=== PATIENT | female | born 1945 | race Caucasian/White ===

== ENCOUNTER 2021-11-09 06:16 | Day surgery (SDC) | payer MEDICARE, SELFPAY ==
[2021-11-09] VITALS (8 sets, daily range): BP systolic 103–153; BP diastolic 48–73; PULSE 48–58; RESP 16; TEMP 36.7; O2SAT 96–100; BMI 35.9
[2021-11-09] MEDS: LACTATED RINGERS 1000 ML 1,000 ML 100 ML IV (06:50)
[2021-11-09] MEDS: SODIUM CHLORIDE 0.9 % (FLUSH) 10 ML SYRINGE IVF (06:50)
[2021-11-09] MEDS: CLINDAMYCIN 900 MG/6 ML VIAL IVPB (07:55)
[2021-11-09] MEDS: BUPIVACAINE 0.25% 30 ML 10 ML INJECTION (08:05)
--- NOTE | 2021-11-09 08:23 | PM.GSPRC ---
Operative Note Date of procedure: 11/09/21 Type of Procedure: Excision of left buttock lipoma Procedure Description: After discussing the risks and benefits of the procedure, the patient signed informed consent.? The operative site was marked and the patient was brought to the operating room and placed on the operating table in left lateral decubitus position.? Care was taken to pad the patient's pressure points.?? The patient was then given sedation by anesthesia.?? The operative site was then prepped and draped in the usual sterile fashion.? A time-out was then performed. Local anesthetic of 0.25% Marcaine was used to anesthetize the surgical field. A transverse incision was made over the marked area. Dissection was carried down through the subcutaneous tissue with cautery. A well encapsulated lipoma was encountered. This was circumferentially dissected with blunt dissection and cautery. The mass was removed in its entirety and passed off to the back table to be sent for pathology. The mass measured 10 cm x 5 cm x 5 cm in size. The resulting cavity was gently irrigated with normal saline. Hemostasis was assured with electrocautery. The incision measured 4 cm in size and was closed in layers with interrupted 3 0 Vicryl and running 4-0 Monocryl subcuticular stitch. Exofin was applied over top. ? Sterile dressings were then applied. ? The patient was then woken and transported to the recovery area in stable condition. ? The patient tolerated the procedure well. Findings: Large lipomatous mass of the left buttock. Anesthesia: MAC and local Surgeon: Eden De La Vega MD Estimated blood loss (mL): 2 Condition: stable Disposition: same day
--- NOTE | 2021-11-09 08:32 | SUR.OPER ---
PATIENT QUESTIONS ANSWERED SATISFACTORILY PREOPERATIVELY.? PATIENT BROUGHT TO OR #1 PER CART.? Patient positioned supine then lateral right on OR #1 bed.?The perioperative?team supported arms bilaterally on arm boards.? Final approval of positioning by surgeon.?
--- NOTE | 2021-11-09 08:34 | W.ANESCHARGE ---
Anesthesia Charges Start Date/Time Anesthesia Start Date: 11/09/21 Anesthesia Start Time: 07:44 Stop Date/Time Anesthesia Stop Date: 11/09/21 Anesthesia Stop Time: 08:31 Summary Emergency: No Extremes of Age: Over 72-CPT 65188
--- NOTE | 2021-11-09 09:58 | W.ANESCHARGE ---
Anesthesia Charges Start Date/Time Anesthesia Start Date: 11/09/21 Anesthesia Start Time: 07:44 Stop Date/Time Anesthesia Stop Date: 11/09/21 Anesthesia Stop Time: 08:31 Summary Emergency: No Extremes of Age: Over 72-CPT 08494
== END 2021-11-09 10:00 | disposition home or self-care (01) ==
PROVIDERS: PCP Surgery; Visit Provider Surgery
PROC: (CPT 27043; principal; 2021-11-09 07:30)
DX: D17.1 Benign lipomatous neoplasm of skin and subcutaneous tissue of trunk (principal)
CPT/HCPCS: 27043; 400; 88304; 99100; J1100; J2250; J2405; J2704; J3010; J3490; J7120; S0077

== ENCOUNTER 2023-04-17 16:38 | Emergency (ER) | payer MEDICARE, SELFPAY ==
[2023-04-17 16:45] VITALS: BP 146/94; PULSE 82; RESP 18; O2SAT 98; BMI 33.3
--- NOTE | 2023-04-17 17:12 | ED_ITS ---
HPI - Skin/Abscess/Foreign Bdy General Chief complaint: Skin/Abscess/Foreign Body Stated complaint: Abscess on groin Time Seen by Provider: 04/17/23 16:42 History of Present Illness HPI narrative: This 77-year-old female comes in reporting pain and redness in the left inguinal region over the past couple days. She states that the pain and redness has worsened recently. She does not report any fevers. She states that she has had cellulitis in her extremities in the past and wonders if this might be happening in her groin on the left inguinal side. She also reports pain in her right deltoid musculature of the upper arm. She states that she lost her balance and fell forward and put her arm out to catch herself against a wall or some other stool type of support and since then has had some pain in the deltoid region. She has rather good range of motion and no point tenderness in this area. Related Data Home Medications Medication Instructions Recorded Confirmed flavoxate 100 mg tablet 100 mg PO TID 11/07/21 02/17/23 furosemide 20 mg tablet 20 mg PO DAILY 11/07/21 02/17/23 losartan 50 mg tablet 100 mg PO DAILY 11/07/21 02/17/23 ondansetron HCl 4 mg tablet 4 mg PO DAILY 11/07/21 02/17/23 oxybutynin chloride 10 mg 10 mg PO DAILY 11/07/21 02/17/23 tablet,extended release 24 hr potassium chloride 20 mEq 20 meq PO DAILY 11/07/21 02/17/23 tablet,extended release(part/cryst) sumatriptan succinate 50 mg tablet 50 mg PO DAILY 11/07/21 02/17/23 warfarin 5 mg tablet mg 11/07/21 02/17/23 amlodipine 10 mg tablet 10 mg PO DAILY 07/19/22 02/17/23 clobetasol 0.05 % topical ointment topical 07/19/22 02/17/23 doxycycline hyclate 100 mg tablet 100 mg PO BID 07/19/22 02/17/23 fluticasone propionate 50 1 spray intranasal DAILY 07/19/22 02/17/23 mcg/actuation nasal spray,suspension hydroxyzine HCl 25 mg tablet 25 mg PO 3XD 07/19/22 02/17/23 rosuvastatin 5 mg tablet 5 mg PO DAILY 07/19/22 02/17/23 Previous Rx's Medication Instructions Recorded clotrimazole 1 % topical ointment 1 applic topical BID #56.7 grams 04/17/23 doxycycline monohydrate 100 mg 100 mg PO DAILY #14 caps 04/17/23 capsule hydrocodone 5 mg-acetaminophen 325 1 tab PO Q4-6H PRN pain #15 tabs 04/17/23 mg tablet Allergies Allergy/AdvReac Type Severity Reaction Status Date / Time cephalexin Allergy Chest Pain Verified 02/17/23 12:02 clonidine Allergy tachycardia Verified 02/17/23 12:02 ibuprofen Allergy Chest Pain Verified 02/17/23 12:02 latex Allergy Rash Verified 02/17/23 12:02 Penicillins Allergy Anaphylaxis Verified 02/17/23 12:02 Sulfa (Sulfonamide Allergy Hives Verified 02/17/23 12:02 Antibiotics) gadodiamide AdvReac Unknown Verified 02/17/23 12:02 losartan AdvReac Tachycardia Verified 02/17/23 12:02 nitrofurantoin AdvReac Verified 02/17/23 12:02 [From Macrobid] propranolol AdvReac bradycardia Verified 02/17/23 12:02 IV contrast dye Allergy Hives Uncoded 02/17/23 12:02 peg 400-propylene glycol Allergy Rash Uncoded 02/17/23 12:02 Review of Systems Status of ROS: Reports: 10 or more systems reviewed and unremarkable except as noted in History and below Narrative: Constitutional: No fevers, no weight gain or loss. Eyes: No discharge. No vision changes. HENT: No congestion, no sore throat, no ear pain. Cardiovascular: No chest pain, no palpitations. Respiratory: No shortness of breath, no wheezes, no cough. Gastrointestinal: No abdominal pain, no vomiting, no diarrhea. Genitourinary: No dysuria, no hematuria. Musculoskeletal: Pain in the right upper arm. Skin: Erythema and pain in the left inguinal region. Neurological: No dizziness, weakness, sensory change, speech change. Endo/Heme/Allergies: No bruising or bleeding. No polydipsia. Pysch: no suicidality, no anxiety, no insomnia. All other systems reviewed and are negative. [facility] Medical History Atrial fibrillation ?I48.91 - Unspecified atrial fibrillation (ICD-10) Enlarged LA (left atrium) ?I51.7 - Cardiomegaly (ICD-10) Vitamin D deficiency ?E55.9 - Vitamin D deficiency, unspecified (ICD-10) Hyperlipidemia ?E78.5 - Hyperlipidemia, unspecified (ICD-10) Panic disorder without agoraphobia ?F41.0 - Panic disorder [episodic paroxysmal anxiety] (ICD-10) Benign paroxysmal positional vertigo ?H81.10 - Benign paroxysmal vertigo, unspecified ear (ICD-10) Hypertension ?I10 - Essential (primary) hypertension (ICD-10) Surgical History H/O hernia repair ?Z98.890 - Other specified postprocedural states (ICD-10) ?Z87.19 - Personal history of other diseases of the digestive system (ICD-10) H/O dilation and curettage ?Z98.890 - Other specified postprocedural states (ICD-10) History of appendectomy ?Z90.49 - Acquired absence of other specified parts of digestive tract (ICD- 10) Social History Smoking Status: Never smoker Do you use any of these nicotine containing products: None How often do you have a drink containing alcohol: never How often do you have six or more drinks on one occasion: Never AUDIT-C Alcohol total score: 0 Non-prescribed substance use: denies use Caffeine: No Are you using contraception or practicing any form of control: No Exam Narrative: Exam Narrative: Constitutional: Well-developed, well-nourished, no acute distress. HEENT: Normocephalic, atraumatic. Neck: Normal range of motion. Nontender. Supple. Heart: Regular. No murmurs. Normal rate. Intact distal pulses. Lungs: Clear to auscultation. No chest discomfort. No wheezes, rhonchi, or rales. Abdomen: Normal bowel sounds. Nontender. No rebound tenderness. Genitalia: Erythema in the skin fold of the left inguinal region. There is a small lump about 1 cm in diameter that may represent a small abscess. There is no sign of drainage. The skin is moist in the area of the skin fold. Back: No midline tenderness. Normal range of motion. Extremities: No injury. Diffuse pain in the right deltoid region of the upper arm. Range of motion is intact except it is more difficult for her to abduct her right arm beyond 90?. She has normal internal and external rotation. Empty can sign is negative. Lift-off sign also was negative. Skin: Intact. No rash. Warm. No erythema or pallor. Neurologic: No altered sensation. No weakness. Alert and oriented. Psychiatric: No suicidality. No anxiety or depression. No insomnia. Nursing notes and vitals signs are reviewed. Const: Vital Signs, click to edit/add: Vital Signs - 24 hr 04/17/23 16:45 Pulse Rate [Pulse Oximeter] 82 Respiratory Rate 18 Blood Pressure [Le ft Upper Arm] 146/94 H Pulse Oximetry 98 Oxygen Delivery Me thod Room Air Course Vital Signs Vital signs: Initial Vital Signs Pulse Rate 82 04/17/23 16:45 Pulse Rhythm Regular 04/17/23 16:45 Pulse Strength 3+ Normal 04/17/23 16:45 Respiratory Rate 18 04/17/23 16:45 Blood Pressure 146/94 H 04/17/23 16:45 Blood Pressure Mean 111 H 04/17/23 16:45 Blood Pressure Position Sitting 04/17/23 16:45 Pulse Oximetry 98 04/17/23 16:45 Oxygen Delivery Method Room Air 04/17/23 16:45 Vital Signs Pulse Rate 82 04/17/23 16:45 Respiratory Rate 18 04/17/23 16:45 Blood Pressure 146/94 H 04/17/23 16:45 Pulse Oximetry 98 04/17/23 16:45 Oxygen Delivery Method Room Air 04/17/23 16:45 Pulse Rate 82 04/17/23 16:45 Respiratory Rate 18 04/17/23 16:45 Blood Pressure 146/94 H 04/17/23 16:45 Pulse Oximetry 98 04/17/23 16:45 Oxygen Delivery Method Room Air 04/17/23 16:45 MDM - Skin/Abscess/Foreign Bdy MDM Narrative Medical decision making narrative: This patient has what appears to be a cellulitis in the left inguinal fold. There is moist presentation also bringing suspicion for superficial yeast or fungal infection. The patient has normal vital signs. I did discuss lab and imaging options but indicated a need to treat with antibiotic. Additionally her right upper arm is not showing sign of fracture or significant disability. I did discuss the role of x-ray imaging and in a process of shared decision making this was declined. The patient received prescriptions for doxycycline, clotrimazole, and [place]. I did describe signs and symptoms that indicate a need for return and re-evaluation. Discharge Plan Discharge Clinical Impression: Cellulitis, Right shoulder pain Patient Disposition: Home, Self-Care Condition: Unchanged Additional Instructions: Take medication as needed and indicated. Follow up with MD or return if worsening symptoms occur. Prescriptions: New hydrocodone-acetaminophen 5-325 mg tablet 1 tab PO Q4-6H PRN (Reason: pain) Qty: 15 0RF clotrimazole 1 % ointment 1 applic topical BID Qty: 56.7 0RF doxycycline monohydrate 100 mg capsule 100 mg PO DAILY Qty: 14 0RF No Action doxycycline hyclate 100 mg tablet 100 mg PO BID clobetasol 0.05 % ointment topical fluticasone propionate 50 mcg/actuation spray,suspension 1 spray intranasal DAILY hydroxyzine HCl 25 mg tablet 25 mg PO 3XD amlodipine 10 mg tablet 10 mg PO DAILY rosuvastatin 5 mg tablet 5 mg PO DAILY losartan 50 mg tablet 100 mg PO DAILY Patient Comments: TAKE 2 TABLETS BY MOUTH ONCE DAILY oxybutynin chloride 10 mg tablet extended release 24hr 10 mg PO DAILY Patient Comments: TAKE 1 TABLET BY MOUTH ONCE DAILY ondansetron HCl 4 mg tablet 4 mg PO DAILY Patient Comments: TAKE 1 TABLET BY MOUTH EVERY 8 HOURS NEEDED FOR NAUSEA AND VOMITING sumatriptan succinate 50 mg tablet 50 mg PO DAILY Patient Comments: TAKE 1 TABLET BY MOUTH TWICE DAILY NEEDED FOR MIGRAINE GIVE AT MINIMUM 2 HOURS APART. MAX DOSE 200MG PER 24 HOURS. potassium chloride 20 mEq tablet,ER particles/crystals 20 meq PO DAILY Patient Comments: TAKE 1 TABLET BY MOUTH ONCE DAILY WITH A MEAL warfarin 5 mg tablet furosemide 20 mg tablet 20 mg PO DAILY Patient Comments: TAKE 1 TABLET BY MOUTH IN THE MORNING flavoxate 100 mg tablet 100 mg PO TID Patient Comments: TAKE 1 TABLET BY MOUTH THREE TIMES DAILY Follow Up/Referrals: Nico Betancourt MD [Primary Care Provider] - Stand Alone Forms: [employer] Info Instructions
== END 2023-04-17 17:40 | disposition home or self-care (01) ==
LOC: ED 17:37
PROVIDERS: Emergency Provider Emergency Medicine Emergency Medical Services; PCP Surgery
DX: L03.314 Cellulitis of groin (principal)
CPT/HCPCS: 99283; 99284

== ENCOUNTER 2023-05-19 07:43 | Emergency (ER) | payer MEDICARE, SELFPAY ==
[2023-05-19 07:56] VITALS: BP 145/95; PULSE 52; RESP 16; TEMP 36.6; O2SAT 98; BMI 36.6
--- NOTE | 2023-05-19 08:06 | XR_ITS ---
Patient: GALE TOWNSEND Facility:?[facility] Patient ID:?[id number] Site Patient ID:?[id number]. Site :?[id number] Study:?XRay-Knee 3V-05/19/2023 8:35:46 AM Ordering Physician:EWA Final Report: INDICATION: Pain injury. TECHNIQUE: Three views of the right knee. FINDINGS: Demineralization. No acute fracture or dislocation. No visible effusion. 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 Dictated by David Quick MD @ 05/19/2023 8:40:36 AM Signed by:?David Quick MD @05/19/2023 8:40:36 AM (Electronic Signature)
--- NOTE | 2023-05-19 08:07 | ED_ITS ---
HPI - General Adult General Chief complaint: Extremity Pain/Injury, Lower Stated complaint: R knee pain Time Seen by Provider: 05/19/23 07:49 History of Present Illness HPI narrative: A 77-year-old female who reports a few weeks of right knee pain and this morning it was worse. No real swelling of the knee or locking or catching. She reports she was bumped into by a tire from a foam rubber fabricator and sustained some pain to her right shoulder and her right left knee but right knees now been bothering her. She has a pretty good size chronic valgus angle of her knee. She has not had any calf pain or ankle swelling. She is on Coumadin for chronic atrial fibrillation her last INR was recently done and was in the therapeutic range. She has not had any chest pain, shortness of breath. She has no bleeding or clotting problems . She was initially concerned about a blood clot but again she is therapeutic on her Coumadin and has no swelling of the leg or knee area. She has had no locking or catching way, she is able to bear weight. Related Data Home Medications Medication Instructions Recorded Confirmed flavoxate 100 mg tablet 100 mg PO TID 11/07/21 02/17/23 furosemide 20 mg tablet 20 mg PO DAILY 11/07/21 02/17/23 losartan 50 mg tablet 100 mg PO DAILY 11/07/21 02/17/23 ondansetron HCl 4 mg tablet 4 mg PO DAILY 11/07/21 02/17/23 oxybutynin chloride 10 mg 10 mg PO DAILY 11/07/21 02/17/23 tablet,extended release 24 hr potassium chloride 20 mEq 20 meq PO DAILY 11/07/21 02/17/23 tablet,extended release(part/cryst) sumatriptan succinate 50 mg tablet 50 mg PO DAILY 11/07/21 02/17/23 warfarin 5 mg tablet mg 11/07/21 02/17/23 amlodipine 10 mg tablet 10 mg PO DAILY 07/19/22 02/17/23 clobetasol 0.05 % topical ointment topical 07/19/22 02/17/23 doxycycline hyclate 100 mg tablet 100 mg PO BID 07/19/22 02/17/23 fluticasone propionate 50 1 spray intranasal DAILY 07/19/22 02/17/23 mcg/actuation nasal spray,suspension hydroxyzine HCl 25 mg tablet 25 mg PO 3XD 07/19/22 02/17/23 rosuvastatin 5 mg tablet 5 mg PO DAILY 07/19/22 02/17/23 Previous Rx's Medication Instructions Recorded clotrimazole 1 % topical ointment 1 applic topical BID #56.7 grams 04/17/23 doxycycline monohydrate 100 mg 100 mg PO DAILY #14 caps 04/17/23 capsule hydrocodone 5 mg-acetaminophen 325 1 tab PO Q4-6H PRN pain #15 tabs 04/17/23 mg tablet hydrocodone 5 mg-acetaminophen 325 1 tab PO Q8H PRN pain #14 tabs 05/19/23 mg tablet Allergies Allergy/AdvReac Type Severity Reaction Status Date / Time cephalexin Allergy Chest Pain Verified 05/19/23 08:00 clonidine Allergy tachycardia Verified 05/19/23 08:00 ibuprofen Allergy Chest Pain Verified 05/19/23 08:00 latex Allergy Rash Verified 05/19/23 08:00 Penicillins Allergy Anaphylaxis Verified 05/19/23 08:00 Sulfa (Sulfonamide Allergy Hives Verified 05/19/23 08:00 Antibiotics) gadodiamide AdvReac Unknown Verified 05/19/23 08:00 losartan AdvReac Tachycardia Verified 05/19/23 08:00 nitrofurantoin AdvReac Verified 05/19/23 08:00 [From Macrobid] propranolol AdvReac bradycardia Verified 05/19/23 08:00 IV contrast dye Allergy Hives Uncoded 02/17/23 12:02 peg 400-propylene glycol Allergy Rash Uncoded 02/17/23 12:02 Review of Systems Status of ROS: Reports: 6 or more systems reviewed and unremarkable except as noted in History and below [facility] Medical History Atrial fibrillation ?I48.91 - Unspecified atrial fibrillation (ICD-10) Enlarged LA (left atrium) ?I51.7 - Cardiomegaly (ICD-10) Vitamin D deficiency ?E55.9 - Vitamin D deficiency, unspecified (ICD-10) Hyperlipidemia ?E78.5 - Hyperlipidemia, unspecified (ICD-10) Panic disorder without agoraphobia ?F41.0 - Panic disorder [episodic paroxysmal anxiety] (ICD-10) Benign paroxysmal positional vertigo ?H81.10 - Benign paroxysmal vertigo, unspecified ear (ICD-10) Hypertension ?I10 - Essential (primary) hypertension (ICD-10) Surgical History H/O hernia repair ?Z98.890 - Other specified postprocedural states (ICD-10) ?Z87.19 - Personal history of other diseases of the digestive system (ICD-10) H/O dilation and curettage ?Z98.890 - Other specified postprocedural states (ICD-10) History of appendectomy ?Z90.49 - Acquired absence of other specified parts of digestive tract (ICD- 10) Social History Smoking Status: Never smoker Do you use any of these nicotine containing products: None How often do you have a drink containing alcohol: never How often do you have six or more drinks on one occasion: Never AUDIT-C Alcohol total score: 0 Non-prescribed substance use: denies use Caffeine: No Are you using contraception or practicing any form of control: No service: No Exam Narrative: Exam Narrative: Objective: Patient has elevated BMI Her vital signs look unremarkable O2 sat is excellent at 98% Her right knee shows no effusion no medial lateral joint line pain no anterior- posterior drawer sign No calf swelling, negative Homans, no edema of her lower extremity. She has good distal CMS. Neurologic is nonfocal and lower extremities. Const: Vital Signs, click to edit/add: Vital Signs - 24 hr 05/19/23 07:56 Temperature 97.8 F Pulse Rate [Right Pulse Oximeter] 52 L Respiratory Rate 16 Blood Pressure [Ri ght Upper Arm] 145/95 H Pulse Oximetry 98 Oxygen Delivery Me thod Room Air Course Vital Signs Vital signs: Initial Vital Signs Temperature 97.8 F 05/19/23 07:56 Temperature Source Temporal Artery Scan 05/19/23 07:56 Pulse Rate 52 L 05/19/23 07:56 Pulse Rhythm Regular 05/19/23 07:56 Pulse Strength 3+ Normal 05/19/23 07:56 Respiratory Rate 16 05/19/23 07:56 Blood Pressure 145/95 H 05/19/23 07:56 Blood Pressure Mean 111 H 05/19/23 07:56 Blood Pressure Position Sitting 05/19/23 07:56 Pulse Oximetry 98 05/19/23 07:56 Oxygen Delivery Method Room Air 05/19/23 07:56 Vital Signs Temperature 97.8 F 05/19/23 07:56 Pulse Rate 52 L 05/19/23 07:56 Respiratory Rate 16 05/19/23 07:56 Blood Pressure 145/95 H 05/19/23 07:56 Pulse Oximetry 98 05/19/23 07:56 Oxygen Delivery Method Room Air 05/19/23 07:56 Temperature 97.8 F 05/19/23 07:56 Pulse Rate 52 L 05/19/23 07:56 Respiratory Rate 16 05/19/23 07:56 Blood Pressure 145/95 H 05/19/23 07:56 Pulse Oximetry 98 05/19/23 07:56 Oxygen Delivery Method Room Air 05/19/23 07:56 Medical Decision Making MDM Narrative Medical decision making narrative: [age] white female defer on Coumadin for chronic atrial fib presents with right knee pain, chronic in nature. At this point I do not suspected DVT or other neurologic complaint given her absence of swelling, her normal sensation. At this point I think an x-ray would be reasonable to see if she has significant degenerative joint disease. And likely orthopedic referral. She has allergy to ibuprofen and may need short course of narcotic medication such as [place] until sees Orthopedics. Recommend ice and cold packs to the knee and limited weight- bearing. Also given her size and BMI do not think a knee immobilizer would be very helpful and actually may cause more imbalance. Addendum 8:32 a.m. by my read the x-ray shows significant lateral compartment degenerative joint disease. I would recommend the patient follow up with Orthopedics, will give her some pain medication. She is allergic to ibuprofen, and would use [place]. Ice to the area as well. Limit weight-bearing. I do not think a knee immobilizer be tolerated in her situation. Return as needed prior to follow-up with orthopedics. Discharge Plan Discharge Clinical Impression: Chronic pain of right knee Patient Disposition: Home w/ Parent or Adult Condition: Stable Additional Instructions: Ice to the right knee 5-10 minutes 4 to 5 times a day for the next few days, limit your weight-bearing, recommend orthopedic follow-up in the next 3-5 days. Will give use a small amount of pain medication to use if needed. You could certainly try Tylenol 1st, but if that is unsuccessful you can take the pain medication, do not take Tylenol in addition to the pain medication. Return sooner as needed. Ortho follow-up as directed Activity Level: Light activity Discharge Diet: Regular Prescriptions: New hydrocodone-acetaminophen 5-325 mg tablet 1 tab PO Q8H PRN (Reason: pain) Qty: 14 0RF No Action doxycycline hyclate 100 mg tablet 100 mg PO BID clobetasol 0.05 % ointment topical fluticasone propionate 50 mcg/actuation spray,suspension 1 spray intranasal DAILY hydroxyzine HCl 25 mg tablet 25 mg PO 3XD amlodipine 10 mg tablet 10 mg PO DAILY rosuvastatin 5 mg tablet 5 mg PO DAILY losartan 50 mg tablet 100 mg PO DAILY Patient Comments: TAKE 2 TABLETS BY MOUTH ONCE DAILY oxybutynin chloride 10 mg tablet extended release 24hr 10 mg PO DAILY Patient Comments: TAKE 1 TABLET BY MOUTH ONCE DAILY ondansetron HCl 4 mg tablet 4 mg PO DAILY Patient Comments: TAKE 1 TABLET BY MOUTH EVERY 8 HOURS NEEDED FOR NAUSEA AND VOMITING sumatriptan succinate 50 mg tablet 50 mg PO DAILY Patient Comments: TAKE 1 TABLET BY MOUTH TWICE DAILY NEEDED FOR MIGRAINE GIVE AT MINIMUM 2 HOURS APART. MAX DOSE 200MG PER 24 HOURS. potassium chloride 20 mEq tablet,ER particles/crystals 20 meq PO DAILY Patient Comments: TAKE 1 TABLET BY MOUTH ONCE DAILY WITH A MEAL warfarin 5 mg tablet furosemide 20 mg tablet 20 mg PO DAILY Patient Comments: TAKE 1 TABLET BY MOUTH IN THE MORNING flavoxate 100 mg tablet 100 mg PO TID Patient Comments: TAKE 1 TABLET BY MOUTH THREE TIMES DAILY hydrocodone-acetaminophen 5-325 mg tablet 1 tab PO Q4-6H PRN (Reason: pain) Qty: 15 0RF clotrimazole 1 % ointment 1 applic topical BID Qty: 56.7 0RF doxycycline monohydrate 100 mg capsule 100 mg PO DAILY Qty: 14 0RF Follow Up/Referrals: Nico Betancourt MD [Primary Care Provider] - Stand Alone Forms: [facility] Info Instructions
== END 2023-05-19 08:52 | disposition home or self-care (01) ==
LOC: ED 08:19
PROVIDERS: Emergency Provider Family Medicine; PCP Surgery
DX: M25.561 Pain in right knee (principal); W22.8XXA Striking against or struck by other objects, initial encounter
CPT/HCPCS: 73562; 99283; 99284

== ENCOUNTER 2023-06-04 06:16 | Day surgery (SDC) | payer MEDICARE, SELFPAY ==
--- OUTSIDE RECORDS SUMMARY | 2023-06-04 06:19 | XMS_ITS | Clinical Summary ---
Author Name Unknown Organization [facility] Address [address] [address] Phone Care Team Providers Care Learning Support Assistant Name Role Phone Unavailable Primary Care Provider Unavailabl e Allergies Active Allergy Reactions Criticality Noted Date Comments Cephalexin Chest Tightness High 05/27/2012 Some chest pressure, tightness, not sure if allergic response. Clonidine Tachycardia High 12/27/2008 Diatrizoate Hives High 04/26/2008 Latex RASH Medium 09/17/2006 Losartan Tachycardia High 07/12/2010 Certain formularies of Losartan, can take Zapien. Penicillins Anaphylaxis High 07/25/2006 Sulfa Drugs Hives High 07/25/2006 Medications Medication Sig Dispensed Refills Start Date End Date Status acetaminophen (Tylenol) 500 MG tablet Take 500 mg by mouth every six hours as needed. 08/31/2017 Active albuterol HFA (Proair HFA, Ventolin HFA) 108 (90 Base) MCG/ACT inhalation aerosol Every 4 Hours as needed Active amLODIPine (Norvasc) 2.5 MG tablet Take 2.5 mg by mouth one time a day. 08/18/2021 Active atorvaSTATin (Lipitor) 20 MG tablet Take 20 mg by mouth one time a day. 12/22/2020 Active cyclobenzaprine (Flexeril) 5 MG tablet Take 5 mg by mouth three times a day as needed. 12/22/2020 Active flavoxATE (Urispas) 100 MG tablet Take 100 mg by mouth three times a day. 12/22/2020 Active Fluconazole (DIFLUCAN OR) fluconazole Active fluticasone propionate (Flonase) 50 MCG/ACT nasal spray Instill nasally. 02/01/2021 Active Fluticasone-Salmeter ol 55-14 MCG/ACT Aerosol Powder Breath Activated fluticasone 55 mcg-salmeterol 14 mcg/actuation breath activated powder Inhale 1 puff twice a day by inhalation route. Active furosemide (Lasix) 20 MG tablet Take 20 mg by mouth one time a day as needed. 08/15/2021 Active hydrOXYzine HCl (Atarax) 25 MG tablet Take 25 mg by mouth one time a day. 08/18/2021 Active hyoscyamine (Anaspaz, Levsin) 0.125 MG tablet Take 0.125 mg by mouth every four hours as needed. 08/18/2021 Active loratadine (Claritin) 10 MG tablet Take 10 mg by mouth one time a day. 05/24/2009 Active losartan (Cozaar) 50 MG tablet Take 100 mg by mouth one time a day. 08/23/2021 Active nitrofurantoin, macrocrystal-monohyd rate, (Macrobid) 100 MG capsule Take 100 mg by mouth two times a day. 07/17/2021 Active Oxybutynin (OXYTROL TD) oxybutynin Active SUMAtriptan (Imitrex) 50 MG tablet Take 50 mg by mouth two times a day as needed. 12/22/2020 Active warfarin (Coumadin) 5 MG tablet Take by mouth 5 mg (5 mg x 1) every Tue, Gaby, Sat; 7.5 mg (5 mg x 1.5) all other days in the evening OR as directed 08/18/2021 Active Active Problems Problem Noted Date Diagnosed Date Chronic interstitial cystitis 09/18/2021 Arthralgia of temporomandibular joint 03/05/2019 Myofascial pain 03/05/2019 Neck pain 03/05/2019 Severe obesity 07/25/2018 Hyperopia of both eyes with astigmatism and pres byopia 03/08/2017 Nuclear senile cataract of both eyes 03/08/2017 Osteoarthritis of right knee 08/25/2015 Paroxysmal atrial fibrillation 08/18/2014 Enlarged LA (left atrium) 05/11/2014 Chest pain, unspecified 05/22/2012 Vitamin D deficiency 03/07/2011 Colon polyp 01/31/2011 Overview: Colonoscopy 01/2011 polyp repeat in 5 years Colonoscopy 11/2015 diverticulosis repeat in 5 years Colonoscopy 11/2020 diverticulosis, repeat in 5 years Refractive error 12/26/2009 Mixed hyperlipidemia 03/11/2009 Panic disorder without agoraphobia 11/18/2007 Benign paroxysmal positional vertigo 08/13/2006 Essential hypertension 07/25/2006 Immunizations Name Administration Dates Next Due Pneumococcal Conjugate, (Prevnar)13-valent 08/24 Zoster Zostavax (Shingles) 01/26/2010 Social History Tobacco Use Types Packs/Day Years Used Date Smoking Tobacco: Never Assessed Sex and Gender Information Value Date Recorded Sex Assigned at Not on file Gender Identity Not on file Sexual Orientation Not on file Job Start Date Occupation Industry Not on file Not on file Not on file Obstetrics History Last Filed Vital Signs Vital Sign Reading Time Taken Comments Blood Pressure 168/71 09/18/2021 1:00 PM CDT Pulse 56 09/18/2021 1:00 PM CDT Temperature 36.7 ??C (98 ??F) 09/18/2021 1:00 PM CDT Respiratory Rate 16 09/18/2021 1:00 PM CDT Oxygen Saturation 97% 09/18/2021 1:00 PM CDT Inhaled Oxygen Concentration - - Weight - - Height - - Body Mass Index - - Plan of Treatment Health Maintenance Due Date Last Done Comments CT Colonography 1947 Cologuard 1945 Colonoscopy 1945 Colorectal Cancer Screening 1945 FIT/FOBT 1947 Sigmoidoscopy 1945 PERTUSSIS (Standing Order) 08/15/1966 TETANUS (Standing Order) 08/15/1966 RSV Vaccination (60+ yrs) (Abrysvo/Arexvy) (1 - 1-dose 60+ series) 2007 Shingrix (Zoster recombinant ) vaccine (Standing Order) (1 of 2) 03/23/2010 DXA,FEMALES AGE 65 OR GREATER 08/15/2012 Pneumococcal Vaccine: 65+ yr s (Standing Order) (2 of 2 - PPSV23 or PCV20) 08/24/2016 08/25/2015 COVID-19 Vaccine ( - 2022-2 4 season) 2022 Influenza Vaccine Seasonal (Standing Order) (#1) 2022 HPV Vaccine (Standing Order) Aged Out No longer eligible based on patient's age to complete this topic Hepatitis B Vaccine (Standin g Order) Aged Out No longer eligible b ased on patient's age to complete this topic
--- OUTSIDE RECORDS SUMMARY | 2023-06-04 06:19 | XMS_ITS | Continuity of Care Document ---
Author Name Unknown Organization [facility] Address [address] [place] [address] Phone Care Team Providers Care Biomedical Equipment Technician Name Role Phone Unavailable Unavailable Unavailable Advance Directives Directive Yes / No Effective Date File Name No Information Encounters Encounter Description Practice Location Reason(s) For Visit Diagnoses Date Provider Providers Copied on Encounter [facility], [address] [place], [id number], [place] tel:[phone] [facility] No Information No Information Family History Family Member Type Diagnosis Age At Onset No Information Payers Payer name Insurance type Covered green party ID Authoriza tion(s) No Information Social History Type Description Quantity Date Captured Comments Sex Female Smoking Status No Information Chief Complaint And Reason For Visit No Information Reason For Referral Reason For Referral No Information History Of Present Illness Encounter Date Complaint History Of Prese nt Illness No Information Functional Status Date Functional Assessmen t No Information Instructions Date Instruction Additional Infor mation No Information Assessments Type Assessment Date No Information Patient Care Teams Name Effective Dates (start - stop) Status Members No Information
--- OUTSIDE RECORDS SUMMARY | 2023-06-04 06:19 | XMS_ITS | Clinical Summary ---
Author Name Unknown Organization [facility] Address [place], [place] [address] Care Team Providers Care Tugboat Dispatcher Name Role Phone Nico Betancourt MD Primary Care Provider [phone] Allergies Active Allergy Reactions Criticality Noted Date Comments Ibuprofen Chest Pain 05/30/2020 Cephalexin Chest Pain High 05/27/2012 Some chest pressure, tightness, not sure if allergic response. Clonidine Tachycardia High 12/27/2008 Gadodiamide *Unknown Low 12/21/2019 Diatrizoate Allergen Hives 04/26/2008 Latex Rash 09/17/2006 Losartan Tachycardia High 07/12/2010 Certain formularies of Losartan, can take Zapien. Nitrofurantoin Vaginal Irritation 08/15/2021 Penicillins Anaphylaxis 07/25/2006 Peg 400-Propylene Glycol Rash 03/08/2008 All creams, creams of any kinds, needs to use ointments Propranolol Bradycardia 11/16/2015 Propylene Glycol Rash Low 12/21/2019 Sulfa (Sulfonamide Antibiotics) Hives 07/25/2006 Unlisted Allergen (Include Detail In Comments) *Unknown Low 12/21/2019 Medications Medication Sig Dispensed Refills Start Date End Date Status loratadine (CLARITIN) 10 mg tablet Take 1 tablet by mouth once daily. 30 tablet 0 05/24/2009 Active Light Mineral Oil-Mineral Oil (SOOTHE XP) 1-4.5 % Drop eye drops Place into the eye(s) 3 times daily if needed for Dry Eyes. 0 08/28/2010 Active Glucosamine HCl-MSM (GLUCOSAMINE MSM) 1,500-500 mg/30 mL liqd daily 1 Bottle 0 10/19/2015 Active acetaminophen (TYLENOL EXTRA STRGTH) 500 mg tabletIndications:Ac crystal pain of left knee,Muscle spasm of back Take 1 tablet by mouth every 6 hours if needed (pain). Max acetaminophen dose: 4000mg in 24 hrs. 30 tablet 08/31/2017 Active fluocinonide 0.05 TOPICAL (LIDEX) 0.05 % external solutionIndications: Scalp irritation Apply up to twice daily as needed for scalp irritation 60 mL 1 02/12/2018 Active LORazepam (ATIVAN) 0.5 mg tabIndications:Anxie ty due to invasive procedure Take 1 tablet by mouth every 6 hours if needed (30 mins prior to procedure). 1 tablet 03/23/2020 Active albuterol HFA (PRO-AIR; VENTOLIN; PROVENTIL) 90 mcg/actuation inhaler Every 4 Hours as needed Active nystatin (MYCOSTATIN) 100,000 unit/mL suspensionIndication s:Thrush Swish and spit 5 mL (500,000 units) by mouth 4 times daily. 480 mL 1 12/22/2020 Active clobetasol 0.05% (TEMOVATE 0.05% OINTMENT) 0.05 % ointmentIndications: Vulvar itching Apply to vulva once daily as needed for itching - do not use for more than 1 week straight 60 g 3 06/13/2022 Active erythromycin ophthalmic ointment 0.5% INSTILL A 1/4 INCH RIBBON INTO THE INFERIOR CUL-DE-SAC OF BOTH EYES THREE TIMES DAILY FOR SEVEN DAY 07/20/2022 Active loteprednol (LOTEMAX GEL) 0.5 % ophthalmic gel INSTILL 1 DROP 4 TIMES DAILY INTO EACH EYE FOR 7 DAYS THEN STOP 07/20/2022 Active fluconazole (DIFLUCAN ORAL) Active fluticasone-salmeter ol (AIRDUO RESPICLICK) 55-14 mcg/actuation aepb inhaler Inhale 1 Puff by mouth once daily. Active ketotifen (ZADITOR) 0.025 % (0.035 %) ophthalmic solution Place 1 Drop into the eye(s) two times daily. Active metroNIDAZOLE (FLAGYL) 500 mg tablet Take 500 mg by mouth three times daily. 2022 Active naproxen (NAPROSYN) 500 mg tablet Take 500 mg by mouth once daily. 30 min after meal 2022 Active nystatin-triamcinolo ne (MYTREX) ointment Apply topically to affected area(s) two times daily. external labia for 2 weeks Active pentosan polysulfate sodium (ELMIRON ORAL) Active amLODIPine (Norvasc) 10 mg tabletIndications:HT N (hypertension) Take 1 Tablet (10 mg) by mouth once daily. 90 Tablet 03/07/2023 Active cyclobenzaprine (FLEXERIL) 5 mg tabletIndications:Mu scle spasm of back Take 1 Tablet (5 mg) by mouth 3 times daily if needed for Muscle Spasm. 30 Tablet 03/07/2023 Active flavoxATE (URISPAS) 100 mg tabletIndications:Ch ronic interstitial cystitis Take 1 Tablet (100 mg) by mouth three times daily. 270 Tablet 03/07/2023 Active fluticasone (50 mcg per actuation) nasal solution (FLONASE)Indications :Eustachian tube dysfunction, unspecified laterality Inhale 1 [place] to both nostrils once daily. 48 g 03/07/2023 Active furosemide (LASIX) 20 mg tabletIndications:Ch ronic diastolic congestive heart failure (HC) Take 1 Tablet (20 mg) by mouth once daily if needed (Leg swelling). Take around once a month 90 Tablet 03/07/2023 Active hydrOXYzine HCL (ATARAX) 25 mg tabletIndications:Ch ronic interstitial cystitis Take 1 Tablet (25 mg) by mouth at bedtime. 90 Tablet 03/07/2023 Active hyoscyamine (LEVSIN) 0.125 mg tabletIndications:Ch ronic interstitial cystitis Take 1 Tablet (0.125 mg) by mouth every 4 hours if needed for Bladder Spasms. 90 Tablet 03/07/2023 Active losartan (COZAAR) 50 mg tabletIndications:Es sential hypertension with goal blood pressure less than 140/90 Take 2 Tablets (100 mg) by mouth once daily. 180 Tablet 03/07/2023 Active omeprazole (PRILOSEC) 20 mg Delayed-Release capsuleIndications:G astric reflux Take 1 Capsule (20 mg) by mouth once daily before a meal. 90 Capsule 03/07/2023 Active ondansetron (ZOFRAN) 4 mg tabletIndications:Na usea Take 1 Tablet (4 mg) by mouth every 8 hours if needed for Nausea/Vomiting. 30 Tablet 1 03/07/2023 Active oxybutynin XL (DITROPAN XL) 10 mg CR tabletIndications:Bl adder pain Take 1 Tablet (10 mg) by mouth once daily. 90 Tablet 3 03/07/2023 Active potassium chloride (KLOR-CON M20) 20 mEq extended-release tablet (part/cryst)Indicati ons:Hypokalemia Take 1 Tablet (20 mEq) by mouth once daily with a meal. 90 Tablet 3 03/07/2023 Active rosuvastatin (CRESTOR) 5 mg tabletIndications:Hy perlipidemia, unspecified hyperlipidemia type Take 1 Tablet (5 mg) by mouth at bedtime. 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 Give at minimum 2hrs apart. Max Dose: 200mg per 24hrs. 12 Tablet 2 03/07/2023 Active warfarin (COUMADIN) 5 mg tabletIndications:Pa roxysmal atrial fibrillation (HC),Anticoagulation monitoring, INR range 2-3 Take by mouth 5 mg (5 mg x 1) every day in the evening OR as directed 03/14/2023 Active nystatin powder (MYCOSTATIN) powderIndications:In tertrigo Apply 1 Strip topically to affected area(s) three times daily. 60 g 2 04/18/2023 Active medication order composer [facility] Lila Oakley 1000mg daily 04/25/2023 Active Active Problems Problem Noted Date Diagnosed Date Chronic diastolic congestive heart failure 07/17 Severe obesity 07/25/2018 Hyperopia of both eyes with astigmatism and pres byopia 03/08/2017 Nuclear senile cataract of both eyes 03/08/2017 Osteoarthritis of right knee 08/25/2015 Paroxysmal atrial fibrillation 08/18/2014 Enlarged LA (left atrium) 05/11/2014 Cellulitis 02/04/2014 Family hx of colon cancer 07/22/2013 Overview: Father 61 Anticoagulation monitoring, INR range 2-3 2013 Chest pain, unspecified 05/22/2012 Vitamin D deficiency 03/07/2011 Colon polyp 01/31/2011 Overview: Colonoscopy 01/2011 polyp repeat in 5 years Colonoscopy 11/2015 diverticulosis repeat in 5 years Colonoscopy 11/2020 diverticulosis, repeat in 5 years Refractive error 12/26/2009 Mixed hyperlipidemia 03/11/2009 Panic disorder without agoraphobia 11/18/2007 Benign paroxysmal positional vertigo 08/13/2006 Unspecified essential hypertension 07/25/2006 Chronic interstitial cystitis Resolved Problems Problem Noted Date Diagnosed Date Resolved Date Morbid obesity with BMI of 40.0-44.9, adult 12/20/2015 07/08/2018 Postmenopausal bleeding 04/26/200802/19 Encounters Date Type Department Care Team Description 05/27/2023 10:40 AM CDT Preop Visit [address] [address] Talya Rashid MD Preoperative Exam ([place], 06/06/23, trigger finger on both hands) 05/27/2023 Travel 05/19/2023 Orders Only [facility] Scanner 1 scan: (1-Ord) [facility], RIGHT KNEE, 05/19/2023 05/10/2023 Telephone [facility] [address] [place] [address] Kacie Henderson MD Results 05/09/2023 9:45 AM CDT Orders Only [address] [address] Lab, [facility] 05/09/2023 9:10 AM CDT Office Visit [address] [address] Jenna Winchester MD Derm Problem (L groin abcess) 05/09/2023 8:15 AM CDT Ancillary Procedure [facility] [address] [place] [address] 05/09/2023 Anticoagulation (warfarin) [facility] [address] [place] [address] 1, [facility] Anticoagulation 05/09/2023 Travel 05/08/2023 Nurse Triage [facility] [address] [place] [address] Nico Betancourt MD Derm Problem (L groin abscess) 04/29/2023 12:45 PM CDT Office Visit [address] [address] Kacie Henderson MD Follow Up (Abscess left groin area); Shoulder Pain/problem (Right shoulder pain from fall x 2 wks); Musculoskeletal Problem (Cramping ? rosuvastatin) 04/29/2023 Travel 04/25/2023 11:00 AM TRANSMITTER OPERATOR Orders Only [address] [address] Lab 04/25/2023 Anticoagulation (warfarin) [facility] [address] [place] [address] 1, [facility] Anticoagulation 04/25/2023 Travel 04/24/2023 Telephone [facility] [address] [place] [address] Nico Betancourt MD Anticoagulation (Annual re-enrollment ) 04/23/2023 Anticoagulation (warfarin) [facility] [address] [place] [address] 1, [facility] Anticoagulation (Chart Update ) 04/23/2023 Telephone [facility] [address] [place] [address] 1, [facility] Anticoagulation (Doxycycline and Lions Adin ) 04/18/2023 Telephone [facility] [address] [place] [address] Nico Betancourt MD New Med Request (Powder to keep area dry) 04/11/2023 11:30 AM TRANSMITTER OPERATOR Orders Only [address] [address] Lab 04/11/2023 Anticoagulation (warfarin) [facility] [address] [place] [address] 1, [facility] Anticoagulation 04/11/2023 Travel 03/20/2023 9:30 AM TRANSMITTER OPERATOR Office Visit [facility] [address] [place] [address] Abel Stark, DPM Consult (Left foot pain) 03/20/2023 Travel 03/14/2023 11:00 AM TRANSMITTER OPERATOR Orders Only [facility] [address] [place] [address] Anticoagulation 03/14/2023 Anticoagulation (warfarin) [facility] [address] [place] [address] 1, [facility] Anticoagulation 03/14/2023 Travel 03/07/2023 11:30 AM TRANSMITTER OPERATOR Office Visit [facility] [address] [place] [address] Nico Betancourt MD Medicare ANNUAL (subsequent) Visit (77 yr old female) 03/07/2023 11:00 AM TRANSMITTER OPERATOR Orders Only [facility] [address] [place] [address] Lab, [facility] 03/07/2023 Anticoagulation (warfarin) [facility] [address] [place] [address] 1, [facility] Anticoagulation 03/07/2023 Telephone [facility] [address] [place] [address] Nico Betancourt MD Anticoagulation (BPA Omeprazole and Warfarin) 03/07/2023 Travel from Last 3 Months Immunizations Name Administration Dates Next Due Influenza, High-dose Inactivated 01/23/2016,11/19,12/16/2013 Influenza, IIV3 (Age >=3 years) 12/19/19 12,04/02/2011,11/16/2009,2007,12/11/2006 Pneumococcal Poly,23-Valent (Pneumovax) 07/08/2013 Pneumococcal conj 13-Valent (Prevnar 13) 08/25/2015 Tdap 07/20/2020,05/24/2009 Zoster (Zostavax-ZVL, live) 01/26/2010 Family History Medical History Relation Name Comments Hypertension Brother Cancer-colon Father at 61 Hypertension Father Hypertension Mother Other Mother macular degener ation Other Other motherside/glau coma Cancer-colon Paternal Aunt Cancer-colon Paternal Uncle Hypertension Sister Cancer-breast No Family History Cancer-ovarian No Family History Relation Name Status Comments Brother Father (Age 61) colon canc er Mother (Age 84) diffuse le wy body Other Paternal Aunt Paternal Uncle Sister Social History Tobacco Use Types Packs/Day Years Used Date Smoking Tobacco: Never Smokeless Tobacco: Never Tobacco Cessation:Counseling Given: Yes Alcohol Use Standard Drinks/Week Comments Not Currently 0 (1 standard drink = 0.6 oz pur e alcohol) PHQ-2 Answer Date Recorded PHQ-2 TOTAL SCORE 0 03/07/2023 Social Connections Answer Date Recorded Frequency of Communication with Friends and Fami ly 0 03/07/2023 Financial Resource Strain Answer Date R ecorded Difficulty of Paying Living Expenses 3 03/07/2023 Difficulty of Paying Living Expenses Not on file 03/07/2023 Food Insecurity Answer Date Recorded Worried About Running Out of Food in the Last Ye ar 1 03/07/2023 Transportation Needs Answer Date Record ed Lack of Transportation (Medical) 1 03/07/2023 Housing Stability Answer Date Recorded Unable to Pay for Housing in the Last Year 1 03/07/2023 Sex and Gender Information Value Date Recorded Sex Assigned at Not on file Gender Identity Not on file Sexual Orientation Not on file Obstetrics History Para Term AB IAB SAB Ectopic Multiple Livin g Live Births 3 2 1 1 2 Date Outcome GA Total Labor Labor/2nd/3rd Weight Sex Delivery Anes PTL Emily A1 A5 Name Cl in Para Para SAB Last Filed Vital Signs Vital Sign Reading Time Taken Comments Blood Pressure 133/74 05/27/2023 10:38 AM CDT Pulse 60 05/27/2023 10:38 AM CDT Temperature 36.4 ??C (97.5 ??F) 05/27/2023 10:38 AM C DT Respiratory Rate 20 07/20/2020 10:20 AM CDT Oxygen Saturation 98% 05/27/2023 10:38 AM CDT Inhaled Oxygen Concentration - - Weight 96.6 kg (213 lb) 05/27/2023 10:38 AM CDT Height 161.3 cm (5' 3.5) 05/27/2023 10:38 AM CD T Body Mass Index 37.13 05/27/2023 10:38 AM CDT Plan of Treatment Health Maintenance Due Date Last Done Comments Zoster (shingles) series for age 50+ (2 of 3) 03/23/2010 01/26/2010 COVID-19 vaccine series (2022- season) 2022 Influenza for age 65+ 10/20/2023 01/23/2016 , 12/13/2014, 12/16/2013, Additional history exists Depression screening for age 12+ 03/07/2024 03/07/2023, 03/07/2023, 03/07/2023, Additional history exists Medicare Wellness for age 65+ 03/07/2024, 01/02/2022, 12/22/2020, Additional history exists BMI (ht and wt on same day) for age 18+ 05/26/2024 05/27/2023, 04/29/2023, 03/07/2023, Additional history exists Colonoscopy through age 75 12/16/202512/16, 12/16/2020, 12/15/2015, Additional history exists Lipids for age 45-75 03/07/2028 03/07/2023, 01/02/2022, 12/22/2020, Additional history exists Tetanus booster 07/20/2030 07/20/2020, 05/24/2009 DEXA/DXA scan for age 65+ Completed 04/30/2014 Pneumococcal series for age 65+ Completed 6, 07/08/2013 Hepatitis C screening for ag e 18-79 Completed 11/18/2015 Tdap Completed 07/20/2020, 05/24/2009 Procedures Procedure Name Priority Date/Time Associated Diagnosis Comments POTASSIUM Routine 05/27/2023 11:44 AM CDT Pre-op exam SCAN-MAMMOGRAPHY REPORT 05/19/2023 12:00 AM CDT INR,POCT Routine 05/09/2023 9:33 AM CDT Paroxysmal atrial fibrillation (HC) Anticoagulation monitoring, INR range 2-3 US LOWER EXTREMITY SOFT TISSUE LEFT Routine 05/09/2023 8:27 AM CDT Wound of left groin, initial encounter Pain in left thigh INR,POCT Routine 04/25/2023 10:44 AM TRANSMITTER OPERATOR Paroxysmal atrial fibrillation (HC) Anticoagulation monitoring, INR range 2-3 PROTIME-INR STAT 04/11/2023 11:00 AM TRANSMITTER OPERATOR Paroxysmal atrial fibrillation (HC) Anticoagulation monitoring, INR range 2-3 PROTIME-INR STAT 03/14/2023 11:18 AM TRANSMITTER OPERATOR Paroxysmal atrial fibrillation (HC) Anticoagulation monitoring, INR range 2-3 TSH WITH REFLEX Routine 03/07/2023 11:10 AM TRANSMITTER OPERATOR Family history of thyroid cancer BASIC METABOLIC PANEL Routine 03/07/2023 11:10 AM TRANSMITTER OPERATOR Unspecified essential hypertension LIPID PANEL W REFLEX MEASURED LDL Routine 03/07/2023 11:10 AM TRANSMITTER OPERATOR Mixed hyperlipidemia PROTIME-INR STAT 03/07/2023 11:10 AM TRANSMITTER OPERATOR Paroxysmal atrial fibrillation (HC) Anticoagulation monitoring, INR range 2-3 COLONOSCOPY 12/16/2020 8:39 AM CDT ANTI HCV Routine 11/18/2015 10:57 AM CDT Need for hepatitis C screening test XR DXA BONE DENSITY 2 SITES AXIAL Routine 04/30/2014 11:24 AM CDT Ovarian failure from Last 3 Months or Most Recently Relevant to Health Maintenance Results * POTASSIUM (05/27/2023 11:44 AM CDT) POTASSIUM 4.1 3.5 - 5.1 mmol/L 05/27/2023 9:25 PM CDT [facility] Blood BLOOD SPECIMEN / Unknown Butterfly / Unknown 05/27/2023 11:44 AM CDT 05/27/2023 11:44 AM CDT Talya Rashid MD CHEMISTRY [facility] [address] [place] [address], [place] * SCAN-MAMMOGRAPHY REPORT (05/19/2023 12:00 AM CDT) Anatomical Region Laterality Modality Other Scanner OTHER * (ABNORMAL) INR,POCT (05/09/2023 9:33 AM CDT) Only the most recent of2 resultswithin the time period is included. INR 2.1(H) <1.3 05/09/2023 9:36 AM CDT [facility] Blood BLOOD SPECIMEN / Unknown 05/09/2023 9:33 AM CDT 05/09/2023 9:36 AM CDT Narrative [facility] - 05/09/2023 9:36 AM CDT ?Therapeutic Range 2.0-3.0 for most anticoagulated patients 2.5-3.5 or 4.0 for high risk patients Nico Betancourt MD LABORATORY Performing Organization Address [facility] Co de Phone Number [facility] [address] [place] [address], * US LOWER EXTREMITY SOFT TISSUE LEFT (05/09/2023 8:27 AM CDT) Anatomical Region Laterality Modality ARM R Ultrasound 05/09/2023 2:36 PM CDT Narrative 05/09/2023 2:36 PM CDT For Patients: ??As a result of the 21st Century Cures Act, medical imaging exams and procedure reports are released immediately into your electronic medical record. ??You may view this report before your referring provider. ??If you have questions, please contact your health care provider. Indication: Wound of left groin, initial encounter Technique: Grayscale and color Doppler ultrasound of the left groin subcutaneous tissues performed. Comparison: None Findings: There is a geographic area of slightly hypoechoic nonvascular tissue within the subcutaneous fat measuring approximately 2.6 cm. No fluid collection or abscess. No abnormal vascularity. Impression: Subcutaneous nodular density has the appearance of either a benign lipoma or subcutaneous bruise. No abscess or suspicious lesion. Dictated by Ceferino Dennis MD @ 05/09/2023 2:36:57 PM (Electronically Signed) Procedure Note Ceferino Dennis MD - 05/09/2023 For Patients: As a result of the Cures Act, medical imagingexams and procedure reports are released immediately into your electronicmedical record. You may view this report before your referring provider.If you have questions, please contact your health care provider. Indication: Wound of left groin, initial encounter Technique: Grayscale and color Doppler ultrasound of the left groin subcutaneoustissues performed. Comparison: None Findings: There is a geographic area of slightly hypoechoic nonvascular tissuewithin the subcutaneous fat measuring approximately 2.6 cm. No fluidcollection or abscess. No abnormal vascularity. Impression: Subcutaneous nodular density has the appearance of either a benign lipomaor subcutaneous bruise. No abscess or suspicious lesion. Dictated by Ceferino Dennis MD @ 05/09/2023 2:36:57 PM (Electronically Signed) Kacie Henderson MD US * (ABNORMAL) PROTIME-INR (04/11/2023 11:00 AM TRANSMITTER OPERATOR) Only the most recent of3 resultswithin the time period is included. INR 2.2(H) <1.3 04/11/2023 1:36 PM TRANSMITTER OPERATOR [facility] PROTIME 24.1(H) 10.3 - 12.3 sec 04/11/2023 1:36 PM TRANSMITTER OPERATOR [facility] Blood BLOOD SPECIMEN / Unknown Butterfly / Unknown 04/11/2023 11:00 AM TRANSMITTER OPERATOR 04/11/2023 11:06 AM TRANSMITTER OPERATOR Narrative [facility] - 04/11/2023 1:36 PM TRANSMITTER OPERATOR ?Therapeutic Range 2.0-3.0 for most anticoagulated patients 2.5-3.5 or 4.0 for high risk patients The INR is only used for patients on stable oral anticoagulant therapy. It makes no significant contribution to the diagnosis or treatment of patients whose Protime is prolonged for other reasons. INR results are increased when heparin levels exceed 1.0 U/mL, which corresponds to an aPTT >125 seconds if the patient is on UFH. Nico Betancourt MD HEMATOLOGY Performing Organization Address [facility] de Phone Number [facility] [address] [place] [address], * TSH WITH REFLEX (03/07/2023 11:10 AM TRANSMITTER OPERATOR) TSH 1.85 0.27 - 4.20 uIU/mL 03/07/2023 9:47 PM TRANSMITTER OPERATOR [facility] Blood BLOOD SPECIMEN / Unknown Venipuncture / Unknown 03/07/2023 11:10 AM TRANSMITTER OPERATOR 03/07/2023 11:10 AM TRANSMITTER OPERATOR [facility] - 03/07/2023 9:47 PM TRANSMITTER OPERATOR In Adults, TSH values between 5.00 and 10.00 uIU/ml do not necessarily indicate the presence of Hypothyroidism. Correlation with clinical findings such as presence of goiter and/or Thyroperoxidase (TPO) Antibody may be helpful. For more information please refer to MAMADOU 2004; 291: 228-238. Nico Betancourt MD CHEMISTRY Performing Organization Address [facility] de Phone Number [facility] [address] [place] [address], * LIPID PANEL W REFLEX MEASURED LDL (03/07/2023 11:10 AM TRANSMITTER OPERATOR) CHOLESTEROL,TOTAL 166 100 - 199 mg/dL 03/07/2023 9:47 PM TRANSMITTER OPERATOR [facility] Comment: Cholesterol, Total Reference Ranges Desirable <200 mg/dL Borderline 200-239 mg/dL High >=240 mg/dL TRIGLYCERIDES 138 <150 mg/dL 03/07/2023 9:47 PM TRANSMITTER OPERATOR [facility] HDL CHOLESTEROL 49 >40 mg/dL 9:47 PM TRANSMITTER OPERATOR [facility] NON-HDL CHOLESTEROL 117 <145 mg/dl 03/07/2023 9:47 PM [facility] CHOL/HDL RATIO 3.39 <4.50 03/07/2023 9:47 PM [facility] LDL CHOLESTEROL 89 <=130 mg/dL 03/07/2023 9:47 PM [facility] VLDL CHOLESTEROL 28 <=30 mg/dL 03/07/2023 9:47 PM [facility] PROVIDER ORDERED STATUS RANDOM 03/07/2023 9:47 PM [facility] Blood BLOOD SPECIMEN / Unknown Venipuncture / Unknown 03/07/2023 11:10 AM TRANSMITTER OPERATOR 03/07/2023 11:10 AM [facility] Nico Betancourt MD CHEMISTRY [facility] [address] [place] [id number], * (ABNORMAL) BASIC METABOLIC PANEL (03/07/2023 11:10 AM TRANSMITTER OPERATOR) SODIUM 140 136 - 145 mmol/L 03/07/2023 9:[address] [facility] POTASSIUM 3.9 3.5 - 5.1 mmol/L 03/07/2023 9:[address] [facility] CHLORIDE 104 98 - 107 mmol/L 03/07/2023 9:[address] [facility] CO2,TOTAL 26 22 - 29 mmol/L 03/07/2023 9:[address] [facility] ANION GAP 10 5 - 18 03/07/2023 9:[address] [facility] GLUCOSE 98 70 - 99 mg/dL 03/07/2023 9:[address] [facility] CALCIUM 9.3 8.8 - 10.2 mg/dL 03/07/2023 9:[address] [facility] BUN 20 8 - 23 mg/dL 03/07/2023 9:47 PM TRANSMITTER OPERATOR [facility] CREATININE 0.83 0.50 - 0.90 mg/dL 03/07/2023 9:47 PM TRANSMITTER OPERATOR [facility] BUN/CREAT RATIO 24(H) 10 - 9:47 PM TRANSMITTER OPERATOR [facility] eGFR 74(L) >90 mL/min/1.7 3m2 03/07/2023 9:[address] [facility] Comment:As of 2021, eG FR is calculated by the CKD-EPI creatinine equation without race adjustment. ??eGFR can be influenced by muscle mass, exercise, and diet. ??The reported eGFR is an estimation only and is only applicable if the renal function is stable. Blood BLOOD SPECIMEN / Unknown Venipuncture / Unknown 03/07/2023 11:10 AM TRANSMITTER OPERATOR 03/07/2023 11:10 AM TRANSMITTER OPERATOR Nico Betancourt MD CHEMISTRY [facility] [address] [address], * COLONOSCOPY (12/16/2020 8:39 AM CDT) 12/16/2020 8:39 AM CDT Narrative Transcriptions Solomon Shelton MD - 12/16/2020 9:43 AM CDT Patient Name: Cindy Gallegos Procedure Date: 12/16/2020 Gender: Female Date of : 1945 Admit Type: Outpatient Procedure: Colonoscopy Proceduralist: Solomon Shelton MD , Hannah Clemons (Nurse) Indications/Pre-Op Diagnosis: High risk colon cancer surveillance:Personal history of adenoma less than 10 mm in size, Last colonoscopy: November 2015, Familyhistory of colon cancer in a first-degree relative before age 60 years Medications: Fentanyl 150 micrograms IV, Midazolam 4 mgIV, The level of sedation administered wasmoderate Procedure Description: The patient had risks, benefits and alternatives explained to andgave informed consent. The patient had a stable cardiopulmonary status and judged an adequate candidate for conscious sedation. The [id number]-[id number] was passed through the anus and advanced tothe cecum, identified by appendiceal orifice and ileocecal valve. The colonoscopy was performed without difficulty. The patient toleratedthe procedure well. The quality of the bowel preparation was good. The ileocecal valve, appendiceal orifice, and rectum were photographed. Complications: No immediate complications. Estimated Blood Loss & Specimen: Estimated blood loss: none. Specimen collected - None Findings: The perianal and digital rectal examinations were normal. Multiple small and large-mouthed diverticula were found in thesigmoid colon. The exam was otherwise without abnormality. Impressions/Post-Op Diagnosis: - Moderate diverticulosis in the sigmoid colon. - The examination was otherwise normal. - No specimens collected. Recommendation: - Patient has a contact number available for emergencies. The signsand symptoms of potential delayed complications were discussed with the patient. Return to normal activities tomorrow. Written discharge instructions were provided to the patient. - Resume previous diet. - Continue present medications. - Repeat colonoscopy in 5 years for surveillance. - Resume Coumadin (warfarin) at prior dose today. Refer to managing physician for further adjustment of therapy. Moderate Sedation: Moderate (conscious) sedation was administered by the endoscopy nurse and supervised by the endoscopist. The following parameters were monitored: oxygen saturation, heart rate, respiratory rate, blood pressure, adequacy of pulmonary ventilation and reponse to care. Please refer to the patient's medical record flowsheets and nursing notes for moderate sedation details. Total physician intraservice time was 20 minutes. Solomon Shelton MD 12/16/2020 9:43:36 AM This report has been signed electronically. Note Initiated On: 12/16/2020 8:39 AM Procedure Code(s): --- Professional --- 29189, Colonoscopy, flexible; diagnostic, including collection of specimen(s) bybrushing or washing, when performed (separateprocedure) Diagnosis Code(s): --- Professional --- Z86.010, Personal history of colonicpolyps Z80.0, Family history of malignant neoplasmof digestive organs K57.30, Diverticulosis of large intestine without perforation or abscess withoutbleeding CPT copyright 2020 [employer]. All rights reserved. The codes documented in this report are preliminary and upon radiological technician reviewmay be revised to meet current compliance requirements. Scope In: 9:17:25 AM Scope Withdrawal Time 0 hours 7 minutes 21 seconds Scope Out: 9:34:13 AM Solomon Shelton MD PROCEDURE ORD * ANTI HCV [47084.2] (11/18/2015 10:57 AM CDT) HEPATITIS C ANTIBODY Non-Reacti ve Non-Reacti ve 11/18/2015 5:27 PM CDT [facility] Blood BLOOD SPECIMEN / Unknown Venipuncture / Unknown 11/18/2015 10:57 AM CDT 11/18/2015 10:58 AM CDT Narrative [facility] - 11/18/2015 5:27 PM CDT Antibodies to HCV not detected; does not exclude the possibility of exposure to HCV. Nico Betancourt MD SEND OUTS [facility] [address] [place] [address], * (ABNORMAL) XR DXA BONE DENSITY 2 SITES (04/30/2014 11:24 AM CDT) Anatomical Region Laterality Modality Spine, HIPS, HIPL, HIPR Other Narrative 05/14/2014 4:47 PM CDT Please see scanned document for results of this study. Procedure Note Kamala Kerr PA - 05/14/2014 Please see scanned document for results of this study. 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
--- OUTSIDE RECORDS SUMMARY | 2023-06-04 06:19 | XMS_ITS | Data Portability ---
Author Name Unknown Address [address] [place] [address] Phone [phone] [facility] Address [address] [facility] [facility] [address] [place] [address] Assessment Encounter Date Assessment Date Assessment LastModified by Organization Details LastModified Time 01/03/2022 01/03/2022 Of note a total of 30 minutes was spent: preparing to see the patient by reviewing records, images, and laboratory data; obtaining/revie wing separately obtained history; performing physical examination, counseling and educating patient/family/ caregiver; ordering appropriate medications, labs, imaging or procedures; documenting the clinical encounter; and coordination of care. Not available 01/03/2022 13:41:41 Plan of Treatment Reminders Order Date Submit Date Provider Last Modified By Organization Details Last Modified Time Details Appointments None recorded. Lab None recorded. Referral None recorded. Procedures None recorded. Surgeries None recorded. Imaging None recorded. Medication Orders oxybutynin chloride ER 10 mg tablet,exte nded release 24 hr 2021 [facility] [address] [address] [place], [address], 12:06:34 hyoscyamine sulfate 0.125 mg tablet 2021 [facility] [address], [address] [place], [address], 12:06:36 hydroxyzine HCl 25 mg tablet 2021 [facility] [address], [address] [facility], [place], [address], 2 12:06:33 Patient TargetsNo targets recorded. Patient InstructionsNo instructions recorded. Reason for Referral None Reported. Procedures Surgical History Date Name Laterality Status Provider Name and Address Organization Details Recorded Time Appendectomy completed Donald Carranza MD [address] [place] [address],[address], [place], [place], [address] [place] [address], [facility] 01/03/2022 11:42:03 Colonoscopy completed Donald Carranza MD [address] [place] [address],[address] [place] [address], [phone], [facility] 01/03/2022 11:42:11 Hernia Repair completed Donald whitlock MD [address] [place] [address],[address], [address] [place] [address], [facility] 01/03/2022 11:42:17 Imaging Results None recorded. Procedure Notes None recorded. Medical Equipment None Reported. Allergies Allergen ID Allergen Name Allergen Category Reaction Reaction Severity Criticality Documentation Date Start Date Code Code System Note Provider Name and Address Organization Details Recorded Time 727786 clonidine medicatio n Not available Not available Not available 01/03/2022 2599 RxNorm Donald Carranza MD [address] [place] [address],[address] [place] [address], [phone], [facility] 2 11:39:41 [id number] Iodinated contrast media (substanc e) medicatio n Not available Not available Not available 01/03/2022 43259 2004 SNOMED Donald Carranza MD [address] [place] [address],[address] [place] [address], [phone], [facility] 2 11:39:50 221467 Keflex medicatio n Not available Not available Not available 01/03/2022 38717 7 RxNorm Donald Carranza MD [address] [place] [address],[address], [place], [address], [facility] 2 11:40:21 779981 latex environme nt,medica tion Not available Not available Not available 01/03/2022 53911 91 RxNorm Donald Carranza MD [address] [place] [address],[address], [place], [phone], [facility] 2 11:40:25 977058 losartan medicatio n Not available Not available Not available 01/03/2022 49763 RxNorm Donald Carranza MD [address] [place] [address],[address], [place], [phone], [facility] 2 11:40:39 362550 Medicinal product containin g penicilli n and acting as antibacte rial agent (product) medicatio n Not available Not available Not available 01/03/2022 53927 05 BRIANA Carranza MD [address] [place] [address],[address] [place] [address], [phone], [facility] 2 11:40:44 759511 Substance with sulfonami de structure and antibacte rial mechanism of action (substanc e) medicatio n Not available Not available Not available 01/03/2022 93172 8003 BRIANA Carranza MD [address] [place] [address],[address], [place], [address], [facility] 2 11:40:48 Medications Name Sig Start Date Stop Date Status Note LastModified by Organization Details LastModified Time losartan 50 mg tablet TAKE 2 TABLETS BY MOUTH ONCE DAILY active Not Available Not Available No t Available atorvastatin 40 mg tablet TAKE 1 TABLET BY MOUTH ONCE DAILY active Not Available Not Available No t Available nystatin 100,000 unit/mL oral suspension SWISH 1 TEASPOONFUL (5MLS) IN MOUTH FOR 2 MINUTES, THEN EXPECTORATE 4 TIMES DAILY active Not Available Not Available No t Available atorvastatin 20 mg tablet TAKE 1 TABLET BY MOUTH ONCE DAILY active Not Available Not Available No t Available Urispas 100 mg tablet Take 1 tablet every day by oral route. active Not Available Not Available No t Available oxybutynin chloride ER 10 mg tablet,exten ded release 24 hr Take 1 tablet every day by oral route. 2021 active Not Available Not Available Not Avai lable ondansetron HCl 4 mg tablet TAKE 1 TABLET BY MOUTH EVERY 8 HOURS NEEDED FOR NAUSEA AND VOMITING active Not Available Not Available No t Available sumatriptan 50 mg tablet TAKE 1 TABLET BY MOUTH TWICE DAILY NEEDED FOR MIGRAINE GIVE AT MINIMUM 2 HOURS APART MAX DOSE 200MG PER 24 HOURS active Not Available Not Available No t Available amlodipine 2.5 mg tablet TAKE 1 TABLET BY MOUTH ONCE DAILY TAKE WITH 5MG FOR TOTAL OF 7.5MG DAILY active Not Available Not Available No t Available amlodipine 5 mg tablet TAKE 1 TABLET BY MOUTH ONCE DAILY active Not Available Not Available No t Available nystatin-tri amcinolone 100,000 unit/gram-0. 1 % topical ointment APPLY OINTMENT TOPICALLY TWICE DAILY TO EXTERNAL LABIA FOR 2 WEEKS active Not Available Not Available No t Available potassium chloride ER 20 mEq tablet,exten ded release(part /cryst) TAKE 1 TABLET BY MOUTH ONCE DAILY WITH A MEAL active Not Available Not Available No t Available hyoscyamine sulfate 0.125 mg tablet TAKE 2 TABLETS BY MOUTH EVERY 4 HOURS active Not Available Not Available No t Available warfarin 5 mg tablet TAKE 5MG (1 TABLET ) BY MOUTH EVERY Saturday AND SATURDAY TAKE 7.5MG (1 & 1/2 TABLET) BY MOUTH ON ALL OTHER DAYS OR DIRECTED active Not Available Not Available No t Available nystatin-tri amcinolone 100,000 unit/g-0.1 % topical cream USE TWICE DAILY TOPICALLY TO EXTERNAL LABIA FOR 2 WEEKS active Not Available Not Available No t Available hydroxyzine HCl 25 mg tablet TAKE 1 TABLET BY MOUTH THREE TIMES DAILY 2022 active Not Available Not Available Not Avai lable furosemide 20 mg tablet TAKE 1 TABLET BY MOUTH IN THE MORNING active Not Available Not Available Not Available clobetasol 0.05 % topical ointment APPLY TO VULVA ONCE DAILY NEEDED FOR ITCHING DO NOT USE FOR MORE THAN 1 WEEK STRAIGHT active Not Available Not Available No t Available fluticasone propionate 50 mcg/actuatio n nasal spray,suspen pankaj USE 1 SPRAY(S) IN EACH NOSTRIL ONCE DAILY active Not Available Not Available N ot Available rosuvastatin 5 mg tablet TAKE 1 TABLET BY MOUTH AT BEDTIME active Not Available Not Available No t Available nitrofuranto in monohydrate/ macrocrystal s 100 mg capsule TAKE 1 CAPSULE BY MOUTH TWICE DAILY active Not Available Not Available No t Available Vitals Date Recorded Body height Body mass index (BMI) Body weight Provider Name and Address Organization Details Last Updated DateTime 01/03/2022 162.56 cm 34.3 kg/m2 26672.47 g Donald Carranza MD [address] [facility] [address], [place], [address] 01/03/2022 11:43:40 Social History Question Answer Notes LastModified by Organizat ion Details LastModified Time Tobacco Smoking Status Never Smoker Donald Carranza MD [address] [facility] [address], [place], [address] 01/03/2022 11:41:47 What Is Your Level Of Alcohol Consumption? None [facility] Information not available 01/03/2022 What Was The Date Of Your Most Recent Tobacco Screening? 01/03/2022 Information not available 01/03/2022 Do You Use Any Illicit Or Recreational Drugs? Yes [facility] Information not available 01/03/2022 Sex: Female Functional Status None recorded. Mental Status None recorded. Family History Nothing Reported. Medical History Condition Response Other Y High Blood Pressure Y High Cholesterol Y Gynecological HistoryNo gynecological history recorded. Obstetrics History GPAL:G 0 P 0 0 0 0 Past Encounters Encounter ID Performer Location Encounter Start Date Encounter Closed Date Diagnosis/Indication Diagnosis SNOMED-CT Code [id number] Donald Carranza MD [facility] [address] [place] [id number] 01/03/2022 11:20:39 01/05/2022 11:03:20 Chronic interstitial cystitis 451162995 Bladder pain 18994616 Health Concerns Section Related Observation LastModified by Organization Detai ls LastModified Time None Recorded Concern Status LastModified by Organization Details LastModified Time None Recorded Advance Directives Directive None Recorded Payers Encounter Date Sequence Insurance Name Policy Number Policy Narayanan Covered Member ID Narayanan Member ID Guarantor Name 01/03/2022 1 [employer] - DOS ON OR AFTER 19 (MEDICARE REPLACEMENT/ ADVANTAGE - PPO) [id number] Cindy Gallegos [id number] Cindy Gallegos Notes Date Note Type Note Provider Name and Address Organization Details Recorded Time 01/03/2022 text/html HPI Notes: 76 yo female was dx with Insterstitial cystitis in the remote past. She was on Levsin and Urispas for many years. She reports an increase in symptoms. She reports burning when the bladder is full - better when empty. She states her symptoms are triggered by foods. She did not want to try Elmiron. She did not try Oxybutynin ER 5 mg daily (expensive). 12/01/18 - She presents for follow-up on urination. She reports no change in urination. She voids every 30 minutes to 3 hours during the day and 1x/night. She denies hesitancy or slow stream. 07/20/20 Here for follow up chronic interstitial cystitis, painful bladder syndrome. Has followed with my partner Dr. Zaidi who at last visit added oxybutynin to her treatment regimen. She has done a nice job of recognizing triggers. Feels the oxybutynin has helped but has not been taking it consistently. 08/16/21 Here for follow up chronic interstitial cystitis, painful bladder syndrome. Had been doing well until she got a UTI for which was she treated with macrobid. Has noticed symptoms worse during Spring. 01/03/2022: Here for follow up chronic interstitial cystitis, painful bladder syndrome. Overall has been doing very well on current regimen. Donald Carranza MD [address] [facility],[address], [place], [address], [facility] 01/03/2022 13:42:50 OBGyn Episode No OBEpisode recorded.
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
--- OUTSIDE RECORDS SUMMARY | 2023-06-04 06:20 | XMS_ITS | Continuity of Care Document ---
Author Name Unknown Organization [facility] Address [address] [place] [address] Phone Care Team Providers Care Engineering Designer Name Role Phone Unavailable Unavailable Unavailable Advance Directives Directive Yes / No Effective Date File Name No Information Encounters Encounter Description Practice Location Reason(s) For Visit Diagnoses Date Provider Providers Copied on Encounter [facility], [address] [place], [id number], [place] tel:[phone] [facility] No Information No Information Family History Family Member Type Diagnosis Age At Onset No Information Payers Payer name Insurance type Covered alliance party ID Authoriza tion(s) No Information Social [...]
[2023-06-04 06:39] VITALS: BMI 37.5
[2023-06-04] MEDS: LACTATED RINGERS 1000 ML 1,000 ML 100 ML IV (07:10)
[2023-06-04] MEDS: SODIUM CHLORIDE 0.9 % (FLUSH) 10 ML SYRINGE IVF (07:10)
[2023-06-04 07:20] VITALS: BP 161/101; PULSE 68; RESP 16; TEMP 36.6; O2SAT 98
[2023-06-04 07:25] LABS: INR, Point of Care* 1.1 (0.8-1.4)
[2023-06-04] MEDS: [UNRECOGNIZED DRUG - OTHER] INJECTION (07:35)
[2023-06-04] MEDS: LIDOCAINE 2%-EPI 1:200,000 20 ML TOPICAL (07:35)
--- NOTE | 2023-06-04 07:55 | PM.ORPRC ---
Procedure Note Date of procedure: 06/04/23 Procedure: Preop diagnosis: Left hand middle finger, right hand ring finger stenosing tenosynovitis Postop diagnosis: Left hand middle finger, right hand ring finger stenosing tenosynovitis Procedure: Left hand middle finger, right hand ring finger A1 nupur release Anesthesia: Local Surgeon: Glenroy Lora MD state tested nursing assistant: Natali Wilson PA-C EBL: 5 mL Complications: None Specimens: None Drains: None Preoperative antibiotics: None Indications: The patient has a history of painful catching and locking of fingers on both hands. Despite appropriate non operative management including flexor tendon sheath corticosteroid injections they continue to have symptoms. Operative intervention was recommended. The risks, benefits alternatives and expected outcomes were discussed in detail. These included but were not limited to: Infection, bleeding, injury to blood vessel or nerve, venous thromboembolism. All questions were answered to their satisfaction. The patient was placed supine on the operating room table. IV sedation was administered. Local anesthesia was established with 0.5% Marcaine with epinephrine and 2% lidocaine with epinephrine. Both hands were prepped and draped in usual sterile fashion. The right hand was approached 1st. A transverse incision was made centered over the base of the ring finger in the distal palmar crease. Subcutaneous dissection was taken through the palmar fascia to the flexor tendons with the tenotomy scissors. The A1 nupur was released with the 15 blade and a tenotomy scissors. Attention was then turned to the left hand. A transverse incision was made at the base of the middle finger in the distal palmar crease. Subcutaneous dissection was taken with tenotomy scissors to the flexor tendons. The A1 nupur was divided with the 15 blade and tenotomy scissors. The wounds were closed with interrupted nylon sutures. A dry dressing was applied. Sponge and needle counts were correct x 2. The patient tolerated the procedure well, there were no apparent complications. They were sent to same day surgery in satisfactory condition. Plan: Use of the hands as tolerates. Discontinue the intraoperative dressing on postoperative day 3 and may get the wound wet as tolerates. Follow up in the office in 2 weeks for a wound check and suture removal.
[2023-06-04 08:13] VITALS: BP 98/63; PULSE 50; RESP 16; TEMP 36.3; O2SAT 95
--- NOTE | 2023-06-04 08:16 | W.ANESCHARGE ---
Anesthesia Charges Start Date/Time Anesthesia Start Date: 06/04/23 Anesthesia Start Time: 07:21 Stop Date/Time Anesthesia Stop Date: 06/04/23 Anesthesia Stop Time: 08:13
[2023-06-04 08:30] VITALS: BP 132/46; PULSE 41; RESP 16; O2SAT 91
[2023-06-04 08:45] VITALS: BP 127/52; PULSE 51; RESP 16; O2SAT 97
[2023-06-04 09:00] VITALS: BP 134/56; PULSE 51; RESP 16; O2SAT 95
[2023-06-04 09:15] VITALS: PULSE 52; RESP 16; O2SAT 95
--- NOTE | 2023-06-04 09:39 | W.ANESCHARGE ---
Anesthesia Charges Start Date/Time Anesthesia Start Date: 06/04/23 Anesthesia Start Time: 07:21 Stop Date/Time Anesthesia Stop Date: 06/04/23 Anesthesia Stop Time: 08:13 Summary Extremes of Age - Over 70 or under 1: MDA
== END 2023-06-04 10:13 | disposition home or self-care (01) ==
PROVIDERS: Anesthesiology; PCP Surgery; Visit Provider Orthopaedic Surgery
PROC: (CPT 26055; principal; 2023-06-04 07:15)
DX: M65.332 Trigger finger, left middle finger (principal); M65.341 Trigger finger, right ring finger; M65.842 Other synovitis and tenosynovitis, left hand; M65.841 Other synovitis and tenosynovitis, right hand
CPT/HCPCS: 26055 ×2; 01810; 01830; 85610; 99100; J1100; J2250; J2405; J2704; J3010; J3490; J7120

== ENCOUNTER 2023-11-11 13:10 | Emergency (ER) | payer MEDICARE, SELFPAY ==
[2023-11-11] VITALS (23 sets, daily range): BP systolic 149–166; BP diastolic 66–76; PULSE 43–60; RESP 16; TEMP 36.6; O2SAT 81–98; BMI 28.8
--- NOTE | 2023-11-11 13:41 | CRLHL7_ITS ---
For Patients: As a result of the Century Cures Act, medical imaging exams and procedure reports are released immediately into your electronic medical record. You may view this report before your referring provider. If you have questions, please contact your health care provider. Indication: Chest pain Technique: Chest 2 views Comparison: Chest x-ray 02/02/2018 Findings/Impression: Cardiovascular and mediastinum: Normal heart size with aortic tortuosity and atherosclerotic calcification. Lungs and pleural spaces: Lungs are clear. No sign of infiltrate or mass. No sign of pleural effusion. No pneumothorax. Bones and soft tissues: No significant findings. Dictated by Ramon Youngblood MD @ 11/11/2023 3:12:11 PM (Electronically Signed)
--- OUTSIDE RECORDS SUMMARY | 2023-11-11 13:47 | XMS_ITS | Patient Health Record ---
Author Organization [facility] Address [address] [place] [id number] Care Team Providers Care Shaker Repairer Name Role Phone ZZ Outside Provider, sushila Primary Care Provider ALLERGIES Allergen (clinical drug ingredient) Drug/Non Drug Allergy documented on EMR Reaction Allergy Type Onset Date Status Substance with sulfonamide structure and antibacterial mechanism of action (substance) Sulfa Antibiotics Unknown Drug Allergy Active Latex Latex Unknown Allergy Active REASON FOR REFERRAL No Information MEDICATIONS Medication SIG (Take, Route, Frequency, Duration) Notes Start Date End Date Status Losartan Potassium 50 MG 1 tablet Orally Once a day for 30 day(s) Active Fluticasone Propionate (Inhal) 50 MCG/BLIST 1 puff Inhalation Twice a day Active Hyoscyamine Active Fluocinonide 0.05 % 1 application Inclusion Paraeducator ally Twice a day Active Glucosamine MSM Complex Active flavoxATE HCl 100 MG 1 tablet Orally Thr ee times a day for 30 day(s) Active Flexeril Active ClobetaPlus Ointment Active Atorvastatin Calcium 20 MG 1 tablet Oral ly Once a day for 30 day(s) Active Norvasc 5 MG 1 tablet Orally Once a day for 30 day(s) Active Acetaminophen 500 MG 1 capsule as needed Orally every 6 hrs Active Warfarin Sodium 5 MG 1 tablet Orally Onc e a day for 30 day(s) Active Soothe XP - as directed Ophthalmic Active Potassium Chloride 20 MEQ 1 packet with food Orally Once a day for 30 day(s) Active Zaditor 0.025 % 1 drop into affected eye Ophthalmic Twice a day Active Nystatin 453534 UNIT/ML 1 tsp swish and retain in mouth, then swallow or spit Mouth/Throat Four times a day for 10 days Active Imitrex 50 MG 1 tablet at least 2 hours between doses as needed Orally Twice a day Active oxyBUTYnin 3.9 MG/24HR 1 patch to skin Transdermal Two times a Week for 30 day(s) Active SOCIAL HISTORY Tobacco Use: Social History Observation Description Date Details (start date - stop date) Never Smoker NA - NA Sex Assigned At : Social History Observation Description Sex Assigned At Unknown Tobacco Use/Smoking Question Answer Notes Smoking Status: nonsmoker PLAN OF TREATMENT No Information Insurance Providers Payer Name Payer Address Payer Phone Subscriber Number Group Number Insured Name Patient Relationship to Insured Coverage Start Date Coverage End Date [employer] Medicare Complete Adv [address] [place] [phone] [id number] Cindy Gallegos Self - patient is the insured
--- OUTSIDE RECORDS SUMMARY | 2023-11-11 13:48 | XMS_ITS | Clinical Summary ---
Author Organization [facility] [employer] [facility] Address [address] [address] Phone Care Team Providers Care Entry Level Project Engineer Name Role Phone Unavailable Primary Care Provider [...] Health Maintenance Due Date Last Done Comments PERTUSSIS (Standing Order) 08/15/1966 TETANUS (Standing Order) 08/15/1966 RSV Vaccination (60+ yrs) (Abrysvo/Arexvy) (1 - 1-dose 60+ series) 2007 Shingrix (Zoster recombinant ) vaccine (Standing Order) (1 of 2) 03/23/2010 DXA,FEMALES AGE 65 OR GREATER 08/15/2012 Pneumococcal Vaccine: 65+ yr s (Standing Order) (2 of 2 - PPSV23 or PCV20) 08/24/2016 08/25/2015 COVID-19 Vaccine ( - 2022-2 4 season) 2023 Influenza Vaccine Seasonal (Standing Order) (#1) 2023 HPV Vaccine (Standing Order) Aged Out No longer eligible based on patient's age to complete this topic Hepatitis B Vaccine (Standin g Order) Aged Out No longer eligible b ased on patient's age to complete this topic
--- OUTSIDE RECORDS SUMMARY | 2023-11-11 13:48 | XMS_ITS | Data Portability ---
Author Organization [place] [facility] [place] [facility] Address [address] [place] [address] Assessment Encounter Date Assessment Date Assessment LastModified [...] mg tablet,exte nded release 24 hr 2021 [facility] [address], [address] [place], [address], 12:06:34 hyoscyamine sulfate 0.125 mg tablet 2021 [facility] [address], [address] [place], [address], 12:06:36 hydroxyzine HCl 25 mg tablet 2021 [facility] [address], [address] [place], [address], 2 12:06:33 Patient TargetsNo targets recorded. Patient InstructionsNo instructions recorded. Reason for Referral None Reported. Procedures Surgical History Date Name Laterality Status Provider Name and Address Organization Details Recorded Time Appendectomy completed Donald Carranza MD [address] [place] [address],[address], [place], [address], [facility] 01/03/2022 11:42:03 Colonoscopy completed Donald Carranza MD [address] [place] [address],[address], [place], [address], [facility] 01/03/2022 11:42:11 Hernia Repair completed Donald whitlock MD [address] [place] [address],[address], [address], [facility] 01/03/2022 11:42:17 Imaging Results None recorded. Procedure Notes None recorded. Medical Equipment None Reported. Allergies Allergen ID Allergen Name Allergen Category Reaction Reaction Severity Criticality Documentation Date Start Date Code Code System Note Provider Name and Address Organization Details Recorded Time 295851 clonidine medicatio n Not available Not available Not available 01/03/2022 2599 RxNorm Donald Carranza MD [address] [place] [address],[address] [place] [address], [address], [facility] 2 11:39:41 112782 Iodinated contrast media (substanc e) medicatio n Not available Not available Not available 01/03/2022 54794 2004 SNOMED Donald Carranza MD [address] [place] [address],[address], [place], [address], [facility] 2 11:39:50 655837 Keflex medicatio n Not available Not available Not available 01/03/2022 94395 7 RxNorm Donald Carranza MD [address] [place] [address],[address], [place], [address], [facility] 2 11:40:21 986419 latex environme nt,medica tion Not available Not available Not available 01/03/2022 63036 91 RxNorm Donald Carranza MD [address] [place] [address],[address], [place], [address], [facility] 2 11:40:25 652129 losartan medicatio n Not available Not available Not available 01/03/2022 19609 RxNorm Donald Carranza MD [address] [place] [address],[address], [place], [address], [facility] 2 11:40:39 841307 Medicinal product containin g penicilli n and acting as antibacte rial agent (product) medicatio n Not available Not available Not available 01/03/2022 39528 05 BRIANA Carranza MD [address] [place] [address],[address], [place], [address], [facility] 2 11:40:44 397500 Substance with sulfonami de structure and antibacte rial mechanism of action (substanc e) medicatio n Not available Not available Not available 01/03/2022 29912 8003 BRIANA Carranza MD [address] [place] [address],[address] [place] [address], [facility] 2 11:40:48 Medications Name Sig Start [...] Updated DateTime 01/03/2022 162.56 cm 34.3 kg/m2 80661.47 g Donald Carranza MD [address] [place] [address],[address], [place], [address], [facility] 01/03/2022 11:43:40 Social History Question Answer Notes LastModified by Organizat ion Details LastModified Time Tobacco Smoking Status Never Smoker Donald Carranza MD [address], [place], [address], [facility] 01/03/2022 11:41:47 What Is Your Level Of Alcohol Consumption? None doctors Information not available 01/03/2022 What Was The Date Of Your Most Recent Tobacco Screening? 01/03/2022 Information not available 01/03/2022 Do You Use Any Illicit Or Recreational Drugs? Yes doctors Information not available 01/03/2022 Sex: Unknown Functional Status None recorded. Mental Status None recorded. Family History Nothing Reported. Medical History Condition Response Other Y High Blood Pressure Y High Cholesterol Y Gynecological HistoryNo gynecological history recorded. Obstetrics History GPAL:G 0 P 0 0 0 0 Past Encounters Encounter ID Performer Location Encounter Start Date Encounter Closed Date Diagnosis/Indication Diagnosis SNOMED-CT Code Diagnosis ICD10 Code [id number] Donald Carranza MD [facility] [address] [place] [address] 01/03/2022 11:20:39 01/05/2022 11:03:20 Chronic interstitial cystitis 503148906 N30.10 Urinary bladder pain 158 48336 R39.82 Health Concerns Section Related Observation LastModified by Organization Detai ls LastModified Time None Recorded Concern Status LastModified by Organization Details LastModified Time None Recorded Advance Directives Directive None Recorded Payers Encounter Date Sequence Insurance Name Policy Number Policy Narayanan Covered Member ID Narayanan Member ID Guarantor Name 01/03/2022 1 [employer] - DOS ON OR AFTER 19 (MEDICARE REPLACEMENT/ ADVANTAGE - PPO) [id number] Cindy Gallegos [id number] Cindy Gallegos Notes Date Note Type Note [...] on current regimen. Donald Carranza MD [address] [facility],[address], [place], [address], [facility] 01/03/2022 13:42:50 OBGyn Episode No OBEpisode recorded.
--- OUTSIDE RECORDS SUMMARY | 2023-11-11 13:48 | XMS_ITS | Continuity of Care Document ---
Author Organization [facility] Address [address] [place] [address] Phone Care Team Providers Care Unit Coordinator Name Role Phone Unavailable Unavailable Unavailable Advance Directives Directive Yes / No Effective Date File Name No Information Encounters Encounter Description Practice Location Reason(s) For Visit Diagnoses Date Provider Providers Copied on Encounter [facility], [address] [place], [id number], [place] tel:[phone] [facility] No Information No Information Family History Family [...]
--- OUTSIDE RECORDS SUMMARY | 2023-11-11 13:48 | XMS_ITS | Clinical Summary ---
Author Organization [facility] Address [place], [place] [address] Care Team Providers Care College President Name Role Phone Nico Betancourt MD Primary Care Provider [phone] Allergies Active Allergy Reactions Criticality Noted Date [...] by mouth once daily. 30 tablet 0 0 Active Light Mineral Oil-Mineral Oil (SOOTHE XP) 1-4.5 % Drop eye drops Place into the eye(s) 3 times daily if needed for Dry Eyes. 0 1 Active Glucosamine HCl-MSM (GLUCOSAMINE MSM) 1,500-500 mg/30 mL liqd daily 1 Bottle 0 6 Active acetaminophen (TYLENOL EXTRA STRGTH) 500 mg tabletIndications:A cute pain of left knee,Muscle spasm of back Take 1 tablet by mouth every 6 hours if needed (pain). Max acetaminophen dose: 4000mg in 24 hrs. 30 tablet 8 Active fluocinonide 0.05 TOPICAL (LIDEX) 0.05 % external solutionIndications :Scalp irritation Apply up to twice daily as needed for scalp irritation 60 mL 1 8 Active LORazepam (ATIVAN) 0.5 mg tabIndications:Anxi ety due to invasive procedure Take 1 tablet by mouth every 6 hours if needed (30 mins prior to procedure). 1 tablet 1 Active albuterol HFA (PRO-AIR; VENTOLIN; PROVENTIL) 90 mcg/actuation inhaler Every 4 Hours as needed Active nystatin (MYCOSTATIN) 100,000 unit/mL suspensionIndicatio ns:Thrush Swish and spit 5 mL (500,000 units) by mouth 4 times daily. 480 mL 1 1 Active clobetasol 0.05% (TEMOVATE 0.05% OINTMENT) 0.05 % ointmentIndications :Vulvar itching Apply to vulva once daily as needed for itching - do not use for more than 1 week straight 60 g 3 3 Active erythromycin ophthalmic ointment 0.5% INSTILL A 1/4 INCH RIBBON INTO THE INFERIOR CUL-DE-SAC OF BOTH EYES THREE TIMES DAILY FOR SEVEN DAY 3 Active loteprednol (LOTEMAX GEL) 0.5 % ophthalmic gel INSTILL 1 DROP 4 TIMES DAILY INTO EACH EYE FOR 7 DAYS THEN STOP 3 Active fluconazole (DIFLUCAN ORAL) Active fluticasone-salmete rol (AIRDUO RESPICLICK) 55-14 mcg/actuation aepb inhaler Inhale 1 Puff by mouth once daily. Active ketotifen (ZADITOR) 0.025 % (0.035 %) ophthalmic solution Place 1 Drop into the eye(s) two times daily. Active metroNIDAZOLE (FLAGYL) 500 mg tablet Take 500 mg by mouth three times daily. 3 Active naproxen (NAPROSYN) 500 mg tablet Take 500 mg by mouth once daily. 30 min after meal 3 Active pentosan polysulfate sodium (ELMIRON ORAL) Active amLODIPine (Norvasc) 10 mg tabletIndications:H TN (hypertension) Take 1 Tablet (10 mg) by mouth once daily. 90 Tablet 4 Active flavoxATE (URISPAS) 100 mg tabletIndications:C hronic interstitial cystitis Take 1 Tablet (100 mg) by mouth three times daily. 270 Tablet 4 Active fluticasone (50 mcg per actuation) nasal solution (FLONASE)Indication s:Eustachian tube dysfunction, unspecified laterality Inhale 1 [place] to both nostrils once daily. 48 g 4 Active furosemide (LASIX) 20 mg tabletIndications:C hronic diastolic congestive heart failure (HC) Take 1 Tablet (20 mg) by mouth once daily if needed (Leg swelling). Take around once a month 90 Tablet 4 Active hydrOXYzine HCL (ATARAX) 25 mg tabletIndications:C hronic interstitial cystitis Take 1 Tablet (25 mg) by mouth at bedtime. 90 Tablet 4 Active hyoscyamine (LEVSIN) 0.125 mg tabletIndications:C hronic interstitial cystitis Take 1 Tablet (0.125 mg) by mouth every 4 hours if needed for Bladder Spasms. 90 Tablet 4 Active omeprazole (PRILOSEC) 20 mg Delayed-Release capsuleIndications: Gastric reflux Take 1 Capsule (20 mg) by mouth once daily before a meal. 90 Capsule 4 Active oxybutynin XL (DITROPAN XL) 10 mg CR tabletIndications:B ladder pain Take 1 Tablet (10 mg) by mouth once daily. 90 Tablet 4 Active potassium chloride (KLOR-CON M20) 20 mEq extended-release tablet (part/cryst)Indicat ions:Hypokalemia Take 1 Tablet (20 mEq) by mouth once daily with a meal. 90 Tablet 4 Active rosuvastatin (CRESTOR) 5 mg tabletIndications:H yperlipidemia, unspecified hyperlipidemia type Take 1 Tablet (5 mg) by mouth at bedtime. 90 Tablet 4 Active SUMAtriptan (IMITREX) 50 mg tabletIndications:I ntractable migraine without aura and without status migrainosus Take 0.5 Tablets (25 mg) by mouth 2 times daily if needed for Migraine. Give at minimum 2hrs apart. Max Dose: 200mg per 24hrs. 12 Tablet 2 4 Active medication order composer OTC Lila Adin 1000mg daily 4 Active losartan (COZAAR) 50 mg tabletIndications:E ssential hypertension with goal blood pressure less than 140/90 Take 2 Tablets (100 mg) by mouth once daily. 180 Tablet 1 4 Active cyclobenzaprine (FLEXERIL) 5 mg tabletIndications:M uscle spasm of back Take 1 tablet by mouth three times daily as needed for muscle spasm 30 Tablet 4 Active ondansetron (ZOFRAN) 4 mg tabletIndications:N ausea TAKE 1 TABLET BY MOUTH EVERY 8 HOURS NEEDED FOR NAUSEA FOR VOMITING 30 Tablet 4 Active nystatin 100,000 unit/gram ointmentIndications :Intertrigo Apply topically to affected area(s) two times daily. 30 g 5 4 Active warfarin (COUMADIN) 5 mg tabletIndications:P aroxysmal atrial fibrillation (HC),Anticoagulatio n monitoring, INR range 2-3 Take by mouth 7.5 mg (5 mg x 1.5) every Tue, Gaby; 5 mg (5 mg x 1) all other days in the evening OR as directed 104 Tablet 4 Active warfarin (COUMADIN) 5 mg tabletIndications:P aroxysmal atrial fibrillation (HC),Anticoagulatio n monitoring, INR range 2-3 Take by mouth 7.5 mg (5 mg x 1.5) every Tue, Gaby; 5 mg (5 mg x 1) all other days in the evening OR as directed 104 Tablet 4 11/11/19 24 Discontinu ed(Reorder (E-cancel not sent)) Active Problems Problem Noted Date Diagnosed Date Chronic diastolic congestive heart failure 07/17 Severe obesity 07/25/2018 Hyperopia of both eyes with astigmatism and pres byopia 03/08/2017 Nuclear senile cataract of both eyes 03/08/2017 Osteoarthritis of right knee 08/25/2015 Paroxysmal atrial fibrillation 08/18/2014 Enlarged LA (left atrium) 05/11/2014 Cellulitis 02/04/2014 Family hx of colon cancer 07/22/2013 Overview (07/22/2013): Father 61 Anticoagulation monitoring, INR range 2-3 2013 Chest pain, unspecified 05/22/2012 Vitamin D deficiency 03/07/2011 Colon polyp 01/31/2011 Overview (12/16/2020): Colonoscopy 01/2011 polyp repeat in 5 years [...] Encounters Date Type Department Care Team Description 11/08/2023 Anticoagulation (warfarin) [facility] [address] [place] [address] 1, [facility]tico[facility] ([facility] ); Refill Request (warfarin) 11/07/2023 10:40 AM CDT Orders Only [facility] [address] [place] [address] [address] [place] [address] Lab 11/07/2023 Travel 10/07/2023 9:00 AM CDT Orders Only [facility] [address] [place] [address] Lab, [facility] 10/07/2023 Anticoagulation (warfarin) [facility] [address] [place] [address] 1, [facility] Anticoagulation 10/07/2023 Travel 09/09/2023 Nurse Triage [facility] [address] [place] [address] Nico Betancourt MD Urinary Tract Infection (Follow-up call on antibiotics) 08/30/2023 Refill [facility] [address] [place] [address] Nico Betancourt MD Refill Request (nystatin ointment) 08/29/2023 Telephone [facility] [address] [place] [address] Nico Betancourt MD Prior Authorization (Nystop powder (DENIED)) 08/26/2023 Telephone [facility] [address] [place] [address] Nico Betancourt MD Prior Authorization (Nystop powder (closed- change pharmacy)) 08/23/[address] [address] Nico Betancourt MD Refill Request (Cyclobenzaprine, Ondansetron) 08/23/2023 Anticoagulation (warfarin) [address] [address] 1, [facility] Anticoagulation 08/21/2023 9:30 AM CDT Orders Only [facility] [address] [place] [address] Lab 08/21/2023 Travel 08/14/2023 Refill [facility] [address] [place] [address] Nico Betancourt MD Refill Request (Nystop) from Last 3 Months Immunizations Name Administration [...] Outcome GA Total Labor Labor/2nd/3rd Weight Sex Type Anes PTL Emily A1 A5 Name Clin Para Para SAB Last Filed Vital Signs [...] Health Maintenance Due Date Last Done Comments RSV vaccine for adults or (1 - 1-dose 60+ series) 2007 Zoster (shingles) series for age 50+ (2 of 3) 03/23/2010 01/26/2010 COVID-19 vaccine series ( - 2022-24 season) 2023 Influenza for age 65+ 10/20/2023 01/23/2016 , 12/13/2014, 12/16/2013, Additional history exists Depression screening for age 12+ 03/07/2024 03/07/2023, 03/07/2023, 03/07/2023, Additional history exists Medicare Wellness for age 65+ 03/07/2024, 01/02/2022, 12/22/2020, Additional history exists BMI (ht and wt on same day) for age 18+ 05/26/2024 05/27/2023, 04/29/2023, 03/07/2023, Additional history exists Tetanus booster 07/20/2030 07/20/2020, 05/24/2009 DEXA/DXA scan for age 65+ Completed 04/30/2014 Pneumococcal series for age 65+ Completed 6, 07/08/2013 Hepatitis C screening for ag e 18-79 Completed 11/18/2015 Tdap Completed 07/20/2020, 05/24/2009 Procedures Procedure Name Priority Date/Time Associated Diagnosis Comments INR,POCT Routine 11/07/2023 Paroxysmal atrial fibrillation (HC) Anticoagulation monitoring, INR range 2-3 INR,POCT Routine 10/07/2023 9:20 AM CDT Paroxysmal atrial fibrillation (HC) Anticoagulation monitoring, INR range 2-3 INR,POCT Routine 08/21/2023 9:45 AM CDT Paroxysmal atrial fibrillation (HC) Anticoagulation monitoring, INR range 2-3 ANTI HCV Routine 11/18/2015 10:57 AM CDT Need for hepatitis C screening test XR DXA BONE DENSITY 2 SITES AXIAL Routine 04/30/2014 11:24 AM CDT Ovarian failure from Last 3 Months or Most Recently Relevant to Health Maintenance Results * (ABNORMAL) INR,POCT (11/07/2023) Only the most recent of3 resultswithin the time period is included. INR 2.6([facility]) 0.0 - 1.2 [facility]NOST[facility] Blood BLOOD SPECIMEN / Unknown 11/07/2023 Nico Betancourt MD LABORATORY [facility] [address] [address], * ANTI HCV [08227.2] (11/18/2015 10:57 AM CDT) HEPATITIS C ANTIBODY Non-Reacti ve Non-Reacti ve 11/18/2015 5:27 PM CDT [facility] Blood BLOOD SPECIMEN / Unknown Venipuncture / Unknown 11/18/2015 10:57 AM CDT 11/18/2015 10:58 AM CDT Narrative [facility] - 11/18/2015 5:27 PM CDT Antibodies to HCV not detected; does not exclude the possibility of exposure to HCV. Nico Betancourt MD SEND OUTS Performing Organization Address City/[facility]/ZIP Co de Phone Number [facility] [address] [place] [address], * (ABNORMAL) XR DXA BONE DENSITY 2 [...] 8:57 PM 05/22/2012 6:59 PM Care Teams College President Relationship Specialty Start Date End Date Nico Betancourt MD [address] [place] [address] PCP - General Family Practice 05/16/15
--- OUTSIDE RECORDS SUMMARY | 2023-11-11 13:48 | XMS_ITS | Data Portability ---
Author Organization [place] [facility], [facility] Address [address] [place] [address] Care Team Providers Care River Guide Name Role Phone SANAMBOLA MARLENE Primary Care Provider [phone] Assessment Encounter Date Assessment Date Assessment LastModified [...] guarding habits to decrease pain by 50% oysterman goals-6 weeks Client to not have jaw [...] guarding habits to decrease pain by 50% oysterman goals-6 weeks Client to not have jaw [...] Referral physical therapist referral 2019 020 [email or web address] [place], [facility] [address] [facility], [address], [place], [address], 0 10:10:15 Procedures None recorded. Surgeries None recorded. Imaging None recorded. Medication Orders None recorded. Patient TargetsNo targets recorded. Patient Instructions Encounter Date Encounter Id Patient Instructions Last Modified By Organization Details Last Modified Time 03/17/2019 [id number] Plan: Medicare requires a railroad car cleaning supervisor or RODEO CLOWN to authorize our plan of care. If you agree with the plan as outlined above, please sign, date and fax back to [phone]. Thank you. Primary MD signature: Date: [email or web address] Not available 03/17/2019 11:33:56 03/25/2019 [id number] Plan: Medicare requires a railroad car cleaning supervisor or RODEO CLOWN to authorize our plan of care. If you agree with the plan as outlined above, please sign, date and fax back to [phone]. Thank you. Primary MD signature: Date: [email or web address] Not available 03/25/2019 12:34:57 Reason for Referral Physical Therapist Referral for Myofascial pain Referring Physician: Gale Rosales, Pain Management, Encounter Date: 03/04/2019 Results Created Date Observation Date Name Description Value Unit Range Abnormal Flag Note LastModifiedBy Organization Detail LastModifiedTime 03/04/19 20 XR, ortho panto gram No observ ation record ed. [email or web address] Not Available 2019 13:24:13 Result Notes None recorded. Problems Name Problem SNOMED Code Status Onset Date Resolution Date Notes Provider Name and Address Organization Details Recorded Time Arthralg ia of temporom andibula r joint 55457296 Completed 201503/04/2019 Gale Rosales null, [facility] 0 10:07:46 Myofasci al pain 751497583 Active 2019 masticato ry and cervical Gale Daniellet null, [facility] 0 10:08:05 Arthralg ia of temporom andibula r joint 28499982 Active 2019 Gale Rosales null, [facility] 0 10:07:46 Neck pain 24443165 Active 2019 Gale Rosales [facility], [facility] 0 10:07:47 Finding of sensatio n by site 821348819 Completed 201503/04/2019 Gale Rosales null, [facility] 0 12:58:52 Spasm 20892259 Completed 201403/04/2019 Gale Rosales null, [facility] 0 12:59:25 Chest pain 19180319 Completed 03/04/2019 Gale Rosales null, [facility] 0 12:58:59 Cellulit is 911897091 Completed 03/04/2019 Gale Daniellet null, [facility] 0 12:58:46 Mixed hyperlip idemia 926564361 Completed 03/04/2019 Gale Rosales null, [facility] 0 12:58:55 Hyperten sive disorder 32152988 Completed 03/04/2019 Gale Daniellelisa null, [facility] 0 12:59:21 Polyp of colon 34428200 Completed 03/04/2019 Gale valadez, [facility] 0 12:59:31 Chronic intersti tial cystitis 632429819 Com[facility]04[facility] 0 12:58:49 Panic disorder without agorapho reginald 97431113 Completed 03/04/2019 Gale valadez, [facility] 0 12:59:29 Benign paroxysm al position al vertigo 471921326 Completed 03/04/2019 Gale valadez, [facility] 0 12:58:44 Disorder of refracti on 58694547 Completed 03/04/2019 [facility] 0 12:59:23 Atrial fibrilla tion 61424479 Completed 03/04/2019 [facility] 0 12:59:27 Vitamin D deficien cy 35324501 Completed 03/04/2019 [facility] 0 12:59:18 Problem Notes None recorded. Procedures Surgical History Date Name Laterality Status Provider Name and Address Organization Details Recorded Time 03/25/19 93157: Therapeutic Exercise completed Kaushik Hogan [facility] 03/25/2019 12:34:57 03/25/19 95780: Manual Therapy completed Kaushik Hogan [facility] 03/25/2019 17:43:28 03/17/19 20 60458 PT Eval - Low Complexity completed Kaushiksilverio Hogan [facility] 03/17/2019 17:58:21 03/17/19 20 22327: Therapeutic Exercise completed Kaushik Hogan [facility] 03/17/2019 11:33:56 03/17/19 20 42665: Manual Therapy completed Kaushik Hogan [facility] 03/17/2019 11:33:56 03/04/19 20 Orthopantogram completed Gale Rosales [facility] 03/04/2019 13:00:55 02/18/19 19 Xcapsl ctrc rmvl cplx wo ecp completed Gregor Longo [facility] 03/04/2019 12:47:26 reduction mammoplasty completed Gregor Longo [facility] 03/04/2019 12:46:06 Unlisted px foot/toes completed Gregor Longo [facility] 03/04/2019 12:46:45 Xcapsl ctrc rmvl cplx wo ecp completed Gregor Longo [facility] 03/04/2019 12:47:27 Appendectomy completed Gregor Longo [facility] 03/04/2019 13:47:26 Hernia repair w/mesh completed Gregor Longo [facility] 03/04/2019 13:47:39 Imaging Results Imaging Date Name Status LastModified by Organization Details LastModified Time 03/04/2019 XR, orthopantogram completed Inform ation not available 03/04/2019 13:24:13 Procedure Notes None recorded. Medical Equipment None Reported. Allergies Allergen ID Allergen Name Allergen Category Reaction Reaction Severity Criticality Documentation Date Start Date Code Code System Note Provider Name and Address Organization Details Recorded Time 10006 clonidine medicatio n Not available Not available Not available 01/12/2016 2599 RxNorm Not Available [facility] 6 06:37:56 26864 latex environme nt,medica tion Not available Not available Not available 01/12/2016 85503 91 RxNorm Not Available [facility] 6 06:39:09 13180 Substance with sulfonami de structure and antibacte rial mechanism of action (substanc e) medicatio n Not available Not available Not available 01/12/2016 15325 8003 SNOMED Not Available [facility] 6 06:39:24 10814 Medicinal product containin g penicilli n and acting as antibacte rial agent (product) medicatio n Not available Not available Not available 01/12/2016 46041 05 SNOMED Not Available [facility] 6 06:40:04 02223 diatrizoa te meglumine medicatio n Not available Not available Not available 01/12/2016 3320 RxNorm Not Available [facility] 6 06:41:41 97091 losartan medicatio n Not available Not available Not available 01/12/2016 54915 RxNorm Not Available [facility] 6 06:44:23 Medications Name Sig Start Date [...] Updated DateTime 0 167.64 cm 35.5 kg/m2 45064.3 2 g 61 /min 154 mm[Hg] 79 mm[Hg] Gregor Longo [facility] 0 12:37:27 Social History Question Answer Notes LastModified by Organizat ion Details LastModified Time Tobacco Smoking Status Never Smoker Gregor Gonzalesgómezmarco antonio rory [facility] 03/04/2019 [...] Injury? No Information not available 03/04/2019 Sex: Unknown Functional Status Question Answer Note LastModified by Organizat ion Details LastModified Time What is your exercise level? Occasional Information not available 03/04/2019 Mental Status None recorded. Family History Nothing Reported Notes:10/31/2015: Brother: H igh Blood Pressure, Headaches [...] Meningitis N Pancreatic disease N Heart Attack (OR) N Stomach Ulcers N Diabetes N Back [...] Diagnosis/Indication Diagnosis SNOMED-CT Code Diagnosis ICD10 Code [id number] Gale Barrioskoffi soto [address] [place] [id number] 03/04/2019 12:07:41 03/04/2019 13:44:29 Arthralgia of temporomandibular joint 48877535 M26.629 Myofascial pain 82502582 9 M79.11 Neck pain 44428640 M54.2 [id number] Kaushik Sarmiento [address] [place] [phone] 03/17/2019 11:08:09 03/17/2019 12:29:49 Arthralgia of temporomandibular joint 30892230 M26.629 Neck pain 66147656 M54.2 100732 Kaushik Sarmiento [address] [place] [phone] 03/25/2019 12:18:18 03/25/2019 13:03:15 Arthralgia of temporomandibular joint 54411895 M26.629 Neck pain 57777681 M54.2 Myofascial pain 69214258 9 M79.10 Health Concerns Section Related Observation LastModified by Organization Detai ls LastModified Time None Recorded Concern Status LastModified by Organization Details LastModified Time None Recorded Advance Directives Directive None Recorded Payers Encounter Date Sequence Insurance Name Policy Number Policy Narayanan Covered Member ID Narayanan Member ID Guarantor Name 03/04/2019 1 [employer] - DOS ON OR AFTER 19 (MEDICARE REPLACEMENT/ ADVANTAGE - HMO) [id number] 1 Cindy Romero Rosy [id number] Cindy Romero Rosy 03/17/2019 1 [employer] - DOS ON OR AFTER 19 (MEDICARE REPLACEMENT/ ADVANTAGE - HMO) [id number] Cindy R Rosy [id number] Cindy R Rosy 03/25/2019 1 [employer] - DOS ON OR AFTER 19 (MEDICARE REPLACEMENT/ ADVANTAGE - HMO) [id number] Cindy Romero Rosy [id number] Cindy Romero Rosy Notes Date Note Type [...] currently having pain in her left masseter. LARA Dunn - [facility] 03/05/2019 10:10:18 03/17/2019 text/html HPI Notes: gener al HPI for [...] elbow/knee with no head impact. LARA Molina - [facility] 03/17/2019 18:11:41 03/25/2019 text/html HPI Notes: She reports pain in the left jaw. 02/27. Biting increases pain but doing better except when ate walleye sandwich which had her mouth open widely. [place], She hit elbow/knee with no head impact and still reports no after effects. LARA Molina [facility] 03/25/2019 17:45:29 OBGyn Episode No OBEpisode recorded.
--- NOTE | 2023-11-11 13:52 | ED.GENADULT ---
HPI - General Adult General Date Seen: 11/11/23 <Nico Mendiola DO - Last Filed: 11/11/23 16:05> Chief complaint: Chest Pain <Nico José Antonio Maury DO - Last Filed: 11/11/23 16:05> Stated complaint: chest tightness/lightheaded <Nico José Antonio Mendiola DO - Last Filed: 11/11/23 16:05> Time Seen by Provider: 11/11/23 13:11 <Nico Mendiola DO - Last Filed: 11/11/23 16:05> Source: patient <Nico Mendiola DO - Last Filed: 11/11/23 16:05> Mode of arrival: ambulatory <Nico Mendiola - Last Filed: 11/11/23 16:05> Limitations: no limitations <Nico Mendiola DO - Last Filed: 11/11/23 16:05> History of Present Illness HPI narrative: Patient is a 78-year-old female presenting to emergency department for chest pain and lightheadedness. She states last night while she was cleaning her house she started to get lightheaded and having a chest pressure in her lower sternal/epigastric region. She did not know if it was related to reflux but symptoms concern seen you would in today so she came to get evaluated. Describes the lightheadedness has mild and does not feel like she is going to pass out at all. States she has had chest pain like this in the past but in and of not being anything concerning went away on its own. States she was using some household smoking pipe driller and threader to do the cleaning but did not mix any chemicals. She only uses [employer] were a she got from the [employer]. Has had some issues with intermittent nausea over the past few weeks. Is not currently feeling nauseated. Denies shortness of breath. Denies fevers, chills, dizziness, headache, vision changes, weakness, numbness. Does have history of AFib and has a brother who had a heart attack 5 years ago but no other family history of heart disease. States she has not noticed much difference in symptoms today compared to last night. <Nico Mendiola DO - Last Filed: 11/11/23 16:05> Related Data Home medications: Home Medications ?Medication ?Instructions ?Recorded ?Confirmed flavoxate 100 mg tablet 100 mg PO TID 11/07/21 10/20/23 furosemide 20 mg tablet 20 mg PO DAILY 11/07/21 10/20/23 losartan 50 mg tablet 100 mg PO DAILY 11/07/21 10/20/23 ondansetron HCl 4 mg tablet 4 mg PO DAILY 11/07/21 10/20/23 oxybutynin chloride 10 mg 10 mg PO DAILY 11/07/21 10/20/23 tablet,extended release 24 hr potassium chloride 20 mEq 20 meq PO DAILY 11/07/21 10/20/23 tablet,extended release(part/cryst) sumatriptan succinate 50 mg tablet 50 mg PO DAILY 11/07/21 10/20/23 warfarin 5 mg tablet 5 mg PO 11/07/21 10/20/23 amlodipine 10 mg tablet 10 mg PO DAILY 07/19/22 10/20/23 fluticasone propionate 50 1 spray intranasal DAILY 07/19/22 10/20/23 mcg/actuation nasal spray,suspension hydroxyzine HCl 25 mg tablet 25 mg PO 3XD 07/19/22 10/20/23 cyclobenzaprine 5 mg tablet 5 mg PO TID PRN 06/03/23 10/20/23 glucosamine HCl 1,500 mg tablet 1,500 mg PO DAILY 06/03/23 10/20/23 hyoscyamine sulfate 0.125 mg 0.125 mg PO Q4H PRN 06/03/23 10/20/23 tablet (Levsin) metronidazole 500 mg tablet 500 mg PO TID 06/03/23 10/20/23 omeprazole 20 mg capsule,delayed 20 mg PO DAILY 06/03/23 10/20/23 release Previous Rx's ?Medication ?Instructions ?Recorded phenazopyridine 100 mg tablet 100 mg PO TID PRN pain 6 doses #6 10/20/23 tabs <Nico Mendiola, DO - Last Filed: 11/11/23 16:05> Allergies/adverse reactions: Allergies Allergy/AdvReac Type Severity Reaction Status Date / Time cephalexin Allergy Intermediate Chest Pain Verified 11/11/23 13:26 clonidine Allergy Intermediate tachycardia Verified 11/11/23 13:26 losartan Allergy Intermediate Tachycardia Verified 11/11/23 13:26 gadodiamide Allergy Mild Hives Verified 11/11/23 13:26 latex Allergy Mild Rash Verified 11/11/23 13:26 ibuprofen Allergy Chest Pain Verified 11/11/23 13:26 Penicillins Allergy Anaphylaxis Verified 11/11/23 13:26 Sulfa (Sulfonamide Allergy Hives Verified 11/11/23 13:26 Antibiotics) nitrofurantoin AdvReac Verified 11/11/23 13:26 [From Macrobid] propranolol AdvReac bradycardia Verified 11/11/23 13:26 IV contrast dye Allergy Hives Uncoded 07/03/23 17:44 peg 400-propylene glycol Allergy Rash Uncoded 07/03/23 17:44 <Nico Mendiola DO - Last Filed: 11/11/23 16:05> Review of Systems Status of ROS: Reports: 10 or more systems reviewed and unremarkable except as noted in History and below <Nico Mendiola DO - Last Filed: 11/11/23 16:05> [facility] Medical History: Medical History Chronic diastolic (congestive) heart failure ?I50.32 - Chronic diastolic (congestive) heart failure (ICD-10) Viral gastroenteritis ?A08.4 - Viral intestinal infection, unspecified (ICD-10) Traumatic ecchymosis of face ?S00.83XA - Contusion of other part of head, initial encounter (ICD-10) Toothache ?K08.89 - Other specified disorders of teeth and supporting structures (ICD-10) Sprain of knee ?S83.90XA - Sprain of unspecified site of unspecified knee, initial encounter (ICD-10) Pain of right hand ?M79.641 - Pain in right hand (ICD-10) Nausea alone ?R11.0 - Nausea (ICD-10) Headache ?R51.9 - Headache, unspecified (ICD-10) Fall ?W19.XXXA - Unspecified fall, initial encounter (ICD-10) Epigastric pain ?R10.13 - Epigastric pain (ICD-10) Dyspnea ?R06.00 - Dyspnea, unspecified (ICD-10) Cough ?R05.9 - Cough, unspecified (ICD-10) Cellulitis of leg ?L03.119 - Cellulitis of unspecified part of limb (ICD-10) Arthritis of both temporomandibular joints ?M26.643 - Arthritis of bilateral temporomandibular joint (ICD-10) Atrial fibrillation ?I48.91 - Unspecified atrial fibrillation (ICD-10) Enlarged LA (left atrium) ?I51.7 - Cardiomegaly (ICD-10) Vitamin D deficiency ?E55.9 - Vitamin D deficiency, unspecified (ICD-10) Hyperlipidemia ?E78.5 - Hyperlipidemia, unspecified (ICD-10) Panic disorder without agoraphobia ?F41.0 - Panic disorder [episodic paroxysmal anxiety] (ICD-10) Benign paroxysmal positional vertigo ?H81.10 - Benign paroxysmal vertigo, unspecified ear (ICD-10) Hypertension ?I10 - Essential (primary) hypertension (ICD-10) <Nico Mendiola DO - Last Filed: 11/11/23 16:05> Surgical History: Surgical History S/P trigger finger release (06/04/23) ?Z98.890 - Other specified postprocedural states (ICD-10) History of incision and drainage (02/26/14) ?Z98.890 - Other specified postprocedural states (ICD-10) History of phacoemulsification of cataract of right eye with intraocular lens implantation (04/17/17) ?Z98.41 - Cataract extraction status, right eye (ICD-10) ?Z96.1 - Presence of intraocular lens (ICD-10) History of phacoemulsification of cataract of left eye with intraocular lens implantation (05/01/17) ?Z98.42 - Cataract extraction status, left eye (ICD-10) ?Z96.1 - Presence of intraocular lens (ICD-10) History of YAG laser capsulotomy of lens of right eye (09/04/17) ?Z98.41 - Cataract extraction status, right eye (ICD-10) History of YAG laser capsulotomy of lens of left eye (04/06/20) ?Z98.42 - Cataract extraction status, left eye (ICD-10) H/O hernia repair (03/22/08) ?Z98.890 - Other specified postprocedural states (ICD-10) ?Z87.19 - Personal history of other diseases of the digestive system (ICD-10) H/O dilation and curettage (04/28/08) ?Z98.890 - Other specified postprocedural states (ICD-10) History of appendectomy ?Z90.49 - Acquired absence of other specified parts of digestive tract (ICD-10) <Nico Mendiola DO - Last Filed: 11/11/23 16:05> Social History: Social History Smoking Status: Never smoker Do you use any of these nicotine containing products: None How often do you have a drink containing alcohol: never How often do you have six or more drinks on one occasion: Never AUDIT-C Alcohol total score: 0 Non-prescribed substance use: denies use Caffeine: No Are you using contraception or practicing any form of control: No service: No <Nico Mendiola DO - Last Filed: 11/11/23 16:05> Exam Narrative: Exam Narrative: Const: Well-nourished, Well-developed, in no distress Eyes: PERRL, no conjunctival injection, and symmetrical lids HENT: Atraumatic external nose and ears. Moist mucous membranes. Neck: Symmetric, trachea midline, No thyromegaly. CVS: RRR, No murmurs or gallops. Peripheral pulses 2+ and equal in all extremities RESP: Unlabored respiratory effort. Clear to auscultation bilaterally. GI: Nontender/Nondistended, No rebound or guarding. MSK:Extremities w/o deformity, Normal Active ROM Skin: Warm, Dry. No rashes or lesions. Neuro: Normal Muscle tone, No focal neurological deficits. Psych: Awake, Alert, & Oriented x3. Appropriate mood and affect. <Nico Mendiola DO - Last Filed: 11/11/23 16:05> Const: Vital Signs, click to edit/add: Vital Signs - 24 hr 11/11/23 13:23 11/11/23 13:54 11/11/23 14:13 Temperature 97.9 F Pulse Rate 48 L 60 Pulse Rate [Right Pulse Oximeter] 57 L Respiratory Rate 16 Blood Pressure Blood Pressure [Ri ght Upper Arm] 154/67 H Pulse Oximetry 98 98 97 Oxygen Delivery Me thod Room Air 11/11/23 14:14 11/11/23 14:15 11/11/23 14:30 Temperature Pulse Rate 51 L 47 L 46 L Pulse Rate [Right Pulse Oximeter] Respiratory Rate Blood Pressure 163/75 H Blood Pressure [Ri ght Upper Arm] Pulse Oximetry 95 98 91 Oxygen Delivery Me thod 11/11/23 14:32 11/11/23 14:45 11/11/23 15:00 Temperature Pulse Rate 53 L 47 L 50 L Pulse Rate [Right Pulse Oximeter] Respiratory Rate Blood Pressure 152/75 H Blood Pressure [Ri ght Upper Arm] Pulse Oximetry 96 98 97 Oxygen Delivery Me thod 11/11/23 15:02 11/11/23 15:15 11/11/23 15:30 Temperature Pulse Rate 43 L 51 L 53 L Pulse Rate [Right Pulse Oximeter] Respiratory Rate Blood Pressure 164/74 H Blood Pressure [Ri ght Upper Arm] Pulse Oximetry 94 95 97 Oxygen Delivery Me thod 11/11/23 15:32 11/11/23 15:45 11/11/23 16:14 Temperature Pulse Rate 54 L Pulse Rate [Right Pulse Oximeter] Respiratory Rate Blood Pressure 164/76 H Blood Pressure [Ri ght Upper Arm] Pulse Oximetry 97 81 L 96 Oxygen Delivery Me thod 11/11/23 16:15 11/11/23 16:21 11/11/23 16:30 Temperature Pulse Rate 52 L 53 L 51 L Pulse Rate [Right Pulse Oximeter] Respiratory Rate Blood Pressure 155/76 H Blood Pressure [Ri ght Upper Arm] Pulse Oximetry 94 97 96 Oxygen Delivery Me thod 11/11/23 16:31 11/11/23 16:31 11/11/23 16:45 Temperature Pulse Rate 48 L 48 L 53 L Pulse Rate [Right Pulse Oximeter] Respiratory Rate Blood Pressure 166/75 H 166/75 H Blood Pressure [Ri ght Upper Arm] Pulse Oximetry 98 98 96 Oxygen Delivery Me thod 11/11/23 17:00 11/11/23 17:02 11/11/23 17:15 Temperature Pulse Rate 57 L 54 L 44 L Pulse Rate [Right Pulse Oximeter] Respiratory Rate Blood Pressure 149/66 H Blood Pressure [Ri ght Upper Arm] Pulse Oximetry 95 94 98 Oxygen Delivery Me thod <Nico Mendiola, DO - Last Filed: 11/11/23 16:05> Vital Signs, click to edit/add: Vital Signs - 24 hr 11/11/23 13:23 11/11/23 13:54 11/11/23 14:13 Temperature 97.9 F Pulse Rate 48 L 60 Pulse Rate [Right Pulse Oximeter] 57 L Respiratory Rate 16 Blood Pressure Blood Pressure [Ri ght Upper Arm] 154/67 H Pulse Oximetry 98 98 97 Oxygen Delivery Me thod Room Air 11/11/23 14:14 11/11/23 14:15 11/11/23 14:30 Temperature Pulse Rate 51 L 47 L 46 L Pulse Rate [Right Pulse Oximeter] Respiratory Rate Blood Pressure 163/75 H Blood Pressure [Ri ght Upper Arm] Pulse Oximetry 95 98 91 Oxygen Delivery Me thod 11/11/23 14:32 11/11/23 14:45 11/11/23 15:00 Temperature Pulse Rate 53 L 47 L 50 L Pulse Rate [Right Pulse Oximeter] Respiratory Rate Blood Pressure 152/75 H Blood Pressure [Ri ght Upper Arm] Pulse Oximetry 96 98 97 Oxygen Delivery Me thod 11/11/23 15:02 11/11/23 15:15 11/11/23 15:30 Temperature Pulse Rate 43 L 51 L 53 L Pulse Rate [Right Pulse Oximeter] Respiratory Rate Blood Pressure 164/74 H Blood Pressure [Ri ght Upper Arm] Pulse Oximetry 94 95 97 Oxygen Delivery Me thod 11/11/23 15:32 11/11/23 15:45 11/11/23 16:14 Temperature Pulse Rate 54 L Pulse Rate [Right Pulse Oximeter] Respiratory Rate Blood Pressure 164/76 H Blood Pressure [Ri ght Upper Arm] Pulse Oximetry 97 81 L 96 Oxygen Delivery Me thod 11/11/23 16:15 11/11/23 16:21 11/11/23 16:30 Temperature Pulse Rate 52 L 53 L 51 L Pulse Rate [Right Pulse Oximeter] Respiratory Rate Blood Pressure 155/76 H Blood Pressure [Ri ght Upper Arm] Pulse Oximetry 94 97 96 Oxygen Delivery Me thod 11/11/23 16:31 11/11/23 16:31 11/11/23 16:45 Temperature Pulse Rate 48 L 48 L 53 L Pulse Rate [Right Pulse Oximeter] Respiratory Rate Blood Pressure 166/75 H 166/75 H Blood Pressure [Ri ght Upper Arm] Pulse Oximetry 98 98 96 Oxygen Delivery Me thod 11/11/23 17:00 11/11/23 17:02 11/11/23 17:15 Temperature Pulse Rate 57 L 54 L 44 L Pulse Rate [Right Pulse Oximeter] Respiratory Rate Blood Pressure 149/66 H Blood Pressure [Ri ght Upper Arm] Pulse Oximetry 95 94 98 Oxygen Delivery Me thod <Azucena Valente MD - Last Filed: 11/11/23 17:17> Course Course ED Course: Patient had a follow-up point of care troponin that elevated at 0.16, patient had no further pain. Did do an updated EKG showing atrial fibrillation with slow ventricular response, 47 beats per minute. No active ischemia or infarct noted. No significant change from her earlier EKG. Did do a follow-up laboratory troponin I which remains normal. Thus, the point of care troponin the 2nd time is a false negative. The plan to discharge to home as previous per Dr. Mendiola will be done. <Azucena Valente MD - Last Filed: 11/11/23 17:17> Vital Signs Vital signs: Initial Vital Signs Temperature 97.9 F 11/11/23 13:23 Temperature Source Temporal Artery Scan 11/11/23 13:23 Pulse Rate 57 L 11/11/23 13:23 Pulse Rhythm Regular 11/11/23 13:23 Pulse Strength 3+ Normal 11/11/23 13:23 Respiratory Rate 16 11/11/23 13:23 Blood Pressure 154/67 H 11/11/23 13:23 Blood Pressure Mean 96 11/11/23 13:23 Blood Pressure Position Sitting 11/11/23 13:23 Pulse Oximetry 98 11/11/23 13:23 Oxygen Delivery Method Room Air 11/11/23 13:23 Vital Signs Temperature 97.9 F 11/11/23 13:23 Pulse Rate 57 L 11/11/23 13:23 Respiratory Rate 16 11/11/23 13:23 Blood Pressure 154/67 H 11/11/23 13:23 Pulse Oximetry 98 11/11/23 13:23 Oxygen Delivery Method Room Air 11/11/23 13:23 Temperature 97.9 F 11/11/23 13:23 Pulse Rate 44 L 11/11/23 17:15 Respiratory Rate 16 11/11/23 13:23 Blood Pressure 149/66 H 11/11/23 17:02 Pulse Oximetry 98 11/11/23 17:15 Oxygen Delivery Method Room Air 11/11/23 13:23 <Nico Mendiola DO - Last Filed: 11/11/23 16:05> Initial Vital Signs Temperature 97.9 F 11/11/23 13:23 Temperature Source Temporal Artery Scan 11/11/23 13:23 Pulse Rate 57 L 11/11/23 13:23 Pulse Rhythm Regular 11/11/23 13:23 Pulse Strength 3+ Normal 11/11/23 13:23 Respiratory Rate 16 11/11/23 13:23 Blood Pressure 154/67 H 11/11/23 13:23 Blood Pressure Mean 96 11/11/23 13:23 Blood Pressure Position Sitting 11/11/23 13:23 Pulse Oximetry 98 11/11/23 13:23 Oxygen Delivery Method Room Air 11/11/23 13:23 Vital Signs Temperature 97.9 F 11/11/23 13:23 Pulse Rate 57 L 11/11/23 13:23 Respiratory Rate 16 11/11/23 13:23 Blood Pressure 154/67 H 11/11/23 13:23 Pulse Oximetry 98 11/11/23 13:23 Oxygen Delivery Method Room Air 11/11/23 13:23 Temperature 97.9 F 11/11/23 13:23 Pulse Rate 44 L 11/11/23 17:15 Respiratory Rate 16 11/11/23 13:23 Blood Pressure 149/66 H 11/11/23 17:02 Pulse Oximetry 98 11/11/23 17:15 Oxygen Delivery Method Room Air 11/11/23 13:23 <Azucena Valente MD - Last Filed: 11/11/23 17:17> Medications Administered Medications: Discontinued Medications Generic Name Dose Route Start Last Admin Trade Name Freq PRN Reason Stop Dose Admin Lactated Ringer's 1,000 mls @ 1,000 mls/hr 11/11/23 13:41 11/11/23 16:00 Lactated Ringers 1000 Ml IV 11/11/23 14:40 Infused .Q1H ONE Infusion Ondansetron HCl 4 mg 11/11/23 13:41 11/11/23 14:17 Ondansetron 2 Mg/Ml Inj IVP 11/11/23 13:42 4 mg ONCE ONE Administration <Nico Mendiola DO - Last Filed: 09/23/24 16:05> Discontinued Medications Generic Name Dose Route Start Last Admin Trade Name Linda PRN Reason Stop Dose Admin Lactated Ringer's 1,000 mls @ 1,000 mls/hr 11/11/23 13:41 11/11/23 16:00 Lactated Ringers 1000 Ml IV 11/11/23 14:40 Infused .Q1H ONE Infusion Ondansetron HCl 4 mg 11/11/23 13:41 11/11/23 14:17 Ondansetron 2 Mg/Ml Inj IVP 11/11/23 13:42 4 mg ONCE ONE Administration <Azucena Valente MD - Last Filed: 11/11/23 17:17> Medical Decision Making MDM Narrative Medical decision making narrative: Patient is a 78-year-old female presenting for some chest discomfort and lightheadedness. The differential diagnosis of chest pain is broad and includes common etiologies such as musculoskeletal strain, GERD, pneumonia, etc. More serious etiologies considered include PE, coronary artery disease, pneumothorax, aortic dissection, aortic aneurysm. Symptoms have been going on since yesterday. Patient specifically told me she was not next any chemicals when I ask so was unlikely to be related to any chemicals from the cleaning. INR will be ordered. Also ordered a D-dimer, CBC, CMP, magnesium, troponin. She is having some intermittent nausea and Zofran is given grossly given a L of fluids along with doing a COVID test and a chest x-ray. Lab work all returned showing no concerning abnormalities. Her INR is slightly low at 1.7. She says it was 2.6 last week. Troponin within normal limits. EKG shows no concerning findings. Symptoms are now fully resolved while she is in the emergency department due that is not believe further imaging is necessary. She is not having any current epigastric pain. Lipase within normal limits and pancreatitis seems unlikely. Chest x-ray reviewed and showed no concerning abnormalities I do not believe further imaging is necessary at this time. Repeat point of care troponin was drawn this was elevated 0.16. This could be lab error though and we will do a official lab troponin. Patient signed out to my colleague. <Nico Mendiola DO - Last Filed: 11/11/23 16:05> Lab Data Lab results reviewed: Yes I reviewed the patient's lab results <Azucena Valente MD - Last Filed: 11/11/23 17:17> Labs: Lab Results 11/11/23 11/11/23 11/11/23 Range/Units 13:41 13:58 13:58 WBC 6.51 (4.50-11.00) K/uL RBC 5.15 (4.00-5.20) m/uL Hgb 14.2 (12.0-16.0) gm/dL Hct 42.9 (33.0-51.0) % MCV 83 (80-100) fL MCH 28 (26-34) pg MCHC 33 (32-36) gm/dL RDW Coeff of Mariaelena 15.7 H (11.5-15.5) % Plt Count 222 (140-440) K/uL Neut % (Auto) 72.0 (42.0-72.0) % Lymph % (Auto) 16.4 L (20-44) % [place] % (Auto) 6.9 (0.0-11.0) % Eos % (Auto) 3.8 (0.0-7.0) % Baso % (Auto) 0.6 (0.0-3.0) % Neut # (Auto) 4.68 (1.7-7.0) K/uL Lymph # (Auto) 1.10 (0.90-2.90) K/uL [place] # (Auto) 0.40 (0.00-0.90) K/UL Eos # (Auto) 0.25 (0.00-0.50) K/uL Baso # (Auto) 0.04 (0.00-0.30) K/uL Abs Immat Gran (auto) 0.02 (0.00-0.30) K/uL Imm/Tot Granulo (auto) 0.3 % INR 1.70 H Cancelled (0.91-1.10) D-Dimer Quant (PE/DVT) 0.28 (0.00-0.50) ug/ml Sodium 140 (135-149) mmol/L Potassium 3.8 (3.6-5.1) mmol/L Chloride 109 (96-114) mmol/L Carbon Dioxide 22 (20-32) mmol/L Anion Gap 9 (7-15) mEq/L BUN 20 (7-30) mg/dL Creatinine 0.6 (0.5-1.5) mg/dL Estimated Creat Clear 50.02 Estimated GFR 93 ml/min Glucose 102 (60-115) mg/dL Calcium 9.1 (8.4-10.6) mg/dL Magnesium 2.1 (1.5-2.6) mg/dL Total Bilirubin 1.5 (0.1-1.5) mg/dL AST 28 (12-35) U/L ALT 12 (4-35) U/L Alkaline Phosphatase 83 (40-150) U/L Troponin I < 0.01 L (0.01-0.04) ng/mL Total Protein 7.6 (6.0-8.3) g/dL Albumin 4.7 (3.3-5.0) g/dL Lipase 45 (23-300) U/L SARS-CoV-2 (PCR) Negative SARS-CoV-2 (Negative) Influenza Type A (PCR) Negative PCR FLU A (Negative) Influenza Type B (PCR) Negative PCR FLU B (Negative) RSV (PCR) Negative PCR RSV (Negative) POC Troponin I 0.01 (0.01-0.04) ng/ml 11/11/23 11/11/23 Range/Units 15:43 15:49 WBC (4.50-11.00) K/uL RBC (4.00-5.20) m/uL Hgb (12.0-16.0) gm/dL Hct (33.0-51.0) % MCV (80-100) fL MCH (26-34) pg MCHC (32-36) gm/dL RDW Coeff of Mariaelena (11.5-15.5) % Plt Count (140-440) K/uL Neut % (Auto) (42.0-72.0) % Lymph % (Auto) (20-44) % [place] % (Auto) (0.0-11.0) % Eos % (Auto) (0.0-7.0) % Baso % (Auto) (0.0-3.0) % Neut # (Auto) (1.7-7.0) K/uL Lymph # (Auto) (0.90-2.90) K/uL [place] # (Auto) (0.00-0.90) K/UL Eos # (Auto) (0.00-0.50) K/uL Baso # (Auto) (0.00-0.30) K/uL Abs Immat Gran (auto) (0.00-0.30) K/uL Imm/Tot Granulo (auto) % INR (0.91-1.10) D-Dimer Quant (PE/DVT) (0.00-0.50) ug/ml Sodium (135-149) mmol/L Potassium (3.6-5.1) mmol/L Chloride (96-114) mmol/L Carbon Dioxide (20-32) mmol/L Anion Gap (7-15) mEq/L BUN (7-30) mg/dL Creatinine (0.5-1.5) mg/dL Estimated Creat Clear Estimated GFR ml/min Glucose (60-115) mg/dL Calcium (8.4-10.6) mg/dL Magnesium (1.5-2.6) mg/dL Total Bilirubin (0.1-1.5) mg/dL AST (12-35) U/L ALT (4-35) U/L Alkaline Phosphatase (40-150) U/L Troponin I 0.01 (0.01-0.04) ng/mL Total Protein (6.0-8.3) g/dL Albumin (3.3-5.0) g/dL Lipase (23-300) U/L SARS-CoV-2 (PCR) (Negative) Influenza Type A (PCR) (Negative) Influenza Type B (PCR) (Negative) RSV (PCR) (Negative) POC Troponin I 0.16 H (0.01-0.04) ng/ml <Nico Mendiola, DO - Last Filed: 11/11/23 16:05> Lab Results 11/11/23 11/11/23 11/11/23 Range/Units 13:41 13:58 13:58 WBC 6.51 (4.50-11.00) K/uL RBC 5.15 (4.00-5.20) m/uL Hgb 14.2 (12.0-16.0) gm/dL Hct 42.9 (33.0-51.0) % MCV 83 (80-100) fL MCH 28 (26-34) pg MCHC 33 (32-36) gm/dL RDW Coeff of Mariaelena 15.7 H (11.5-15.5) % Plt Count 222 (140-440) K/uL Neut % (Auto) 72.0 (42.0-72.0) % Lymph % (Auto) 16.4 L (20-44) % [place] % (Auto) 6.9 (0.0-11.0) % Eos % (Auto) 3.8 (0.0-7.0) % Baso % (Auto) 0.6 (0.0-3.0) % Neut # (Auto) 4.68 (1.7-7.0) K/uL Lymph # (Auto) 1.10 (0.90-2.90) K/uL [place] # (Auto) 0.40 (0.00-0.90) K/UL Eos # (Auto) 0.25 (0.00-0.50) K/uL Baso # (Auto) 0.04 (0.00-0.30) K/uL Abs Immat Gran (auto) 0.02 (0.00-0.30) K/uL Imm/Tot Granulo (auto) 0.3 % INR 1.70 H Cancelled (0.91-1.10) D-Dimer Quant (PE/DVT) 0.28 (0.00-0.50) ug/ml Sodium 140 (135-149) mmol/L Potassium 3.8 (3.6-5.1) mmol/L Chloride 109 (96-114) mmol/L Carbon Dioxide 22 (20-32) mmol/L Anion Gap 9 (7-15) mEq/L BUN 20 (7-30) mg/dL Creatinine 0.6 (0.5-1.5) mg/dL Estimated Creat Clear 50.02 Estimated GFR 93 ml/min Glucose 102 (60-115) mg/dL Calcium 9.1 (8.4-10.6) mg/dL Magnesium 2.1 (1.5-2.6) mg/dL Total Bilirubin 1.5 (0.1-1.5) mg/dL AST 28 (12-35) U/L ALT 12 (4-35) U/L Alkaline Phosphatase 83 (40-150) U/L Troponin I < 0.01 L (0.01-0.04) ng/mL Total Protein 7.6 (6.0-8.3) g/dL Albumin 4.7 (3.3-5.0) g/dL Lipase 45 (23-300) U/L SARS-CoV-2 (PCR) Negative SARS-CoV-2 (Negative) Influenza Type A (PCR) Negative PCR FLU A (Negative) Influenza Type B (PCR) Negative PCR FLU B (Negative) RSV (PCR) Negative PCR RSV (Negative) POC Troponin I 0.01 (0.01-0.04) ng/ml 11/11/23 11/11/23 Range/Units 15:43 15:49 WBC (4.50-11.00) K/uL RBC (4.00-5.20) m/uL Hgb (12.0-16.0) gm/dL Hct (33.0-51.0) % MCV (80-100) fL MCH (26-34) pg MCHC (32-36) gm/dL RDW Coeff of Mariaelena (11.5-15.5) % Plt Count (140-440) K/uL Neut % (Auto) (42.0-72.0) % Lymph % (Auto) (20-44) % [place] % (Auto) (0.0-11.0) % Eos % (Auto) (0.0-7.0) % Baso % (Auto) (0.0-3.0) % Neut # (Auto) (1.7-7.0) K/uL Lymph # (Auto) (0.90-2.90) K/uL [place] # (Auto) (0.00-0.90) K/UL Eos # (Auto) (0.00-0.50) K/uL Baso # (Auto) (0.00-0.30) K/uL Abs Immat Gran (auto) (0.00-0.30) K/uL Imm/Tot Granulo (auto) % INR (0.91-1.10) D-Dimer Quant (PE/DVT) (0.00-0.50) ug/ml Sodium (135-149) mmol/L Potassium (3.6-5.1) mmol/L Chloride (96-114) mmol/L Carbon Dioxide (20-32) mmol/L Anion Gap (7-15) mEq/L BUN (7-30) mg/dL Creatinine (0.5-1.5) mg/dL Estimated Creat Clear Estimated GFR ml/min Glucose (60-115) mg/dL Calcium (8.4-10.6) mg/dL Magnesium (1.5-2.6) mg/dL Total Bilirubin (0.1-1.5) mg/dL AST (12-35) U/L ALT (4-35) U/L Alkaline Phosphatase (40-150) U/L Troponin I 0.01 (0.01-0.04) ng/mL Total Protein (6.0-8.3) g/dL Albumin (3.3-5.0) g/dL Lipase (23-300) U/L SARS-CoV-2 (PCR) (Negative) Influenza Type A (PCR) (Negative) Influenza Type B (PCR) (Negative) RSV (PCR) (Negative) POC Troponin I 0.16 H (0.01-0.04) ng/ml <Azucena Valente MD - Last Filed: 11/11/23 17:17> Imaging Data Chest x-ray: Radiologist's impression: Cardiovascular and mediastinum: Normal heart size with aortic tortuosity and atherosclerotic calcification. Lungs and pleural spaces: Lungs are clear. No sign of infiltrate or mass. No sign of pleural effusion. No pneumothorax. Bones and soft tissues: No significant findings. Dictated by Ramon Youngblood MD @ 11/11/2023 3:12:11 PM <DO Jory Man Last Filed: 11/11/23 16:05> ECG Data Attestation: I personally reviewed and interpreted this ECG as follows: <Nico Mendiola DO - Last Filed: 11/11/23 16:05> Interpretation: AFib with a rate of 49 beats per minute, normal axis, no ST or T-wave abnormalities, normal QRS. <DO Jory Man Last Filed: 11/11/23 16:05> Discharge Plan Discharge Clinical Impression: Atypical chest pain <Nico Mendiola DO - Last Filed: 11/11/23 16:05> Patient Disposition: Home, Self-Care <DO Jory Man Last Filed: 11/11/23 16:05> Condition: Stable <DO Jory Man Last Filed: 11/11/23 16:05> Instructions: Noncardiac Chest Pain (ED) <Nico Mendiola DO - Last Filed: 11/11/23 16:05> Additional Instructions: Follow-up with your primary care provider if symptoms persist. Return to emergency department for new or worsening symptoms. <Nico Mendiola DO - Last Filed: 11/11/23 16:05> Prescriptions: No Action fluticasone propionate 50 mcg/actuation spray,suspension 1 spray intranasal DAILY hydroxyzine HCl 25 mg tablet 25 mg PO 3XD amlodipine 10 mg tablet 10 mg PO DAILY phenazopyridine 100 mg tablet 100 mg PO TID PRN (Reason: pain) Qty: 6 0RF losartan 50 mg tablet 100 mg PO DAILY Patient Comments: TAKE 2 TABLETS BY MOUTH ONCE DAILY oxybutynin chloride 10 mg tablet extended release 24hr 10 mg PO DAILY Patient Comments: TAKE 1 TABLET BY MOUTH ONCE DAILY ondansetron HCl 4 mg tablet 4 mg PO DAILY Patient Comments: TAKE 1 TABLET BY MOUTH EVERY 8 HOURS NEEDED FOR NAUSEA AND VOMITING sumatriptan succinate 50 mg tablet 50 mg PO DAILY Patient Comments: TAKE 1 TABLET BY MOUTH TWICE DAILY NEEDED FOR MIGRAINE GIVE AT MINIMUM 2 HOURS APART. MAX DOSE 200MG PER 24 HOURS. potassium chloride 20 mEq tablet,ER particles/crystals 20 meq PO DAILY Patient Comments: TAKE 1 TABLET BY MOUTH ONCE DAILY WITH A MEAL warfarin 5 mg tablet 5 mg PO furosemide 20 mg tablet 20 mg PO DAILY Patient Comments: TAKE 1 TABLET BY MOUTH IN THE MORNING flavoxate 100 mg tablet 100 mg PO TID Patient Comments: TAKE 1 TABLET BY MOUTH THREE TIMES DAILY cyclobenzaprine 5 mg tablet 5 mg PO TID PRN glucosamine HCl 1,500 mg tablet 1,500 mg PO DAILY hyoscyamine sulfate [Levsin] 0.125 mg tablet 0.125 mg PO Q4H PRN metronidazole 500 mg tablet 500 mg PO TID omeprazole 20 mg capsule,delayed release(DR/EC) 20 mg PO DAILY <Nico Mendiola DO - Last Filed: 11/11/23 16:05> Follow Up/Referrals: Nico Betancourt MD [Primary Care Provider] - <Nico Mendiola DO - Last Filed: 11/11/23 16:05> Stand Alone Forms: [facility] Info Instructions <Nico Mendiola, DO - Last Filed: 11/11/23 16:05>
[2023-11-11 14:09] LABS: Basophils Absolute Auto 0.04 K/uL (0.00-0.30); Basophils Percent Auto 0.6 % (0.0-3.0); Eosinophils Absolute Auto 0.25 K/uL (0.00-0.50); Eosinophils Percent Auto 3.8 % (0.0-7.0); Hematocrit 42.9 % (33.0-51.0); Hemoglobin* 14.2 gm/dL (12.0-16.0); Immature Granulocytes Abs Auto 0.02 K/uL (0.00-0.30); Immature Granulocytes Pct Auto 0.3 %; Lymphocytes Percent Auto 16.4 % (20-44); Mean Corpuscular HGB Conc 33 gm/dL (32-36); Mean Corpuscular Hemoglobin 28 pg (26-34); Mean Corpuscular Volume 83 fL (80-100); Monocytes Percent Auto 6.9 % (0.0-11.0); Neutrophils Absolute Auto 4.68 K/uL (1.7-7.0); Platelet Count* 222 K/uL (140-440); RDW Coefficient of Variation % 15.7 % (11.5-15.5); Red Blood Count 5.15 m/uL (4.00-5.20); White Blood Count* 6.51 K/uL (4.50-11.00)
[2023-11-11] MEDS: LACTATED RINGERS 1000 ML 1,000 ML IV (14:15)
[2023-11-11] MEDS: ONDANSETRON 2 MG/ML inj 4 MG IVP (14:17)
[2023-11-11 14:18] LABS: Slide Review Reflex No
[2023-11-11 14:20] LABS: Albumin* 4.7 g/dL (3.3-5.0); Chloride* 109 mmol/L (96-114); Sodium* 140 mmol/L (135-149)
[2023-11-11 14:21] LABS: Potassium* 3.8 mmol/L (3.6-5.1)
[2023-11-11 14:22] LABS: Creatinine* 0.6 mg/dL (0.5-1.5); Est. Creatinine Clearance* 50.02; Estimated Glomerular Filt Rate 93 ml/min
[2023-11-11 14:23] LABS: Alanine Aminotransferase* 12 U/L (4-35); Alkaline Phosphatase* 83 U/L (40-150); Anion Gap 9 mEq/L (7-15); Aspartate Amino Transferase* 28 U/L (12-35); Bilirubin Total* 1.5 mg/dL (0.1-1.5); Blood Urea Nitrogen* 20 mg/dL (7-30); Calcium* 9.1 mg/dL (8.4-10.6); Carbon Dioxide* 22 mmol/L (20-32); Glucose* 102 mg/dL (60-115); Lipase* 45 U/L (23-300); Total Protein* 7.6 g/dL (6.0-8.3)
[2023-11-11 14:24] LABS: Magnesium* 2.1 mg/dL (1.5-2.6)
[2023-11-11 14:24] LABS: Troponin, Point-of-Care* 0.01 ng/ml (0.01-0.04)
[2023-11-11 14:39] LABS: Troponin I* < 0.01 ng/mL (0.01-0.04)
[2023-11-11 14:46] LABS: PCR FLU A Negative PCR FLU A (Negative); PCR FLU B Negative PCR FLU B (Negative); PCR RSV Negative PCR RSV (Negative); SARS PCR* Negative SARS-CoV-2 (Negative)
[2023-11-11 14:58] LABS: D Dimer Quantitative* 0.28 ug/ml (0.00-0.50)
[2023-11-11 15:02] LABS: Prothrombin Time 21.2 Seconds
[2023-11-11 16:09] LABS: Troponin, Point-of-Care* 0.16 ng/ml (0.01-0.04)
[2023-11-11 16:40] LABS: Troponin I* 0.01 ng/mL (0.01-0.04)
== END 2023-11-11 17:28 | disposition home or self-care (01) ==
PROVIDERS: Student in an Organized Health Care Education/Training Program; Emergency Provider Family Medicine; PCP Surgery
DX: R07.9 Chest pain, unspecified (principal)
CPT/HCPCS: 36415; 71046; 80053; 83690; 83735; 84484; 85025; 85379; 85610; 87631; 93005; 96374; 99283; 99284; 99285; J2405; J7120

== ENCOUNTER 2023-11-13 11:19 | Emergency (ER) | payer MEDICARE, SELFPAY ==
[2023-11-13] VITALS (8 sets, daily range): BP systolic 146–157; BP diastolic 68–104; PULSE 49–61; RESP 16–18; TEMP 36.8; O2SAT 95–98; BMI 33.3
--- NOTE | 2023-11-13 11:21 | ED.GENADULT ---
HPI - General Adult General Date Seen: 11/13/23 Chief complaint: Chest Pain Stated complaint: Dizziness, chest feels tight Time Seen by Provider: 11/13/23 11:21 History of Present Illness HPI narrative: 78-year-old female with a history of AFib, history of chronic diastolic CHF, hyperlipidemia, hypertension, panic disorder, BPPV, . she has a family history of coronary disease (brother). Per medical record, She was seen here in the ER 2 days ago on 11/10 for chest pain and dizziness that apparently had occurred the night before that while she was cleaning her house. Patient had an EKG showing AFib with slow ventricular response. Chest x-ray showed no obvious explanation for her pain. Labs showed: WBC 6.5, hemoglobin 14.2, platelet count 222 INR 1.7 (subtherapeutic) D-dimer 0.28 COVID negative, influenza negative, RSV negative. Urinalysis normal Sodium 140, potassium 3.8, chloride 109, bicarb 22, BUN 20, creatinine 0.6, glucose 102, magnesium 2.1, total bilirubin 1.5 (normal), AST 28, ALT 12, alk phos 83 Lab based troponin I was initially less than 0.01 at 1:58 p.m.. Repeat lab based troponin I was 0.01 at 3:49 p.m. She had a point of care troponin at 1:41 p.m. that was 0.01 (normal). She had a follow-up point of care troponin at 3:43 p.m. that was abnormal at 0.16. Per records, because the lab based troponin I remain normal, it was thought that the point of care troponin was a lab error/false positive She was discharged home on Saturday after her workup. She says she had a little bit more discomfort Saturday evening. Yesterday on Saturday was pretty good. She does not recall very many symptoms yesterday. This morning after she got up she started having some more discomfort in her chest. It is across the front and lower portion of her chest. It feels like pressure ?like an elephant? sitting on her chest. She is feeling dizzy this morning. No nausea. She is not having any palpitations. She has a history of AFib and is injured confirmed to be in AFib on the monitor this morning. She does not typically feel palpitations from her AFib. Heart rate is predominantly in the 50s with occasional drops into the high 40s or raises into the low 60s. She is not having any cough. No pleuritic pain. No swelling in her legs. Her INR was subtherapeutic on Saturday in the ER but it was therapeutic last in the INR clinic She also notes that she uses ?[place] main? mushroom extract drops (orally) twice daily to help control her macular degeneration. She has had macular degeneration for several years. She started on the drops about 5 months ago in May. At her annual eye checkup this year her eye doctor told her that her eyes were looking better this year than last year so she believes the drops are helping her she notes that she took 4 drops (instead of the recommended to) on Saturday and after that she started having some chest pain. She did not take any drops Saturday or Saturday. She took them again today and about an hour later her chest pain started. She wonders if the drops could be causing the chest pain. She called the drop manufacture company, in [facility], and they said that chest pain has not been reported side effect of the drops Related Data Home Medications ?Medication ?Instructions ?Recorded ?Confirmed flavoxate 100 mg tablet 100 mg PO TID 11/07/21 10/20/23 furosemide 20 mg tablet 20 mg PO DAILY 11/07/21 10/20/23 losartan 50 mg tablet 100 mg PO DAILY 11/07/21 10/20/23 ondansetron HCl 4 mg tablet 4 mg PO DAILY 11/07/21 10/20/23 oxybutynin chloride 10 mg 10 mg PO DAILY 11/07/21 10/20/23 tablet,extended release 24 hr potassium chloride 20 mEq 20 meq PO DAILY 11/07/21 10/20/23 tablet,extended release(part/cryst) sumatriptan succinate 50 mg tablet 50 mg PO DAILY 11/07/21 10/20/23 warfarin 5 mg tablet 5 mg PO 11/07/21 10/20/23 amlodipine 10 mg tablet 10 mg PO DAILY 07/19/22 10/20/23 fluticasone propionate 50 1 spray intranasal DAILY 07/19/22 10/20/23 mcg/actuation nasal spray,suspension hydroxyzine HCl 25 mg tablet 25 mg PO 3XD 07/19/22 10/20/23 cyclobenzaprine 5 mg tablet 5 mg PO TID PRN 06/03/23 10/20/23 glucosamine HCl 1,500 mg tablet 1,500 mg PO DAILY 06/03/23 10/20/23 hyoscyamine sulfate 0.125 mg 0.125 mg PO Q4H PRN 06/03/23 10/20/23 tablet (Levsin) metronidazole 500 mg tablet 500 mg PO TID 06/03/23 10/20/23 omeprazole 20 mg capsule,delayed 20 mg PO DAILY 06/03/23 10/20/23 release Previous Rx's ?Medication ?Instructions ?Recorded phenazopyridine 100 mg tablet 100 mg PO TID PRN pain 6 doses #6 10/20/23 tabs Allergies Allergy/AdvReac Type Severity Reaction Status Date / Time cephalexin Allergy Intermediate Chest Pain Verified 11/11/23 13:26 clonidine Allergy Intermediate tachycardia Verified 11/11/23 13:26 losartan Allergy Intermediate Tachycardia Verified 11/11/23 13:26 gadodiamide Allergy Mild Hives Verified 11/11/23 13:26 latex Allergy Mild Rash Verified 11/11/23 13:26 ibuprofen Allergy Chest Pain Verified 11/11/23 13:26 Penicillins Allergy Anaphylaxis Verified 11/11/23 13:26 Sulfa (Sulfonamide Allergy Hives Verified 11/11/23 13:26 Antibiotics) nitrofurantoin AdvReac Verified 11/11/23 13:26 [From Macrobid] propranolol AdvReac bradycardia Verified 11/11/23 13:26 IV contrast dye Allergy Hives Uncoded 07/03/23 17:44 peg 400-propylene glycol Allergy Rash Uncoded 07/03/23 17:44 [facility] Medical History Chronic diastolic (congestive) heart failure ?I50.32 - Chronic diastolic (congestive) heart failure (ICD-10) Viral gastroenteritis ?A08.4 - Viral intestinal infection, unspecified (ICD-10) Traumatic ecchymosis of face ?S00.83XA - Contusion of other part of head, initial encounter (ICD-10) Toothache ?K08.89 - Other specified disorders of teeth and supporting structures (ICD-10) Sprain of knee ?S83.90XA - Sprain of unspecified site of unspecified knee, initial encounter (ICD-10) Pain of right hand ?M79.641 - Pain in right hand (ICD-10) Nausea alone ?R11.0 - Nausea (ICD-10) Headache ?R51.9 - Headache, unspecified (ICD-10) Fall ?W19.XXXA - Unspecified fall, initial encounter (ICD-10) Epigastric pain ?R10.13 - Epigastric pain (ICD-10) Dyspnea ?R06.00 - Dyspnea, unspecified (ICD-10) Cough ?R05.9 - Cough, unspecified (ICD-10) Cellulitis of leg ?L03.119 - Cellulitis of unspecified part of limb (ICD-10) Arthritis of both temporomandibular joints ?M26.643 - Arthritis of bilateral temporomandibular joint (ICD-10) Atrial fibrillation ?I48.91 - Unspecified atrial fibrillation (ICD-10) Enlarged LA (left atrium) ?I51.7 - Cardiomegaly (ICD-10) Vitamin D deficiency ?E55.9 - Vitamin D deficiency, unspecified (ICD-10) Hyperlipidemia ?E78.5 - Hyperlipidemia, unspecified (ICD-10) Panic disorder without agoraphobia ?F41.0 - Panic disorder [episodic paroxysmal anxiety] (ICD-10) Benign paroxysmal positional vertigo ?H81.10 - Benign paroxysmal vertigo, unspecified ear (ICD-10) Hypertension ?I10 - Essential (primary) hypertension (ICD-10) Surgical History S/P trigger finger release (06/04/23) ?Z98.890 - Other specified postprocedural states (ICD-10) History of incision and drainage (02/26/14) ?Z98.890 - Other specified postprocedural states (ICD-10) History of phacoemulsification of cataract of right eye with intraocular lens implantation (04/17/17) ?Z98.41 - Cataract extraction status, right eye (ICD-10) ?Z96.1 - Presence of intraocular lens (ICD-10) History of phacoemulsification of cataract of left eye with intraocular lens implantation (05/01/17) ?Z98.42 - Cataract extraction status, left eye (ICD-10) ?Z96.1 - Presence of intraocular lens (ICD-10) History of YAG laser capsulotomy of lens of right eye (09/04/17) ?Z98.41 - Cataract extraction status, right eye (ICD-10) History of YAG laser capsulotomy of lens of left eye (04/06/20) ?Z98.42 - Cataract extraction status, left eye (ICD-10) H/O hernia repair (03/22/08) ?Z98.890 - Other specified postprocedural states (ICD-10) ?Z87.19 - Personal history of other diseases of the digestive system (ICD-10) H/O dilation and curettage (04/28/08) ?Z98.890 - Other specified postprocedural states (ICD-10) History of appendectomy ?Z90.49 - Acquired absence of other specified parts of digestive tract (ICD-10) Social History Smoking Status: Never smoker Do you use any of these nicotine containing products: None How often do you have a drink containing alcohol: never How often do you have six or more drinks on one occasion: Never AUDIT-C Alcohol total score: 0 Non-prescribed substance use: denies use Caffeine: No Are you using contraception or practicing any form of control: No service: No Exam Const: Vital Signs, click to edit/add: Vital Signs - 24 hr 11/13/23 11:37 11/13/23 14:27 11/13/23 14:30 Temperature 98.2 F Pulse Rate 56 L 61 Pulse Rate [Right Pulse Oximeter] 58 L Respiratory Rate 18 Blood Pressure Blood Pressure [Ri ght Upper Arm] 146/104 H Pulse Oximetry 97 98 96 Oxygen Delivery Me thod Room Air 11/13/23 14:32 11/13/23 15:29 11/13/23 15:30 Temperature Pulse Rate 54 L 49 L Pulse Rate [Right Pulse Oximeter] Respiratory Rate 16 16 Blood Pressure 157/90 H 153/68 H Blood Pressure [Ri ght Upper Arm] Pulse Oximetry 96 98 Oxygen Delivery Me thod Room Air Room Air 11/13/23 15:45 11/13/23 16:00 Temperature Pulse Rate 59 L 52 L Pulse Rate [Right Pulse Oximeter] Respiratory Rate Blood Pressure Blood Pressure [Ri ght Upper Arm] Pulse Oximetry 95 96 Oxygen Delivery Me thod Course Vital Signs Vital signs: Initial Vital Signs Temperature 98.2 F 11/13/23 11:37 Temperature Source Temporal Artery Scan 11/13/23 11:37 Pulse Rate 58 L 11/13/23 11:37 Respiratory Rate 18 11/13/23 11:37 Blood Pressure 146/104 H 11/13/23 11:37 Blood Pressure Mean 118 H 11/13/23 11:37 Blood Pressure Position Sitting 11/13/23 11:37 Pulse Oximetry 97 11/13/23 11:37 Oxygen Delivery Method Room Air 11/13/23 11:37 Vital Signs Temperature 98.2 F 11/13/23 11:37 Pulse Rate 58 L 11/13/23 11:37 Respiratory Rate 18 11/13/23 11:37 Blood Pressure 146/104 H 11/13/23 11:37 Pulse Oximetry 97 11/13/23 11:37 Oxygen Delivery Method Room Air 11/13/23 11:37 Temperature 98.2 F 11/13/23 11:37 Pulse Rate 52 L 11/13/23 16:00 Respiratory Rate 16 11/13/23 15:29 Blood Pressure 153/68 H 11/13/23 15:29 Pulse Oximetry 96 11/13/23 16:00 Oxygen Delivery Method Room Air 11/13/23 15:29 Medical Decision Making MDM Narrative Medical decision making narrative: 78-year-old female presenting to the ER today with intermittent episodes of substernal chest pressure and discomfort ongoing off and on since or days ago on Saturday. It also associated with dizziness and nausea. She had a fairly bad episode Saturday morning (not exertional) and presented to the ER. She was doing better yesterday on Saturday but had another bad episode this morning that started around 10:00 a.m. she was watching television. She is concerned that the chest pain may be a side effect of her ?Lion's main? mushroom extract drops that she takes orally for macular degeneration. Discussed this with the [facility]. They have no reports or other laboratory data supporting that Lion's main would cause chest pain. Differential was broad. She does have previously known chronic AFib. She is anticoagulated with warfarin. INR is 1.74, she will follow up with her INR clinic.. Heart rate is bradycardic predominantly 50s. She is not on any beta-blockers or calcium channel blockers. She does take amlodipine, furosemide, losartan, for blood pressure. We considered possible ACS, however workup with EKG and serial troponin is negative. No evidence for STEMI or NSTEMI. Overall her history is not classic for angina since her chest heaviness is not exertional. However with her age, risk factors, family history I do think she needs stress testing. She will follow-up with her primary care provider to arrange an outpatient nuclear stress test. Given time since onset of symptoms, I do not think the patient needs to be admitted for further sets of enzymes. EKG shows no evidence for pericarditis. Clinical presentation not suggestive of myocarditis. Chest x-ray shows no evidence for pneumonia, pneumothorax, pulmonary edema, pleural effusion, rib fracture, cardiomegaly. Mediastinum is normal on the x-ray. The patient has no ripping or tearing pain through to the back and has symmetric pulses on exam, no other acute neuro findings so I doubt aortic dissection. Risk of radiation and contrast exposure would outweigh the benefit of CT angiogram. We considered PE for this patient. She had a normal D-dimer in the ER 2 days ago. She has no pleuritic component to her chest pain, no signs of DVT on clinical exam, no tachycardia or hypoxia. At this point and do not think repeat D-dimer testing or CT PA would be helpful. No wheezing or bronchospasm to suggest COPD/asthma. No signs of chest wall cellulitis, shingles, injury. With reasonable clinical confidence, I think the patient is safe for outpatient follow up. Discussed return precautions. Questions answered. Patient voices comfort with the plan. Lab Data Labs: Lab Results 11/13/23 11/13/23 Range/Units 12:20 15:24 WBC 7.51 (4.50-11.00) K/uL RBC 5.30 H (4.00-5.20) m/uL Hgb 14.8 (12.0-16.0) gm/dL Hct 44.2 (33.0-51.0) % MCV 83 (80-100) fL MCH 28 (26-34) pg MCHC 34 (32-36) gm/dL RDW Coeff of Mariaelena 15.8 H (11.5-15.5) % Plt Count 218 (140-440) K/uL Neut % (Auto) 75.1 H (42.0-72.0) % Lymph % (Auto) 13.6 L (20-44) % [place] % (Auto) 6.7 (0.0-11.0) % Eos % (Auto) 3.5 (0.0-7.0) % Baso % (Auto) 0.8 (0.0-3.0) % Neut # (Auto) 5.60 (1.7-7.0) K/uL Lymph # (Auto) 1.00 (0.90-2.90) K/uL [place] # (Auto) 0.50 (0.00-0.90) K/UL Eos # (Auto) 0.26 (0.00-0.50) K/uL Baso # (Auto) 0.06 (0.00-0.30) K/uL Abs Immat Gran (auto) 0.02 (0.00-0.30) K/uL Imm/Tot Granulo (auto) 0.3 % INR 1.74 H (0.91-1.10) Sodium 140 (135-149) mmol/L Potassium 3.9 (3.6-5.1) mmol/L Chloride 106 (96-114) mmol/L Carbon Dioxide 25 (20-32) mmol/L Anion Gap 9 (7-15) mEq/L BUN 20 (7-30) mg/dL Creatinine 0.6 (0.5-1.5) mg/dL Estimated Creat Clear 43.07 Estimated GFR 93 ml/min Glucose 91 (60-115) mg/dL Calcium 9.4 (8.4-10.6) mg/dL Troponin I < 0.01 L < 0.01 L (0.01-0.04) ng/mL NT-Pro-B Natriuret Pep 1760 pg/mL Imaging Data Chest x-ray: Attestation: I have reviewed the pertinent imaging results. Radiologist's impression: FINDINGS: Cardiomediastinal silhouette is unchanged. There is no focal airspace consolidation, pleural effusion, or pneumothorax. No displaced fractures. IMPRESSION: No acute cardiopulmonary process. ECG Data Interpretation: Atrial fibrillation with slow ventricular response. She does have PVCs or premature aberrancy conducted complexes Rate: 52 OR: Not applicable QRS axis: Normal axis. No pathologic Q-waves ST segment/T wave: T-wave flattening throughout. T-wave inversion in lead 3. No ST segment elevation or depression. QTc: 429 Discharge Plan Discharge Clinical Impression: Chest pain Patient Disposition: Home, Self-Care Condition: Stable Instructions: Chest Pain (ED) Additional Instructions: As we discussed, please follow-up with your regular doctor at the [place] [facility] as soon as possible to arrange an outpatient stress test. If you have more episodes of chest pain, dizziness, trouble breathing, or any problems, please return to the ER immediately to be rechecked. Prescriptions: No Action fluticasone propionate 50 mcg/actuation spray,suspension 1 spray intranasal DAILY hydroxyzine HCl 25 mg tablet 25 mg PO 3XD amlodipine 10 mg tablet 10 mg PO DAILY phenazopyridine 100 mg tablet 100 mg PO TID PRN (Reason: pain) Qty: 6 0RF losartan 50 mg tablet 100 mg PO DAILY Patient Comments: TAKE 2 TABLETS BY MOUTH ONCE DAILY oxybutynin chloride 10 mg tablet extended release 24hr 10 mg PO DAILY Patient Comments: TAKE 1 TABLET BY MOUTH ONCE DAILY ondansetron HCl 4 mg tablet 4 mg PO DAILY Patient Comments: TAKE 1 TABLET BY MOUTH EVERY 8 HOURS NEEDED FOR NAUSEA AND VOMITING sumatriptan succinate 50 mg tablet 50 mg PO DAILY Patient Comments: TAKE 1 TABLET BY MOUTH TWICE DAILY NEEDED FOR MIGRAINE GIVE AT MINIMUM 2 HOURS APART. MAX DOSE 200MG PER 24 HOURS. potassium chloride 20 mEq tablet,ER particles/crystals 20 meq PO DAILY Patient Comments: TAKE 1 TABLET BY MOUTH ONCE DAILY WITH A MEAL warfarin 5 mg tablet 5 mg PO furosemide 20 mg tablet 20 mg PO DAILY Patient Comments: TAKE 1 TABLET BY MOUTH IN THE MORNING flavoxate 100 mg tablet 100 mg PO TID Patient Comments: TAKE 1 TABLET BY MOUTH THREE TIMES DAILY cyclobenzaprine 5 mg tablet 5 mg PO TID PRN glucosamine HCl 1,500 mg tablet 1,500 mg PO DAILY hyoscyamine sulfate [Levsin] 0.125 mg tablet 0.125 mg PO Q4H PRN metronidazole 500 mg tablet 500 mg PO TID omeprazole 20 mg capsule,delayed release(DR/EC) 20 mg PO DAILY Follow Up/Referrals: Nico Betancourt MD [Primary Care Provider] - Stand Alone Forms: [employer] / [employer] Info Instructions
--- NOTE | 2023-11-13 11:32 | CRLHL7_ITS ---
For Patients: As a result of the Cures Act, medical imaging exams and procedure reports are released immediately into your electronic medical record. You may view this report before your referring provider. If you have questions, please contact your health care provider. INDICATION: : Chest pain COMPARISON: Chest radiograph on November 11, 2023 TECHNIQUE: Two view(s) of the chest FINDINGS: Cardiomediastinal silhouette is unchanged. There is no focal airspace consolidation, pleural effusion, or pneumothorax. No displaced fractures. IMPRESSION: No acute cardiopulmonary process. Dictated by Vic Russo MD @ 11/13/2023 12:42:33 PM (Electronically Signed)
[2023-11-13 12:35] LABS: Basophils Absolute Auto 0.06 K/uL (0.00-0.30); Basophils Percent Auto 0.8 % (0.0-3.0); Eosinophils Absolute Auto 0.26 K/uL (0.00-0.50); Eosinophils Percent Auto 3.5 % (0.0-7.0); Hematocrit 44.2 % (33.0-51.0); Hemoglobin* 14.8 gm/dL (12.0-16.0); Immature Granulocytes Abs Auto 0.02 K/uL (0.00-0.30); Immature Granulocytes Pct Auto 0.3 %; Lymphocytes Percent Auto 13.6 % (20-44); Mean Corpuscular HGB Conc 34 gm/dL (32-36); Mean Corpuscular Hemoglobin 28 pg (26-34); Mean Corpuscular Volume 83 fL (80-100); Monocytes Percent Auto 6.7 % (0.0-11.0); Neutrophils Percent Auto 75.1 % (42.0-72.0); Platelet Count* 218 K/uL (140-440); RDW Coefficient of Variation % 15.8 % (11.5-15.5); White Blood Count* 7.51 K/uL (4.50-11.00)
[2023-11-13 12:38] LABS: Slide Review Reflex No
[2023-11-13 12:48] LABS: Chloride* 106 mmol/L (96-114); Potassium* 3.9 mmol/L (3.6-5.1); Sodium* 140 mmol/L (135-149)
[2023-11-13 12:50] LABS: Creatinine* 0.6 mg/dL (0.5-1.5); Est. Creatinine Clearance* 43.07; Estimated Glomerular Filt Rate 93 ml/min; INR 1.74 (0.91-1.10); Prothrombin Time 21.5 Seconds
[2023-11-13 12:51] LABS: Anion Gap 9 mEq/L (7-15); Blood Urea Nitrogen* 20 mg/dL (7-30); Calcium* 9.4 mg/dL (8.4-10.6); Carbon Dioxide* 25 mmol/L (20-32); Glucose* 91 mg/dL (60-115)
--- OUTSIDE RECORDS SUMMARY | 2023-11-13 12:55 | XMS_ITS | Continuity of Care Document ---
Author Organization [facility] Address [address] [place] [address] Phone Care Team Providers Care Application Coordinator Name Role Phone Unavailable Unavailable Unavailable Advance Directives Directive Yes / No Effective Date File Name No Information Encounters Encounter Description Practice Location Reason(s) For Visit Diagnoses Date Provider Providers Copied on Encounter [facility], [address] [place], [id number], [place] tel:[phone] [facility] No Information No Information Family History Family Member Type Diagnosis Age At Onset No Information Payers Payer name Insurance type Covered democrat ID Authoriza tion(s) No Information Social History [...]
--- OUTSIDE RECORDS SUMMARY | 2023-11-13 12:55 | XMS_ITS | Patient Health Record ---
Author Organization [facility] Address [address] [place] [phone] Care Team Providers Care Store Warehouse Associate Name Role Phone ZZ Outside Provider, sushila Primary Care Provider [phone] ALLERGIES Allergen (clinical drug ingredient) Drug/Non Drug [...] Hyoscyamine Active Fluocinonide 0.05 % 1 application Geriatric Care Manager ally Twice a day Active Glucosamine MSM [...] eye Ophthalmic Twice a day Active Nystatin [id number] UNIT/ML 1 tsp swish and retain in [...] Medicare Complete Adv [address] [place] [phone] [id number] Cindy Gallegos Self - patient is the insured
--- OUTSIDE RECORDS SUMMARY | 2023-11-13 12:56 | XMS_ITS | Data Portability ---
Author Organization [place] [facility] [place] [facility] Address [address] [facility] [address] [place] [address] Assessment Encounter Date Assessment Date Assessment LastModified [...] mg tablet,exte nded release 24 hr 2021 [facility] [address]35, [address] [place], [address], 12:06:34 hyoscyamine sulfate 0.125 mg tablet 2021 [facility] 8453, [address] [place], [address], 12:06:36 hydroxyzine HCl 25 mg tablet 2021 [facility] 4739, [address] [place], [address], 2 12:06:33 Patient TargetsNo targets recorded. Patient InstructionsNo instructions recorded. Reason for Referral None Reported. Procedures Surgical History Date Name Laterality Status Provider Name and Address Organization Details Recorded Time Appendectomy completed Donald Carranza MD [address] [place] [address],[address], [place], [address], [facility] 01/03/2022 11:42:03 Colonoscopy completed Donald Carranza MD [address] [place] [address],[address], [place], [address], [facility] 01/03/2022 11:42:11 Hernia Repair completed Donald whitlock MD [address] [place] [address],[address], [address], [facility] 01/03/2022 11:42:17 Imaging Results None recorded. Procedure Notes None recorded. Medical Equipment None Reported. Allergies Allergen ID Allergen Name Allergen Category Reaction Reaction Severity Criticality Documentation Date Start Date Code Code System Note Provider Name and Address Organization Details Recorded Time 406747 clonidine medicatio n Not available Not available Not available 01/03/2022 2599 RxNorm Donald Carranza MD [address] [place] [address],[address] [place] [address], [address], [facility] 2 11:39:41 981398 Iodinated contrast media (substanc e) medicatio n Not available Not available Not available 01/03/2022 29622 2004 SNOMED Donald Carranza MD [address] [place] [address],[address], [place], [address], [facility] 2 11:39:50 608447 Keflex medicatio n Not available Not available Not available 01/03/2022 72314 7 RxNorm Donald Carranza MD [address] [place] [address],[address], [place], [address], [facility] 2 11:40:21 942536 latex environme nt,medica tion Not available Not available Not available 01/03/2022 42716 91 RxNorm Donald Carranza MD [address] [place] [address],[address], [place], [address], [facility] 2 11:40:25 767784 losartan medicatio n Not available Not available Not available 01/03/2022 98415 RxNorm Donald Carranza MD [address] [place] [address],[address], [place], [address], [facility] 2 11:40:39 999823 Medicinal product containin g penicilli n and acting as antibacte rial agent (product) medicatio n Not available Not available Not available 01/03/2022 78707 05 BRIANA Carranza MD [address] [place] [address],[address], [place], [address], [facility] 2 11:40:44 673372 Substance with sulfonami de structure and antibacte rial mechanism of action (substanc e) medicatio n Not available Not available Not available 01/03/2022 69710 8003 BRIANA Carranza MD [address] [place] [address],[address] [place] [address], [facility] 2 11:40:48 Medications Name Sig Start [...] Updated DateTime 01/03/2022 162.56 cm 34.3 kg/m2 92170.47 g Donald Carranza MD [address] [place] [address],[address], [place], [address], [facility] 01/03/2022 11:43:40 Social History Question Answer Notes LastModified by Organizat ion Details LastModified Time Tobacco Smoking Status Never Smoker Donald Carranza MD [address] [facility] [address], [place], [address], [facility] 01/03/2022 11:41:47 What Is Your Level Of Alcohol Consumption? None [facility] Information not available 01/03/2022 What Was The Date Of Your Most Recent Tobacco Screening? 01/03/2022 Information not available 01/03/2022 Do You Use Any Illicit Or Recreational Drugs? Yes [facility] Information not available 01/03/2022 Sex: Unknown Functional [...] Diagnosis/Indication Diagnosis SNOMED-CT Code Diagnosis ICD10 Code [id number] Donald Carranza MD [facility] [address] [place] [place] [address] 01/03/2022 11:20:39 01/05/2022 11:03:20 Chronic interstitial cystitis 236093077 N30.10 Urinary bladder pain 158 53014 R39.82 Health Concerns Section Related Observation LastModified by Organization Detai ls LastModified Time None Recorded Concern Status LastModified by Organization Details LastModified Time None Recorded Advance Directives Directive None Recorded Payers Encounter Date Sequence Insurance Name Policy Number Policy Narayanan Covered Member ID Narayanan Member ID Guarantor Name 01/03/2022 1 UCARE - DOS ON OR AFTER 19 (MEDICARE REPLACEMENT/ ADVANTAGE - PPO) [id number] 1 Cindy Gallegos [id number] Cindy Gallegos Notes Date Note Type Note [...] on current regimen. Donald Carranza MD [address] [facility],[address], [place], [address], [facility] 01/03/2022 13:42:50 OBGyn Episode No OBEpisode recorded.
--- OUTSIDE RECORDS SUMMARY | 2023-11-13 12:56 | XMS_ITS | Data Portability ---
Author Organization [place] - [facility] Address 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 Surgeries None recorded. Imaging None recorded. Medication Orders None recorded. Patient TargetsNo targets recorded. Patient Instructions Encounter Date Encounter Id Patient Instructions Last Modified By Organization Details Last Modified Time 03/17/2019 [id number] Plan: Medicare requires a dishcloth folder or FISHER LINE to authorize our plan of care. If you agree with the plan as outlined above, please sign, date and fax back to [phone]. Thank you. Primary MD signature: Date: csather Not available 03/17/2019 11:33:56 03/25/2019 [id number] Plan: Medicare requires a dishcloth folder or FISHER LINE to authorize our plan of care. If you agree with the plan as outlined above, please sign, date and fax back to [phone]. Thank you. Primary MD signature: Date: csather [...] Arthralg ia of temporom andibula r joint 54999124 Completed 201503/04/2019 Gale Rosales null, [facility] 0 10:07:46 Myofasci al pain 993290662 Active 2019 masticato ry and cervical Gale Daniellet null, [facility] 0 10:08:05 Arthralg ia of temporom andibula r joint 07776109 Active 2019 Gale Rosales null, [facility] 0 10:07:46 Neck pain 11689331 Active 2019 Gale Rosales [facility], [facility] 0 10:07:47 Finding of sensatio n by site 604920544 Completed 201503/04/2019 Gale Rosales null, [facility] 0 12:58:52 Spasm 16992387 Completed 201403/04/2019 Gale Rosales null, [facility] 0 12:59:25 Chest pain 86844735 Completed 03/04/2019 Gale Rosales null, [facility] 0 12:58:59 Cellulit is 907368184 Completed 03/04/2019 Gale Daniellet null, [facility] 0 12:58:46 Mixed hyperlip idemia 475989456 Completed 03/04/2019 Gale Rosales null, [facility] 0 12:58:55 Hyperten sive disorder 29771352 Completed 03/04/2019 Gale Daniellelisa null, [facility] 0 12:59:21 Polyp of colon 18930671 Completed 03/04/2019 Gale valadez, [facility] 0 12:59:31 Chronic intersti tial cystitis 475875366 Completed 03/04/2019 [facility] 0 12:58:49 Panic disorder without agorapho reginald 70280932 Completed 03/04/2019 Gale valadez, [facility] 0 12:59:29 Benign paroxysm al position al vertigo 293012151 Completed 03/04/2019 Gale valadez, [facility] 0 12:58:44 Disorder of refracti on 31678663 Completed 03/04/2019 [facility] 0 12:59:23 Atrial fibrilla tion 14826672 Completed 03/04/2019 [facility] 0 12:59:27 Vitamin D deficien cy 73409163 Completed 03/04/2019 [facility] 0 12:59:18 Problem Notes None recorded. Procedures Surgical History Date Name Laterality Status Provider Name and Address Organization Details Recorded Time 03/25/19 04179: Therapeutic Exercise completed Kaushik Hogan [facility] 03/25/2019 12:34:57 03/25/19 95049: Manual Therapy completed Kaushik Hogan [facility] 03/25/2019 17:43:28 03/17/19 20 03771 PT Eval - Low Complexity completed Kaushiksilverio Hogan [facility] 03/17/2019 17:58:21 03/17/19 20 46284: Therapeutic Exercise completed Kaushik Hogan [facility] 03/17/2019 11:33:56 03/17/19 20 52086: Manual Therapy completed Kaushik Hogan [facility] 03/17/2019 11:33:56 03/04/19 20 Orthopantogram completed Gale Rosales [facility] 03/04/2019 13:00:55 02/18/19 19 Xcapsl ctrc rmvl cplx wo ecp completed Gregor Longo [facility] 03/04/2019 12:47:26 reduction mammoplasty completed Gregor Longo [facility] 03/04/2019 12:46:06 Unlisted px foot/toes completed Gregor Longo [facility] 03/04/2019 12:46:45 Xcapsl ctrc rmvl cplx wo ecp completed Gregor Longo [facility] 03/04/2019 12:47:27 Appendectomy completed Gregor Longo [facility] 03/04/2019 13:47:26 Hernia repair w/mesh completed Gregor Longo [facility] 03/04/2019 [...] Name and Address Organization Details Recorded Time 39739 clonidine medicatio n Not available Not available Not available 01/12/2016 2599 RxNorm Not Available [facility] 6 06:37:56 87136 latex environme nt,medica tion Not available Not available Not available 01/12/2016 28342 91 RxNorm Not Available [facility] 6 06:39:09 71143 Substance with sulfonami de structure and antibacte rial mechanism of action (substanc e) medicatio n Not available Not available Not available 01/12/2016 96457 8003 SNOMED Not Available [facility] 6 06:39:24 74146 Medicinal product containin g penicilli n and acting as antibacte rial agent (product) medicatio n Not available Not available Not available 01/12/2016 16116 05 SNOMED Not Available [facility] 6 06:40:04 41690 diatrizoa te meglumine medicatio n Not available Not available Not available 01/12/2016 3320 RxNorm Not Available [facility] 6 06:41:41 92867 losartan medicatio n Not available Not available Not available 01/12/2016 44857 RxNorm Not Available [facility] 6 06:44:23 Medications Name Sig Start Date [...] Updated DateTime 0 167.64 cm 35.5 kg/m2 29094.3 2 g 61 /min 154 mm[Hg] 79 mm[Hg] Gregor Longo [facility] 0 12:37:27 Social History Question Answer Notes LastModified by Organizat ion Details LastModified Time Tobacco Smoking Status Never Smoker Gregor Longo rory [facility] 03/04/2019 [...] N Emphysema N Irritable bowel syndrome N Glaucoma N Lung Disease N COPD N Hypothyroidism N Depression N Pneumonia N Pacemaker N Obstructive Sleep Apnea N Anxiety Disorder N Autoimmune disease N Muscle, Joint, or Bone Problems N Vision or Eye Problems N Arthritis N Serious Illness or Injuries N Acid Reflux (GERD) Y Cancer N Stroke N Eating disorder N Neck Injury N Back Injury N High Cholesterol Y History of chemotherapy N Neurologic Disorder N Liver Disease N Organ Transplant N Rheumatoid Arthritis N Headaches N Fibromyalgia N Kidney Disease N Allergies/Hayfever Y Post traumatic stress disorder (PTSD) N Parkinson's Disease N Migraines N Brain Tumors N Anemia N Multiple Sclerosis N Immune System Disorder N Meningitis N Pancreatic disease N Heart Attack (OR) N Stomach Ulcers N Back pain Y Diabetes N Bleeding Disorder N Seizures/Epilepsy N Sjogren's syndrome N Tuberculosis N AIDS/HIV N History of radiation therapy N Hyperlipidemia N Dementia N Asthma N Physical or sexual abuse N Substance Abuse N Peripheral Vascular Disease N Psoriasis N Reflux/GERD N Mental Problems N Vertigo N Sleep Disorder N Aneurysm N Hepatitis N Heart Disease N Neuropathy N Pulmonary Embolism N Hypertension Y Osteoporosis N Gynecological HistoryNo gynecological history recorded. Obstetrics History GPAL:G 0 P 0 0 0 0 Past Encounters Encounter ID Performer Location Encounter Start Date Encounter Closed Date Diagnosis/Indication Diagnosis SNOMED-CT Code Diagnosis ICD10 Code [id number] Gale Barrioskoffi soto [address] [place] [id number] 03/04/2019 12:07:41 03/04/2019 13:44:29 Arthralgia of temporomandibular joint 98745810 M26.629 Myofascial pain 12337152 9 M79.11 Neck pain 04838360 M54.2 [id number] Kaushik Sarmiento [address] [place] [id number] 03/17/2019 11:08:09 03/17/2019 12:29:49 Arthralgia of temporomandibular joint 90217512 M26.629 Neck pain 54318225 M54.2 [id number] Kaushik Sarmiento [address] [place] [id number] 03/25/2019 12:18:18 03/25/2019 13:03:15 Arthralgia of temporomandibular joint 07666209 M26.629 Neck pain 02849032 M54.2 Myofascial pain 14080721 9 M79.10 Health Concerns Section Related Observation LastModified by Organization Detai ls LastModified Time None Recorded Concern Status LastModified by Organization Details LastModified Time None Recorded Advance Directives Directive None Recorded Payers Encounter Date Sequence Insurance Name Policy Number Policy Narayanan Covered Member ID Narayanan Member ID Guarantor Name 03/04/2019 1 [employer] - DOS ON OR AFTER 19 (MEDICARE REPLACEMENT/ ADVANTAGE - HMO) [id number] 1 Cindy Romero Rosy [id number] Cindy Romero Rosy 03/17/2019 1 [employer]ARE - DOS ON OR AFTER 19 (MEDICARE REPLACEMENT/ ADVANTAGE - HMO) [id number] Cindy R Rosy [id number] Cindy R Rosy 03/25/2019 1 [employer]ARE - DOS ON OR AFTER 19 (MEDICARE REPLACEMENT/ ADVANTAGE - HMO) [id number] Cindy Romero Rosy [id number] Cindy Romero Rosy Notes Date Note Type [...] in her left masseter. LARA Dunn - [facility] 03/05/2019 10:10:18 [...] with no head impact. LARA Molina - [facility] 03/17/2019 18:11:41 03/25/2019 text/html HPI Notes: She reports pain in the left jaw. 02/27. Biting increases pain but doing better except when ate walleye sandwich which had her mouth open widely. [place], She hit elbow/knee with no head impact and still reports no after effects. LARA Molina [facility] 03/25/2019 17:45:29 OBGyn Episode No OBEpisode recorded.
--- OUTSIDE RECORDS SUMMARY | 2023-11-13 12:56 | XMS_ITS | Clinical Summary ---
Author Organization [facility] [employer] [facility] [employer] [facility] Address [place], [place] [address] Care Team Providers Care Gyroscopic Engineering Technician Name Role Phone Nico Betancourt MD Primary Care Provider [phone] Allergies Active Allergy Reactions Criticality Noted Date [...] s:Eustachian tube dysfunction, unspecified laterality Inhale 1 [place] to both nostrils once daily. 48 g [...] Encounters Date Type Department Care Team Description 11/13/2023 Nurse Triage [facility] [address] [place] [address] Nico Betancourt MD Chest Pain 11/11/2023 Orders Only [facility] Scanner 1 scan: (1-Ord) [facility], CHEST 2 VIEW, 11/11/2023 11/08/2023 Anticoagulation (warfarin) [facility] [address] [place] [address] 1, [facility] ([facility] ); Refill Request (warfarin) 11/07/2023 10:40 AM CDT Orders Only [facility] [address] [facility] [address] [place] [address] Lab 11/07/2023 Travel 10/07/2023 9:00 AM CDT Orders Only [facility] [address] [place] [address] Lab, [place] [facility] 10/07/2023 Anticoagulation (warfarin) [facility] [address] [place] [address] 1, [facility] Antico[facility] 10/07/2023 Travel 09/09/2023 Nurse Triage [facility] [address] [place] [address] Nico Betancourt MD Urinary Tract Infection (Follow-up call on antibiotics) 08/30/[address] [address] Nico Betancourt MD Refill Request (nystatin ointment) 08/29/[address] [address] Nico Betancourt MD Prior Authorization (Nystop powder (DENIED)) 08/26/[address] [address] Nico Betancourt MD Prior Authorization (Nystop powder (closed- change pharmacy)) 08/23/[address] [address] Nico Betancourt MD Refill Request (Cyclobenzaprine, Ondansetron) 08/23/2023 Anticoagulation (warfarin) [address] [address], [facility] Anticoagulation 08/21/2023 9:30 AM CDT Orders Only [facility] [address] [place] [address] Lab 08/21/2023 Travel 08/14/[address] [address] Nico Betancourt MD Refill Request (Nystop) from Last 3 Months Immunizations Name Administration Dates Next Due Influenza, High-dose Inactivated 01/23/2016,11/19,12/16/2013 Influenza, IIV3 (Age >=3 years) 12/19/19,04/02/2011,11/16/2009,2007,12/11/2006 Pneumococcal Poly,23-Valent (Pneumovax) 07/08/2013 Pneumococcal conj 13-Valent [...] age 50+ (2 of 3) 03/23/2010 01/26/2010 RSV vaccine for adults or (1 - 1-dose 75+ series) 08/15/2022 COVID-19 vaccine series (2023- season) 2023 Influenza for age 65+ 10/20/2023 [...] Procedure Name Priority Date/Time Associated Diagnosis Comments SCAN-RADIOLOGY REPORT 11/11/2023 12:00 AM CDT INR,POCT Routine 11/07/2023 Paroxysmal atrial fibrillation (HC) [...] Recently Relevant to Health Maintenance Results * SCAN-RADIOLOGY REPORT (11/11/2023 12:00 AM CDT) Anatomical Region Laterality Modality Other Scanner OTHER * (ABNORMAL) INR,POCT (11/07/2023) Only the most recent of3 resultswithin the time period is included. INR 2.6(CREATIVE SERVICES DESIGNER AL) 0.0 - 1.2 [facility] Blood BLOOD SPECIMEN / Unknown 11/07/2023 Nico Betancourt MD LABORATORY [employer] [address] [address], * ANTI HCV [95395.2] (11/18/2015 10:57 AM CDT) HEPATITIS C ANTIBODY Non-Reacti ve Non-Reacti ve 11/18/2015 5:27 PM CDT [facility] TRAL LABORATORY Blood BLOOD SPECIMEN / Unknown Venipuncture / Unknown 11/18/2015 10:57 AM CDT 11/18/2015 10:58 AM CDT Narrative [facility] - 11/18/2015 5:27 PM CDT Antibodies to HCV not detected; does not exclude the possibility of exposure to HCV. Nico Betancourt MD SEND OUTS [facility] [address] [place] [address], * (ABNORMAL) XR DXA BONE DENSITY 2 [...] 8:57 PM 05/22/2012 6:59 PM Care Teams Gyroscopic Engineering Technician Relationship Specialty Start Date End Date Nico Betancourt MD [address] [place] [address] PCP - General Family Practice 05/16/15
--- OUTSIDE RECORDS SUMMARY | 2023-11-13 12:56 | XMS_ITS | Clinical Summary ---
Author Organization [facility] Address [address] [address] Phone Care Team Providers Care Professional Nursing Assistant Name Role Phone Unavailable Primary Care [...]
[2023-11-13 13:06] LABS: NT Pro B Type NatriureticPept* 1760 pg/mL; Troponin I* < 0.01 ng/mL (0.01-0.04)
[2023-11-13 16:01] LABS: Troponin I* < 0.01 ng/mL (0.01-0.04)
--- NOTE | 2024-02-02 15:24 | ED.GENADULT ---
HPI - General Adult General Chief complaint: Chest Pain Stated complaint: Dizziness, chest feels tight Time Seen by Provider: 11/13/23 11:21 History of Present Illness HPI narrative: This is an addendum to my ER note from 11/13/2023. I inadvertently 5 omitted my physical exam from that note. Physical exam Constitutional: Appears well-developed and well-nourished. Alert. Conversant. HENT: Head: Atraumatic. Nose: Nose normal. Mouth/Throat: Oral mucosa is clear and moist. no trismus. Pharynx normal. Eyes: Conjunctivae normal. EOM normal. Pupils equal, round, and reactive to light. No scleral icterus. Neck: Normal range of motion. Neck supple. No tracheal deviation present. Cardiovascular: Normal rate, regular rhythm. No gallop. No friction rub. No murmur heard. Symmetric radial artery pulses Pulmonary/Chest: Effort normal. No stridor. No respiratory distress. No wheezes. No rales. No rhonchi . No tenderness. Abdominal: Soft. Bowel sounds normal. No distension. No mass. No tenderness. No rebound. No guarding. Musculoskeletal: RUE: Normal range of motion. No tenderness. No deformity LUE: Normal range of motion. No tenderness. No deformity RLE: Normal range of motion. No edema. No tenderness. No deformity LLE: Normal range of motion. No edema. No tenderness. No deformit Neurological: Alert and oriented to person, place, and time. Normal strength. CN II-VII intact. No sensory deficit. GCS eye subscore is 4. GCS verbal subscore is 5. GCS motor subscore is 6. Normal coordination Skin: Skin is warm and dry. No rash noted. No pallor. Normal capillary refill. Psychiatric: Normal mood. Normal affect. Related Data Home Medications ?Medication ?Instructions ?Recorded ?Confirmed flavoxate 100 mg tablet 100 mg PO TID 11/07/21 01/29/24 furosemide 20 mg tablet 20 mg PO DAILY 11/07/21 01/29/24 losartan 50 mg tablet 100 mg PO DAILY 11/07/21 01/29/24 ondansetron HCl 4 mg tablet 4 mg PO DAILY 11/07/21 01/29/24 oxybutynin chloride 10 mg 10 mg PO DAILY 11/07/21 01/29/24 tablet,extended release 24 hr potassium chloride 20 mEq 20 meq PO DAILY 11/07/21 01/29/24 tablet,extended release(part/cryst) sumatriptan succinate 50 mg tablet 50 mg PO DAILY 11/07/21 01/29/24 warfarin 5 mg tablet 5 mg PO 11/07/21 01/29/24 amlodipine 10 mg tablet 10 mg PO DAILY 07/19/22 01/29/24 fluticasone propionate 50 1 spray intranasal DAILY 07/19/22 01/29/24 mcg/actuation nasal spray,suspension hydroxyzine HCl 25 mg tablet 25 mg PO 3XD 07/19/22 01/29/24 cyclobenzaprine 5 mg tablet 5 mg PO TID PRN 06/03/23 01/29/24 glucosamine HCl 1,500 mg tablet 1,500 mg PO DAILY 06/03/23 01/29/24 hyoscyamine sulfate 0.125 mg 0.125 mg PO Q4H PRN 06/03/23 01/29/24 tablet (Levsin) metronidazole 500 mg tablet 500 mg PO TID 06/03/23 01/29/24 omeprazole 20 mg capsule,delayed 20 mg PO DAILY 06/03/23 01/29/24 release Previous Rx's ?Medication ?Instructions ?Recorded phenazopyridine 100 mg tablet 100 mg PO TID PRN pain 6 doses #6 10/20/23 tabs Allergies Allergy/AdvReac Type Severity Reaction Status Date / Time cephalexin Allergy Intermediate Chest Pain Verified 01/29/24 10:23 clonidine Allergy Intermediate tachycardia Verified 01/29/24 10:23 losartan Allergy Intermediate Tachycardia Verified 01/29/24 10:23 gadodiamide Allergy Mild Hives Verified 01/29/24 10:23 latex Allergy Mild Rash Verified 01/29/24 10:23 ibuprofen Allergy Chest Pain Verified 01/29/24 10:23 Penicillins Allergy Anaphylaxis Verified 01/29/24 10:23 Sulfa (Sulfonamide Allergy Hives Verified 01/29/24 10:23 Antibiotics) nitrofurantoin (From AdvReac Verified 01/29/24 10:23 Macrobid) propranolol AdvReac bradycardia Verified 01/29/24 10:23 IV contrast dye Allergy Hives Uncoded 01/29/24 10:23 peg 400-propylene glycol Allergy Rash Uncoded 01/29/24 10:23 [facility] Medical History (Updated 01/30/24 @ 11:06 by Jenny Morales) TMJ tenderness, left ?M26.622 - Arthralgia of left temporomandibular joint (ICD-10) Chronic diastolic (congestive) heart failure ?I50.32 - Chronic diastolic (congestive) heart failure (ICD-10) Viral gastroenteritis ?A08.4 - Viral intestinal infection, unspecified (ICD-10) Traumatic ecchymosis of face ?S00.83XA - Contusion of other part of head, initial encounter (ICD-10) Toothache ?K08.89 - Other specified disorders of teeth and supporting structures (ICD-10) Sprain of knee ?S83.90XA - Sprain of unspecified site of unspecified knee, initial encounter (ICD-10) Pain of right hand ?M79.641 - Pain in right hand (ICD-10) Nausea alone ?R11.0 - Nausea (ICD-10) Headache ?R51.9 - Headache, unspecified (ICD-10) Fall ?W19.XXXA - Unspecified fall, initial encounter (ICD-10) Epigastric pain ?R10.13 - Epigastric pain (ICD-10) Dyspnea ?R06.00 - Dyspnea, unspecified (ICD-10) Cough ?R05.9 - Cough, unspecified (ICD-10) Cellulitis of leg ?L03.119 - Cellulitis of unspecified part of limb (ICD-10) Arthritis of both temporomandibular joints ?M26.643 - Arthritis of bilateral temporomandibular joint (ICD-10) Atrial fibrillation ?I48.91 - Unspecified atrial fibrillation (ICD-10) Enlarged LA (left atrium) ?I51.7 - Cardiomegaly (ICD-10) Vitamin D deficiency ?E55.9 - Vitamin D deficiency, unspecified (ICD-10) Hyperlipidemia ?E78.5 - Hyperlipidemia, unspecified (ICD-10) Panic disorder without agoraphobia ?F41.0 - Panic disorder [episodic paroxysmal anxiety] (ICD-10) Benign paroxysmal positional vertigo ?H81.10 - Benign paroxysmal vertigo, unspecified ear (ICD-10) Hypertension ?I10 - Essential (primary) hypertension (ICD-10) Surgical History (Updated 01/30/24 @ 11:06 by Jenny Morales) S/P trigger finger release (06/04/23) ?Z98.890 - Other specified postprocedural states (ICD-10) History of incision and drainage (02/26/14) ?Z98.890 - Other specified postprocedural states (ICD-10) History of phacoemulsification of cataract of right eye with intraocular lens implantation (04/17/17) ?Z98.41 - Cataract extraction status, right eye (ICD-10) ?Z96.1 - Presence of intraocular lens (ICD-10) History of phacoemulsification of cataract of left eye with intraocular lens implantation (05/01/17) ?Z98.42 - Cataract extraction status, left eye (ICD-10) ?Z96.1 - Presence of intraocular lens (ICD-10) History of YAG laser capsulotomy of lens of right eye (09/04/17) ?Z98.41 - Cataract extraction status, right eye (ICD-10) History of YAG laser capsulotomy of lens of left eye (04/06/20) ?Z98.42 - Cataract extraction status, left eye (ICD-10) H/O hernia repair (03/22/08) ?Z98.890 - Other specified postprocedural states (ICD-10) ?Z87.19 - Personal history of other diseases of the digestive system (ICD-10) H/O dilation and curettage (04/28/08) ?Z98.890 - Other specified postprocedural states (ICD-10) History of appendectomy ?Z90.49 - Acquired absence of other specified parts of digestive tract (ICD-10) Social History Smoking Status: Never smoker Do you use any of these nicotine containing products: None How often do you have a drink containing alcohol: never How often do you have six or more drinks on one occasion: Never AUDIT-C Alcohol total score: 0 Non-prescribed substance use: denies use Caffeine: No Are you using contraception or practicing any form of control: No service: No Course Vital Signs Vital signs: Initial Vital Signs Temperature 98.2 F 11/13/23 11:37 Temperature Source Temporal Artery Scan 11/13/23 11:37 Pulse Rate 58 L 11/13/23 11:37 Respiratory Rate 18 11/13/23 11:37 Blood Pressure 146/104 H 11/13/23 11:37 Blood Pressure Mean 118 H 11/13/23 11:37 Blood Pressure Position Sitting 11/13/23 11:37 Pulse Oximetry 97 11/13/23 11:37 Oxygen Delivery Method Room Air 11/13/23 11:37 Vital Signs Temperature 98.2 F 11/13/23 11:37 Pulse Rate 58 L 11/13/23 11:37 Respiratory Rate 18 11/13/23 11:37 Blood Pressure 146/104 H 11/13/23 11:37 Pulse Oximetry 97 11/13/23 11:37 Oxygen Delivery Method Room Air 11/13/23 11:37 Temperature 98.2 F 11/13/23 11:37 Pulse Rate 52 L 11/13/23 16:00 Respiratory Rate 16 11/13/23 15:29 Blood Pressure 153/68 H 11/13/23 15:29 Pulse Oximetry 96 11/13/23 16:00 Oxygen Delivery Method Room Air 11/13/23 15:29 Medical Decision Making Lab Data Labs: Lab Results 11/13/23 11/13/23 Range/Units 12:20 15:24 WBC 7.51 (4.50-11.00) K/uL RBC 5.30 H (4.00-5.20) m/uL Hgb 14.8 (12.0-16.0) gm/dL Hct 44.2 (33.0-51.0) % MCV 83 (80-100) fL MCH 28 (26-34) pg MCHC 34 (32-36) gm/dL RDW Coeff of Mariaelena 15.8 H (11.5-15.5) % Plt Count 218 (140-440) K/uL Neut % (Auto) 75.1 H (42.0-72.0) % Lymph % (Auto) 13.6 L (20-44) % [place] % (Auto) 6.7 (0.0-11.0) % Eos % (Auto) 3.5 (0.0-7.0) % Baso % (Auto) 0.8 (0.0-3.0) % Neut # (Auto) 5.60 (1.7-7.0) K/uL Lymph # (Auto) 1.00 (0.90-2.90) K/uL [place] # (Auto) 0.50 (0.00-0.90) K/UL Eos # (Auto) 0.26 (0.00-0.50) K/uL Baso # (Auto) 0.06 (0.00-0.30) K/uL Abs Immat Gran (auto) 0.02 (0.00-0.30) K/uL Imm/Tot Granulo (auto) 0.3 % INR 1.74 H (0.91-1.10) Sodium 140 (135-149) mmol/L Potassium 3.9 (3.6-5.1) mmol/L Chloride 106 (96-114) mmol/L Carbon Dioxide 25 (20-32) mmol/L Anion Gap 9 (7-15) mEq/L BUN 20 (7-30) mg/dL Creatinine 0.6 (0.5-1.5) mg/dL Estimated Creat Clear 43.07 Estimated GFR 93 ml/min Glucose 91 (60-115) mg/dL Calcium 9.4 (8.4-10.6) mg/dL Troponin I < 0.01 L < 0.01 L (0.01-0.04) ng/mL NT-Pro-B Natriuret Pep 1760 pg/mL Discharge Plan Discharge Clinical Impression: Chest pain Patient Disposition: Home, Self-Care Condition: Stable Instructions: Chest Pain (ED) Additional Instructions: As we discussed, please follow-up with your regular doctor at the [facility] clinic as soon as possible to arrange an outpatient stress test. If you have more episodes of chest pain, dizziness, trouble breathing, or any problems, please return to the ER immediately to be rechecked. Prescriptions: No Action fluticasone propionate 50 mcg/actuation spray,suspension 1 spray intranasal DAILY hydroxyzine HCl 25 mg tablet 25 mg PO 3XD amlodipine 10 mg tablet 10 mg PO DAILY phenazopyridine 100 mg tablet 100 mg PO TID PRN (Reason: pain) Qty: 6 0RF losartan 50 mg tablet 100 mg PO DAILY Patient Comments: TAKE 2 TABLETS BY MOUTH ONCE DAILY oxybutynin chloride 10 mg tablet extended release 24hr 10 mg PO DAILY Patient Comments: TAKE 1 TABLET BY MOUTH ONCE DAILY ondansetron HCl 4 mg tablet 4 mg PO DAILY Patient Comments: TAKE 1 TABLET BY MOUTH EVERY 8 HOURS NEEDED FOR NAUSEA AND VOMITING sumatriptan succinate 50 mg tablet 50 mg PO DAILY Patient Comments: TAKE 1 TABLET BY MOUTH TWICE DAILY NEEDED FOR MIGRAINE GIVE AT MINIMUM 2 HOURS APART. MAX DOSE 200MG PER 24 HOURS. potassium chloride 20 mEq tablet,ER particles/crystals 20 meq PO DAILY Patient Comments: TAKE 1 TABLET BY MOUTH ONCE DAILY WITH A MEAL warfarin 5 mg tablet 5 mg PO furosemide 20 mg tablet 20 mg PO DAILY Patient Comments: TAKE 1 TABLET BY MOUTH IN THE MORNING flavoxate 100 mg tablet 100 mg PO TID Patient Comments: TAKE 1 TABLET BY MOUTH THREE TIMES DAILY cyclobenzaprine 5 mg tablet 5 mg PO TID PRN glucosamine HCl 1,500 mg tablet 1,500 mg PO DAILY hyoscyamine sulfate [Levsin] 0.125 mg tablet 0.125 mg PO Q4H PRN metronidazole 500 mg tablet 500 mg PO TID omeprazole 20 mg capsule,delayed release(DR/EC) 20 mg PO DAILY Follow Up/Referrals: Nico Betancourt MD [Primary Care Provider] - Stand Alone Forms: [facility] Info Instructions
== END 2023-11-13 16:42 | disposition home or self-care (01) ==
PROVIDERS: Emergency Provider Emergency Medicine; PCP Surgery
DX: R07.9 Chest pain, unspecified (principal); R06.00 Dyspnea, unspecified
CPT/HCPCS: 36415; 71046; 80048; 83880; 84484; 85025; 85610; 93005; 99284

== ENCOUNTER 2024-02-18 16:51 | Emergency (ER) | payer MEDICARE, SELFPAY ==
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
--- OUTSIDE RECORDS SUMMARY | 2024-02-18 16:53 | XMS_ITS | Data Portability ---
Author Organization [place] [facility] [place] [facility], [facility] Address [address] [place] [address] Assessment Encounter Date Assessment Date Assessment LastModified [...] mg tablet,exte nded release 24 hr 2021 [facility] [address] [address] [place], [address], 12:06:34 hyoscyamine sulfate 0.125 mg tablet 2021 [facility] [address] [address] [place], [address], 12:06:36 hydroxyzine HCl 25 mg tablet 2021 [facility] [address] [address] [place], [address], 12:06:33 Patient TargetsNo targets recorded. Patient InstructionsNo instructions recorded. Reason for Referral None Reported. Procedures Surgical History Date Name Laterality Status Provider Name and Address Organization Details Recorded Time Appendectomy completed Donald Carranza MD [address] [place] [address],[address], [place], [address], [facility] 01/03/2022 11:42:03 Colonoscopy completed Donald Carranza MD [address] [place] [address],[address], [address], [facility] 01/03/2022 11:42:11 Hernia Repair completed Donald whitlock MD [address] [place] [address],[address], [address], [facility] 01/03/2022 11:42:17 Imaging Results None recorded. Procedure Notes None recorded. Medical Equipment None Reported. Allergies Allergen ID Allergen Name Allergen Category Reaction Reaction Severity Criticality Documentation Date Start Date Code Code System Note Provider Name and Address Organization Details Recorded Time [id number] 2824e clonidine medicatio n Not available Not available Not available 01/03/2022 2599 RxNorm Not Available Not Available Not Available [id number] [id number] 2824e Iodinated contrast media (substanc e) medicatio n Not available Not available Not available 01/03/2022 26100 2004 SNOMED Not Available Not Available Not Available [id number] 2824e Keflex medicatio n Not available Not available Not available 01/03/2022 74641 7 RxNorm Not Available Not Available Not Available [id number] 560623276 [id number] 2824e latex environme nt,medica tion Not available Not available Not available 01/03/2022 10261 91 RxNorm Not Available Not Available Not Available [id number] 914110759 [id number] 2824e losartan medicatio n Not available Not available Not available 01/03/2022 98205 RxNorm Not Available Not Available Not Available [id number] [id number] 2824e Medicinal product containin g penicilli n and acting as antibacte rial agent (product) medicatio n Not available Not available Not available 01/03/2022 64187 05 SNOMED Not Available Not Available Not Available [id number] 599047875 [id number] 2824e Substance with sulfonami de structure and antibacte rial mechanism of action (substanc e) medicatio n Not available Not available Not available 01/03/2022 72709 8003 SNOMED Not Available Not Available Not Available Medications Name Sig Start Date Stop Date [...] Updated DateTime 01/03/2022 162.56 cm 34.3 kg/m2 80983.47 g Donald Carranza MD [address] [place] [address], [address], [facility] 01/03/2022 11:43:40 Social History Question Answer Notes LastModified by Organizat ion Details LastModified Time Tobacco Smoking Status Never Smoker Donald Carranza MD [address] [place] [address],[address], [address], [facility] 01/03/2022 11:41:47 What Is Your Level Of Alcohol Consumption? None [facility] Information not available 01/03/2022 What Was The Date Of Your Most Recent Tobacco Screening? 01/03/2022 Information not available 01/03/2022 Do You Use Any Illicit Or Recreational Drugs? Yes Information not available 01/03/2022 Sex: Unknown Functional [...] Diagnosis/Indication Diagnosis SNOMED-CT Code Diagnosis ICD10 Code [id number] Donald Carranza MD [facility] [address] [place] [address] 01/03/2022 11:20:39 01/05/2022 11:03:20 Chronic interstitial cystitis 111448133 N30.10 Urinary bladder pain 158 05657 R39.82 Health Concerns Section Related Observation LastModified by Organization Detai ls LastModified Time None Recorded Concern Status LastModified by Organization Details LastModified Time None Recorded Advance Directives Directive None Recorded Payers Encounter Date Sequence Insurance Name Policy Number Policy Narayanan Covered Member ID Narayanan Member ID Guarantor Name 01/03/2022 1 [employer] - DOS ON OR AFTER 19 (MEDICARE REPLACEMENT/ ADVANTAGE - PPO) [id number] Cindy Gallegos [id number] Cindy Gallegos Notes Date Note Type Note Provider Name and Address Organization Details Recorded Time 01/03/2022 text/html 76 yo female was dx with Insterstitial [...] 1x/night. She denies hesitancy or slow stream. 07/20/20Here for follow up chronic interstitial cystitis, painful bladder syndrome. Has followed with my partner Dr. Zaidi who at last visit added oxybutynin to her treatment regimen. She has done a nice job of recognizing triggers. Feels the oxybutynin has helped but has not been taking it consistently. 08/16/21Here for follow up chronic interstitial cystitis, painful bladder syndrome. Had been doing well until she got a UTI for which was she treated with macrobid. Has noticed symptoms worse during Spring. 01/03/2022:Here for follow up chronic interstitial cystitis, painful bladder syndrome. Overall has been doing very well on current regimen. Donald Carranza MD [address] [place] [address],[facility] [address], [place], [address], [facility] 01/03/2022 13:42:50 OBGyn Episode No OBEpisode recorded.
--- OUTSIDE RECORDS SUMMARY | 2024-02-18 16:53 | XMS_ITS | Patient Health Record ---
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
--- OUTSIDE RECORDS SUMMARY | 2024-02-18 16:54 | XMS_ITS | Clinical Summary ---
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 30 tablet 0 05/25/19 10 Active Light Mineral Oil-Mineral Oil (SOOTHE XP) 1-4.5 % Drop eye drops Place into the eye(s) 3 times daily if needed for Dry Eyes. 0 08/29/19 11 Active Glucosamine HCl-MSM (GLUCOSAMINE MSM) 1,500-500 mg/30 mL liqd daily 1 Bottle 0 10/19/19 16 Active acetaminophen (TYLENOL EXTRA STRGTH) 500 mg tabletIndications :Acute pain of left knee,Muscle spasm of back Take 1 tablet by mouth every 6 hours if needed (pain). Max acetaminophen dose: 4000mg in 24 hrs. 30 tablet 09/01/19 18 Active fluocinonide 0.05 TOPICAL (LIDEX) 0.05 % external solutionIndicatio ns:Scalp irritation Apply up to twice daily as needed for scalp irritation 60 mL 1 02/13/20 18 Active albuterol HFA (PRO-AIR; VENTOLIN; PROVENTIL) 90 mcg/actuation inhaler Every 4 Hours as needed Active nystatin (MYCOSTATIN) 100,000 unit/mL suspensionIndicat ions:Thrush Swish and spit 5 mL (500,000 units) by mouth 4 times daily. 480 mL 1 12/23/19 21 Active clobetasol 0.05% (TEMOVATE 0.05% OINTMENT) 0.05 % ointmentIndicatio ns:Vulvar itching Apply to vulva once daily as needed for itching - do not use for more than 1 week straight 60 g 3 06/14/19 23 Active erythromycin ophthalmic ointment 0.5% INSTILL A 1/4 INCH RIBBON INTO THE INFERIOR CUL-DE-SAC OF BOTH EYES THREE TIMES DAILY FOR SEVEN DAY 07/21/19 23 Active loteprednol (LOTEMAX GEL) 0.5 % ophthalmic gel INSTILL 1 DROP 4 TIMES DAILY INTO EACH EYE FOR 7 DAYS THEN STOP 07/21/19 23 Active fluconazole (DIFLUCAN ORAL) Acti ve fluticasone-salme terol (AIRDUO RESPICLICK) 55-14 mcg/actuation aepb inhaler Inhale 1 Puff by mouth once daily. Active ketotifen (ZADITOR) 0.025 % (0.035 %) ophthalmic solution Place 1 Drop into the eye(s) two times daily. Active metroNIDAZOLE (FLAGYL) 500 mg tablet Take 500 mg by mouth three times daily. 08/17/19 23 Active naproxen (NAPROSYN) 500 mg tablet Take 500 mg by mouth once daily. 30 min after meal 08/17/19 23 Active pentosan polysulfate sodium (ELMIRON ORAL) Active amLODIPine (Norvasc) 10 mg tabletIndications :HTN (hypertension) Take 1 Tablet (10 mg) by mouth once daily. 90 Tablet 03/07/19 24 Active flavoxATE (URISPAS) 100 mg tabletIndications :Chronic interstitial cystitis Take 1 Tablet (100 mg) by mouth three times daily. 270 Tablet 03/07/19 24 Active fluticasone (50 mcg per actuation) nasal solution (FLONASE)Indicati ons:Eustachian tube dysfunction, unspecified laterality Inhale 1 [place] to both nostrils once daily. 48 g 03/07/19 24 Active furosemide (LASIX) 20 mg tabletIndications :Chronic diastolic congestive heart failure (HC) Take 1 Tablet (20 mg) by mouth once daily if needed (Leg swelling). Take around once a month 90 Tablet 03/07/19 24 Active hydrOXYzine HCL (ATARAX) 25 mg tabletIndications :Chronic interstitial cystitis Take 1 Tablet (25 mg) by mouth at bedtime. 90 Tablet 03/07/19 24 Active hyoscyamine (LEVSIN) 0.125 mg tabletIndications :Chronic interstitial cystitis Take 1 Tablet (0.125 mg) by mouth every 4 hours if needed for Bladder Spasms. 90 Tablet 03/07/19 24 Active omeprazole (PRILOSEC) 20 mg Delayed-Release capsuleIndication s:Gastric reflux Take 1 Capsule (20 mg) by mouth once daily before a meal. 90 Capsule 03/07/19 24 Active potassium chloride (KLOR-CON M20) 20 mEq extended-release tablet (part/cryst)Indic ations:Hypokalemi a Take 1 Tablet (20 mEq) by mouth once daily with a meal. 90 Tablet 03/07/19 24 Active rosuvastatin (CRESTOR) 5 mg tabletIndications :Hyperlipidemia, unspecified hyperlipidemia type Take 1 Tablet (5 mg) by mouth at bedtime. 90 Tablet 03/07/19 24 Active SUMAtriptan (IMITREX) 50 mg tabletIndications :Intractable migraine without aura and without status migrainosus Take 0.5 Tablets (25 mg) by mouth 2 times daily if needed for Migraine. Give at minimum 2hrs apart. Max Dose: 200mg per 24hrs. 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 30 g 5 09/02/19 24 Active oxybutynin XL (DITROPAN XL) 10 mg CR tabletIndications :Bladder pain TAKE 1 TABLET BY MOUTH ONCE DAILY *ADV BRAND PER PATIENT* 90 Tablet 2 11/27/19 24 Active cyclobenzaprine (FLEXERIL) 5 mg tabletIndications :Muscle spasm of back Take 1 tablet by mouth three times daily as needed for muscle spasm 30 Tablet 1 11/27/19 24 Active LORazepam (ATIVAN) 0.5 mg tabIndications:An xiety due to invasive procedure Take 1 Tablet (0.5 mg) by mouth one time for 1 dose. 30 mins prior to procedure 1 Tablet 12/06/19 24 Active losartan (COZAAR) 50 mg tabletIndications :Essential hypertension with goal blood pressure less than 140/90 Take 2 Tablets (100 mg) by mouth once daily. 180 Tablet 3 02/02/20 24 Active warfarin (COUMADIN) 5 mg tabletIndications :Paroxysmal atrial fibrillation (HC),Anticoagulat ion monitoring, INR range 2-3 Take by mouth 7.5 mg (5 mg x 1.5) every Tue, Gaby; 5 mg (5 mg x 1) all other days in the evening OR as directed 104 Tablet 02/05/20 24 Active losartan (COZAAR) 50 mg tabletIndications :Essential hypertension with goal blood pressure less than 140/90 Take 2 Tablets (100 mg) by mouth once daily. 180 Tablet 1 08/10/19 24 024 Discontin ued(Reord er (E-cancel not sent)) warfarin (COUMADIN) 5 mg tabletIndications :Paroxysmal atrial fibrillation (HC),Anticoagulat ion monitoring, INR range 2-3 Take by mouth 7.5 mg (5 mg x 1.5) every Tue, Gaby; 5 mg (5 mg x 1) all other days in the evening OR as directed 104 Tablet 11/11/19 24 024 Discontin ued(Reord er (E-cancel not sent)) Active Problems Problem Noted [...] Encounters Date Type Department Care Team Description 02/10/2024 10:30 AM [employer]ER Orders Only [facility] [address] [place] [address] Lab 02/10/2024 Anticoagulation (warfarin) [facility] [address] [place] [address] 1, [facility] Anticoagulation 02/10/2024 Travel 02/05/2024 Telephone [facility] [address] [facility] [place] [address] Marlene Gonzalez MD Refill Request (Warfarin ) 01/28/2024 Refill [facility] [address] [place] [address] Marlene Gonzalez MD Refill Request (Losartan 50mg tab ) 12/23/2023 Telephone [facility] [address] [place] [address] Marlene Gonzalez MD Anticoagulation (Lab Orders ) 12/17/2023 Anticoagulation (warfarin) [facility] [address] [place] [address] 1, [facility] Anticoagulation 12/16/2023 11:30 AM CDT Orders Only [facility] [address] [place] [address] Lab 12/16/2023 Travel 12/11/2023 Telephone [facility] [address] [place] [address] Marlene Gonzalez MD Anticoagulation (Lab Order Update/) 12/10/2023 7:56 AM CDT - 12/10/2023 11:59 PM CDT Hospital Encounter [facility] [address] [place] [address] Marlene Gonzalez MD Chest pressure 12/10/2023 Telephone [facility] [address] [place] [address] Sincere Olson NP Error-please disregard 12/10/2023 Travel 12/04/2023 Telephone [facility] [address] [place] [address] Marlene Gonzalez MD Medication Management (LORazepam (ATIVAN) 0.5 mg tab) 12/04/2023 Telephone [facility] [address] [place] [address] Shanae Hampton 11/25/2023 Telephone [facility] [address] [place] [address] Aishwarya Pagan PA 11/25/2023 Refill [facility] [address] [place] [address] Marlene Gonzalez MD Refill Request (Oxybutynin Xl, Cyclobenzaprine) 11/22/2023 11:30 AM CDT Office Visit [facility] [address] [place] [address] Aishwarya Pagan PA UTI 11/22/2023 Travel 11/20/2023 Telephone [facility] [address] [facility] [address] Marlene Gonzalez MD Cardiovascular Diagnostic Testing 11/20/2023 Anticoagulation (warfarin) [facility] [address] [facility] [address] 1, [facility] Anticoagulation 11/19/2023 4:30 PM CDT Office Visit [facility] [address] [facility] [address] Marlene Gonzalez MD [facility] F/U 11/19/2023 Travel from Last 3 Months Immunizations Name [...] drink = 0.6 oz pur e alcohol) [facility] Utilities Answer Date Recorded Do you have trouble paying f or utilities (for example, heat, electricity, water, phone)? Yes 03/07/2023 PHQ-2 Answer Date Recorded PHQ-2 TOTAL SCORE 0 03/07/2023 Social Connections Answer Date Recorded Do you often feel lonely or isolated from those around you? 0 03/07/2023 Financial Resource Strain Answer Date R ecorded Difficulty of Paying Living Expenses 3 03/07/2023 Difficulty of Paying Living Expenses Not on file 03/07/2023 Food Insecurity Answer Date Recorded Do you worry your food will run out before you are able to buy more? 1 03/07/2023 Transportation Needs Answer Date Record ed Does lack of transportation keep you from medica l appointments? 1 03/07/2023 Does lack of transportation keep you from work, meetings or getting things that you need? 1 03/07/2023 Housing Stability Answer Date Recorded What is your housing situation today? 1 03/07/2023 Comments No Sex and Gender Information Value Date Recorded Sex Assigned at Not on file Legal Sex Female 5:25 AM [employer] Gender Identity Not on file Sexual Orientation Not on file Obstetrics History Para Term AB IAB SAB Ectopic Multiple Livin g Live Births 3 2 1 1 2 Date Outcome GA Total Labor Labor/2nd/3rd Weight Sex Type Anes PTL Emily A1 A5 Name Clin Para Para SAB Last Filed Vital Signs Vital Sign Reading Time Taken Comments Blood Pressure 118/63 11/22/2023 11:21 AM CDT Pulse 66 11/22/2023 11:21 AM CDT Temperature 36.4 C (97.5 F) 05/27/2023 10:38 AM CDT Respiratory Rate 20 07/20/2020 10:2 0 AM CDT Oxygen Saturation 98% 11/22/2023 11: 21 AM CDT Inhaled Oxygen Concentration - - Weight 93.8 kg (206 lb 14.4 oz) 024 11:21 AM CDT Height 161.3 cm (5' 3.5) 05/27/2023 10 :38 AM CDT Body Mass Index 36.07 05/27/2023 10:38 AM CDT Plan of Treatment Upcoming Encounters Date Type Department Care Team (Late st Contact Info) Description 03/16/2024 9:05 AM [employer] Office Visit [facility] [address] [address] Marlene Gonzalez MD [address] [facility] [address] 03/16/2024 10:40 AM [employer]ER Ancillary Procedure [facility] [address] [facility] [address] Health Maintenance Due Date Last Done Comments [...] 65+ Completed 04/30/2014 Pneumococcal series for age 50+ Completed 6, 07/08/2013 Hepatitis C screening for ag e 18-79 Completed 11/18/2015 Tdap Completed 07/20/2020, 05/24/2009 Procedures Procedure Name Priority Date/Time Associated Diagnosis Comments INR,POCT Routine 02/10/2024 9:51 AM [employer] Paroxysmal atrial fibrillation (HC) Anticoagulation monitoring, INR range 2-3 PROTIME-INR Routine 12/16/2023 10:37 AM CDT Paroxysmal atrial fibrillation (HC) Anticoagulation monitoring, INR range 2-3 NM CARDIAC MPI STRESS TEST Routine 12/10/2023 12:05 PM CDT Chest pressure STRESS TEST ONLY PHARMACOLOGICAL W/O IMAGING Routine 12/10/2023 10:59 AM CDT Chest pressure SCAN-STRESS TEST 12/10/2023 12:0 0 AM CDT URINE CULTURE Routine 11/22/2023 2:52 PM CDT Lower urinary tract symptoms (LUTS) URINALYSIS MICROSCOPIC Routine 2:52 PM CDT Lower urinary tract symptoms (LUTS) URINALYSIS MACROSCOPIC - [facility] ONLY POC DIP ([facility]) Routine 11/22/2023 2:51 PM CDT Lower urinary tract symptoms (LUTS) INR,POCT Routine 11/19/2023 4:55 PM CDT Paroxysmal atrial fibrillation (HC) Anticoagulation monitoring, INR range 2-3 ANTI HCV Routine 11/18/2015 10:57 AM CDT Need for hepatitis C screening test XR DXA BONE DENSITY 2 SITES AXIAL Routine 04/30/2014 11:24 AM CDT Ovarian failure from Last 3 Months or Most Recently Relevant to Health Maintenance Results * (ABNORMAL) INR - POCT [57457.2] - Standing Order (02/10/2024 9:51 AM [employer]) Only the most recent of2 resultswithin the time period is included. INR 2.7(H) ratio [facility] Comment: INRs >2.9 may be falsely elevated in patients receiving either unfractionated Heparin or Low Molecular Weight Heparin. Follow up testing in a hospital laboratory may be helpful if clinically indicated. INR results of > or = 5.0 should be verified using the standard venipuncture procedure. Reference Range 0.9-1.1 Moderate-intensity Warfarin Therapy 2.0-3.0 Higher-intensity Warfarin Therapy 3.0-4.0 PROTHROMBIN TIMEP 32.1(H) 10.5 - 13.1 sec [facility] Comment: Point of care fingerstick Prothrombin Time/INR results may vary from venous Prothrombin Time/INR methodologies. Any results exhibiting inconsistency with the patient's clinical status should be repeated using a venous Prothrombin Time/INR method. Blood BLOOD SPECIMEN / Unknown 02/10/2024 9:51 AM [employer]ER 02/10/2024 9:52 AM [employer]ER Marlene Gonzalez MD LABORATORY Final Resu lt Performing Organization Address City/[facility]/ZIP Co de Phone Number [address] [address] * (ABNORMAL) PROTIME-INR (12/16/2023 10:37 AM CDT) INR 2.6(H) [facility] Comment: Reference Range 0.9-1.1 Moderate-intensity Warfarin Therapy 2.0-3.0 Higher-intensity Warfarin Therapy 3.0-4.0 PT 26.4(H) 9.0 - 11.5 sec [facility] Comment: For additional information, please refer to http://education.MyPrepApp/faq/EIA256 (This link is being provided for informational/ educational purposes only.) Blood BLOOD SPECIMEN / Unknown 12/16/2023 10:37 AM CDT 12/16/2023 10:40 AM CDT Marlene Gonzalez MD HEMATOLOGY Final Resu lt Performing Organization Address City/[facility]/ZIP Co de Phone Number [facility] [address] [place] [address], [facility] [address] [place] [address] * NM CARDIAC MPI STRESS TEST (12/10/2023 12:05 PM CDT) Anatomical Region Laterality Modality HEART Nuclear Medicine , Other 12/10/2023 8:49 AM CDT Narrative 12/10/2023 3:48 PM CDT Toll -free: [phone] [employer] MYOCARDIAL PERFUSION IMAGING REPORT REST/STRESS SINGLE ISOTOPE GATED SPECT IMAGING. Patient Name: CINDY GALLEGOS Gender: F Height: 64 in Weight: 206 lb Study Date: 12/10/2023 8:49:51 AM BSA: 1.98 m : 1945 78 years BMI: 35.36 kg/m Ord. Prov.: MARLENE GONZALEZ Monitoring Prov.: aGle Ruiz Performing Site [facility] Clinical History: Chest pain. No known coronary artery disease. Cardiac Risk Factors: Hypertension and hypercholesterolemia. Cardiac History: Abnormal ECG AFib. Beta graciela/calcium channel graciela/nitrate taken today: No. Caffeine/methylxanthine taken within 12 hrs: No. Chest pain/discomfort at baseline: No. IMPRESSION 1. Myocardial perfusion was normal. 2. The pharmacologic stress ECG was negative for ischemia. 3. Left ventricular cavity size was normal (resting EDV 81 ml). 4. Overall left ventricular systolic function was normal without wall motion abnormalities. The post stress LVEF was calculated to be 85 %. 5. There were no prior studies available for comparison. 6. Adequate pharmacologic stress test with regadenoson. STRESS MPI PROCEDURE The patient was studied utilizing a same day rest/stress protocol. Myocardial perfusion imaging was performed at rest, 70 minutes following the intravenous injection of 8.21 mCi of 99mTc sestamibi. 30 seconds after the 15 second IV regadenoson injection, the patient was injected via IV with 23.6 mCi of 99mTc sestamibi. Gated post-stress tomographic imaging was performed 60 minutes after stress. After image acquisition was completed, data was reconstructed in short, horizontal long and vertical long axis views and tomographic slices were generated. - Pharmacologic stress testing was performed with an IV regadenoson dose of 0.4 mg. - No low level exercise was performed. - Resting heart rate was 53 bpm, peak heart rate was 77 bpm. - Resting blood pressure was 176 mmHg/74 mmHg; peak blood pressure was 149 mmHg/67 mmHg. - Patient did not develop significant symptoms. FINDINGS Baseline ECG - The baseline ECG was abnormal with atrial fibrillation and normal conduction. - There were nonspecific ST segment / T-wave abnormalities. - There was no atrial or ventricular ectopy. Stress ECG - The pharmacologic stress ECG was negative for ischemia. - Stress induced arrhythmia included rare PVCs. - Repolarization was unchanged from baseline. Imaging - The overall quality of the study was excellent with mild soft tissue attenuation on rest and stress studies. Computerized motion correction was not applied to rest and stress studies. - SPECT perfusion images were normal without evidence of ischemia or infarction. - Computer processed gated imaging revealed normal left ventricular size with a calculated LVEF of 85 %. (Lab normals: LVEF >50%, LV Size <150 ml). - There was normal post-stress myocardial thickening and wall motion. - No right ventricular abnormalities were identified. - There was no evidence of abnormal lung or extracardiac activity. - Risk/extent of ischemia per ACC Noninvasive Risk Stratification Guideline: LOW RISK. This study was interpreted and electronically signed by Ceferino Haley MD on 12/10/2023 3:48:59 PM. Final (Updated) Procedure Note Ceferino Palmer MD - 12/11/2023 Toll -free: [phone] [employer] MYOCARDIAL PERFUSION IMAGING REPORT REST/STRESS SINGLE ISOTOPE GATED SPECT IMAGING. Patient Name: CINDY GALLEGOS Gender: F Height: 64 in Weight: 206 lb Study Date: 12/10/2023 8:49:51 AM BSA: 1.98 m : 1945 78 years BMI: 35.36 kg/m Ord. Prov.: MARLENE JONES [facility] Monitoring Prov.: Gale Ruiz Performing Site [facility] Clinical History: Chest pain. No known coronary artery disease. Cardiac Risk Factors: Hypertension and hypercholesterolemia. Cardiac History: Abnormal ECG AFib. Beta graciela/calcium channel graciela/nitrate taken today: No. Caffeine/methylxanthine taken within 12 hrs: No. Chest pain/discomfort at baseline: No. IMPRESSION 1. Myocardial perfusion was normal. 2. The pharmacologic stress ECG was negative for ischemia. 3. Left ventricular cavity size was normal (resting EDV 81 ml). 4. Overall left ventricular systolic function was normal without wallmotion abnormalities. The post stress LVEF was calculated to be 85 %. 5. There were no prior studies available for comparison. 6. Adequate pharmacologic stress test with regadenoson. STRESS MPI PROCEDURE The patient was studied utilizing a same day rest/stress protocol.Myocardial perfusion imaging was performed at rest, 70 minutes followingthe intravenous injection of 8.21 mCi of 99mTc sestamibi. 30 seconds afterthe 15 second IV regadenoson injection, the patient was injected via IVwith 23.6 mCi of 99mTc sestamibi. Gated post-stress tomographic imagingwas performed 60 minutes after stress. After image acquisition wascompleted, data was reconstructed in short, horizontal long and verticallong axis views and tomographic slices were generated. - Pharmacologic stress testing was performed with an IV regadenoson doseof 0.4 mg. - No low level exercise was performed. - Resting heart rate was 53 bpm, peak heart rate was 77 bpm. - Resting blood pressure was 176 mmHg/74 mmHg; peak blood pressure zti424 mmHg/67 mmHg. - Patient did not develop significant symptoms. FINDINGS Baseline ECG - The baseline ECG was abnormal with atrial fibrillation and normalconduction. - There were nonspecific ST segment / T-wave abnormalities. - There was no atrial or ventricular ectopy. Stress ECG - The pharmacologic stress ECG was negative for ischemia. - Stress induced arrhythmia included rare PVCs. - Repolarization was unchanged from baseline. Imaging - The overall quality of the study was excellent with mild soft tissue attenuation on rest and stress studies. Computerized motion correction wasnot applied to rest and stress studies. - SPECT perfusion images were normal without evidence of ischemia orinfarction. - Computer processed gated imaging revealed normal left ventricular sizewith a calculated LVEF of 85 %. (Lab normals: LVEF >50%, LV Size <150 ml). - There was normal post-stress myocardial thickening and wall motion. - No right ventricular abnormalities were identified. - There was no evidence of abnormal lung or extracardiac activity. - Risk/extent of ischemia per ACC Noninvasive Risk StratificationGuideline: LOW RISK. This study was interpreted and electronically signed by Veronica Salcedo 12/10/2023 3:48:59 PM. Final (Updated) us Marlene Gonzalez MD NM Edited Res ult - Final * STRESS TEST ONLY PHARMACOLOGICAL W/O IMAGING (12/10/2023 10:59 AM CDT) Anatomical Region Laterality Modality Nuclear Medicine , Other Marlene Gonzalez MD STRESS Final Resu lt * SCAN-STRESS TEST (12/10/2023 12:00 AM CDT) Anatomical Region Laterality Modality Nuclear Medicine , Other Narrative 12/10/2023 12:00 AM CDT Ordered by an unspecified provider. Other Clinical Staff OTHER Final Resul t * URINALYSIS MICROSCOPIC (11/22/2023 2:52 PM CDT) WBC UA NONE SEEN < OR = 5 /HPF [facility] RBC UA NONE SEEN < OR = 2 /HPF [facility] SQUAMOUS EPITHELIAL CELLS UA NONE SEEN < OR = 5 /HPF [facility] BACTERIA UA NONE SEEN NONE SEEN /HPF [facility] HYALINE CAST NONE SEEN NONE SEEN /LPF [facility] NOTE UA [facility] Comment: This urine was analyzed for the presence of WBC, RBC, bacteria, casts, and other formed elements. Only those elements seen were reported. Urine URINE SPECIMEN / Unknown 11/22/2023 2:52 PM CDT 11/22/2023 2:53 PM CDT Aishwarya MAN URINE Final Result [facility] [address] [place] [address], [facility] [address] [place] [address] * URINE CULTURE (11/22/2023 2:52 PM CDT) CULTURE, URINE, ROUTINE SEE NOTE [facility] Comment: CULTURE, URINE, ROUTINE Micro Number: [id number] Test Status: Final Specimen Source: Urine, clean catch Specimen Quality: Adequate Result: No Growth Urine URINE SPECIMEN / Unknown 11/22/2023 2:52 PM CDT 11/22/2023 2:53 PM CDT Aishwarya MAN MICROBIOLOGY Final Result Performing Organization Address City/[facility]/ZIP Co de Phone Number DNage [facility] [address] [place] [address], [place] [phone] [facility] [address] [place] [address] * POCT Urinalysis Dipstick Only (11/22/2023 2:51 PM CDT) PH 5.5 5.0 - 8.0 [facility] SPECIFIC GRAVITY < OR = 1.005 1.001 - 1.035 [facility] Comment: Specific [place] values resulted are outside the analytical measurement range of this device. Recommend repeat/additional testing as clinically indicated. GLUCOSE NEGATIVE NEGATIVE [facility] BILIRUBIN NEGATIVE NEGATIVE [facility] KETONES NEGATIVE NEGATIVE [facility] OCCULT BLOOD NEGATIVE NEGATIVE [facility] PROTEIN NEGATIVE NEGATIVE [facility] NITRITE NEGATIVE NEGATIVE [facility] LEUKOCYTE ESTERASE NEGATIVE NEGATIVE [facility] Urine URINE SPECIMEN / Unknown 11/22/2023 2:51 PM CDT 11/22/2023 2:51 PM CDT Aishwarya MAN URINE Final Result [facility] [address] [place] [address], [place] [phone] [facility] [address] [place] [address] * ANTI HCV [86096.2] (11/18/2015 10:57 AM CDT) HEPATITIS C ANTIBODY Non-Reacti ve Non-Reacti ve 11/18/2015 5:27 PM CDT [facility] Blood BLOOD SPECIMEN / Unknown Venipuncture / Unknown 11/18/2015 10:57 AM CDT 11/18/2015 10:58 AM CDT Narrative [facility] - 11/18/2015 5:27 PM CDT Antibodies to HCV not detected; does not exclude the possibility of exposure to HCV. us Marlene Gonzalez MD SEND OUTS Final Resu lt [facility] [address] [place] [address], * (ABNORMAL) XR DXA BONE DENSITY 2 SITES (04/30/2014 11:24 AM CDT) Anatomical Region Laterality Modality Spine, HIPS, HIPL, HIPR Other Narrative 05/14/2014 4:47 PM CDT Please see scanned document for results of this study. Procedure Note Kamala Kerr PA - 05/14/2014 Please see scanned document for results of this study. us Marlen Salinas DEXA Final R esult from Last 3 Months or Most Recently Relevant to Health Maintenance Insurance [employer]ARE [employer]AGE MR [employer]VANTAGE MR Advance Directives * Full Code (Latest Code Status on File) Date Activated Date Inactivated Comments 05/21/2012 8:57 PM 05/22/2012 6:59 PM Care Teams Stone Polisher Machine Relationship Specialty Start Date End Date Marlene Gonzalez [place] [address] PCP - General Family Practice 05/16/15
--- OUTSIDE RECORDS SUMMARY | 2024-02-18 16:54 | XMS_ITS | Clinical Summary ---
Author Organization [facility] [email or web address] [facility] Address [address] [address] Phone Care Team Providers Care Rate Clerk Passenger Name Role Phone Unavailable Primary Care Provider [...] 07/25/2006 [facility] Hives High 07/25/2006 Medications acetaminophen (Tylenol) 500 MG tablet Take 500 mg by mouth every six hours as needed. 8 Active albuterol HFA (Proair HFA, Ventolin HFA) 108 (90 Base) MCG/ACT inhalation aerosol Every 4 Hours as needed Active amLODIPine (Norvasc) 2.5 MG tablet Take 2.5 mg by mouth one time a day. 2 Active atorvaSTATin (Lipitor) 20 MG tablet Take 20 mg by mouth one time a day. 1 Active cyclobenzaprine (Flexeril) 5 MG tablet Take 5 mg by mouth three times a day as needed. 1 Active flavoxATE (Urispas) 100 MG tablet Take 100 mg by mouth three times a day. 1 Active Fluconazole (DIFLUCAN OR) fluconazole Acti ve fluticasone propionate (Flonase) 50 MCG/ACT nasal spray Instill nasally. 1 Active Fluticasone-Murphy meterol 55-14 MCG/ACT Aerosol Powder Breath Activated fluticasone 55 mcg-salmeterol 14 mcg/actuation breath activated powder Inhale 1 puff twice a day by inhalation route. Active furosemide (Lasix) 20 MG tablet Take 20 mg by mouth one time a day as needed. 2 Active hydrOXYzine HCl (Atarax) 25 MG tablet Take 25 mg by mouth one time a day. 2 Active hyoscyamine (Anaspaz, Levsin) 0.125 MG tablet Take 0.125 mg by mouth every four hours as needed. 2 Active loratadine (Claritin) 10 MG tablet Take 10 mg by mouth one time a day. 0 Active losartan (Cozaar) 50 MG tablet Take 100 mg by mouth one time a day. 2 Active nitrofurantoin, macrocrystal-mo nohydrate, (Macrobid) 100 MG capsule Take 100 mg by mouth two times a day. 2 Active Oxybutynin (OXYTROL TD) oxybutynin Active SUMAtriptan (Imitrex) 50 MG tablet Take 50 mg by mouth two times a day as needed. 1 Active warfarin (Coumadin) 5 MG tablet Take by mouth 5 mg (5 mg x 1) every e, Gaby, Sat; 7.5 mg (5 mg x 1.5) all other days in the evening OR as directed 2 Active Active Problems Problem Noted Date Diagnosed [...] D deficiency 03/07/2011 Colon polyp 01/31/2011 Overview (09/18/2021): Colonoscopy 01/2011 polyp repeat in 5 years [...] Years Used Date Smoking Tobacco: Never Assessed Comments Unknown Sex and Gender Information Value Date Recorded Sex Assigned at Not on file Legal Sex Female 12:08 PM CDT Gender Identity Not on file Sexual Orientation Not on file Obstetrics History Last Filed Vital Signs Vital Sign Reading Time Taken Comments Blood Pressure 168/71 09/18/2021 1:00 PM CDT Pulse 56 09/18/2021 1:00 PM CDT Temperature 36.7 C (98 F) 09/18/2021 1:00 PM CDT Respiratory Rate 16 09/18/2021 1:00 PM CDT Oxygen Saturation 97% 09/18/2021 1:00 PM CDT Inhaled Oxygen Concentration - - Weight - - Height - - Body Mass Index - - Plan of Treatment Health Maintenance Due Date Last Done Comments PERTUSSIS (Standing Order) 08/15/1966 TETANUS (Standing Order) 08/15/1966 Shingrix (Zoster recombinant ) vaccine (Standing Order) (1 of 2) 03/23/2010 DXA,FEMALES AGE 65 OR GREATER 08/15/2012 Pneumococcal Vaccine: 65+ yr s (Standing Order) (2 of 2 - PPSV23 or PCV20) 08/24/2016 08/25/2015 RSV Vaccination (60+ yrs) (Abrysvo/Arexvy) (1 - 1-dose 75+ series) 08/15/2022 COVID-19 Vaccine (2023-2 5 season) 2023 Influenza Vaccine Seasonal (Standing Order) (#1) 2023 HPV Vaccine (Standing Order) Aged Out No longer eligible based on patient's age to complete this topic Hepatitis B Vaccine (Standin g Order) Aged Out No longer eligible b ased on patient's age to complete this topic Insurance [employer] MED[employer]ARE PLANS
--- OUTSIDE RECORDS SUMMARY | 2024-02-18 16:54 | XMS_ITS ---
Author Name Auto Generated Organization [facility] Care Team Providers Care Health And Safety Technician Name Role Phone NO, PCP Primary Care Physician Unavailab le YSABEL ERICKSON III Attending Physician MARLENE Rivera Primary Care Physician YSABEL Arriaza III Attending Physician MARLENE Rivera Primary Care Physician Ryan ilNELLY Araujo Attending Physician Unavailable PROBLEMS DATE TYPE CONDITION / CODE ATTENDING STATUS [facility] 08/30/2022 Working Diagnosis Interstitial cystitis (chronic) without hematuria / N30.10(ICD-10) [facility] 09/14/2023 Working Diagnosis Abdominal tenderness, unspecified site / R10.819(ICD-10) [facility] 09/14/2023 Working Diagnosis Urinary tract infection, site not specified / N39.0(ICD-10) [facility] 09/03/2023 Working Diagnosis Unspecified symptoms and signs involving the genitourinary system / R39.9(ICD-10) ERICKSONYSABEL Silva III [facility] RESULTS URINALYSIS, DIPSTICK ONLY, FOR USE WITH MICROSCOPIC PANEL Collected: 09/14/2023 1:01 PM Status: F Source: [facility] TYPE CODE TESTS RESULT OUT OF RANGE REFERENCE UNITS LAB UCOL COLOR OF URINE Yellow Yellow LAB UCLAR CLARITY OF URINE Clear Clear LAB USG SPECIFIC GRAVITY OF URINE 1.028 1.003-1.030 LAB ULEU LEUKOCYTE ESTERASE PRESENCE IN URINE BY TEST STRIP Negative Negative LAB UNIT NITRITE PRESENCE IN URINE Negative Negative LAB UPRO PROTEIN (MG/DL) IN URINE BY TEST STRIP 50 Abnormal Negative MG/DL LAB UKET KETONES (MG/DL) IN URINE Negative Negative MG/DL LAB UURO UROBILINOGEN (MG/DL) IN URINE Normal <2.0 mg/dL LAB UBIL BILIRUBIN, TOTAL PRESENCE IN URINE Negative Negative LAB UOCC HEMOGLOBIN PRESENCE IN URINE Trace Abnormal Negative LAB UGLU GLUCOSE (SEMIQUANT) IN URINE Negative Negative MG/DL LAB UPH PH OF URINE 6.0 5.0-8.0 PH URINALYSIS, MICROSCOPIC ONLY Collected: 09/14/2023 1:01 PM Status: F Source: [facility] [place] TYPE CODE TESTS RESULT OUT OF RANGE REFERENCE UNITS LAB URBC RBC (#/HPF) IN URINE SEDIMENT 6-9 Abnormal None seen, 0-2, Negative /HPF LAB UWBC WBC (LEUKOCYTE) (#/HPF) IN URINE SEDIMENT 0-4 0-4 /HPF LAB [id number] WBC (LEUKOCYTE) CLUMPS (#/HPF) IN URINE SEDIMENT None seen None seen /HPF LAB USQEPI SQUAMOUS EPITHELIAL CELLS (#/HPF) IN URINE SEDIMENT Negative None Seen-9 /HPF LAB UBACT BACTERIA (#/HPF) IN URINE None seen None seen, Few /HPF LAB UHYALC HYALINE CASTS (#/HPF) IN URINE SEDIMENT BY MICROSCOPY 15-29 Abnormal 0-4 /LPF LAB UGRANC GRANULAR CASTS (#/HPF) IN URINE 5-9 Abnormal None seen /LPF LAB [id number] MUCUS (#/HPF) IN URINE SEDIMENT Present CBC WITH AUTO DIFFERENTIAL Collected: 09/14/2023 12:4 2 PM Status: F Source: [facility] [place] TYPE CODE TESTS RESULT OUT OF RANGE REFERENCE UNITS LAB WBC LEUKOCYTES(10*3/ UL) IN BLOOD BY AUTOMATED COUNT 5.9 4.5-10.5 10*3/uL LAB RBC ERYTHROCYTES (10*6/UL) IN BLOOD BY AUTOMATED COUNT 5.20 3.70-5.30 10*6/?L LAB HGB HEMOGLOBIN (G/DL) IN BLOOD 15.1 11.5-15.5 g/dL LAB HCT HEMATOCRIT (%) IN BLOOD BY AUTOMATED COUNT 44.5 34.0-45.0 % LAB MCV ERYTHROCYTE MEAN CORPUSCULAR VOLUME (FL) BY AUTOMATED COUNT 85.6 81.0-97.0 fL LAB MCH ERYTHROCYTE MEAN CORPUSCULAR HEMOGLOBIN (PG) BY AUTOMATED COUNT 29.0 28.0-33.0 pg LAB MCHC ERYTHROCYTE MEAN CORPUSCULAR HEMOGLOBIN CONCENTRATION (G/DL) BY AUTOMATED 33.9 32.0-36.0 g/dL LAB RDW ERYTHROCYTE DISTRIBUTION WIDTH (RATIO) BY AUTOMATED COUNT 16.2 High 11.5-14.0 % LAB PLT PLATELETS (10*3/UL) IN BLOOD AUTOMATED COUNT 196 140-350 10*3/uL LAB MPV PLATELET MEAN VOLUME (FL) IN BLOOD BY AUTOMATED COUNT 8.9 6.9-10.8 fL LAB NE% NEUTROPHILS/100 LEUKOCYTES IN BLOOD BY AUTOMATED COUNT 70.5 41.0-81.0 % LAB LY% LYMPHOCYTES/100 LEUKOCYTES IN BLOOD BY AUTOMATED COUNT 17.0 11.0-47.0 % LAB MO% MONOCYTES/100 LEUKOCYTES IN BLOOD BY AUTOMATED COUNT 8.4 3.0-11.0 % LAB EO% EOSINOPHILS/100 LEUKOCYTES IN BLOOD BY AUTOMATED COUNT 3.2 High 0.0-3.0 % LAB BA% BASOPHILS/100 LEUKOCYTES IN BLOOD BY AUTOMATED COUNT 0.9 0.0-2.0 % LAB NE# NEUTROPHILS (10*3/UL) IN BLOOD BY AUTOMATED COUNT 4.20 10*3/UL LAB LY# LYMPHOCYTES (10*3/UL) IN BLOOD BY AUTOMATED COUNT 1.00 10*3/uL LAB MO# MONOCYTES (10*3/UL) IN BLOOD BY AUTOMATED COUNT 0.50 10*3/uL LAB EO# EOSINOPHILS (10*3/UL) IN BLOOD BY AUTOMATED COUNT 0.20 10*3/uL LAB BA# BASOPHILS (10*3/UL) IN BLOOD BY AUTOMATED COUNT 0.10 10*3/uL COMPREHENSIVE METABOLIC PANEL Collected: 09/14/2023 1 2:42 PM Status: F [facility] Order Comment: Calculation b ased on the?2020 Chronic Kidney Disease Epidemiology Collaboration (CKD-EPI) equation refit?without adjustment for race. TYPE CODE TESTS RESULT OUT OF RANGE REFERENCE UNITS LAB NA SODIUM (MMOL/L) IN SER/PLAS 137 135-145 mmol/L LAB K POTASSIUM (MMOL/ L) IN SER/PLAS 4.2 3.5-5.1 MMOL/L LAB CL CHLORIDE (MMOL/L ) IN SER/PLAS 105 98-107 mmol/L LAB CO2 CARBON DIOXIDE, TOTAL (MMOL/L) IN SER/PLAS 20 Low 21-32 mmol/L LAB AGAP ANION GAP IN SER/PLAS 12 High 3-11 mmol/L LAB BUN UREA NITROGEN (MG/DL) IN SER/PLAS 23 7-25 mg/dL LAB CREAT CREATININE (MG/D L) IN SER/PLAS 0.96 0.60-1.10 mg/dL LAB GLU GLUCOSE (MG/DL) IN SER/PLAS 107 High 70-105 mg/dL LAB CA CALCIUM (MG/DL) IN SER/PLAS 9.2 8.6-10.3 mg/dL LAB AST ASPARTATE AMINOTRANSFERASE (SGOT) (U/L) IN SER/PLAS 23 <40 U/L LAB ALT ALANINE AMINOTRANSFERASE (SGPT) (U/L) IN SER/PLAS 12 7-52 U/L LAB ALP ALKALINE PHOSPHATASE (U/L) IN SER/PLAS 81 55-142 U/L LAB TP PROTEIN (G/DL) I N SER/PLAS 7.0 6.0-8.3 g/dL LAB ALB ALBUMIN (G/DL) I N SER/PLAS 4.2 3.5-5.3 g/dL LAB BILIT BILIRUBIN TOTAL (MG/DL) IN SER/PLAS 1.44 High 0.20-1.40 mg/dL LAB CACORR CALCIUM (MG/DL) CORRECTED FOR ALBUMIN IN SER/PLAS 9.0 8.6-10.3 mg/dL LAB [id number] GLOMERULAR FILTRATION RATE ML/MIN/1.73 SQ M.PREDICTED W/O RACE 61 >60 mL/min/ 1.73m*2 ED PROVIDER NOTES Observed: 09/14/2023 12:02 PM Status: COMPLETED Source: [facility] RE[facility] HPI: Chief Complaint Patient presents with Female Dysuria Pt walked in triage. C/o painful urination,abdominal pain and dizziness. Taking abx currently r/t UTI. Female Dysuria Gale is a 78-year-old female presenting to the emergency department with a known UTI. Patient reports having a failed round of antibiotics, she has not taken 5 doses of Cipro. Patient reports yesterday she had a good day and was feeling well, today she is having some bladder pain and spasms. She denies any fever, no chills, denies hematuria. She did have some nausea this morning, no vomiting or diarrhea. She is concerned that her infection is going to get out of hand as she has had postop infections in the past that have led to her hospitalization. She has had UTIs, not frequently, has never led to hospitalization. She does note history of bladder spasms, takes oxybutynin daily, she did not take this medication this morning as prescribed. Vital signs are stable, no acute distress, afebrile. HISTORY: No past medical history on file. Past Surgical History: Procedure Laterality Date ANKLE SURGERY Bilateral infection wash out FOOT SURGERY Bilateral multiple toe corrections No family history on file. ROS: As noted in HPI, otherwise noncontributory. PHYSICAL EXAM: ED Triage Vitals Temp Heart Rate Resp BP SpO2 09/14/23 1200 09/14/23 1156 09/14/23 1200 09/14/23 1200 09/14/23 1156 36.5 C (97.7 F ) 69 16 140/69 97 % Mean BP (mmHg) Temp src Heart Rate Source Patient Position BP Location 09/14/23 1200 -- -- -- -- 78 FiO2 (%) -- Nursing note and vitals reviewed. Constitutional: Alert oriented age-appropriate female appears well-developed. Nontoxic-appearing. No acute distress. Head: Normocephalic and atraumatic. Eyes: Pupils are equal, round. Extraocular movements intact. Cardiovascular: Regular rate and rhythm. No murmur. Normal pulses. Normal peripheral perfusion. No peripheral edema Pulmonary/Chest: No respiratory distress. Clear to auscultation bilaterally. No chest wall tenderness. Abdominal: Soft and nontender. Nondistended. No rebound or guarding. Normal bowel sounds. No peritonitis. Suprapubic tenderness to palpation. Back: No CVA tenderness. No midline tenderness. Musculoskeletal: No swelling or deformity. Full range of motion of bilateral upper and lower extremities. Neurological: Alert. CN II-XII intact. Motor and sensation intact and equal throughout. No focal neurologic deficits. Skin: Skin is warm and dry. No rash noted. Psychiatric: Anxious Medications phenazopyridine (PYRIDIUM) 95 mg Disp: #30 tablet - ED DOSE PACK 1 Package (has no administration in time range) No orders to display ED COURSE: ED Course as of 09/14/23 1347 Sat Sep 14, 2023 1321 Urinalysis w/microscopic Urine, Straight Catheter(!): RBC, Urine 6-9(!) WBC, Urine 0-4 WBC Clumps, Urine None seen Squamous Epithelial, Urine Negative Bacteria, Urine None seen Hyaline Casts, Urine 15-29(!) Granular Casts, Urine 5-9(!) Mucus, Urine Present Color, Urine Yellow Clarity, Urine Clear Specific [place], Urine 1.028 Leukocytes, Urine Negative Nitrite, Urine Negative Protein, Urine 50(!) Ketones, Urine Negative Urobilinogen, Urine Normal Bilirubin, Urine Negative Blood, Urine Trace(!) Glucose, Urine Negative pH, Urine 6.0 No indication of infectious process [CF] 1322 Comprehensive metabolic panel Blood, Venous(!): Sodium 137 Potassium 4.2 Chloride 105 CO2 20(!) Anion Gap 12(!) BUN 23 Creatinine, Ser 0.96 Glucose 107(!) Calcium 9.2 AST 23 ALT (SGPT) 12 Alkaline Phosphatase 81 Total Protein 7.0 Albumin 4.2 Total Bilirubin 1.44(!) Corrected Calcium 9.0 eGFR 61 No significant electrolyte abnormality, no RONEN, normal LFTs. Anion gap very mildly elevated at 12. [CF] 1322 CBC w/auto differential Blood, Venous(!): WBC 5.9 RBC 5.20 Hemoglobin 15.1 Hematocrit 44.5 MCV 85.6 MCH 29.0 MCHC 33.9 RDW 16.2(!) Platelets 196 MPV 8.9 Neutrophils% 70.5 Lymphocytes% 17.0 Monocytes% 8.4 Eosinophils% 3.2(!) Basophils% 0.9 ANC (auto diff) 4.20 Lymphs # (Absolute) 1.00 Monocytes # (Absolute) 0.50 Eos # (Absolute) 0.20 Baso # (Absolute) 0.10 No leukocytosis or anemia. [CF] ED Course User Index [CF] Elizabeth Alex, MEL Recent Results (from the past 24 hour(s)) CBC w/auto differential Blood, Venous Collection Time: 09/14/23 12:42 PM Result Value Ref Range WBC 5.9 4.5 - 10.5 10*3/uL RBC 5.20 3.70 - 5.30 10*6/ L Hemoglobin 15.1 11.5 - 15.5 g/dL Hematocrit 44.5 34.0 - 45.0 % MCV 85.6 81.0 - 97.0 fL MCH 29.0 28.0 - 33.0 pg MCHC 33.9 32.0 - 36.0 g/dL RDW 16.2 (H) 11.5 - 14.0 % Platelets 196 140 - 350 10*3/uL MPV 8.9 6.9 - 10.8 fL Neutrophils% 70.5 41.0 - 81.0 % Lymphocytes% 17.0 11.0 - 47.0 % Monocytes% 8.4 3.0 - 11.0 % Eosinophils% 3.2 (H) 0.0 - 3.0 % Basophils% 0.9 0.0 - 2.0 % ANC (auto diff) 4.20 10*3/UL Lymphocytes Absolute 1.00 10*3/uL Monocytes Absolute 0.50 10*3/uL Eosinophils Absolute 0.20 10*3/uL Basophils Absolute 0.10 10*3/uL Comprehensive metabolic panel Blood, Venous Collection Time: 09/14/23 12:42 PM Result Value Ref Range Sodium 137 135 - 145 mmol/L Potassium 4.2 3.5 - 5.1 MMOL/L Chloride 105 98 - 107 mmol/L CO2 20 (L) 21 - 32 mmol/L Anion Gap 12 (H) 3 - 11 mmol/L BUN 23 7 - 25 mg/dL Creatinine 0.96 0.60 - 1.10 mg/dL Glucose 107 (H) 70 - 105 mg/dL Calcium 9.2 8.6 - 10.3 mg/dL AST 23 <40 U/L ALT (SGPT) 12 7 - 52 U/L Alkaline Phosphatase 81 55 - 142 U/L Total Protein 7.0 6.0 - 8.3 g/dL Albumin 4.2 3.5 - 5.3 g/dL Total Bilirubin 1.44 (H) 0.20 - 1.40 mg/dL Corrected Calcium 9.0 8.6 - 10.3 mg/dL eGFR 61 >60 mL/min/1.73m*2 Urinalysis, microscopic Urine, Straight Catheter Collection Time: 09/14/23 1:01 PM Result Value Ref Range RBC, Urine 6-9 (A) None seen, 0-2, Negative /HPF WBC, Urine 0-4 0 - 4 /HPF WBC Clumps, Urine None seen None seen /HPF Squamous Epithelial, Urine Negative None Seen-9 /HPF Bacteria, Urine None seen None seen, Few /HPF Hyaline Casts, Urine 15-29 (A) 0 - 4 /LPF Granular Casts, Urine 5-9 (A) None seen /LPF Mucus, Urine Present Urinalysis, dipstick Urine, Straight Catheter Collection Time: 09/14/23 1:01 PM Result Value Ref Range Color, Urine Yellow Yellow Clarity, Urine Clear Clear Specific [place], Urine 1.028 1.003 - 1.030 Leukocytes, Urine Negative Negative Nitrite, Urine Negative Negative Protein, Urine 50 (A) Negative MG/DL Ketones, Urine Negative Negative MG/DL Urobilinogen, Urine Normal <2.0 mg/dL Bilirubin, Urine Negative Negative Blood, Urine Trace (A) Negative Glucose, Urine Negative Negative MG/DL pH, Urine 6.0 5.0 - 8.0 PH PROCEDURES: Procedures Sepsis Quality Bundle CLINICAL IMPRESSION: Final diagnoses: [R10.819] Suprapubic tenderness [N30.10] Chronic interstitial cystitis [N39.0] UTI (urinary tract infection) MDM: Review of previous records: Discussion with other Clinicians: Gale Gallegos is a 78 y.o. female presenting for evaluation of suprapubic tenderness, known UTI being treated with Cipro. Patient is currently hemodynamically stable and non-toxic appearing. Patient's current medical problem complicated by medical problems including: See PMHx. ED plan:labs, symptom management, serial reassessment. Telemetry reviewed showing sinus bradycardia. Comprehensive evaluation performed in the emergency department today. Continuous cardiac and respiratory monitoring were performed in the ED. Nursing notes were reviewed as well as labs and imaging studies. Outside notes independently reviewed and pertinent for: Recent urine culture shows less than 10,000 Proteus Mirabilis, On my evaluation, patient has suprapubic tenderness to palpation.CBC shows no leukocytosis, no anemia. CMP shows no significant electrolyte abnormality, no RONEN, no indication of liver dysfunction. Anion gap is mildly elevated at 12. Straight cath UA was obtained and does not indicate infectious process. Postvoid bladder scan showed 6 mL, no indication of urinary retention. Recommend she continue Cipro as prescribed, she was given Pyridium take-home pack. Patient lives in [place], recommend she contact her PCP and urologist to schedule follow-up in the next 2-3 days. Discussed findings, diagnosis, and treatment plan in detail with patient or caregiver who is in agreement with plan. Patient is stable with no further interventions indicated in the emergency department at this time, discharged with return precautions and follow-up instructions given. Was admission Considered: Yes Financial and social constraints, proximity to healthcare facilities, and comorbidities were considered in the treatment plan for this patient. Patient was seen in conjunction with Dr. Chew, supervising physician, examined patient and agrees with plan of care and disposition. Elizabeth Alex CNP Emergency Medicine A voice recognition program was used to aid in documentation of this record. Sometimes words are not printed exactly as they were spoken. While efforts were made to carefully edit and correct any inaccuracies, some areas may be present; please take these into context. Please contact the provider if areas are identified. Elizabeth Alex CNP 09/14/23 7188 URINALYSIS, DIPSTICK ONLY Collected: 3:28 PM Status: F Source: [facility] [place] Order Comment: CONFIRMATORY URINE TESTING (ICTOTEST) UNAVAILABLE, RECOMMEND SERUM BILIRUBIN IF INDICATED. TYPE CODE TESTS RESULT OUT OF RANGE REFERENCE UNITS LAB UCOL COLOR OF URINE Yellow Yellow LAB UCLAR CLARITY OF URINE Clear Clear LAB USG SPECIFIC GRAVITY OF URINE 1.015 1.003-1.030 LAB ULEU LEUKOCYTE ESTERASE PRESENCE IN URINE BY TEST STRIP Trace Abnormal Negative LAB UNIT NITRITE PRESENCE IN URINE Negative Negative LAB UPRO PROTEIN (MG/DL) IN URINE BY TEST STRIP Negative Negative MG/DL LAB UKET KETONES (MG/DL) IN URINE Negative Negative MG/DL LAB UURO UROBILINOGEN (MG/DL) IN URINE 0.2 <2.0 mg/dL LAB UBIL BILIRUBIN, TOTAL PRESENCE IN URINE Small Abnormal Negative LAB UOCC HEMOGLOBIN PRESENCE IN URINE Negative Negative LAB UGLU GLUCOSE (SEMIQUANT) IN URINE Negative Negative MG/DL LAB UPH PH OF URINE 5.0 5.0-8.0 PH URINE CULTURE Observed: 09/12/2023 3:28 PM Status: F Source: [facility] [place] 1 - ORGANISM: PROTEUS MIRABI LIS TITO (PROTEUS MIRABILIS) ANTIBIOTIC INTERPRETATION TITO STATUS Amoxicillin + Clavulanate S <=8/4 F Ampicillin S <=8 F Ampicillin + Sulbactam S <=4/2 F Cefazolin S <=2 F Cefotaxime S <=2 F Cefoxitin S <=8 F Ceftazidime S <=1 F Ceftriaxone S <=1 F Cefuroxime S <=4 F Ciprofloxacin S <=0.25 F Gentamicin S <=2 F Nitrofurantoin R >64 F Piperacillin + Tazobactam S <=8 F Tetracycline R >8 F Tobramycin S <=2 F Trimethoprim + Sulfamethoxazole S <=0.5/9.5 F Result Comment: <10,000 CFU/ mL Proteus mirabilis Proteus species are predictably resistant to nitrofurantoin (Macrobid, Macrodantin) and tetracyclines. URINALYSIS, DIPSTICK ONLY Collected: 09/03/2023 2:17 PM Status: F Source: [facility] REPOSITORY TYPE CODE TESTS RESULT OUT OF RANGE REFERENCE UNITS LAB UCOL COLOR OF URINE Yellow Yellow LAB UCLAR CLARITY OF URINE Clear Clear LAB USG SPECIFIC GRAVITY OF URINE >=1.030 1.003-1.030 LAB ULEU LEUKOCYTE ESTERASE PRESENCE IN URINE BY TEST STRIP Negative Negative LAB UNIT NITRITE PRESENCE IN URINE Negative Negative LAB UPRO PROTEIN (MG/DL) IN URINE BY TEST STRIP Negative Negative MG/DL LAB UKET KETONES (MG/DL) IN URINE Negative Negative MG/DL LAB UURO UROBILINOGEN (MG/DL) IN URINE 0.2 <2.0 mg/dL LAB UBIL BILIRUBIN, TOTAL PRESENCE IN URINE Negative Negative LAB UOCC HEMOGLOBIN PRESENCE IN URINE Negative Negative LAB UGLU GLUCOSE (SEMIQUANT) IN URINE Negative Negative MG/DL LAB UPH PH OF URINE 5.5 5.0-8.0 PH URINE CULTURE Observed: 09/03/2023 2:17 PM Status: F Source: [facility] REPOSITORY Order Comment: Also present: Between 10,000 and 100,000/mL Mixed gram positive organisms Possible skin contaminant 1 - ORGANISM: ESCHERICHIA CO LI TITO (ESCHERICHIA COLI) ANTIBIOTIC INTERPRETATION TITO STATUS Amoxicillin + Clavulanate S <=8/4 F Ampicillin S <=8 F Ampicillin + Sulbactam S <=4/2 F Cefazolin S <=2 F Cefotaxime S <=2 F Cefoxitin S <=8 F Ceftazidime S <=1 F Ceftriaxone S <=1 F Cefuroxime S <=4 F Ciprofloxacin S <=0.25 F Gentamicin S <=2 F Nitrofurantoin S <=32 F Piperacillin + Tazobactam S <=8 F Tetracycline S <=4 F Tobramycin I 4.0 F Trimethoprim + Sulfamethoxazole S <=0.5/9.5 F Result Comment: <10,000 CFU/ mL Escherichia coli ALLERGIES DATE TYPE / CODE NAME / CODE REACTION SEVERITY SOURCE 08/15/2021 DRUG INGREDI/419 566722(SNOM ED CT) NITROFURANTOIN Formerly [facility] 05/30/2020 DRUG INGREDI/419 988124(SNOM ED CT) IBUPROFEN Formerly [facility] 12/21/2019 DRUG INGREDI/419 401241(SNOM ED CT) GADODIAMIDE Mild (Qualifier Value) Formerly [facility] 12/21/2019 DRUG INGREDI/419 362302(SNOM ED CT) PROPYLENE GLYCOL Rash Mild (Qualifier Value) Formerly [facility] 11/16/2015 DRUG INGREDI/419 036845(SNOM ED CT) PROPRANOLOL Formerly [facility] 05/27/2012 DRUG INGREDI/419 658435(SNOM ED CT) CEPHALEXIN Severe (Severity Modifier) (Qualifier Value) Formerly [facility] 07/12/2010 DRUG INGREDI/419 875036(SNOM ED CT) LOSARTAN Severe (Severity Modifier) (Qualifier Value) Formerly [facility] 12/27/2008 DRUG INGREDI/419 828226(SNOM ED CT) CLONIDINE Severe (Severity Modifier) (Qualifier Value) Formerly [facility] 04/26/2008 DRUG INGREDI/419 596201(SNOM ED CT) DIATRIZOATE MEGLUMINE Hives Severe (Severity Modifier) (Qualifier Value) Formerly [facility] 03/08/2008 DRUG/781728 003(SNOMED CT) PEG 400-PROPYLENE GLYCOL Rash Mild (Qualifier Value) Formerly [facility] 09/17/2006 DRUG INGREDI/419 895538(SNOM ED CT) LATEX Rash Moderate (Severity Modifier) (Qualifier Value) Formerly [facility] 07/25/2006 Drug Class/14304 1003(SNOMED CT) PENICILLINS Anaphylaxis Severe (Severity Modifier) (Qualifier Value) Formerly [facility] 07/25/2006 Drug Class/88890 1003(SNOMED CT) SULFA (SULFONAMIDE ANTIBIOTICS) Hives Severe (Severity Modifier) (Qualifier Value) Formerly [facility] ENCOUNTERS ADMIT/DISCHARGE ACCOUNT NUMBER ADMITTING ENCOUNTER CLASS LOC ATION SOURCE 09/14/2023/ 4 [id number] Emergency Building:[facility] EDRoom: [id number]: [id number] Formerly [facility] 09/12/2023/ 4 [id number] Ambulatory Building:[facility] 09/03/2023/ 4 [id number] Ambulatory Building:[facility] PAYERS ENCOUNTER GUARANTOR PAYER SUBSCRIBER SOURCE 09/14/2023 GALE TUMADOB: [id number] [place] [address]Rix: () Primary Insurance:[facility] MEDICAREPolicy Number: [id number] Date:[id number] LARA ZACARIAS [id number]: GALE TUMADOB: [id number] [place] [address] Formerly [facility] 09/14/2023 GALE TUMADOB: [id number] [place] [address]Sif: (HP) Secondary Insurance:[place] [id number] Number: [id number] Date: GALE TUMADOB: [id number] LARA BARNES [address] [facility]ly [facility] 09/12/2023 GALE TUMADOB: [id number] LARA BARNES [address]Xkb: (HP) Primary Insurance[place] [place] MEDICAREPolicy Number: [id number] Date:[id number] LARA ZACARIAS [id number]: GALE TUMADOB: [id number] LARA BARNES [id number] [facility]ly [facility] 09/12/2023 GALE TUMADOB: [id number] LARA BARNES [address]Qex: (HP) Secondary Insurance:[address] Number: [id number] Date: GALE TUMADOB: [id number] LARA BARNES [address] [facility]ly [facility] 09/03/2023 GALE TUMADOB: [id number] LARA BARNES [id number]: (HP) Primary Insurance:[place] MEDICAREPolicy Number: [id number] Date:[id number] LARA ZACARIAS [id number]: GALE TUMADOB: [id number] LARA BARNES [address] [facility]ly [facility] 09/03/2023 GALE TUMADOB: [id number] LARA BARNES [id number]: (HP) Secondary Insurance:[address] Number: [id number] Date: GALE TUMADOB: [id number] LARA BARNES [id number] [facility]ly [facility]
[2024-02-18 17:14] VITALS: BP 167/88; PULSE 52; RESP 20; TEMP 36.4; O2SAT 98; BMI 32.4
--- NOTE | 2024-02-18 17:29 | ED_ITS ---
HPI - General Adult General Chief complaint: Extremity Pain/Injury, Upper Stated complaint: shoulder/arm pain and UTI Time Seen by Provider: 02/18/24 17:24 History of Present Illness HPI narrative: This 78-year-old female comes in reporting dysuria symptoms that began earlier today. She reports pain with voiding urine. She also began to have rather significant left shoulder pain that occurred a few hours prior to arrival. There is no report of injury event or strenuous activity. She is unable to raise her arm up much due to pain. Related Data Home Medications ?Medication ?Instructions ?Recorded ?Confirmed flavoxate 100 mg tablet 100 mg PO TID 11/07/21 02/03/24 furosemide 20 mg tablet 20 mg PO DAILY 11/07/21 02/03/24 losartan 50 mg tablet 100 mg PO DAILY 11/07/21 02/03/24 ondansetron HCl 4 mg tablet 4 mg PO DAILY 11/07/21 02/03/24 oxybutynin chloride 10 mg 10 mg PO DAILY 11/07/21 02/03/24 tablet,extended release 24 hr potassium chloride 20 mEq 20 meq PO DAILY 11/07/21 02/03/24 tablet,extended release(part/cryst) sumatriptan succinate 50 mg tablet 50 mg PO DAILY 11/07/21 02/03/24 warfarin 5 mg tablet 5 mg PO 11/07/21 02/03/24 amlodipine 10 mg tablet 10 mg PO DAILY 07/19/22 02/03/24 fluticasone propionate 50 1 spray intranasal DAILY 07/19/22 02/03/24 mcg/actuation nasal spray,suspension hydroxyzine HCl 25 mg tablet 25 mg PO 3XD 07/19/22 02/03/24 cyclobenzaprine 5 mg tablet 5 mg PO TID PRN 06/03/23 02/03/24 glucosamine HCl 1,500 mg tablet 1,500 mg PO DAILY 06/03/23 02/03/24 hyoscyamine sulfate 0.125 mg 0.125 mg PO Q4H PRN 06/03/23 02/03/24 tablet (Levsin) metronidazole 500 mg tablet 500 mg PO TID 06/03/23 02/03/24 omeprazole 20 mg capsule,delayed 20 mg PO DAILY 06/03/23 02/03/24 release Previous Rx's ?Medication ?Instructions ?Recorded phenazopyridine 100 mg tablet 100 mg PO TID PRN pain 6 doses #6 10/20/23 tabs hydrocodone 5 mg-acetaminophen 325 1 tab PO Q4-6H PRN pain #15 tabs 02/18/24 mg tablet Allergies Allergy/AdvReac Type Severity Reaction Status Date / Time cephalexin Allergy Intermediate Chest Pain Verified 02/03/24 08:42 clonidine Allergy Intermediate tachycardia Verified 02/03/24 08:42 losartan Allergy Intermediate Tachycardia Verified 02/03/24 08:42 gadodiamide Allergy Mild Hives Verified 02/03/24 08:42 latex Allergy Mild Rash Verified 02/03/24 08:42 ibuprofen Allergy Chest Pain Verified 02/03/24 08:42 Penicillins Allergy Anaphylaxis Verified 02/03/24 08:42 Sulfa (Sulfonamide Allergy Hives Verified 02/03/24 08:42 Antibiotics) nitrofurantoin (From AdvReac Verified 02/03/24 08:42 Macrobid) propranolol AdvReac bradycardia Verified 02/03/24 08:42 IV contrast dye Allergy Hives Uncoded 02/03/24 08:42 peg 400-propylene glycol Allergy Rash Uncoded 02/03/24 08:42 Review of Systems Status of ROS: Reports: 10 or more systems reviewed and unremarkable except as noted in History and below Narrative: Constitutional: No fevers, no weight gain or loss. Eyes: No discharge. No vision changes. HENT: No congestion, no sore throat, no ear pain. Cardiovascular: No chest pain, no palpitations. Respiratory: No shortness of breath, no wheezes, no cough. Gastrointestinal: No abdominal pain, no vomiting, no diarrhea. Genitourinary: Pain when voiding urine. Musculoskeletal: Left shoulder pain with significant decreased range of motion. Skin: No rashes, no pruritis. Neurological: No dizziness, weakness, sensory change, speech change. Endo/Heme/Allergies: No bruising or bleeding. No polydipsia. Pysch: no suicidality, no anxiety, no insomnia. All other systems reviewed and are negative. [facility] Medical History (Updated 02/18/24 @ 20:00 by Ronaldo Bass MD) TMJ tenderness, left ?M26.622 - Arthralgia of left temporomandibular joint (ICD-10) Chronic diastolic (congestive) heart failure ?I50.32 - Chronic diastolic (congestive) heart failure (ICD-10) Viral gastroenteritis ?A08.4 - Viral intestinal infection, unspecified (ICD-10) Traumatic ecchymosis of face ?S00.83XA - Contusion of other part of head, initial encounter (ICD-10) Toothache ?K08.89 - Other specified disorders of teeth and supporting structures (ICD- 10) Sprain of knee ?S83.90XA - Sprain of unspecified site of unspecified knee, initial encounter (ICD-10) Pain of right hand ?M79.641 - Pain in right hand (ICD-10) Nausea alone ?R11.0 - Nausea (ICD-10) Headache ?R51.9 - Headache, unspecified (ICD-10) Fall ?W19.XXXA - Unspecified fall, initial encounter (ICD-10) Epigastric pain ?R10.13 - Epigastric pain (ICD-10) Dyspnea ?R06.00 - Dyspnea, unspecified (ICD-10) Cough ?R05.9 - Cough, unspecified (ICD-10) Cellulitis of leg ?L03.119 - Cellulitis of unspecified part of limb (ICD-10) Arthritis of both temporomandibular joints ?M26.643 - Arthritis of bilateral temporomandibular joint (ICD-10) Atrial fibrillation ?I48.91 - Unspecified atrial fibrillation (ICD-10) Enlarged LA (left atrium) ?I51.7 - Cardiomegaly (ICD-10) Vitamin D deficiency ?E55.9 - Vitamin D deficiency, unspecified (ICD-10) Hyperlipidemia ?E78.5 - Hyperlipidemia, unspecified (ICD-10) Panic disorder without agoraphobia ?F41.0 - Panic disorder [episodic paroxysmal anxiety] (ICD-10) Benign paroxysmal positional vertigo ?H81.10 - Benign paroxysmal vertigo, unspecified ear (ICD-10) Hypertension ?I10 - Essential (primary) hypertension (ICD-10) Surgical History (Updated 01/30/24 @ 11:06 by Jenny Morales) S/P trigger finger release (06/04/23) ?Z98.890 - Other specified postprocedural states (ICD-10) History of incision and drainage (02/26/14) ?Z98.890 - Other specified postprocedural states (ICD-10) History of phacoemulsification of cataract of right eye with intraocular lens implantation (04/17/17) ?Z98.41 - Cataract extraction status, right eye (ICD-10) ?Z96.1 - Presence of intraocular lens (ICD-10) History of phacoemulsification of cataract of left eye with intraocular lens implantation (05/01/17) ?Z98.42 - Cataract extraction status, left eye (ICD-10) ?Z96.1 - Presence of intraocular lens (ICD-10) History of YAG laser capsulotomy of lens of right eye (09/04/17) ?Z98.41 - Cataract extraction status, right eye (ICD-10) History of YAG laser capsulotomy of lens of left eye (04/06/20) ?Z98.42 - Cataract extraction status, left eye (ICD-10) H/O hernia repair (03/22/08) ?Z98.890 - Other specified postprocedural states (ICD-10) ?Z87.19 - Personal history of other diseases of the digestive system (ICD-10) H/O dilation and curettage (04/28/08) ?Z98.890 - Other specified postprocedural states (ICD-10) History of appendectomy ?Z90.49 - Acquired absence of other specified parts of digestive tract (ICD- 10) Social History Smoking Status: Never smoker Do you use any of these nicotine containing products: None How often do you have a drink containing alcohol: never How often do you have six or more drinks on one occasion: Never AUDIT-C Alcohol total score: 0 Non-prescribed substance use: denies use Caffeine: No Are you using contraception or practicing any form of control: No service: No Exam Narrative: Exam Narrative: Constitutional: Well-developed, well-nourished, no acute distress. HEENT: Normocephalic, atraumatic. Neck: Normal range of motion. Nontender. Supple. Heart: Regular. No murmurs. Normal rate. Intact distal pulses. Lungs: Clear to auscultation. No chest discomfort. No wheezes, rhonchi, or rales. Abdomen: Normal bowel sounds. Nontender. No rebound tenderness. Genitalia: Deferred. Back: No midline tenderness. Normal range of motion. Extremities: Patient is having significant pain in her left shoulder but no sign of injury or deformity or swelling. She has very limited range of motion due to pain. Skin: Intact. No rash. Warm. No erythema or pallor. Neurologic: No altered sensation. No weakness. Alert and oriented. Psychiatric: No suicidality. No anxiety or depression. No insomnia. Nursing notes and vitals signs are reviewed. Const: Vital Signs, click to edit/add: Vital Signs - 24 hr 02/18/24 17:14 Temperature 97.5 F L Pulse Rate [Pulse Oximeter] 52 L Respiratory Rate 20 Blood Pressure [[facility] Upper Arm] 167/88 H Pulse Oximetry 98 Oxygen Delivery Me thod Room Air Course Vital Signs Vital signs: Initial Vital Signs Temperature 97.5 F L 02/18/24 17:14 Temperature Source Temporal Artery Scan 02/18/24 17:14 Pulse Rate 52 L 02/18/24 17:14 Pulse Rhythm Regular 02/18/24 17:14 Respiratory Rate 20 02/18/24 17:14 Blood Pressure 167/88 H 02/18/24 17:14 Blood Pressure Mean 114 H 02/18/24 17:14 Blood Pressure Position Sitting 02/18/24 17:14 Pulse Oximetry 98 02/18/24 17:14 Oxygen Delivery Method Room Air 02/18/24 17:14 Vital Signs Temperature 97.5 F L 02/18/24 17:14 Pulse Rate 52 L 02/18/24 17:14 Respiratory Rate 20 02/18/24 17:14 Blood Pressure 167/88 H 02/18/24 17:14 Pulse Oximetry 98 02/18/24 17:14 Oxygen Delivery Method Room Air 02/18/24 17:14 Temperature 97.5 F L 02/18/24 17:14 Pulse Rate 52 L 02/18/24 17:14 Respiratory Rate 20 02/18/24 17:14 Blood Pressure 167/88 H 02/18/24 17:14 Pulse Oximetry 98 02/18/24 17:14 Oxygen Delivery Method Room Air 02/18/24 17:14 Medical Decision Making MDM Narrative Medical decision making narrative: This patient comes in reporting dysuria symptoms and also has severe pain in her left shoulder that came on rather spontaneously today. X-ray images of her left shoulder show no acute findings. She has significant decreased range of motion due to pain. It is difficult to do any type of exam on her because of this. She may have some symptoms of adhesive capsulitis or perhaps impingement syndrome. She does have osteoarthritis in her knee and has had an injection in the past so there may be some such changes also in her shoulder joint. Urinalysis is obtained also and does show evidence of urinary tract infection. I did inject the patient's left shoulder with total of 10 mL of 1% lidocaine mixed with 40 mg of triamcinolone. She tolerated this well. She received a sling and [employer] prescriptions for Keflex and [place]. Advised her to follow-up with orthopedic clinic for ongoing management. Lab Data Labs: Lab Results 02/18/24 Range/Units 17:25 Urine Color Yellow (Yellow) Urine Appearance Clear (Clear) Urine pH 5.5 (5.0-8.5) Ur Specific [place] >= 1.030 (1.000-1.030) Urine Protein Trace A (Negative) Urine Glucose (UA) Negative (Negative) Urine Ketones Negative (Negative) Urine Blood Negative (Negative) Urine Nitrite Negative (Negative) Urine Bilirubin Negative (Negative) Urine Urobilinogen 0.2 (0.2-1.0) Ur Leukocyte Esterase Negative (Negative) Urine RBC 0-2 (0-2) Urine WBC 5-10 A (0-5) Ur Squamous Epith Cells None (None-Few) Urine Mucus Moderate A (None) Discharge Plan Discharge Clinical Impression: Urinary tract infection, Acute shoulder pain Patient Disposition: Home, Self-Care Condition: Stable Additional Instructions: Take medication as prescribed. Follow-up with orthopedic clinic for ongoing management of shoulder pain. Return if worsening. Prescriptions: New hydrocodone-acetaminophen 5-325 mg tablet 1 tab PO Q4-6H PRN (Reason: pain) Qty: 15 0RF No Action fluticasone propionate 50 mcg/actuation spray,suspension 1 spray intranasal DAILY hydroxyzine HCl 25 mg tablet 25 mg PO 3XD amlodipine 10 mg tablet 10 mg PO DAILY phenazopyridine 100 mg tablet 100 mg PO TID PRN (Reason: pain) Qty: 6 0RF losartan 50 mg tablet 100 mg PO DAILY Patient Comments: TAKE 2 TABLETS BY MOUTH ONCE DAILY oxybutynin chloride 10 mg tablet extended release 24hr 10 mg PO DAILY Patient Comments: TAKE 1 TABLET BY MOUTH ONCE DAILY ondansetron HCl 4 mg tablet 4 mg PO DAILY Patient Comments: TAKE 1 TABLET BY MOUTH EVERY 8 HOURS NEEDED FOR NAUSEA AND VOMITING sumatriptan succinate 50 mg tablet 50 mg PO DAILY Patient Comments: TAKE 1 TABLET BY MOUTH TWICE DAILY NEEDED FOR MIGRAINE GIVE AT MINIMUM 2 HOURS APART. MAX DOSE 200MG PER 24 HOURS. potassium chloride 20 mEq tablet,ER particles/crystals 20 meq PO DAILY Patient Comments: TAKE 1 TABLET BY MOUTH ONCE DAILY WITH A MEAL warfarin 5 mg tablet 5 mg PO furosemide 20 mg tablet 20 mg PO DAILY Patient Comments: TAKE 1 TABLET BY MOUTH IN THE MORNING flavoxate 100 mg tablet 100 mg PO TID Patient Comments: TAKE 1 TABLET BY MOUTH THREE TIMES DAILY cyclobenzaprine 5 mg tablet 5 mg PO TID PRN glucosamine HCl 1,500 mg tablet 1,500 mg PO DAILY hyoscyamine sulfate [Levsin] 0.125 mg tablet 0.125 mg PO Q4H PRN metronidazole 500 mg tablet 500 mg PO TID omeprazole 20 mg capsule,delayed release(DR/EC) 20 mg PO DAILY Follow Up/Referrals: Nico Betancourt MD [Primary Care Provider] - Stand Alone Forms: [facility] Info Instructions
--- NOTE | 2024-02-18 17:29 | CRLHL7_ITS ---
For Patients: As a result of the Century Cures Act, medical imaging exams and procedure reports are released immediately into your electronic medical record. You may view this report before your referring provider. If you have questions, please contact your health care provider. INDICATION: Pain and decreased range of motion. COMPARISON: None. TECHNIQUE: Three radiographic view(s) of the left shoulder. FINDINGS: No evident acute displaced fracture. Mild degenerative change of the acromioclavicular joint. Medium-sized subacromial enthesophyte. No substantial degenerative change of the glenohumeral joint. The subacromial space is preserved. IMPRESSION: 1. No evident acute displaced fracture. 2. Medium-sized subacromial enthesophyte. 3. Mild degenerative change of the acromioclavicular joint. Dictated by Jeremy Kennedy MD @ 02/18/2024 7:43:38 PM (Electronically Signed)
--- OUTSIDE RECORDS SUMMARY | 2024-02-18 17:41 | XMS_ITS | Clinical Summary ---
Author Organization [facility] Address [address] [address] Phone Care Team Providers Care [employer] Name Role Phone Unavailable Primary Care Provider [...]
--- OUTSIDE RECORDS SUMMARY | 2024-02-18 17:41 | XMS_ITS | Clinical Summary ---
Author Organization [facility] Address [place], [place] [address] Care Team Providers Care Editor In Chief Name Role Phone Marlene Gonzalez MD Primary Care Provider [phone] Allergies Active Allergy Reactions Criticality Noted Date [...] ons:Eustachian tube dysfunction, unspecified laterality Inhale 1 [place] to both nostrils once daily. 48 g [...] Department Care Team Description 02/10/2024 10:30 AM DIE CUTTER APPRENTICE Orders Only [facility] [address] [place] [address] Lab 02/10/2024 Anticoagulation (warfarin) [facility] [address] [place] [address] 1, [facility] Anticoagulation 02/10/2024 Travel 02/05/2024 Telephone [facility] [address] [facility] [place] [address] Marlene Gonzalez MD Refill Request (Warfarin ) 01/28/2024 Refill [facility] [address] [place] [address] Marlene Gonzalez MD Refill Request (Losartan 50mg tab ) 12/23/2023 Telephone [facility] [address] [place] [address] Marlene Gonzalez MD Anticoagulation (Lab Orders ) 12/17/2023 Anticoagulation (warfarin) [facility] [address] [place] [address] 1, [facility] Anticoagulation 12/16/2023 11:30 AM CDT Orders Only [facility] [address] [place] [address] Lab 12/16/2023 Travel 12/11/2023 Telephone [facility] [address] [place] [address] Marlene Gonzalez MD Anticoagulation (Lab Order Update/) 12/10/2023 7:56 AM CDT - 12/10/2023 11:59 PM CDT Hospital Encounter [facility] [address] [place] [address] Marlene Gonzalez MD Chest pressure 12/10/2023 Telephone [facility] [address] [place] [address] Sincere Olson NP Error-please disregard 12/10/2023 Travel 12/04/2023 Telephone [facility] [address] [place] [address] Marlene Gonzalez MD Medication Management (LORazepam (ATIVAN) 0.5 mg tab) 12/04/2023 Telephone [facility] [address] [place] [address] Shanae Hampton 11/25/2023 Telephone [facility] [address] [place] [address] Aishwarya Pagan PA 11/25/2023 Refill [facility] [address] [place] [address] Marlene Gonzalez MD Refill Request (Oxybutynin Xl, Cyclobenzaprine) 11/22/2023 11:30 AM CDT Office Visit [facility] [address] [place] [address] Aishwarya Pagan PA UTI 11/22/2023 Travel 11/20/2023 Telephone [facility] [address] [facility] [address] Marlene Gonzalez MD Cardiovascular Diagnostic Testing 11/20/2023 Anticoagulation (warfarin) [facility] [address] [facility] [address] 1, [facility] Anticoagulation 11/19/2023 4:30 PM CDT Office Visit [facility] [address] [facility] [address] Marlene Gonzalez MD [facility] F/U 11/19/2023 Travel from Last 3 Months [...] drink = 0.6 oz pur e alcohol) [facility] Utilities Answer Date Recorded Do you have [...] on file Legal Sex Female 5:25 AM DIE CUTTER APPRENTICE Gender Identity Not on file Sexual Orientation [...] st Contact Info) Description 03/16/2024 9:05 AM DIE CUTTER APPRENTICE Office Visit [facility] [place] [address] Marlene Gonzalez MD [address] [facility] [address] 03/16/2024 10:40 AM DIE CUTTER APPRENTICE Ancillary Procedure [facility] [address] [facility] [address] Health Maintenance Due Date Last Done Comments [...] Diagnosis Comments INR,POCT Routine 02/10/2024 9:51 AM DIE CUTTER APPRENTICE Paroxysmal atrial fibrillation (HC) Anticoagulation monitoring, INR [...] urinary tract symptoms (LUTS) URINALYSIS MACROSCOPIC - [facility] ONLY POC DIP ([facility]) Routine 11/22/2023 2:51 [...] Maintenance Results * (ABNORMAL) INR - POCT [94533.2] - Standing Order (02/10/2024 9:51 AM DIE CUTTER APPRENTICE) Only the most recent of2 resultswithin the time period is included. INR 2.7(H) ratio [facility] Comment: INRs >2.9 may be falsely elevated [...] PROTHROMBIN TIMEP 32.1(H) 10.5 - 13.[address] [facility] Comment: Point of care fingerstick Prothrombin Time/INR results may vary from venous Prothrombin Time/INR methodologies. Any results exhibiting inconsistency with the patient's clinical status should be repeated using a venous Prothrombin Time/INR method. Blood BLOOD SPECIMEN / Unknown 02/10/2024 9:51 AM DIE CUTTER APPRENTICE 02/10/2024 9:52 AM DIE CUTTER APPRENTICE Marlene Gonzalez MD LABORATORY Final Resu lt Performing Organization Address City/[facility]/ZIP Co de Phone Number [address] [address] * (ABNORMAL) PROTIME-INR (12/16/2023 10:37 AM CDT) INR 2.6(H) [facility] Comment: Reference Range 0.9-1.1 Moderate-intensity Warfarin Therapy 2.0-3.0 Higher-intensity Warfarin Therapy 3.0-4.0 PT 26.4(H) 9.0 - 11.5 sec [facility] Comment: For additional information, please refer to http://education.[employer]/faq/AZA789 (This link is being provided for informational/ educational purposes only.) Blood BLOOD SPECIMEN / Unknown 12/16/2023 10:37 AM CDT 12/16/2023 10:40 AM CDT Marlene Gonzalez MD HEMATOLOGY Final Resu lt Performing Organization Address City/[facility]/ZIP Co de Phone Number [employer] [facility] [address] [place] [address], [employer] [facility] [address] [place] [address] * NM CARDIAC MPI STRESS TEST (12/10/2023 12:05 PM CDT) Anatomical Region Laterality Modality HEART Nuclear Medicine , Other 12/10/2023 8:49 AM CDT Narrative 12/10/2023 3:48 PM CDT Toll -free: [phone] [employer] MYOCARDIAL PERFUSION IMAGING REPORT REST/STRESS SINGLE ISOTOPE GATED SPECT IMAGING. Patient Name: CINDY GALLEGOS Gender: F Height: 64 in Weight: 206 lb Study Date: 12/10/2023 8:49:51 AM BSA: 1.98 m : 1945 78 years BMI: 35.36 kg/m Ord. Prov.: MARLENE GONZALEZ Monitoring Prov.: Gale Ruiz Performing Site [facility] Clinical History: Chest pain. No known [...] Ceferino Palmer MD - 12/11/2023 Toll -free: [phone] [email or web address] MYOCARDIAL PERFUSION IMAGING REPORT REST/STRESS SINGLE ISOTOPE GATED SPECT IMAGING. Patient Name: CINDY GALLEGOS Gender: F Height: 64 in Weight: 206 lb Study Date: 12/10/2023 8:49:51 AM BSA: 1.98 m : 1945 78 years BMI: 35.36 kg/m Ord. Prov.: [facility] Monitoring Prov.: Gale Ruiz Performing Site [facility] Clinical History: Chest pain. No known [...] was 176 mmHg/74 mmHg; peak blood pressure [id number] mmHg/67 mmHg. - Patient did not develop [...] PM CDT Aishwarya MAN URINE Final Result [employer] [facility] [address] [place] [address], [facility] [address] [place] [address] * URINE CULTURE (11/22/2023 2:52 PM CDT) CULTURE, URINE, ROUTINE SEE NOTE [facility] Comment: CULTURE, URINE, ROUTINE Micro Number: [id number] Test Status: Final Specimen Source: Urine, clean catch Specimen Quality: Adequate Result: No Growth Urine URINE SPECIMEN / Unknown 11/22/2023 2:52 PM CDT 11/22/2023 2:53 PM CDT Aishwarya MAN MICROBIOLOGY Final Result Performing Organization Address City/[facility]/ZIP Co de Phone Number [employer] [facility] [address] [place] [address], [place] [phone] [employer] [facility] [address] [place] [address] * POCT Urinalysis Dipstick Only (11/22/2023 2:51 PM CDT) PH 5.5 5.0 - 8.0 [facility] SPECIFIC GRAVITY < OR = 1.005 1.001 - 1.035 [facility] Comment: Specific [place] values resulted are outside the analytical measurement range of this device. Recommend repeat/additional testing as clinically indicated. GLUCOSE NEGATIVE NEGATIVE [facility] BILIRUBIN NEGATIVE NEGATIVE [facility] KETONES NEGATIVE NEGATIVE [facility] OCCULT BLOOD NEGATIVE NEGATIVE [facility] PROTEIN NEGATIVE NEGATIVE [facility] NITRITE NEGATIVE NEGATIVE [facility] LEUKOCYTE ESTERASE NEGATIVE NEGATIVE [facility] Urine URINE SPECIMEN / Unknown 11/22/2023 2:51 PM CDT 11/22/2023 2:51 PM CDT Aishwarya MAN URINE Final Result [facility] [address] [place] [address], [place] [phone] [facility] [address] [place] [address] * ANTI HCV [33729.2] (11/18/2015 10:57 AM CDT) HEPATITIS C ANTIBODY Non-Reacti ve Non-Reacti ve 11/18/2015 5:27 PM CDT [facility] Blood BLOOD SPECIMEN / Unknown Venipuncture / Unknown 11/18/2015 10:57 AM CDT 11/18/2015 10:58 AM CDT Narrative [facility] - 11/18/2015 5:27 PM CDT Antibodies to HCV not detected; does not exclude the possibility of exposure to HCV. us Marlene Gonzalez MD SEND OUTS Final Resu lt [facility] [address] [place] [address], * (ABNORMAL) XR DXA BONE DENSITY 2 [...] 8:57 PM 05/22/2012 6:59 PM Care Teams Editor In Chief Relationship Specialty Start Date End Date Marlene Gonzalez [place] [address] PCP - General Family Practice 05/16/15
--- OUTSIDE RECORDS SUMMARY | 2024-02-18 17:41 | XMS_ITS ---
Author Name Auto Generated Organization [facility] Care Team Providers Care Engravings Polisher Name Role Phone NO, PCP Primary Care Physician Unavailab le YSABEL ERICKSON III Attending Physician MARLENE Rivera Primary Care Physician YSABEL Arriaza III Attending Physician MARLENE Rivera Primary Care Physician Ryan ilNELLY Araujo Attending Physician Unavailable PROBLEMS DATE TYPE CONDITION / CODE ATTENDING STATUS [facility] 08/30/2022 Working Diagnosis Interstitial cystitis (chronic) without hematuria / N30.10(ICD-10) [facility] 09/14/2023 Working Diagnosis Abdominal tenderness, unspecified site / R10.819(ICD-10) [facility] 09/14/2023 Working Diagnosis Urinary tract infection, site not specified / N39.0(ICD-10) [facility] 09/03/2023 Working Diagnosis Unspecified symptoms and signs involving the genitourinary system / R39.9(ICD-10) ERICKSONYSABEL Silva III [facility] RESULTS URINALYSIS, DIPSTICK ONLY, FOR USE WITH MICROSCOPIC PANEL Collected: 09/14/2023 1:01 PM Status: F Source: [facility] TYPE CODE TESTS RESULT OUT [...] Collected: 09/14/2023 1:01 PM Status: F Source: [facility] TYPE CODE TESTS RESULT OUT OF RANGE REFERENCE UNITS LAB URBC RBC (#/HPF) IN URINE SEDIMENT 6-9 Abnormal None seen, 0-2, Negative /HPF LAB UWBC WBC (LEUKOCYTE) (#/HPF) IN URINE SEDIMENT 0-4 0-4 /HPF LAB [id number] WBC (LEUKOCYTE) CLUMPS (#/HPF) IN URINE SEDIMENT [...] URINE 5-9 Abnormal None seen /LPF LAB 89771 MUCUS (#/HPF) IN URINE SEDIMENT Present CBC WITH AUTO DIFFERENTIAL Collected: 09/14/2023 12:4 2 PM Status: F Source: [facility] TYPE CODE TESTS RESULT OUT OF RANGE [...] ALBUMIN IN SER/PLAS 9.0 8.6-10.3 mg/dL LAB [id number] GLOMERULAR FILTRATION RATE ML/MIN/1.73 SQ M.PREDICTED W/O RACE 61 >60 mL/min/ 1.73m*2 ED PROVIDER NOTES Observed: 09/14/2023 12:02 PM Status: COMPLETED Source: [facility] REPOSITORY HPI: Chief Complaint Patient [...] Color, Urine Yellow Clarity, Urine Clear Specific [place], Urine 1.028 Leukocytes, Urine Negative Nitrite, Urine [...] Yellow Yellow Clarity, Urine Clear Clear Specific [place], Urine 1.028 1.003 - 1.030 Leukocytes, Urine [...] given Pyridium take-home pack. Patient lives in [place], recommend she contact her PCP and urologist [...] areas are identified. Elizabeth Alex CNP 09/14/23 4198 URINALYSIS, DIPSTICK ONLY Collected: 3:28 PM Status: F Source: [facility] Order Comment: CONFIRMATORY URINE TESTING (ICTOTEST) UNAVAILABLE, [...] Observed: 09/12/2023 3:28 PM Status: F Source: [facility] 1 - ORGANISM: PROTEUS MIRABI LIS TITO [...] Collected: 09/03/2023 2:17 PM Status: F Source: [facility] REPOSITORY TYPE CODE TESTS RESULT OUT OF [...] Observed: 09/03/2023 2:17 PM Status: F Source: [facility] REPOSITORY Order Comment: Also present: Between 10,000 [...] CODE REACTION SEVERITY SOURCE 08/15/2021 DRUG INGREDI/419 105164(SNOM ED CT) NITROFURANTOIN [facility] 05/30/2020 DRUG INGREDI/419 094411(SNOM ED CT) IBUPROFEN [facility] 12/21/2019 DRUG INGREDI/419 870844(SNOM ED CT) GADODIAMIDE Mild (Qualifier Value) [facility] 12/21/2019 DRUG INGREDI/419 478183(SNOM ED CT) PROPYLENE GLYCOL Rash Mild (Qualifier Value) [facility] 11/16/2015 DRUG INGREDI/419 653011(SNOM ED CT) PROPRANOLOL [facility] 05/27/2012 DRUG INGREDI/419 331207(SNOM ED CT) CEPHALEXIN Severe (Severity Modifier) (Qualifier Value) [facility] 07/12/2010 DRUG INGREDI/419 507983(SNOM ED CT) LOSARTAN Severe (Severity Modifier) (Qualifier Value) [facility] 12/27/2008 DRUG INGREDI/419 575822(SNOM ED CT) CLONIDINE Severe (Severity Modifier) (Qualifier Value) [facility] 04/26/2008 DRUG INGREDI/419 014278(SNOM ED CT) DIATRIZOATE MEGLUMINE Hives Severe (Severity Modifier) (Qualifier Value) [facility] 03/08/2008 DRUG/891127 003(SNOMED CT) PEG 400-PROPYLENE GLYCOL Rash Mild (Qualifier Value) [facility] 09/17/2006 DRUG INGREDI/419 331102(SNOM ED CT) LATEX Rash Moderate (Severity Modifier) (Qualifier Value) [facility] 07/25/2006 Drug Class/21734 1003(SNOMED CT) PENICILLINS Anaphylaxis Severe (Severity Modifier) (Qualifier Value) [facility] 07/25/2006 Drug Class/67046 1003(SNOMED CT) SULFA (SULFONAMIDE ANTIBIOTICS) Hives Severe (Severity Modifier) (Qualifier Value) [facility] ENCOUNTERS ADMIT/DISCHARGE ACCOUNT NUMBER ADMITTING ENCOUNTER CLASS LOC ATION SOURCE 09/14/2023/ 4 [id number] Emergency Building:[facility] EDRoom: [id number]: [id number] [facility] 09/12/2023/ 4 [id number] Ambulatory Building:[facility] 09/03/2023/ 4 [id number] Ambulatory Building:[facility] PAYERS ENCOUNTER GUARANTOR PAYER SUBSCRIBER SOURCE 09/14/2023 GALE TUMADOB: [id number] [place], [place] [address]Kqj: () Primary Insurance:[facility] MEDICAREPolicy Number: [id number] Date:6629-42-26KR [place] [address]MA: GALE TUMADOB: [id number] [place] [address] [facility] 09/14/2023 GALE TUMADOB: [id number] [place] [address]Iah: (HP) Secondary Insurance:[place] [id number] Number: [id number] Date: GALE TUMADOB: [id number] [place] [address] [facility] 09/12/2023 GALE TUMADOB: [id number] [place] [address]Ccz: (HP) Primary Insurance:[employer] [place] MEDICAREPolicy Number: [id number] Date:0646-43-72XL [place] Z[place] [address]RL: GALE TUMADOB: [id number] [place] [address] [facility] 09/12/2023 GALE TUMADOB: [id number] [place] [address]Mgy: (HP) Secondary Insurance:[address] Number: [id number] Date: GALE TUMADOB: [id number] [place] [address] [facility] 09/03/2023 GALE TUMADOB: [id number] [place] [address]Qez: (HP) Primary Insurance:[employer] [place] MEDICAREPolicy Number: [id number] Date:7230-13-74TQ [place] [address]FZ: GALE TUMADOB: [id number] [place] [address] [facility] 09/03/2023 GALE TUMADOB: [id number] [place] [address]Kgj: (HP) Secondary Insurance:[address] Number: [id number] Date: GALE TUMADOB: [id number] [place] [address] [facility]
[2024-02-18 18:32] LABS: Appearance Urine Clear (Clear); Bilirubin Urine Negative (Negative); Blood Urine Negative (Negative); Color Urine Yellow (Yellow); Glucose Urine Negative (Negative); Ketones Urine Negative (Negative); Leukocyte Esterase Urine Negative (Negative); Nitrite Urine Negative (Negative); Protein Urine Trace (Negative); Specific Gravity Urine >= 1.030 (1.000-1.030); Urobilinogen Urine 0.2 (0.2-1.0); pH Urine 5.5 (5.0-8.5)
[2024-02-18 18:43] LABS: RBC Urine 0-2 (0-2)
[2024-02-18 18:44] LABS: Mucus Urine Moderate
[2024-02-18] MEDS: LIDOCAINE 1 % PF 30 ML INJECTION (19:35)
[2024-02-18] MEDS: TRIAMCINOLONE 40 MG/ML INJ INTRA-ARTI (19:35)
[2024-02-18] MEDS: ONDANSETRON ODT 4 MG TAB PO (20:13)
== END 2024-02-18 20:15 | disposition home or self-care (01) ==
PROVIDERS: Emergency Provider Emergency Medicine Emergency Medical Services; PCP Surgery
DX: N39.0 Urinary tract infection, site not specified (principal); M25.512 Pain in left shoulder
CPT/HCPCS: 73030; 81001; 87086; 99284; A9270; J2003; J3301

== ENCOUNTER 2024-03-24 11:00 | Outpatient (RCR) | payer MEDICARE, SELFPAY | END 2024-07-22 23:59 | disposition home or self-care (01) | PROVIDERS: PCP Surgery; Visit Provider Dentist | DX: M26.639 Articular disc disorder of temporomandibular joint, unspecified side (principal); M26.623 Arthralgia of bilateral temporomandibular joint; Z51.89 Encounter for other specified aftercare | CPT/HCPCS: 97110; 97140; 97161 ==

== ENCOUNTER 2024-03-26 10:58 | Emergency (ER) | payer MEDICARE, SELFPAY ==
--- OUTSIDE RECORDS SUMMARY | 2024-03-26 11:01 | XMS_ITS | Clinical Summary ---
Author Organization [facility] Address [address] [address] Phone Care Team Providers Care Customer Quality Engineer Name Role Phone Unavailable Primary Care [...] AGE 65 OR GREATER 08/15/2012 Pneumococcal Vaccine: 50+ yr s (Standing Order) (2 of 2 - PPSV23) 08/24/2016 08/25/2015 RSV Vaccination (60+ yrs) (Abrysvo/Arexvy) [...] patient's age to complete this topic Insurance [facility] MEDICARE PLANS
--- OUTSIDE RECORDS SUMMARY | 2024-03-26 11:01 | XMS_ITS ---
Author Organization [facility] Address [address] , [address] [place] [address] Phone Care Team Providers Care Electrician Journeyman Wireman Name Role Phone Jack Dias MD Conditions or Problems Problem Name Problem Code Onset Date Status Entry Date Provider Comment Standard Description Annotate Hand numbness 372038190 (SNOMED CT) Active Jack Dias MD Numbness of hand Median neuropathy, right 818183505 (SNOMED CT) Active Jack Dias MD Median neuropathy Medications No information available. Medications Administered No information available. Allergies, Adverse Reactions, Alerts No information available. Results No information available. Plan of Care No information available. Procedures Code Procedure Name Date Entry Date CPT-48612 Nerve Conduction 7-8 studies CPT-87233 EMG with NCS (5+ muscles) - 1 limb 02/26 Vital Signs No information available. Immunizations No information available. Advance Directives No information available.
--- OUTSIDE RECORDS SUMMARY | 2024-03-26 11:01 | XMS_ITS | Continuity of Care Document ---
Author Organization [facility] [place] Address [address] [place] [address] Care Team Providers Care Business Analyst Name Role Phone MARLENE GONZALEZ Primary Care Provider [phone] Assessment Encounter Date Assessment Date Assessment LastModified by Organization Details LastModified Time 03/23/2024 03/23/2024 Today I reviewed the pathophysiology of this disorder, potential contributing factors and treatment options with the patient. We reviewed the findings of her CT facial bone from 05/28/2021. Findings include: 1. No acute fracture or dislocation of the facial bones. 2. No retrobulbar hematoma. 3. 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 There were no other abnormalities noted. For complete details regarding her imaging see the radiology report in their EHR. A copy of the report was provided to the patient. Today I also reviewed the diagnosis, contributing factors and treatment options. I reviewed and reinforced continued use of self care and home exercises. I encouraged daily home care use which may consist of heat and ice compresses, oral habit reduction and relaxation techniques. I reinforced self care and regular jaw exercises. Cindy has noticed significant improvement with rehabilitative care. We mutually agreed to defer advanced imaging at this time. I suggested she bring her intraoral appliance for review in follow up. I recommended continued treatment with physical therapy. I suggested follow up in 2-3 months. History today was obtained from the patient. The patient has 5+ diagnoses which we are addressing. Their symptoms are chronic. This case is moderate complexity because of multiple diagnoses with chronic symptoms. Data reviewed included outside records - previous CT report. Discussion with treatment team members after visit was necessary. Risk of complications include disease/symptom progression were discussed. Today time spent may have included a review of past records, history taking, review of diagnoses, contributing factors, treatment plan, diagnostic testing, prognosis, expectations, risks and complications of treatment/no treatment, discussions with other providers and completing documentation was 35 minutes. I suggested that (s)he return for follow-up care in 4-6 weeks. Not available 03/25/2024 15:12:37 Plan of Treatment Reminders Order Date Submit Date Provider Last Modified By Organization Details Last Modified Time Details Appointments FOLLOW UP 30 2024 11:00A M BEVERLY PALOMINO BDS,MS Not available Not available Not available Lab None recorded . Referral None recorded . Procedures None recorded . Surgeries None recorded . Imaging None recorded . Medication Orders None recorded . Patient TargetsNo targets recorded. Patient InstructionsNo instructions recorded. Reason for Referral None Reported. Problems Name Problem SNOMED Code Status Onset Date Resolution Date Notes Provider Name and Address Organization Details Recorded Time Arthralg ia of temporom andibula r joint 53960671 Completed 201503/04/2019 Gale valadez [facility] 0 10:07:46 Myofasci al pain 872743045 Active 2019 masticat ory and cervical Gale Church [facility] 0 10:08:05 Arthralg ia of temporom andibula r joint 26344006 Active 2019 Gale valadez [facility] 0 10:07:46 Neck pain 28677229 [facility] 0 10:07:47 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 29740237 Active 2023 BEVERLY PALOMINO BDS,MS [address], [place], [address], [facility] 4 13:51:30 Bilatera l temporom andibula r joint pain 93466778933 082729 Active 2023 BEVERLY PALOMINO BDS,MS [address], [place], [address], [place] [facility] 4 13:51:36 Episodic tension- type headache 546871073 Active 2023 BEVERLY COLIN PALOMINO,MS [address], [place], [address], [place] [facility] 4 13:51:40 Sleep related bruxism 801140306 Active 2023 BEVERLYJAH APLOMINO BDS,MS [address], [place], [address], [facility] 4 13:51:47 Finding of sensatio n by site 758253617 Completed 201503/04/2019 [facility] 0 12:58:52 Spasm 85275686 Completed 201403/04/2019 [facility] 0 12:59:25 Chest pain 29242248 Completed 03/04/2019 Gale Church [facility], [facility] 0 12:58:59 Cellulit is 510112260 Completed 03/04/2019 [facility] 0 12:58:46 Mixed hyperlip idemia 574937550 Completed 03/04/2019 Gale Church [facility], [facility] 0 12:58:55 Hyperten sive disorder 86738291 Completed 03/04/2019 Gale Church [facility], [facility] 0 12:59:21 Polyp of colon 68893114 Completed 03/04/2019 Gale Church [facility], [facility] 0 12:59:31 Chronic intersti tial cystitis 716135108 Completed 03/04/2019 [facility] 0 12:58:49 Panic disorder without agorapho reginald 88298992 Completed 03/04/2019 Gale valadez [facility] 0 12:59:29 Benign paroxysm al position al vertigo 509034105 Completed 03/04/2019 Gale valadez [facility] 0 12:58:44 Disorder of refracti on 80004278 Completed 03/04/2019 Gale valadez [facility] 0 12:59:23 Atrial fibrilla tion 09041834 Completed 03/04/2019 Gale valadez [facility] 0 12:59:27 Vitamin D deficien cy 01185933 Completed 03/04/2019 Gale valadez [facility] 0 12:59:18 Problem Notes None recorded. Procedures Surgical History Date Name Laterality Status Provider Name and Address Organization Details Recorded Time 02/04/20 24 Orthopantogram completed Daniella Carrero [facility] 02/04/2024 17:55:34 03/25/19 20 62040: Therapeutic Exercise completed Kaushik Hogan [facility] 03/25/2019 12:34:57 03/25/19 20 50051: Manual Therapy completed Kaushik Hogan [facility] 03/25/2019 17:43:28 03/17/19 20 88485 PT Eval - Low Complexity completed Kaushik Hogan [facility] 03/17/2019 17:58:21 03/17/19 20 76456: Therapeutic Exercise completed Kaushik Hogan [facility] 03/17/2019 11:33:56 03/17/19 20 40410: Manual Therapy completed Kaushik Hogan [facility] 03/17/2019 11:33:56 03/04/19 20 Orthopantogram completed Gale Church [facility] 03/04/2019 13:00:55 02/18/19 19 Xcapsl ctrc rmvl cplx wo ecp completed Gregor Longo [facility] 03/04/2019 12:47:26 reduction mammoplasty completed Gregor Longo [facility] 03/04/2019 12:46:06 Unlisted px foot/toes completed Gregor Longo [facility] 03/04/2019 12:46:45 Xcapsl ctrc rmvl cplx wo ecp completed Gregor Longo [facility] 03/04/2019 12:47:27 Appendectomy completed Gregor Longo [facility] 03/04/2019 13:47:26 Hernia repair w/mesh completed Gregor Longo [facility] 03/04/2019 13:47:39 Imaging Results None recorded. Procedure Notes None recorded. Medical Equipment None Reported. Allergies Allergen ID Allergen Name Allergen Category Reaction Reaction Severity Criticality Documentation Date Start Date Code Code System Note Provider Name and Address Organization Details Recorded Time 99800 clonidine medicatio n Not available Not available Not available 01/12/2016 2599 RxNorm Not Available [facility] 6 06:37:56 89143 latex environme nt,medica tion Not available Not available Not available 01/12/2016 76895 91 RxNorm Not Available [facility] 6 06:39:09 24790 Substance with sulfonami de structure and antibacte rial mechanism of action (substanc e) medicatio n Not available Not available Not available 01/12/2016 95703 8003 SNOMED Not Available [facility] 6 06:39:24 65920 Product containin g penicilli n and antibioti c (product) medicatio n Not available Not available Not available 01/12/2016 28417 05 SNOMED Not Available [facility] 6 06:40:04 24523 diatrizoa te meglumine medicatio n Not available Not available Not available 01/12/2016 3320 RxNorm Not Available [facility] 6 06:41:41 70433 losartan medicatio n Not available Not available Not available 01/12/2016 63756 RxNorm Not Available [facility] 6 06:44:23 61124 cephalexi n medicatio n Not available Not available Not available 02/04/2024 2231 RxNorm Kelsey Jackmaner [facility] 4 15:45:11 Medications Name Sig Start Date Stop Date Status Note LastModified by Organization Details LastModified Time losartan 50 mg tablet TAKE 2 TABLETS BY MOUTH ONCE DAILY active Not Available Not Available No t Available nystatin 100,000 unit/mL oral suspension active Not Available Not Available N ot Available doxycycline hyclate 100 mg capsule TAKE [...] completed Not Available Not Available Not Available omeprazole 40 mg capsule,del ayed release active Not Available Not Available Not Available potassium [...] Not Available Not Available No t Available cephalexin 500 mg capsule active Not Available Not Available Not Available hyoscyamine sulfate 0.125 mg tablet TAKE [...] Not Available Not Available No t Available fluocinonid e 0.05 % topical solution active Not Available Not Available Not Available flavoxate 100 mg tablet TAKE 1 TABLET BY MOUTH THREE TIMES DAILY active Not Available Not Available No t Available albuterol sulfate HFA 90 mcg/actuati on aerosol inhaler active Not Available Not Available Not Available fluticasone propionate 50 mcg/actuati on nasal spray,suspe nsion USE 1 SPRAY(S) IN EACH NOSTRIL ONCE DAILY active Not Available Not Available No t Available cyclobenzap rine 5 mg tablet TAKE 1 TABLET BY MOUTH THREE TIMES DAILY NEEDED FOR MUSCLE SPASM active Not Available Not Available No t Available rosuvastati n 5 mg tablet active [...] Available Not Available Not Available cyclobenzap rine 03/23 completed Not Available Not Available Not Available Glucosamine [...] t Available Vitals Date Recorded Body height Heart rate Systolic blood pressure Diastolic blood pressure Provider Name and Address Organization Details Last Updated DateTime 03/23/2024 166.37 cm 69 /min 114 mm[Hg] 65 mm[Hg] Sukhjinder Bettencourt [facility] 03/23/2024 12:03:57 Social History Question Answer Notes LastModified by Organizat ion Details LastModified Time Tobacco Smoking Status [facility]/04/2019 [...] Meningitis N Pancreatic disease N Heart Attack (DC) N Stomach Ulcers N Back pain Y [...] Diagnosis/Indication Diagnosis SNOMED-CT Code Diagnosis ICD10 Code Diagnosis Note [id number] BEVERLY PALOMINO BDS,MS [place] [address] [place] [address] 03/23/2024 11:40:07 03/23/2024 12:30:05 Articular disc disorder of temporomandibular joint 93120887 M26.633 Bilateral TMJ disc displaceme nt without reduction with limited openingRul e out L>R TMJ DJD - irregulari ty per KRUGER Myofascial pain 96441447 9 M79.11 M79.12 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 Bilateral temporomandibular joint pain 5073875013 1156549 M26.623 L>R Episodic t ension-type headache 707481279 G44.219 Neck pain 36684741 M54.2 Sleep related bruxism 27 4964887 G47.63 Health Concerns Section Related Observation LastModified by Organization Detai ls LastModified Time None Recorded Concern Status LastModified by Organization Details LastModified Time None Recorded Payers Encounter Date Sequence Insurance Name Policy Number Policy Narayanan Covered Member ID Narayanan Member ID Guarantor Name 03/23/2024 1 [employer] - DOS ON OR AFTER 19 (MEDICARE REPLACEMENT/ ADVANTAGE - HMO) [id number] Cindy Romero Rosy [id number] Cindy Romero Rosy Notes Date Note Type Note Provider Name and Address Organization Details Recorded Time 03/23/2024 text/html general HPI for jaw, face, TMD painReported bypatient.Onset:abr upt Location:bilateral; masseteric; mandibular; preauricular; temporal; maxillary Quality:sharp; stabbing; burning Durationconstant Symptom triggers:trauma to her face Aggravating Factors:yawning; wide mouth opening; chewing Alleviating Factors:NSAIDs; acetaminophen; heat; soft foods; splint therapy; physical therapy Associated Symptoms:no jaw clicking; no jaw popping;tooth pain(lower right);malocclusion Patient presents today for follow-up. They report jaw symptoms which are {{improved* stable chronic chronic and progressive worsene d unchanged flared resolved}} since the previous visit. Symptoms and pertinent information along with prior data was reviewed, updated and documented in the patient history of present illness. Patient rates the pain intensity as {{0* 1 2 3 4 5 6 7 8 9 10}} on a scale of 0 to 10. Patient is {{engaged in* not engaged in partially engaged in completed discon tinued}} active treatment at this time. Cindy presents for first follow up. She reports that her jaw symptoms are significantly better. She denies major flares in symptoms. Her jaw pain is improving, Her range of motion is better. And her bite is off during the day-when she lays down her bite feels fine. No tooth pain today.we are reviewing past CT images.She is not having headaches at this time She is engaged in physical therapy in [place], [place], and doing home exercises. The patient is not using voltaren gel. SHe is exploring obtaining an intraoral appliance from her dentist in follow up. She has an upcoming follow up scheduled. Ear pain - right side.Teeth pain - right mandibular posterior teeth. Pain comes and goes, associated with jaw pain. She denies hot or cold sensitivity.Bite changes - Cindy reports fluctuating bite and feels like her teeth do not have a home. BEVERLY PALOMINO BDS,MS [address], [place], [address], [facility] 03/25/2024 15:12:41 OBGyn Episode No OBEpisode recorded.
--- OUTSIDE RECORDS SUMMARY | 2024-03-26 11:02 | XMS_ITS | Continuity of Care Document ---
Author Organization [facility] Address [address] [place] [address] Phone Care Team Providers Care Inside Sales Representative Name Role Phone Unavailable Unavailable Unavailable Advance Directives Directive Yes / No Effective Date File Name No Information Encounters Encounter Description Practice Location Reason(s) For Visit Diagnoses Date Provider Providers Copied on Encounter [facility], [address] [place], [id number], [place] tel:[phone] [facility], [place] No Information No Information Family History Family Member Type Diagnosis Age At Onset No Information Payers Payer name Insurance type Covered constitution party ID Authoriza tion(s) No Information Social [...]
--- OUTSIDE RECORDS SUMMARY | 2024-03-26 11:02 | XMS_ITS | Data Portability ---
Author Organization [place] [facility] [place] [facility] Address [address] [address] Care Team Providers Care Medical Artist Name Role Phone MARLENE GONZALEZ Primary Care Provider [phone] Assessment Encounter Date Assessment Date Assessment LastModified [...] guarding habits to decrease pain by 50% long term goals-6 weeks Client to not have jaw [...] guarding habits to decrease pain by 50% FCI goals-6 weeks Client to not have jaw [...] be considered after reviewing existing imaging from [facility]. A release of information was obtained today. Cnidy presents with acute flare in jaw symptoms [...] providers and completing documentation was 60 minutes. Not available 02/06/2024 13:50:46 03/23/2024 03/23/2024 Today I reviewed the pathophysiology [...] return for follow-up care in 4-6 weeks. dwight Not available 03/25/2024 15:12:37 Plan of Treatment Reminders Order Date Submit Date Provider Last Modified By Organization Details Last Modified Time Details Appointments FOLLOW UP 30 2024 11:00A M GRETCHEN PALOMINO, BDS,MS Not available Not available Not available Lab None recorde d. Referral physica l therapi st referra l 2019 020 [email or web address] [place] [address], [place], [place], [address], 03/05/2019 10:10:[address] referra l - Please contact patient to jeffery e 2023 024 ALLEN Dumont DPT, [facility], [place], [address], 02/06/2024 14:12:16 Procedures None recorde d. Surgeries None recorde d. Imaging XR, orthopa ntogram 2023 024 [place] [address], [address], [place], [address], 02/06/2024 13:53:17 Medication Orders None recorde d. Patient TargetsNo targets recorded. Patient Instructions Encounter Date Encounter Id Patient Instructions Last Modified By Organization Details Last Modified Time 03/17/2019 [id number] Plan: Medicare requires a belt weaver or FAREBOX REPAIRER to authorize our plan of care. If you agree with the plan as outlined above, please sign, date and fax back to [phone]. Thank you. Primary MD signature: Date: [email or web address] Not available 03/17/2019 11:33:56 03/25/2019 [id number] Plan: Medicare requires a belt weaver or FAREBOX REPAIRER to authorize our plan of care. If you agree with the plan as outlined above, please sign, date and fax back to [phone]. Thank you. Primary MD signature: Date: [email or web address] Not available 03/25/2019 12:34:57 02/04/2024 [id number] Self Care for TMD Not availab le [...] Flag Note LastModifiedBy Organization Detail LastModifiedTime 03/04/19 XR, ortho panto gram No observ ation record ed. [email or web address] Not Available 2019 13:24:13 02/04/20 XR, ortho panto gram No observ ation record ed. [email or web address] Not Available 2023 16:52:37 02/05/20 24 02/05/2024 CT, tempo ral bone, w/o contr ast No observ ation record ed. Not Available 2023 15:39:21 02/05/20 24 02/05/2024 CT, neck, w/wo contr ast No observ ation record ed. Not Available 2023 14:05:56 12/18/20 24 02/05/2024 CT, head, w/wo contr ast No observ ation record ed. Not Available 2023 15:39:21 02/06/20 XR, ortho panto gram No observ ation record ed. [place] [address], [place], [address], 02/06/2024 13:52:42 Result Notes None recorded. Problems Name Problem SNOMED Code Status Onset Date Resolution Date Notes Provider Name and Address Organization Details Recorded Time Arthralg ia of temporom andibula r joint 58098095 Completed 201503/04/[address] [facility] 0 10:07:46 Myofasci al pain 056479247 Active 2019 masticat ory and cervical Gale valadez [facility] 0 10:08:05 Arthralg ia of temporom andibula r joint 20635684 Active 2019 Gale valadez, [facility] 0 10:07:46 Neck pain 61482511 Active 2019 Gale valadez, 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 4 13:51:30 Bilatera l temporom andibula r joint pain 67032180943 116144 Active 2023 GRETCHEN PALOMINO BDS,MS [address], [place], [address], [place] [facility] 4 13:51:36 Episodic tension- type headache 712461923 Active 2023 GRETCHEN PALOMINO BDS,MS [address], [place], [address], [place] [facility] 4 13:51:40 Sleep related bruxism 388151196 Active 2023 HIRAL MENDEZS,MS [address], [place], [address], [place] [facility] 4 13:51:47 Finding of sensatio n by site 017142323 Completed 201503/04/2019 Gale Rosales [facility], [facility] 0 12:58:52 Spasm 95017243 Completed 201403/04/[facility] 0 12:59:25 Chest pain 32987874 Completed 03/04/2019 Gale Rosales [facility], [facility] 0 12:58:59 Cellulit is 737950296 Completed 03/04/2019 Gale Rosales [facility], [facility] 0 12:58:46 Mixed hyperlip idemia 705668578 Completed 03/04/2019 Gale Rosales [facility], [facility] 0 12:58:55 Hyperten sive disorder 26727927 Completed 03/04/2019 Gale valadez, [facility] 0 12:59:21 Polyp of colon 34187634 Completed 03/04/2019 Gale Rosales null, [facility] 0 12:59:31 Chronic intersti tial cystitis 592040505 Completed 03/04/2019 Gale Rosales null, [facility] 0 12:58:49 Panic disorder without agorapho reginald 12914346 Completed 03/04/2019 Gale Rosales null, [facility] 0 12:59:29 Benign paroxysm al position al vertigo 854673704 Completed 03/04/[address] [facility] 0 12:58:44 Disorder of refracti on 84828550 Completed 03/04/[address] [facility] 0 12:59:23 Atrial fibrilla tion 68303316 Completed 03/04/[address] [facility] 0 12:59:27 Vitamin D deficien cy 34850259 Completed 03/04/[address] [facility] 0 12:59:18 Problem Notes None recorded. Procedures Surgical History Date Name Laterality Status Provider Name and Address Organization Details Recorded Time 02/04/20 Orthopantogram completed Daniella Carrero [facility] 02/04/2024 17:55:34 03/25/19 20 55634: Therapeutic Exercise completed Kaushik Hogan [facility] 03/25/2019 12:34:57 03/25/19 02107: Manual Therapy completed Kaushiksilverio Hogan [facility] 03/25/2019 17:43:28 03/17/19 20 89587 PT Eval - Low Complexity completed Kaushiksilverio Hogan [facility] 03/17/2019 17:58:21 03/17/19 20 73307: Therapeutic Exercise completed Kaushik Hogan [facility] 03/17/2019 11:33:56 03/17/19 20 62977: Manual Therapy completed Kaushik Hogan [facility] 03/17/2019 11:33:56 03/04/19 20 Orthopantogram [address] Gale Rosales [facility] 03/04/2019 13:00:55 02/18/19 19 Xcapsl ctrc rmvl cplx wo ecp completed Gregor Longo [facility] 03/04/2019 12:47:26 reduction mammoplasty completed Gregor Longo [facility] 03/04/2019 12:46:06 Unlisted px foot/toes completed Gregor Longo [facility] 03/04/2019 12:46:45 Xcapsl ctrc rmvl cplx wo ecp completed Gregor Longo [facility] 03/04/2019 12:47:27 Appendectomy completed Gregor Longo [facility] 03/04/2019 13:47:26 Hernia repair w/mesh completed Gregor Snowmarco antonio [facility] 03/04/2019 13:47:39 Imaging Results Imaging Date Name Status LastModified by Organization Details LastModified Time 03/04/2019 XR, orthopantogram completed Inform ation not available 03/04/2019 13:24:13 02/04/2024 XR, orthopantogram completed [email or web address] Inform ation not available 02/04/2024 16:52:37 02/05/2024 CT, temporal bone, w/o contrast completed Information not available 02/05/2024 15:39:21 02/05/2024 CT, neck, w/wo contrast completed Information not available 02/05/2024 14:05:56 02/05/2024 CT, head, w/wo contrast completed Information not available 02/05/2024 15:39:21 02/06/2024 XR, orthopantogram completed [place] [address], [place], [address], 02/06/2024 13:52:42 Procedure Notes None recorded. Medical Equipment None Reported. Allergies Allergen ID Allergen Name Allergen Category Reaction Reaction Severity Criticality Documentation Date Start Date Code Code System Note Provider Name and Address Organization Details Recorded Time 08779 clonidine medicatio n Not available Not available Not available 01/12/2016 2599 RxNorm Not Available [facility] 6 06:37:56 01764 latex environme nt,medica tion Not available Not available Not available 01/12/2016 43606 91 RxNorm Not Available [facility] 6 06:39:09 60729 Substance with sulfonami de structure and antibacte rial mechanism of action (substanc e) medicatio n Not available Not available Not available 01/12/2016 36669 8003 SNOMED Not Available [facility] 6 06:39:24 89922 Product containin g penicilli n and antibioti c (product) medicatio n Not available Not available Not available 01/12/2016 28717 05 SNOMED Not Available [facility] 6 06:40:04 57424 diatrizoa te meglumine medicatio n Not available Not available Not available 01/12/2016 3320 RxNorm Not Available [facility] 6 06:41:41 95039 losartan medicatio n Not available Not available Not available 01/12/2016 00239 RxNorm Not Available [facility] 6 06:44:23 36630 cephalexi n medicatio n Not available Not available Not available 02/04/2024 2231 RxNorm Kelsey Treviño [facility] 4 [...] Updated DateTime 4 166.37 cm 32.4 kg/m2 05637.2 9 g 54 /min 120 mm[Hg] 68 mm[Hg] Kelsey Treviño [place] [facility] 4 15:45:40 Date Recorded Body height Heart rate Systolic blood pressure Diastolic blood pressure Provider Name and Address Organization Details Last Updated DateTime 03/23/2024 166.37 cm 69 /min 114 mm[Hg] 65 mm[Hg] Sukhjinder Bettencourt [facility] 03/23/2024 12:03:57 Date Recorded Body height Body mass index (BMI) Body weight Heart rate Systolic blood pressure Diastolic blood pressure Provider Name and Address Organization Details Last Updated DateTime 0 167.64 cm 35.5 kg/m2 72945.3 2 g 61 /min 154 mm[Hg] 79 mm[Hg] Gregor Longo 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 9 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 Neck pain 61574225 M54.2 680385 Kaushik Pink [address] [place] [address] 03/17/2019 11:08:09 03/17/2019 12:29:49 Arthralgia of temporomandibular joint 05185713 M26.629 Neck pain 28425985 M54.2 105104 Kaushik Pnik [address] [place] [address] 03/25/2019 12:18:18 03/25/2019 13:03:15 Arthralgia of temporomandibular joint 67184270 M26.629 Neck pain 41908623 M54.2 Myofascial pain 88363371 9 M79.10 [id number] GRETCHEN PALOMINO HIRALDarryl,[place] [address] [place] [address] 02/04/2024 14:08:48 02/04/2024 17:23:18 Articular disc disorder of temporomandibular joint 43396952 M26.633 Bilateral TMJ disc displaceme nt without reduction with limited openingRul e out L>R TMJ DJD - irregulari ty per KRUGER Myofascial pain 31959230 9 M79.11 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 Bilateral temporomandibular joint pain 7979655883 8078353 M26.623 L>R Episodic t ension-type headache 282878362 G44.219 Neck pain 53048041 M54.2 Sleep related bruxism 27 0845786 G47.63 [id number] HIRAL MENDEZS,MS [place] [address] [place] [address] 03/23/2024 11:40:07 03/23/2024 12:30:05 Articular disc disorder of temporomandibular joint 06642933 M26.633 Bilateral TMJ disc displaceme nt without reduction with limited openingRul e out L>R TMJ DJD - irregulari ty per KRUGER Myofascial pain 01842879 9 M79.11 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 Bilateral temporomandibular joint pain 0894986319 5838864 M26.623 L>R Episodic t ension-type headache 226071121 G44.219 Neck pain 59178636 M54.2 Sleep related bruxism 27 3561683 G47.63 Health Concerns Section Related Observation LastModified by Organization Detai ls LastModified Time None Recorded Concern Status LastModified by Organization Details LastModified Time None Recorded Advance Directives Directive None Recorded Payers Encounter Date Sequence Insurance Name Policy Number Policy Narayanan Covered Member ID Narayanan Member ID Guarantor Name 03/04/2019 1 [employer] - DOS ON OR AFTER 19 (MEDICARE REPLACEMENT/ ADVANTAGE - HMO) [id number] 1 Cindy R Rosy [id number] Cindy R Rosy 03/17/2019 1 [employer] - DOS ON OR AFTER 19 (MEDICARE REPLACEMENT/ ADVANTAGE - HMO) [id number] Cindy R Rosy [id number] Cindy R Rosy 03/25/2019 1 [employer] - DOS ON OR AFTER 19 (MEDICARE REPLACEMENT/ ADVANTAGE - HMO) [id number] Cindy R Rosy [id number] Cindy R Rosy 02/04/2024 1 [employer] - DOS ON OR AFTER 19 (MEDICARE REPLACEMENT/ ADVANTAGE - HMO) [id number] Cindy R Rosy [id number] Cindy R Rosy 03/23/2024 1 [employer] - DOS ON OR AFTER 19 (MEDICARE REPLACEMENT/ ADVANTAGE - HMO) [id number] Cindy R Rosy [id number] Cindy R Rosy Notes Date Note Type [...] having pain in her left masseter. Gale Lynnette valadez [facility] 03/05/2019 [...] She hit elbow/knee with no head impact. Kaushik valadez [facility] 03/17/2019 18:11:41 03/25/2019 text/html She reports pain in the left jaw. 02/27. Biting increases pain but doing better except when ate walleye sandwich which had her mouth open widely. [place], She hit elbow/knee with no head impact and still reports no after effects. Kaushik valadez [facility] 03/25/2019 [...] denies sleep issues. GRETCHEN PALOMINO BDS,MS [address] [facility] [address], [place], [address], [place] [facility] 02/06/2024 13:53:21 03/23/2024 text/html general HPI for jaw, face, TMD painReported bypatient.Onset:abrupt Location:bilateral; masseteric; mandibular; preauricular; temporal; maxillary Quality:sharp; stabbing; burning Durationconstant Symptom triggers:trauma to her face Aggravating Factors:yawning; wide mouth opening; chewing Alleviating Factors:NSAIDs; acetaminophen; heat; soft foods; splint therapy; physical therapy Associated Symptoms:no jaw clicking; no jaw popping;tooth pain(lower right);malocclusion Patient presents today for follow-up. They report jaw symptoms which are {{improved* stable chr onic chronic and progressive worsened u nchanged flared resolv ed}} since the previous visit. Symptoms and pertinent information along with prior data was reviewed, updated and documented in the patient history of present illness. Patient rates the pain intensity as {{0* 1 2 3 4 5 6 7 8 9 10}} on a scale of 0 to 10. Patient is {{engaged in* not engaged in partially engaged in completed discontin ued}} active treatment at this time. Cindy presents [...] She is engaged in physical therapy in [place], [place], and doing home exercises. The patient [...] her teeth do not have a home. GRETCHEN PALOMINO, COL[place],MS [address] [facility] [address], [place], [address], [facility] 03/25/2024 15:12:41 OBGyn Episode No OBEpisode recorded.
--- OUTSIDE RECORDS SUMMARY | 2024-03-26 11:02 | XMS_ITS | Data Portability ---
Author Organization [place] - [place] [facility] Address [address] [facility] [address] [place] [address] Assessment Encounter Date Assessment Date Assessment LastModified [...] mg tablet,exte nded release 24 hr 2021 [facility] [address], [address] [place], [address], 12:06:34 hyoscyamine sulfate 0.125 mg tablet 2021 [facility] [address], [address] [place], [address], 12:06:36 hydroxyzine HCl 25 mg tablet 2021 [facility] [address], [address] [place], [address], 12:06:33 Patient TargetsNo targets recorded. Patient InstructionsNo instructions recorded. Reason for Referral None Reported. Procedures Surgical History Date Name Laterality Status Provider Name and Address Organization Details Recorded Time Appendectomy completed Donald Carranza MD [address] [place] [address],[address], [place], [address], [facility] 01/03/2022 11:42:03 Colonoscopy completed Donald Carranza MD [address] [place] [address],[address], [place], [address], [facility] 01/03/2022 11:42:11 Hernia Repair completed Donald whitlock MD [address] [place] [address],[address], [place], [address], [facility] 01/03/2022 11:42:17 Imaging Results None recorded. Procedure Notes None recorded. Medical Equipment None Reported. Allergies Allergen ID Allergen Name Allergen Category Reaction Reaction Severity Criticality Documentation Date Start Date Code Code System Note Provider Name and Address Organization Details Recorded Time 749779 clonidine medicatio n Not available Not available Not available 01/03/2022 2599 RxNorm Not Available Not Available Not Available 862437 Iodinated contrast media (substanc e) medicatio n Not available Not available Not available 01/03/2022 64507 2004 SNOMED Not Available Not Available Not Available 085553 Keflex medicatio n Not available Not available Not available 01/03/2022 96009 7 RxNorm Not Available Not Available Not Available 323154 latex environme nt,medica tion Not available Not available Not available 01/03/2022 04790 91 RxNorm Not Available Not Available Not Available 364053 losartan medicatio n Not available Not available Not available 01/03/2022 24970 RxNorm Not Available Not Available Not Available 453085 Product containin g penicilli n and antibioti c (product) medicatio n Not available Not available Not available 01/03/2022 11588 05 SNOMED Not Available Not Available Not Available 852240 Substance with sulfonami de structure and antibacte rial mechanism of action (substanc e) medicatio n Not available Not available Not available 01/03/2022 59829 8003 SNOMED Not Available Not Available Not [...] 2021 active Not Available Not Available Not Alicja jara ondansetron HCl 4 mg tablet TAKE 1 [...] Updated DateTime 01/03/2022 162.56 cm 34.3 kg/m2 52668.47 g Donald Carranza MD [address] [place] [address] Urology 01/03/2022 11:43:40 Social History Question Answer Notes LastModified by Organizat ion Details LastModified Time Tobacco Smoking Status Never Smoker Donald Carranza MD [address] [place] [address] Urology 01/03/2022 11:41:47 What Is Your Level Of Alcohol Consumption? None [facility] Information not available 01/03/2022 What Was The Date Of Your Most Recent Tobacco Screening? 01/03/2022 Information not available 01/03/2022 Do You Use Any Illicit Or Recreational Drugs? Yes [email or web address] Information not available 01/03/2022 Sex: Unknown Functional [...] SNOMED-CT Code Diagnosis ICD10 Code Diagnosis Note [id number] Donald Carranza MD [facility] [address] [place] [address] 01/03/2022 11:20:39 01/05/2022 11:03:20 Chronic interstitial cystitis 048849056 N30.10 - Continue Oxybutynin XL 10 mg daily- continue Urispas 100 mg TID- Continue hydroxyzin e daily- Follow-up in 12 months Urinary bladder pain 158 16690 R39.82 - As above Health Concerns Section Related Observation LastModified by Organization Detai ls LastModified Time None Recorded Concern Status LastModified by Organization Details LastModified Time None Recorded Advance Directives Directive None Recorded Payers Encounter Date Sequence Insurance Name Policy Number Policy Narayanan Covered Member ID Narayanan Member ID Guarantor Name 01/03/2022 1 [employer] - DOS ON OR AFTER 19 (MEDICARE REPLACEMENT/ ADVANTAGE - PPO) [id number] 1 Cindy Gallegos [id number] Cindy Gallegos Notes Date Note Type Note [...] well on current regimen. Donald Carranza MD [address] [facility],[address], [place], [address], [facility] 01/03/2022 13:42:50 OBGyn Episode No OBEpisode recorded.
--- OUTSIDE RECORDS SUMMARY | 2024-03-26 11:02 | XMS_ITS | Clinical Summary ---
Author Organization [facility] Address [place], [place] [address] Care Team Providers Care Customs Port Director Name Role Phone Nico Betancourt MD Primary Care Provider [phone] Allergies Active Allergy Reactions Criticality Noted Date Comments Ibuprofen Chest Pain 05/30/2020 Atorvastatin Dizziness 03/16/2024 Cephalexin Chest Pain High 05/27/2012 Some chest [...] Bradycardia 11/16/2015 Propylene Glycol Rash Low 12/21/2019 Rosuvastatin Dizziness 03/16/2024 Sulfa (Sulfonamide Antibiotics) Hives 07/25/2006 Unlisted Allergen (Include Detail In Comments) *Unknown Low 12/21/2019 Medications Light Mineral Oil-Mineral Oil (SOOTHE XP) 1-4.5 % Drop eye drops Place into the eye(s) 3 times daily if needed for Dry Eyes. 0 011 Active Glucosamine HCl-MSM (GLUCOSAMINE MSM) 1,500-500 mg/30 mL liqd daily 1 Bottle 0 016 Active acetaminophen (TYLENOL EXTRA STRGTH) 500 mg tabletIndications :Acute pain of left knee,Muscle spasm of back Take 1 tablet by mouth every 6 hours if needed (pain). Max acetaminophen dose: 4000mg in 24 hrs. 30 tablet 018 Active erythromycin ophthalmic ointment 0.5% INSTILL A 1/4 INCH RIBBON INTO THE INFERIOR CUL-DE-SAC OF BOTH EYES THREE TIMES DAILY FOR SEVEN DAY 023 Active loteprednol (LOTEMAX GEL) 0.5 % ophthalmic gel INSTILL 1 DROP 4 TIMES DAILY INTO EACH EYE FOR 7 DAYS THEN STOP 023 Active ketotifen (ZADITOR) 0.025 % (0.035 %) ophthalmic solution Place 1 Drop into the eye(s) two times daily. Active hydrOXYzine HCL (ATARAX) 25 mg tabletIndications :Chronic interstitial cystitis Take 1 Tablet (25 mg) by mouth at bedtime. 90 Tablet 3 024 Active ondansetron (ZOFRAN) 4 mg tabletIndications :Nausea TAKE 1 TABLET BY MOUTH EVERY 8 HOURS NEEDED FOR NAUSEA FOR VOMITING 30 Tablet 024 Active nystatin 100,000 unit/gram ointmentIndicatio ns:Intertrigo Apply topically to affected area(s) two times daily. 30 g 5 024 Active LORazepam (ATIVAN) 0.5 mg tabIndications:An xiety due to invasive procedure Take 1 Tablet (0.5 mg) by mouth one time for 1 dose. 30 mins prior to procedure 1 Tablet 024 Active warfarin (COUMADIN) 5 mg tabletIndications :Paroxysmal atrial fibrillation (HC),Anticoagulat ion monitoring, INR range 2-3 Take by mouth 7.5 mg (5 mg x 1.5) every Sat, Sat; 5 mg (5 mg x 1) all other days in the evening OR as directed 104 Tablet 024 Active amLODIPine (NORVASC) 10 mg tabletIndications :HTN (hypertension) Take 1 Tablet (10 mg) by mouth once daily. 90 Tablet 3 025 Active albuterol HFA (PRO-AIR; VENTOLIN; PROVENTIL) 90 mcg/actuation inhalerIndication s:Wheezing Inhale 1-2 Puffs by mouth every 4 hours if needed for Wheezing. 18 g 025 Active clobetasol (TEMOVATE) 0.05 % ointmentIndicatio ns:Vulvar itching Apply to vulva once daily as needed for itching - do not use for more than 1 week straight 60 g 025 Active cyclobenzaprine (FLEXERIL) 5 mg tabletIndications :Muscle spasm of back Take 1 Tablet (5 mg) by mouth every 8 hours if needed for Muscle Spasm. 30 Tablet 025 Active flavoxATE (URISPAS) 100 mg tabletIndications :Chronic interstitial cystitis Take 1 Tablet (100 mg) by mouth three times daily. 270 Tablet Active fluocinonide 0.05 TOPICAL (LIDEX) 0.05 % external solutionIndicatio ns:Scalp irritation Apply up to twice daily as needed for scalp irritation 60 mL Active fluticasone (50 mcg per actuation) nasal solution (FLONASE)Indicati ons:Eustachian tube dysfunction, unspecified laterality Inhale 1 [place] in both nostrils once daily. 48 g Active furosemide (LASIX) 20 mg tabletIndications :Chronic diastolic congestive heart failure (HC) Take 1 Tablet (20 mg) by mouth once daily if needed (Leg swelling). Take around once a month 90 Tablet 025 Active hyoscyamine (LEVSIN) 0.125 mg tabletIndications :Chronic interstitial cystitis Take 1 Tablet (0.125 mg) by mouth every 4 hours if needed for Bladder Spasms. 90 Tablet 025 Active oxybutynin XL (DITROPAN XL) 10 mg CR tabletIndications :Bladder pain Take 1 Tablet (10 mg) by mouth once daily. 90 Tablet 025 Active losartan (COZAAR) 50 mg tabletIndications :Essential hypertension with goal blood pressure less than 140/90 Take 2 Tablets (100 mg) by mouth once daily. 180 Tablet 025 Active nystatin (MYCOSTATIN) 100,000 unit/mL suspensionIndicat ions:Thrush Swish and spit 5 mL (500,000 units) by mouth four times daily. 480 mL 025 Active nystatin powder (MYCOSTATIN) powderIndications :Intertrigo Apply 1 Strip topically to affected area(s) three times daily. 60 g 2 025 Active omeprazole (PRILOSEC) 40 mg Delayed-Release capsuleIndication s:Gastric reflux Take 1 Capsule (40 mg) by mouth once daily before a meal. 90 Capsule 3 025 Active potassium chloride (KLOR-CON M20) 20 mEq extended-release tablet (part/cryst)Indic ations:Hypokalemi a Take 1 Tablet (20 mEq) by mouth once daily with a meal. 90 Tablet 3 025 Active SUMAtriptan (IMITREX) 50 mg tabletIndications :Intractable migraine without aura and without status migrainosus Take 0.5 Tablets (25 mg) by mouth 2 times daily if needed for Migraine. Give at minimum 2hrs apart. Max Dose: 200mg per 24hrs. 12 Tablet 2 Active loratadine (CLARITIN) 10 mg tablet Take 1 tablet by mouth once daily. 30 tablet 0 010 2024 Discontinued(* Patient states no longer taking) fluocinonide 0.05 TOPICAL (LIDEX) 0.05 % external solutionIndicatio ns:Scalp irritation Apply up to twice daily as needed for scalp irritation 60 mL 1 018 2024 Discontinued(R eorder (E-cancel not sent)) albuterol HFA (PRO-AIR; VENTOLIN; PROVENTIL) 90 mcg/actuation inhaler Every 4 Hours as needed 2024 Discontinued(R eorder (E-cancel not sent)) nystatin (MYCOSTATIN) 100,000 unit/mL suspensionIndicat ions:Thrush Swish and spit 5 mL (500,000 units) by mouth 4 times daily. 480 mL 1 021 2024 Discontinued(R eorder (E-cancel not sent)) clobetasol 0.05% (TEMOVATE 0.05% OINTMENT) 0.05 % ointmentIndicatio ns:Vulvar itching Apply to vulva once daily as needed for itching - do not use for more than 1 week straight 60 g 3 023 2024 Discontinued(R eorder (E-cancel not sent)) fluconazole (DIFLUCAN ORAL) 2024 Discontinued(* Patient states no longer taking) fluticasone-salme terol (AIRDUO RESPICLICK) 55-14 mcg/actuation aepb inhaler Inhale 1 Puff by mouth once daily. 2024 Discontinued(* Patient states no longer taking) metroNIDAZOLE (FLAGYL) 500 mg tablet Take 500 mg by mouth three times daily. 023 2024 Discontinued(* Patient states no longer taking) naproxen (NAPROSYN) 500 mg tablet Take 500 mg by mouth once daily. 30 min after meal 023 2024 Discontinued(* Patient states no longer taking) pentosan polysulfate sodium (ELMIRON ORAL) 2024 Discontinued(* Patient states no longer taking) amLODIPine (Norvasc) 10 mg tabletIndications :HTN (hypertension) Take 1 Tablet (10 mg) by mouth once daily. 90 Tablet 3 024 2024 Discontinued flavoxATE (URISPAS) 100 mg tabletIndications :Chronic interstitial cystitis Take 1 Tablet (100 mg) by mouth three times daily. 270 Tablet 3 024 2024 Discontinued(R eorder (E-cancel not sent)) fluticasone (50 mcg per actuation) nasal solution (FLONASE)Indicati ons:Eustachian tube dysfunction, unspecified laterality Inhale 1 [place] to both nostrils once daily. 48 g 3 024 2024 Discontinued(R eorder (E-cancel not sent)) furosemide (LASIX) 20 mg tabletIndications :Chronic diastolic congestive heart failure (HC) Take 1 Tablet (20 mg) by mouth once daily if needed (Leg swelling). Take around once a month 90 Tablet 3 024 2024 Discontinued(R eorder (E-cancel not sent)) hyoscyamine (LEVSIN) 0.125 mg tabletIndications :Chronic interstitial cystitis Take 1 Tablet (0.125 mg) by mouth every 4 hours if needed for Bladder Spasms. 90 Tablet 3 024 2024 Discontinued(R eorder (E-cancel not sent)) omeprazole (PRILOSEC) 20 mg Delayed-Release capsuleIndication s:Gastric reflux Take 1 Capsule (20 mg) by mouth once daily before a meal. 90 Capsule 3 024 2024 Discontinued(* Medication adjustment) potassium chloride (KLOR-CON M20) 20 mEq extended-release tablet (part/cryst)Indic ations:Hypokalemi a Take 1 Tablet (20 mEq) by mouth once daily with a meal. 90 Tablet 3 024 2024 Discontinued(R eorder (E-cancel not sent)) rosuvastatin (CRESTOR) 5 mg tabletIndications :Hyperlipidemia, unspecified hyperlipidemia type Take 1 Tablet (5 mg) by mouth at bedtime. 90 Tablet 3 024 2024 Discontinued(* Allergic/Adver se Rxn/Side Effects) SUMAtriptan (IMITREX) 50 mg tabletIndications :Intractable migraine without aura and without status migrainosus Take 0.5 Tablets (25 mg) by mouth 2 times daily if needed for Migraine. Give at minimum 2hrs apart. Max Dose: 200mg per 24hrs. 12 Tablet 2 024 2024 Discontinued(R eorder (E-cancel not sent)) medication order composer OTC [place] Adin 1000mg daily 2024 Discontinued(* Patient states no longer taking) oxybutynin XL (DITROPAN XL) 10 mg CR tabletIndications :Bladder pain TAKE 1 TABLET BY MOUTH ONCE DAILY *ADV BRAND PER PATIENT* 90 Tablet 2 024 2024 Discontinued(R eorder (E-cancel not sent)) cyclobenzaprine (FLEXERIL) 5 mg tabletIndications :Muscle spasm of back Take 1 tablet by mouth three times daily as needed for muscle spasm 30 Tablet 1 024 2024 Discontinued(R eorder (E-cancel not sent)) losartan (COZAAR) 50 mg tabletIndications :Essential hypertension with goal blood pressure less than 140/90 Take 2 Tablets (100 mg) by mouth once daily. 180 Tablet 3 024 2024 Discontinued(R eorder (E-cancel not sent)) amLODIPine (NORVASC) 10 mg tabletIndications :HTN (hypertension) TAKE 1 TABLET BY MOUTH ONCE DAILY *ASCEND BRAND PER PATIENT* 90 Tablet 2 025 2024 Discontinued(R eorder (E-cancel not sent)) phenazopyridine (PYRIDIUM) 200 mg tabletIndications :Recurrent UTI Take 1 Tablet (200 mg) by mouth three times daily after meals for 2 days. 30 Tablet 3 025 2024 Active Problems Problem Noted Date Diagnosed Date Nuclear senile cataract of both eyes 03/08/2017 Osteoarthritis of right knee 08/25/2015 Paroxysmal atrial fibrillation 08/18/2014 Enlarged LA (left atrium) 05/11/2014 Cellulitis 02/04/2014 Family hx of colon cancer 07/22/2013 Overview (07/22/2013): Father 61 Anticoagulation monitoring, INR range 2-3 2013 Vitamin D deficiency 03/07/2011 Colon polyp 01/31/2011 Overview (12/16/2020): Colonoscopy 01/2011 polyp repeat in 5 years Colonoscopy 11/2015 diverticulosis repeat in 5 years Colonoscopy 11/2020 diverticulosis, repeat in 5 years Mixed hyperlipidemia 03/11/2009 Panic disorder without agoraphobia 11/18/2007 Benign paroxysmal positional vertigo 08/13/2006 Unspecified essential hypertension 07/25/2006 Chronic interstitial cystitis Resolved Problems Problem Noted Date Diagnosed Date Resolved Date Chronic diastolic congestive heart failure 07/17/2022 03/16/2024 Severe obesity 07/25/2018 03/16/2024 Hyperopia of both eyes with astigmatism and presbyopia 03/08/2017 03/16/2024 Morbid obesity with BMI of 40.0-44.9, adult 12/20/2015 07/08/2018 Chest pain, unspecified 05/22/201202/19 Refractive error 12/26/2009 03/16/2024 Postmenopausal bleeding 04/26/200802/19 Encounters Date Type Department Care Team Description 03/19/2024 Telephone [facility] [address] [facility] [address] Nico Betancourt MD Results 03/18/2024 Orders Only [facility] [address] [place] [address] Nico Betancourt MD <No scans attached> 03/16/2024 10:40 AM STUDIO HAND Ancillary Procedure [facility] [address] [place] [address] 03/16/2024 9:05 AM STUDIO HAND Office Visit [facility] [address] [place] [address] Nico Betancourt MD Medicare ANNUAL (subsequent) Visit (78 yr old female) 03/16/2024 Anticoagulation (warfarin) [facility] [address] [place] [address] 1, [facility] Anticoagulation 03/16/2024 Telephone [facility] [address] [place] [address] Nico Betancourt MD Anticoagulation (BPA omeprazole/warfairn) 03/16/2024 Travel 03/09/2024 Orders Only [facility] Scanner 1 scan: (1-Ord) RCM 02/28/2024 Refill [facility] [address] [place] [address] Nico Betancourt MD Refill Request (Amlodipine) 02/27/2024 Orders Only [facility] Scanner 1 scan: (1-Ord) [facility] 02/25/2024 Telephone [facility] [address] [place] [address] Nico Betancourt MD Anticoagulation (Annual Re-Enrollment Orders/) 02/18/2024 Orders Only [facility] Scanner 1 scan: (1-Ord) [place], LEFT SHOULDER , 02/18/2024 02/10/2024 10:30 AM STUDIO HAND Orders Only [facility] [address] [place] [address] Lab 02/10/2024 Anticoagulation (warfarin) [facility] [address] [facility] [address] [facility], [facility] Anticoagulation 02/10/2024 Travel 02/05/2024 Telephone [facility] [address] [place] [address] Nico Betancourt MD Refill Request (Warfarin ) 01/28/2024 Refill [facility] [address] [place] [address] Nico Betancourt MD Refill Request (Losartan 50mg tab ) from Last 3 Months Immunizations Name Administration [...] Answer Date Recorded PHQ-2 TOTAL SCORE 0 03/16/2024 Social Connections Answer Date Recorded Do you often feel lonely or isolated from those around you? 0 03/16/2024 Financial Resource Strain Answer Date R ecorded Difficulty of Paying Living Expenses 3 03/16/2024 Difficulty of Paying Living Expenses Not on file 03/16/2024 Food Insecurity Answer Date Recorded Do you worry your food will run out before you are able to buy more? 1 03/16/2024 Transportation Needs Answer Date Record ed Does lack of transportation keep you from medica l appointments? 1 03/16/2024 Does lack of transportation keep you from work, meetings or getting things that you need? 1 03/16/2024 Housing Stability Answer Date Recorded What is your housing situation today? 1 03/16/2024 Utilities Answer Date Recorded Do you have trouble paying f or utilities (for example, heat, electricity, water, phone)? 1 03/16/2024 Comments No Sex and Gender Information Value Date Recorded Sex Assigned at Not on file Legal Sex Female 5:25 AM STUDIO HAND Gender Identity Not on file Sexual Orientation Not on file Obstetrics History Para Term AB IAB SAB Ectopic Multiple Livin g Live Births 3 2 1 1 2 Date Outcome GA Total Labor Labor/2nd/3rd Weight Sex Type Anes PTL Emily A1 A5 Name Clin Para Para SAB Last Filed Vital Signs Vital Sign Reading Time Taken Comments Blood Pressure 130/64 03/16/2024 9:18 AM STUDIO HAND Pulse 54 03/16/2024 9:18 AM STUDIO HAND Temperature 36.4 C (97.5 F) 05/27/2023 10:38 AM CDT Respiratory Rate 20 07/20/2020 10:20 AM CDT Oxygen Saturation 98% 03/16/2024 9:18 AM STUDIO HAND Inhaled Oxygen Concentration - - Weight 89.9 kg (198 lb 4.8 oz) 03/16/2024 9:18 A M STUDIO HAND Height 160.5 cm (5' 3.19) 03/16/2024 9:18 AM CS T Body Mass Index 34.92 03/16/2024 9:18 AM STUDIO HAND Plan of Treatment Health Maintenance Due Date Last Done Comments Zoster (shingles) series for age 50+ (2 of 3) 03/23/2010 01/26/2010 RSV vaccine for adults or (1 - 1-dose 75+ series) 08/15/2022 COVID-19 vaccine series ( season) 2023 Influenza for age 65+ 10/20/2023 01/23/2016 , 12/13/2014, 12/16/2013, Additional history exists BMI (ht and wt on same day) for age 18+ 03/16/2025 03/16/2024, 05/27/2023, 04/29/2023, Additional history exists Medicare Wellness for age 65+ 03/17/2025, 03/07/2023, 01/02/2022, Additional history exists Depression screening for age 12+ 03/19/2025 03/19/2024, 03/16/2024, 03/16/2024, Additional history exists Tetanus booster 07/20/2030 07/20/2020, 05/24/2009 DEXA/DXA scan for age 65+ Completed 04/30/2014 Pneumococcal series for age 50+ Completed 6, 07/08/2013 Hepatitis C screening for ag e 18-79 Completed 11/18/2015 Tdap Completed 07/20/2020, 05/24/2009 Procedures Procedure Name Priority Date/Time Associated Diagnosis Comments XR MAMMO ANNY BILAT SCREEN Routine 03/16/2024 11:05 AM STUDIO HAND Visit for screening mammogram PROTIME-INR Routine 03/16/2024 10:21 AM STUDIO HAND Paroxysmal atrial fibrillation (HC) Anticoagulation monitoring, INR range 2-3 BASIC METABOLIC PANEL Routine 03/16/2024 10:21 AM STUDIO HAND HTN (hypertension) LIPID PANEL Routine 03/16/2024 10:21 AM STUDIO HAND Mixed hyperlipidemia TSH Routine 03/16/2024 10:21 AM STUDIO HAND Thyroid nodule SCAN-EYE EXAM 03/09/2024 12:00 AM STUDIO HAND SCAN-ELECTROMYOGRA M EMG 02/27/2024 12:00 AM STUDIO HAND SCAN-RADIOLOGY REPORT 02/18/2024 12:00 AM STUDIO HAND INR,POCT Routine 02/10/2024 9:51 AM STUDIO HAND Paroxysmal atrial fibrillation (HC) Anticoagulation monitoring, INR range 2-3 ANTI HCV Routine 11/18/2015 10:57 AM CDT Need for hepatitis C screening test XR DXA BONE DENSITY 2 SITES AXIAL Routine 04/30/2014 11:24 AM CDT Ovarian failure from Last 3 Months or Most Recently Relevant to Health Maintenance Results * XR MAMMO ANNY BILAT SCREEN (03/16/2024 11:05 AM STUDIO HAND) Anatomical Region Laterality Modality BREASTS, Breast Left, Breast Right Bilateral Mammography Impressions 03/16/2024 2:13 PM STUDIO HAND There is no radiographic evidence for malignancy. Recommend annual mammograms. MAMMOGRAM ASSESSMENT: ACR 1 Negative PATIENTS: You will also receive a letter with your examination results in an easy to read format. If you have questions about your results, please contact your referring provider. Narrative 03/16/2024 2:13 PM STUDIO HAND For Patients: As a result of the Cures Act, medical imaging exams and procedure reports are released immediately into your electronic medical record. You may view this report before your referring provider. If you have questions, please contact your health care provider. XR MAMMO ANNY BILAT SCREEN [[id number]] CLINICAL HISTORY: This is an asymptomatic 78 y.o. patient. INDICATION FOR EXAM: Mammogram Screening. TECHNIQUE: CC & MLO views were obtained. This study was evaluated with the assistance of Computer-Aided Detection. Breast Tomosynthesis was used in interpretation. COMPARISON FILM: Yes 01/22/23 [facility] 01/02/22 [facility] FINDINGS: There are scattered areas of fibroglandular density. There are no dominant masses, suspicious micro calcifications or areas of architectural distortion. Nico Betancourt MD MAMMO Final Resu lt * TSH (03/16/2024 10:21 AM STUDIO HAND) TSH 1.65 0.40 - 4.50 mIU/L [facility] Blood BLOOD SPECIMEN / Unknown 03/16/2024 10:21 AM STUDIO HAND 03/16/2024 10:21 AM STUDIO HAND Nico Betancourt MD CHEMISTRY Final Resu lt Performing Organization Address [facility] Co de Phone Number [facility] [address] [place] [address], [place] [phone] [facility] [address] [place] [address] * (ABNORMAL) PROTIME-INR [61404.0] - Standing Order (03/16/2024 10:21 AM STUDIO HAND) INR 2.9(H) <1.3 03/16/2024 2:28 PM STUDIO HAND [facility] PROTIME 34.0(H) 10.6 - 12.4 sec 03/16/2024 2:28 PM STUDIO HAND [facility] Blood BLOOD SPECIMEN / Unknown [facility] / Unknown 03/16/2024 10:21 AM STUDIO HAND 03/16/2024 10:21 AM STUDIO HAND Narrative [facility] - 03/16/2024 2:28 PM STUDIO HAND Therapeutic Range 2.0-3.0 for most anticoagulated patients 2.5-3.5 [...] is on UFH. Nico Betancourt MD HEMATOLOGY Final Resu lt Performing Organization Address [facility]/ZIP Co de Phone Number [facility] [address] [place] [address], * (ABNORMAL) LIPID PANEL (03/16/2024 10:21 AM STUDIO HAND) CHOLESTEROL, TOTAL 233(H) <200 mg/dL [facility] HDL CHOLESTEROL 64 > OR = 50 mg/dL [facility] TRIGLYCERIDES 137 <150 mg/dL [facility] LDL-CHOLESTEROL 143(H) mg/dL (calc) [facility] Comment: Reference range: <100 Desirable range <100 mg/dL for primary prevention; <70 mg/dL for patients with CHD or diabetic patients with > or = 2 CHD risk factors. LDL-C is now calculated using the Stephy calculation, which is a validated novel method providing better accuracy than the Friedewald equation in the estimation of LDL-C. Solomon SS et al. MAMADOU. 2013;310(31): 4225-4686 (http://education.LxDATA/faq/WFV328) CHOL/HDLC RATIO 3.6 <5.0 (calc) [facility] NON HDL CHOLESTEROL 169(H) <130 mg/dL (calc) [facility] Comment: For patients with diabetes plus 1 major ASCVD risk factor, treating to a non-HDL-C goal of <100 mg/dL (LDL-C of <70 mg/dL) is considered a therapeutic option. Blood BLOOD SPECIMEN / Unknown 03/16/2024 10:21 AM STUDIO HAND 03/16/2024 10:21 AM STUDIO HAND us Nico Betancourt MD CHEMISTRY Final Resu lt [facility] [address] [place] [address], [facility] [address] [place] [address] * BASIC METABOLIC PANEL (03/16/2024 10:21 AM STUDIO HAND) [facility] GLUCOSE 74 65 - 99 mg/dL [facility] Comment: Fasting reference interval UREA NITROGEN (BUN) 19 7 - 25 mg/dL [facility] CREATININE 0.74 0.60 - 1.00 mg/dL [facility] EGFR 84 > OR = 60 mL/min/1. 73m2 [facility] BUN/CREATININE RATIO SEE NOTE: 6 - (calc) [facility] Comment: Not Reported: BUN and Creatinine are within reference range. SODIUM 142 135 - 146 mmol/L [facility] POTASSIUM 4.5 3.5 - 5.3 mmol/L [facility] CHLORIDE 107 98 - 110 mmol/L [facility] CARBON DIOXIDE 20 20 - 32 mmol/L [facility] ELECTROLYTE BALANCE 15 7 - 17 mmol/L (calc) [facility] CALCIUM 9.1 8.6 - 10.4 mg/dL [facility] Blood BLOOD SPECIMEN / Unknown 03/16/2024 10:21 AM STUDIO HAND 03/16/2024 10:21 AM STUDIO HAND us Nico Betancourt MD CHEMISTRY Final Resu lt [facility] [address] [place] [address], [facility] [address] [place] [address] * SCAN-EYE EXAM (03/09/2024 12:00 AM STUDIO HAND) us Scanner OTHER Final Result * SCAN-ELECTROMYOGRAM EMG (02/27/2024 12:00 AM STUDIO HAND) us Scanner OTHER Final Result * SCAN-RADIOLOGY REPORT (02/18/2024 12:00 AM STUDIO HAND) Anatomical Region Laterality Modality Other us Scanner OTHER Final Result * (ABNORMAL) INR - POCT [17202.2] - Standing Order (02/10/2024 9:51 AM STUDIO HAND) INR 2.7(H) ratio [facility] Comment: INRs >2.9 may be falsely elevated [...] PROTHROMBIN TIMEP 32.1(H) 10.5 - 13.1 sec [facility] Comment: Point of care fingerstick Prothrombin Time/INR results may vary from venous Prothrombin Time/INR methodologies. Any results exhibiting inconsistency with the patient's clinical status should be repeated using a venous Prothrombin Time/INR method. Blood BLOOD SPECIMEN / Unknown 02/10/2024 9:51 AM STUDIO HAND 02/10/2024 9:52 AM STUDIO HAND us Nico Betancourt MD LABORATORY Final Resu lt Performing Organization Address City/[facility]/ZIP Co de Phone Number [facility] [id number] [place] [id number] [address] * ANTI HCV [00884.2] (11/18/2015 10:57 AM CDT) HEPATITIS C ANTIBODY Non-Reacti ve Non-Reacti ve 11/18/2015 5:27 PM CDT [facility] Blood BLOOD SPECIMEN / Unknown Venipuncture / Unknown 11/18/2015 10:57 AM CDT 11/18/2015 10:58 AM CDT Narrative [facility] - 11/18/2015 5:27 PM CDT Antibodies to HCV not detected; does not exclude the possibility of exposure to HCV. us Nico Betancourt MD SEND OUTS Final Resu lt [facility] [address] [place] [address], [place] * (ABNORMAL) XR DXA BONE DENSITY 2 SITES (04/30/2014 11:24 AM CDT) Anatomical Region Laterality Modality Spine, HIPS, HIPL, HIPR Other Narrative 05/14/2014 4:47 PM CDT Please see scanned document for results of this study. Procedure Note Kamala Kerr PA - 05/14/2014 Please see scanned document for results of this study. Marlen Salinas DEXA Final R esult from Last 3 Months or Most Recently Relevant to Health Maintenance Insurance UC[employer] MEDICARE ADVANTAGE MR UCARE MEDICARE ADVANTAGE MR Advance Directives * Full Code (Latest Code Status on File) Date Activated Date Inactivated Comments 05/21/2012 8:57 PM 05/22/2012 6:59 PM Care Teams Customs Port Director Relationship Specialty Start Date End Date Nico [place] [address] PCP - General Family Practice 05/16/15
--- OUTSIDE RECORDS SUMMARY | 2024-03-26 11:02 | XMS_ITS | Clinical Summary ---
Author Organization [facility] Address [address] , [address] [place] [address] Phone Care Team Providers Care Resident Care Manager Name Role Phone [facility] Unavailable Unava ilable Conditions or Problems Problem Name Problem Code Onset Date Status Entry Date Provider Comment Standard Description Annotate Hand numbness [id number] (SNOMED CT) Active Jack Dias MD Numbness of hand Median neuropathy, right [id number] (SNOMED CT) Active Jack Dias MD Median neuropathy Medications No information available. Medications Administered No information available. Allergies, Adverse Reactions, Alerts No information available. Results Date Name Value Unit Range Flag Description Internal Other: Authorizatio n - OBS AUTHBENEFIT Yes Authoriza tion: Assignment of Benefits and Payment Agreement [email or web address] Yes Authorizat ion: Authorization for [facility] to leave messages, voicemail, send text messages, send emails AUTHRELHCARE Yes Authoriz ation: Release/Retrieval of Information to/from Healthcare Facilities, Pharmacy Benefit Payers and Providers ROIAUTHOTHER Yes Authoriz ation: Release of Information - Authorize Others/Insurance - Payment and Healthcare Operations [email or web address] Yes Authoriza tion: Release of Information - Authorize [facility] - Payment and Healthcare Operations [email or web address] Yes Authoriz ation: Notice of privacy practices HIECONSENT Yes Consent To Release information to the Health Information Exchange (HIE) Plan of Care No information available. Procedures Code Procedure Name Date Entry Date CPT-95104 Nerve Conduction 7-8 studies CPT-12020 EMG with NCS (5+ muscles) - 1 limb 02/26 Vital Signs No information available. Immunizations No information available. Advance Directives No information available.
[2024-03-26 11:03] VITALS: BP 124/73; PULSE 70; RESP 18; TEMP 36.3; O2SAT 97; BMI 33.5
--- OUTSIDE RECORDS SUMMARY | 2024-03-26 11:32 | XMS_ITS | Clinical Summary ---
Author Organization [facility] Address [address] [address] Phone Care Team Providers Care Air Quality Engineer Name Role Phone Unavailable Primary [...] patient's age to complete this topic Insurance [facility] MEDICARE PLANS
--- OUTSIDE RECORDS SUMMARY | 2024-03-26 11:32 | XMS_ITS ---
Author Organization [facility] Address [address] [facility] [address] , [address] [place] [address] Phone Care Team Providers Care Power Barker Name Role Phone Jack Dias MD Conditions or Problems Problem Name Problem Code Onset Date Status Entry Date Provider Comment Standard Description Annotate Hand numbness [id number] (SNOMED CT) Active Jack Dias MD Numbness of hand Median neuropathy, right [id number] (SNOMED CT) Active Jack Dias MD Median neuropathy Medications No information available. Medications Administered No information available. Allergies, Adverse Reactions, Alerts No information available. Results No information available. Plan of Care No information available. Procedures Code Procedure Name Date Entry Date CPT-45697 Nerve Conduction 7-8 studies CPT-18860 EMG with NCS (5+ muscles) - 1 limb 02/26 Vital Signs No information available. Immunizations No information available. Advance Directives No information available.
--- OUTSIDE RECORDS SUMMARY | 2024-03-26 11:32 | XMS_ITS | Clinical Summary ---
Author Organization [email or web address] Address [place], [place] [address] Care Team Providers Care Vending Manager Name Role Phone Nico Betancourt MD Primary Care Provider [phone] Allergies Active Allergy Reactions Criticality Noted Date [...] ons:Eustachian tube dysfunction, unspecified laterality Inhale 1 Dale in both nostrils once daily. 48 g [...] ons:Eustachian tube dysfunction, unspecified laterality Inhale 1 Dale to both nostrils once daily. 48 g [...] Type Department Care Team Description 03/19/2024 Telephone [facility] [address] [facility] [place] [address] Nico Betancourt MD Results 03/18/2024 Orders Only [facility] [address] [place] [address] Nico Betancourt MD <No scans attached> 03/16/2024 10:40 AM UNEMPLOYMENT INSPECTOR Ancillary Procedure [facility] [address] [place] [address] 03/16/2024 9:05 AM UNEMPLOYMENT INSPECTOR Office Visit [facility] [address] [place] [address] Nico Betancourt MD Medicare ANNUAL (subsequent) Visit (78 yr old female) 03/16/2024 Anticoagulation (warfarin) [facility] [address] [place] [address] 1, [facility] Anticoagulation 03/16/2024 Telephone [facility] [address] [place] [address] Nico Betancourt MD Anticoagulation (BPA omeprazole/warfairn) 03/16/2024 Travel 03/09/2024 Orders Only [facility] Scanner 1 scan: (1-Ord) RCM 02/28/2024 Refill [facility] [address] [place] [address] Nico Betancourt MD Refill Request (Amlodipine) 02/27/2024 Orders Only [facility] Scanner 1 scan: (1-Ord) [facility] 02/25/2024 Telephone [facility] [address] [place] [address] Nico Betancourt MD Anticoagulation (Annual Re-Enrollment Orders/) 02/18/2024 Orders Only [facility] Scanner 1 scan: (1-Ord) [place], LEFT SHOULDER , 02/18/2024 02/10/2024 10:30 AM UNEMPLOYMENT INSPECTOR Orders Only [facility] [address] [place] [address] Lab 02/10/2024 Anticoagulation (warfarin) [facility] [address] [facility] [address] [facility], [facility] Anticoagulation 02/10/2024 Travel 02/05/2024 Telephone [facility] [address] [place] [address] Nico Betancourt MD Refill Request (Warfarin ) 01/28/2024 Refill [facility] [address] [place] [address] Nico Betancourt MD Refill Request (Losartan 50mg [...] on file Legal Sex Female 5:25 AM UNEMPLOYMENT INSPECTOR Gender Identity Not on file Sexual Orientation Not on file Obstetrics History Para Term AB IAB SAB Ectopic Multiple Livin g Live Births 3 2 1 1 2 Date Outcome GA Total Labor Labor/2nd/3rd Weight Sex Type Anes PTL Meily A1 A5 Name Clin Para Para SAB Last Filed Vital Signs Vital Sign Reading Time Taken Comments Blood Pressure 130/64 03/16/2024 9:18 AM UNEMPLOYMENT INSPECTOR Pulse 54 03/16/2024 9:18 AM UNEMPLOYMENT INSPECTOR Temperature 36.4 C (97.5 F) 05/27/2023 10:38 AM CDT Respiratory Rate 20 07/20/2020 10:20 AM CDT Oxygen Saturation 98% 03/16/2024 9:18 AM UNEMPLOYMENT INSPECTOR Inhaled Oxygen Concentration - - Weight 89.9 kg (198 lb 4.8 oz) 03/16/2024 9:18 A M UNEMPLOYMENT INSPECTOR Height 160.5 cm (5' 3.19) 03/16/2024 9:18 AM CS T Body Mass Index 34.92 03/16/2024 9:18 AM UNEMPLOYMENT INSPECTOR Plan of Treatment Health Maintenance Due Date [...] ANNY BILAT SCREEN Routine 03/16/2024 11:05 AM UNEMPLOYMENT INSPECTOR Visit for screening mammogram PROTIME-INR Routine 03/16/2024 10:21 AM UNEMPLOYMENT INSPECTOR Paroxysmal atrial fibrillation (HC) Anticoagulation monitoring, INR range 2-3 BASIC METABOLIC PANEL Routine 03/16/2024 10:21 AM UNEMPLOYMENT INSPECTOR HTN (hypertension) LIPID PANEL Routine 03/16/2024 10:21 AM UNEMPLOYMENT INSPECTOR Mixed hyperlipidemia TSH Routine 03/16/2024 10:21 AM UNEMPLOYMENT INSPECTOR Thyroid nodule SCAN-EYE EXAM 03/09/2024 12:00 AM UNEMPLOYMENT INSPECTOR SCAN-ELECTROMYOGRA M EMG 02/27/2024 12:00 AM UNEMPLOYMENT INSPECTOR SCAN-RADIOLOGY REPORT 02/18/2024 12:00 AM UNEMPLOYMENT INSPECTOR INR,POCT Routine 02/10/2024 9:51 AM UNEMPLOYMENT INSPECTOR Paroxysmal atrial fibrillation (HC) Anticoagulation monitoring, INR range 2-3 ANTI HCV Routine 11/18/2015 10:57 AM CDT Need for hepatitis C screening test XR DXA BONE DENSITY 2 SITES AXIAL Routine 04/30/2014 11:24 AM CDT Ovarian failure from Last 3 Months or Most Recently Relevant to Health Maintenance Results * XR MAMMO ANNY BILAT SCREEN (03/16/2024 11:05 AM UNEMPLOYMENT INSPECTOR) Anatomical Region Laterality Modality BREASTS, Breast Left, Breast Right Bilateral Mammography Impressions 03/16/2024 2:13 PM UNEMPLOYMENT INSPECTOR There is no radiographic evidence for malignancy. Recommend annual mammograms. MAMMOGRAM ASSESSMENT: ACR 1 Negative PATIENTS: You will also receive a letter with your examination results in an easy to read format. If you have questions about your results, please contact your referring provider. Narrative 03/16/2024 2:13 PM UNEMPLOYMENT INSPECTOR For Patients: As a result of the Cures Act, medical imaging exams and procedure reports are released immediately into your electronic medical record. You may view this report before your referring provider. If you have questions, please contact your health care provider. XR MAMMO ANNY BILAT SCREEN [[id number]] CLINICAL HISTORY: This is an asymptomatic 78 y.o. patient. INDICATION FOR EXAM: Mammogram Screening. TECHNIQUE: CC & MLO views were obtained. This study was evaluated with the assistance of Computer-Aided Detection. Breast Tomosynthesis was used in interpretation. COMPARISON FILM: Yes 01/22/23 [facility] 01/02/22 [facility] FINDINGS: There are scattered areas of fibroglandular density. There are no dominant masses, suspicious micro calcifications or areas of architectural distortion. Nico Betancourt MD MAMMO Final Resu lt * TSH (03/16/2024 10:21 AM UNEMPLOYMENT INSPECTOR) TSH 1.65 0.40 - 4.50 mIU/L [facility] Blood BLOOD SPECIMEN / Unknown 03/16/2024 10:21 AM UNEMPLOYMENT INSPECTOR 03/16/2024 10:21 AM UNEMPLOYMENT INSPECTOR Nico Betancourt MD CHEMISTRY Final Resu lt Performing Organization Address [facility] Co de Phone Number [facility] [address] [place] [address], [place] [phone] [facility] [address] [place] [address] * (ABNORMAL) PROTIME-INR [[id number]] - Standing Order (03/16/2024 10:21 AM UNEMPLOYMENT INSPECTOR) INR 2.9(H) <1.3 03/16/2024 2:28 PM UNEMPLOYMENT INSPECTOR [facility] PROTIME 34.0(H) 10.6 - 12.4 sec 03/16/2024 2:28 PM UNEMPLOYMENT INSPECTOR [facility] Blood BLOOD SPECIMEN / Unknown [facility] / Unknown 03/16/2024 10:21 AM UNEMPLOYMENT INSPECTOR 03/16/2024 10:21 AM UNEMPLOYMENT INSPECTOR Narrative [facility] - 03/16/2024 2:28 PM UNEMPLOYMENT INSPECTOR Therapeutic Range 2.0-3.0 for most anticoagulated patients [...] HEMATOLOGY Final Resu lt Performing Organization Address [facility]/ZIP Co de Phone Number [facility] [address] [place] [address], * (ABNORMAL) LIPID PANEL (03/16/2024 10:21 AM UNEMPLOYMENT INSPECTOR) CHOLESTEROL, TOTAL 233(H) <200 mg/dL [facility] [...] of LDL-C. Solomon SS et al. MAMADOU. 2013;310(33): 2677-5753 (http://education.globa.ly/faq/OZU268) CHOL/HDLC RATIO 3.6 <5.0 (calc) [facility] NON HDL CHOLESTEROL 169(H) <130 mg/dL (calc) [facility] Comment: For patients with diabetes plus 1 major ASCVD risk factor, treating to a non-HDL-C goal of <100 mg/dL (LDL-C of <70 mg/dL) is considered a therapeutic option. Blood BLOOD SPECIMEN / Unknown 03/16/2024 10:21 AM UNEMPLOYMENT INSPECTOR 03/16/2024 10:21 AM UNEMPLOYMENT INSPECTOR us Nico Betancourt MD CHEMISTRY Final Resu lt [employer] [facility] [address] [place] [address], [facility] [address] [place] [address] * BASIC METABOLIC PANEL (03/16/2024 10:21 AM UNEMPLOYMENT INSPECTOR) [facility] GLUCOSE 74 65 - 99 mg/dL [facility] Comment: Fasting reference interval UREA NITROGEN (BUN) 19 7 - 25 mg/dL [facility] CREATININE 0.74 0.60 - 1.00 mg/dL [facility] EGFR 84 > OR = 60 mL/min/1. 73m2 [employer] BUN/CREATININE RATIO SEE NOTE: 6 - (calc) [employer] Comment: Not Reported: BUN and Creatinine [...] BLOOD SPECIMEN / Unknown 03/16/2024 10:21 AM UNEMPLOYMENT INSPECTOR 03/16/2024 10:21 AM UNEMPLOYMENT INSPECTOR us Nico Betancourt MD CHEMISTRY Final Resu lt [employer] [facility] [address] [place] [address], [facility] [address] [place] [address] * SCAN-EYE EXAM (03/09/2024 12:00 AM UNEMPLOYMENT INSPECTOR) us Scanner OTHER Final Result * SCAN-ELECTROMYOGRAM EMG (02/27/2024 12:00 AM UNEMPLOYMENT INSPECTOR) us Scanner OTHER Final Result * SCAN-RADIOLOGY REPORT (02/18/2024 12:00 AM UNEMPLOYMENT INSPECTOR) Anatomical Region Laterality Modality Other us Scanner OTHER Final Result * (ABNORMAL) INR - POCT [[id number]] - Standing Order (02/10/2024 9:51 AM UNEMPLOYMENT INSPECTOR) INR 2.7(H) ratio [facility] Comment: INRs >2.9 may be falsely [...] PROTHROMBIN TIMEP 32.1(H) 10.5 - 13.1 sec [facility] Comment: Point of care fingerstick Prothrombin Time/INR results may vary from venous Prothrombin Time/INR methodologies. Any results exhibiting inconsistency with the patient's clinical status should be repeated using a venous Prothrombin Time/INR method. Blood BLOOD SPECIMEN / Unknown 02/10/2024 9:51 AM UNEMPLOYMENT INSPECTOR 02/10/2024 9:52 AM UNEMPLOYMENT INSPECTOR us Nico Betancourt MD LABORATORY Final Resu lt Performing Organization Address City/[facility]/ZIP Co de Phone Number [facility] [id number] [place] [phone] [address] * ANTI HCV [[id number]] (11/18/2015 10:57 AM CDT) HEPATITIS C ANTIBODY Non-Reacti ve Non-Reacti ve 11/18/2015 5:27 PM CDT [facility] Blood BLOOD SPECIMEN / Unknown Venipuncture / Unknown 11/18/2015 10:57 AM CDT 11/18/2015 10:58 AM CDT Narrative [facility] - 11/18/2015 5:27 PM CDT Antibodies to HCV not detected; does not exclude the possibility of exposure to HCV. us Nico Betancourt MD SEND OUTS Final Resu lt [facility] [address] [place] [address], [place] * (ABNORMAL) XR DXA BONE DENSITY [...] 8:57 PM 05/22/2012 6:59 PM Care Teams Vending Manager Relationship Specialty Start Date End Date [place] [address] PCP - General Family Practice 05/16/15
--- OUTSIDE RECORDS SUMMARY | 2024-03-26 11:32 | XMS_ITS | Clinical Summary ---
Author Organization [facility] Address [address] , [address] [place] [address] Phone Care Team Providers Care Merchandise Flow Team Member Name Role Phone [facility] Unavailable Unava ilable Conditions or Problems Problem Name Problem Code Onset Date Status Entry Date Provider Comment Standard Description Annotate Hand numbness [id number] (SNOMED CT) Active Jack Dias MD Numbness of hand Median neuropathy, right 624707073 (SNOMED CT) Active Jack Disa MD Median neuropathy Medications No information available. [...] Procedures Code Procedure Name Date Entry Date CPT-06997 Nerve Conduction 7-8 studies CPT-22871 EMG with NCS (5+ muscles) - 1 limb 02/26 Vital Signs No information available. Immunizations No information available. Advance Directives No information available.
--- OUTSIDE RECORDS SUMMARY | 2024-03-26 11:33 | XMS_ITS | Continuity of Care Document ---
Author Organization [facility] Address [address] [place] [address] Phone Care Team Providers Care Taste Tester Name Role Phone Unavailable Unavailable Unavailable Advance Directives Directive Yes / No Effective Date File Name No Information Encounters Encounter Description Practice Location Reason(s) For Visit Diagnoses Date Provider Providers Copied on Encounter [facility], [address] [place], [id number], [place] tel:[phone] [facility] No Information No [...]
--- NOTE | 2024-03-26 12:00 | ED.NAVMDI ---
HPI - Nausea/Vomiting/Diarrhea General Date Seen: 03/26/24 Chief complaint: Nausea/Vomiting Stated complaint: Vomiting/Diarrhea all night Time Seen by Provider: 03/26/24 11:00 Source: patient and family Mode of arrival: ambulatory Limitations: no limitations History of Present Illness HPI Narrative: Patient is a 78-year-old female who presents here with the nausea vomiting and diarrhea for the last 12-14 hours, she last retch approximately when she was just coming into the waiting room, she is not throwing anything up now, as she says she has no more left to throw up. She does not describe any significant abdominal pain with this, her last blood bowel movement however she tells me she had blood in it. She is really worried that she has developed colon cancer, as reports to me that this is what killed her grandfather, her who is with her tells me that she has fretting about this. No other current members are sick, she is still peeing, she feels like she would be dehydrated also. She has not recently been on any antibiotics, no past history of C diff I can see in her chart and she tells me that that is not the cause. I am unsure when her last colonoscopy is does carry a diagnosis of IBS. And has recently lost approximately 100 lb she is trying to lose weight. No fevers chills denies any dysuria frequency, no cough cold-like symptoms no sore throat, no chest pain, no flank discomfort no rashes and did not take any medications at home Related Data Home Medications ?Medication ?Instructions ?Recorded ?Confirmed flavoxate 100 mg tablet 100 mg PO TID 11/07/21 03/26/24 furosemide 20 mg tablet 20 mg PO DAILY 11/07/21 03/26/24 losartan 50 mg tablet 100 mg PO DAILY 11/07/21 03/26/24 ondansetron HCl 4 mg tablet 4 mg PO DAILY 11/07/21 03/26/24 oxybutynin chloride 10 mg 10 mg PO DAILY 11/07/21 03/26/24 tablet,extended release 24 hr potassium chloride 20 mEq 20 meq PO DAILY 11/07/21 03/26/24 tablet,extended release(part/cryst) sumatriptan succinate 50 mg tablet 50 mg PO DAILY 11/07/21 03/26/24 warfarin 5 mg tablet 5 mg PO 11/07/21 03/18/24 amlodipine 10 mg tablet 10 mg PO DAILY 07/19/22 03/26/24 fluticasone propionate 50 1 spray intranasal DAILY 07/19/22 03/26/24 mcg/actuation nasal spray,suspension hydroxyzine HCl 25 mg tablet 25 mg PO 3XD 07/19/22 03/26/24 cyclobenzaprine 5 mg tablet 5 mg PO TID PRN 06/03/23 03/26/24 glucosamine HCl 1,500 mg tablet 1,500 mg PO DAILY 06/03/23 03/18/24 hyoscyamine sulfate 0.125 mg 0.125 mg PO Q4H PRN 06/03/23 03/18/24 tablet (Levsin) metronidazole 500 mg tablet 500 mg PO TID 06/03/23 03/26/24 albuterol sulfate 90 mcg/actuation inhalation 03/18/24 03/18/24 aerosol inhaler clobetasol 0.05 % topical ointment topical 03/18/24 03/18/24 fluocinonide 0.05 % topical topical 03/18/24 03/18/24 solution loteprednol etabonate 0.5 % eye drp ophthalmic (eye) 03/18/24 03/18/24 drops,suspension nystatin 100,000 unit/mL oral PO 03/18/24 03/18/24 suspension omeprazole 40 mg capsule,delayed mg PO DAILY 03/18/24 03/18/24 release Previous Rx's ?Medication ?Instructions ?Recorded phenazopyridine 100 mg tablet 100 mg PO TID PRN pain 6 doses #6 10/20/23 tabs hydrocodone 5 mg-acetaminophen 325 1 tab PO Q4-6H PRN pain #15 tabs 02/18/24 mg tablet Allergies Allergy/AdvReac Type Severity Reaction Status Date / Time cephalexin Allergy Intermediate Chest Pain Verified 03/26/24 11:14 clonidine Allergy Intermediate tachycardia Verified 03/26/24 11:14 losartan Allergy Intermediate Tachycardia Verified 03/26/24 11:14 gadodiamide Allergy Mild Hives Verified 03/26/24 11:14 latex Allergy Mild Rash Verified 03/26/24 11:14 ibuprofen Allergy Chest Pain Verified 03/26/24 11:14 Penicillins Allergy Anaphylaxis Verified 03/26/24 11:14 Sulfa (Sulfonamide Allergy Hives Verified 03/26/24 11:14 Antibiotics) nitrofurantoin (From AdvReac Verified 03/26/24 11:14 Macrobid) propranolol AdvReac bradycardia Verified 03/26/24 11:14 IV contrast dye Allergy Hives Uncoded 03/18/24 10:44 peg 400-propylene glycol Allergy Rash Uncoded 03/18/24 10:44 Review of Systems Status of ROS: Reports: 10 or more systems reviewed and unremarkable except as noted in History and below [facility] Medical History TMJ tenderness, left ?M26.622 - Arthralgia of left temporomandibular joint (ICD-10) Chronic diastolic (congestive) heart failure ?I50.32 - Chronic diastolic (congestive) heart failure (ICD-10) Viral gastroenteritis ?A08.4 - Viral intestinal infection, unspecified (ICD-10) Traumatic ecchymosis of face ?S00.83XA - Contusion of other part of head, initial encounter (ICD-10) Toothache ?K08.89 - Other specified disorders of teeth and supporting structures (ICD-10) Sprain of knee ?S83.90XA - Sprain of unspecified site of unspecified knee, initial encounter (ICD-10) Pain of right hand ?M79.641 - Pain in right hand (ICD-10) Nausea alone ?R11.0 - Nausea (ICD-10) Headache ?R51.9 - Headache, unspecified (ICD-10) Fall ?W19.XXXA - Unspecified fall, initial encounter (ICD-10) Epigastric pain ?R10.13 - Epigastric pain (ICD-10) Dyspnea ?R06.00 - Dyspnea, unspecified (ICD-10) Cough ?R05.9 - Cough, unspecified (ICD-10) Cellulitis of leg ?L03.119 - Cellulitis of unspecified part of limb (ICD-10) Arthritis of both temporomandibular joints ?M26.643 - Arthritis of bilateral temporomandibular joint (ICD-10) Atrial fibrillation ?I48.91 - Unspecified atrial fibrillation (ICD-10) Enlarged LA (left atrium) ?I51.7 - Cardiomegaly (ICD-10) Vitamin D deficiency ?E55.9 - Vitamin D deficiency, unspecified (ICD-10) Hyperlipidemia ?E78.5 - Hyperlipidemia, unspecified (ICD-10) Panic disorder without agoraphobia ?F41.0 - Panic disorder [episodic paroxysmal anxiety] (ICD-10) Benign paroxysmal positional vertigo ?H81.10 - Benign paroxysmal vertigo, unspecified ear (ICD-10) Hypertension ?I10 - Essential (primary) hypertension (ICD-10) Surgical History S/P trigger finger release (06/04/23) ?Z98.890 - Other specified postprocedural states (ICD-10) History of incision and drainage (02/26/14) ?Z98.890 - Other specified postprocedural states (ICD-10) History of phacoemulsification of cataract of right eye with intraocular lens implantation (04/17/17) ?Z98.41 - Cataract extraction status, right eye (ICD-10) ?Z96.1 - Presence of intraocular lens (ICD-10) History of phacoemulsification of cataract of left eye with intraocular lens implantation (05/01/17) ?Z98.42 - Cataract extraction status, left eye (ICD-10) ?Z96.1 - Presence of intraocular lens (ICD-10) History of YAG laser capsulotomy of lens of right eye (09/04/17) ?Z98.41 - Cataract extraction status, right eye (ICD-10) History of YAG laser capsulotomy of lens of left eye (04/06/20) ?Z98.42 - Cataract extraction status, left eye (ICD-10) H/O hernia repair (03/22/08) ?Z98.890 - Other specified postprocedural states (ICD-10) ?Z87.19 - Personal history of other diseases of the digestive system (ICD-10) H/O dilation and curettage (04/28/08) ?Z98.890 - Other specified postprocedural states (ICD-10) History of appendectomy ?Z90.49 - Acquired absence of other specified parts of digestive tract (ICD-10) Social History Smoking Status: Never smoker Do you use any of these nicotine containing products: None How often do you have a drink containing alcohol: never How often do you have six or more drinks on one occasion: Never AUDIT-C Alcohol total score: 0 Non-prescribed substance use: denies use Caffeine: No Are you using contraception or practicing any form of control: No service: No Exam Narrative: Exam Narrative: Patient is seen in room 3 she is in no apparent distress she is pleasant alert. Speaking to me normally, pupils equal round reactive to light there is no scleral icterus redness or TMs are normal oropharynx is normal her oropharynx is normal, with normal hydration status her neck is supple there is no meningismus there is no lymphadenopathy anterior posterior chains and cranial nerves 3-12 are normal her chest is good air entry bilaterally with no wheezing crackles noted, heart sounds are normal, no clicks murmurs or gallops her abdomen is soft, she has a lot of excess skin probably from her weight loss, there is no tenderness to palpation no organomegaly, her bowel sounds are normal, no CVA tenderness she moves all extremities independently well no edema of her lower extremities negative Homans sign and skin reveals no rashes. Const: Vital Signs, click to edit/add: Vital Signs - 24 hr 03/26/24 11:03 03/26/24 13:55 Temperature 97.3 F L 98.3 F Pulse Rate [Right Pulse Oximeter] 70 64 Respiratory Rate 18 18 Blood Pressure [Ri ght Upper Arm] 124/73 132/56 L Pulse Oximetry 97 96 Oxygen Delivery Me thod Room Air Room Air Course Reevaluation(s) Time of Reevaluation #1: 14:42 Reevaluation #1: Patient has been drinking Pedialyte, no further episodes of nausea vomiting, or diarrhea, have been noted. She feels a lot better, I discussed with her labs show are basically normal with just a slight decrease of her total CO2. We will finish up her IV fluids and lower to go home with a prescription for some Zofran I went over the risks benefits and side effects of this, and went to re-presented, she was comfortable this. I also discussed with her using proper hand washing to hopefully avoid given this to anyone else. Time of Reevaluation #2: 15:33 Reevaluation #2: Patient is done while she was able leave us a specimen if we will send for C diff. she only had 1, I will also have her push fluids, she was post to get a carpal tunnel surgery today, and I explained to her that her INR is therapeutic. She was comfortable going home at this point Vital Signs Vital signs: Initial Vital Signs Temperature 97.3 F L 03/26/24 11:03 Temperature Source Temporal Artery Scan 03/26/24 11:03 Pulse Rate 70 03/26/24 11:03 Pulse Rhythm Regular 03/26/24 11:03 Pulse Strength 3+ Normal 03/26/24 11:03 Respiratory Rate 18 03/26/24 11:03 Blood Pressure 124/73 03/26/24 11:03 Blood Pressure Mean 90 03/26/24 11:03 Blood Pressure Position Sitting 03/26/24 11:03 Pulse Oximetry 97 03/26/24 11:03 Oxygen Delivery Method Room Air 03/26/24 11:03 Vital Signs Temperature 97.3 F L 03/26/24 11:03 Pulse Rate 70 03/26/24 11:03 Respiratory Rate 18 03/26/24 11:03 Blood Pressure 124/73 03/26/24 11:03 Pulse Oximetry 97 03/26/24 11:03 Oxygen Delivery Method Room Air 03/26/24 11:03 Temperature 98.3 F 03/26/24 13:55 Pulse Rate 64 03/26/24 13:55 Respiratory Rate 18 03/26/24 13:55 Blood Pressure 132/56 L 03/26/24 13:55 Pulse Oximetry 96 03/26/24 13:55 Oxygen Delivery Method Room Air 03/26/24 13:55 Medications Administered Medications: Generic Name Dose Route Start Last Admin Trade Name Freq PRN Reason Stop Dose Admin Oral Electrolytes 1,000 ml 03/26/24 12:52 03/26/24 12:59 Electrolytes/Dextrose Oral Melani 1,000 Ml PO 1,000 ml ONCE PRN Administration Diarrhea Discontinued Medications Generic Name Dose Route Start Last Admin Trade Name Freq PRN Reason Stop Dose Admin Ondansetron HCl 4 mg 03/26/24 12:51 03/26/24 12:59 Ondansetron Odt 4 Mg Tab PO 03/26/24 12:52 4 mg ONCE ONE Administration MDM - Nausea/Vomiting/Diarrhea MDM Narrative Medical decision making narrative: Differential diagnosis includes but is not limited to viral gastroenteritis, drug food poisoning, pyloric stenosis, gastritis, pancreatitis, hepatitis, cholecystitis, appendicitis, bowel obstruction, hyperemesis, cyclic vomiting syndrome, bulimia nervosa, migraine headache, motion sickness and medication side effect. These include the life threatening complications of appendicitis, drug food poisoning and bowel obstruction. Differential diagnosis considered include but not limited to viral gastroenteritis, food poisoning, bowel obstruction, Clostridium difficile, Campylobacter, Shigella, rotavirus, medication side effects, dysentery, diverticulitis, Crohn's disease and colitis Medical Records Attestation: I reviewed the patient's medical records. Lab Data Labs: Lab Results 03/26/24 03/26/24 03/26/24 Range/Units 12:19 13:20 Unknown WBC 7.60 (4.50-11.00) K/uL RBC 5.78 H (4.00-5.20) m/uL Hgb 15.8 (12.0-16.0) gm/dL Hct 47.9 (33.0-51.0) % MCV 83 (80-100) fL MCH 27 (26-34) pg MCHC 33 (32-36) gm/dL RDW Coeff of Mariaelena 17.4 H (11.5-15.5) % Plt Count 225 (140-440) K/uL Neut % (Auto) 93.8 H (42.0-72.0) % Lymph % (Auto) 2.4 L (20-44) % [place] % (Auto) 3.0 (0.0-11.0) % Eos % (Auto) 0.4 (0.0-7.0) % Baso % (Auto) 0.1 (0.0-3.0) % Neut # (Auto) 7.10 H (1.7-7.0) K/uL Lymph # (Auto) 0.20 L (0.90-2.90) K/uL [place] # (Auto) 0.20 (0.00-0.90) K/UL Eos # (Auto) 0.03 (0.00-0.50) K/uL Baso # (Auto) 0.01 (0.00-0.30) K/uL Abs Immat Gran (auto) 0.02 (0.00-0.30) K/uL Imm/Tot Granulo (auto) 0.3 % INR 2.38 H (0.91-1.10) Sodium 139 (135-149) mmol/L Potassium 3.9 (3.6-5.1) mmol/L Chloride 108 (96-114) mmol/L Carbon Dioxide 19 L (20-32) mmol/L Anion Gap 12 (7-15) mEq/L BUN 37 H (7-30) mg/dL Creatinine 0.8 (0.5-1.5) mg/dL Estimated Creat Clear 41.33 Estimated GFR 76 ml/min Glucose 131 H (60-115) mg/dL Lactate 1.6 (0.5-1.9) mmol/L Calcium 8.7 (8.4-10.6) mg/dL Total Bilirubin 2.0 H (0.1-1.5) mg/dL Direct Bilirubin 0.3 (0.0-0.5) mg/dL AST 26 (12-35) U/L ALT 22 (4-35) U/L Alkaline Phosphatase 85 (40-150) U/L C-Reactive Protein 6.0 H (0.5-1.0) mg/dL Total Protein 7.1 (6.0-8.3) g/dL Albumin 4.1 (3.3-5.0) g/dL Procalcitonin 0.33 (<0.50) ng/mL Urine Color Yellow (Yellow) Urine Appearance Clear (Clear) Urine pH 5.5 (5.0-8.5) Ur Specific [place] >= 1.030 (1.000-1.030) Urine Protein Trace A (Negative) Urine Glucose (UA) Negative (Negative) Urine Ketones Trace A (Negative) Urine Blood Negative (Negative) Urine Nitrite Negative (Negative) Urine Bilirubin Negative (Negative) Urine Urobilinogen 0.2 (0.2-1.0) Ur Leukocyte Esterase Negative (Negative) Urine RBC 0-2 (0-2) Urine WBC 0-2 (0-5) Ur Squamous Epith Cells Few (None-Few) Urine Bacteria Few A (None) Urine Mucus Many A (None) SARS-CoV-2 (PCR) Negative SARS-CoV-2 (Negative) Influenza Type A (PCR) Negative PCR FLU A (Negative) Influenza Type B (PCR) Negative PCR FLU B (Negative) RSV (PCR) Negative PCR RSV (Negative) Discharge Plan Discharge Clinical Impression: Vomiting, Diarrhea Patient Disposition: Home w/ Parent or Adult Condition: Stable Instructions: Acute Nausea and Vomiting (DC), Acute Diarrhea (ED) Additional Instructions: Home rest, use of Zofran every 8 hours, I would recommend a clear fluids for 24 hours then increasing to a brat diet. Return as needed if ongoing symptoms bleeding, abdominal pain. instymeds rx for zofran 4 mg odt x 10 tabs Activity Level: Light activity Discharge Diet: Clear Liquid Prescriptions: No Action fluticasone propionate 50 mcg/actuation spray,suspension 1 spray intranasal DAILY hydroxyzine HCl 25 mg tablet 25 mg PO 3XD amlodipine 10 mg tablet 10 mg PO DAILY phenazopyridine 100 mg tablet 100 mg PO TID PRN (Reason: pain) Qty: 6 0RF loteprednol etabonate 0.5 % drops,suspension ophthalmic (eye) Patient Comments: INSTILL 1 DROP INTO BOTH EYES THREE TIMES DAILY FOR 7 DAYS. SHAKE WELL BEFORE USE albuterol sulfate 90 mcg/actuation HFA aerosol inhaler inhalation Patient Comments: [NO ORIGINAL SIG] fluocinonide 0.05 % solution topical clobetasol 0.05 % ointment topical omeprazole 40 mg capsule,delayed release(DR/EC) PO DAILY nystatin 100,000 unit/mL suspension PO hydrocodone-acetaminophen 5-325 mg tablet 1 tab PO Q4-6H PRN (Reason: pain) Qty: 15 0RF losartan 50 mg tablet 100 mg PO DAILY Patient Comments: TAKE 2 TABLETS BY MOUTH ONCE DAILY oxybutynin chloride 10 mg tablet extended release 24hr 10 mg PO DAILY Patient Comments: TAKE 1 TABLET BY MOUTH ONCE DAILY ondansetron HCl 4 mg tablet 4 mg PO DAILY Patient Comments: TAKE 1 TABLET BY MOUTH EVERY 8 HOURS NEEDED FOR NAUSEA AND VOMITING sumatriptan succinate 50 mg tablet 50 mg PO DAILY Patient Comments: TAKE 1 TABLET BY MOUTH TWICE DAILY NEEDED FOR MIGRAINE GIVE AT MINIMUM 2 HOURS APART. MAX DOSE 200MG PER 24 HOURS. potassium chloride 20 mEq tablet,ER particles/crystals 20 meq PO DAILY Patient Comments: TAKE 1 TABLET BY MOUTH ONCE DAILY WITH A MEAL warfarin 5 mg tablet 5 mg PO furosemide 20 mg tablet 20 mg PO DAILY Patient Comments: TAKE 1 TABLET BY MOUTH IN THE MORNING flavoxate 100 mg tablet 100 mg PO TID Patient Comments: TAKE 1 TABLET BY MOUTH THREE TIMES DAILY cyclobenzaprine 5 mg tablet 5 mg PO TID PRN glucosamine HCl 1,500 mg tablet 1,500 mg PO DAILY hyoscyamine sulfate [Levsin] 0.125 mg tablet 0.125 mg PO Q4H PRN metronidazole 500 mg tablet 500 mg PO TID Follow Up/Referrals: Nico Betancourt MD [Primary Care Provider] - Stand Alone Forms: Conversation Media Info Instructions
[2024-03-26 12:30] LABS: PCR FLU A Negative PCR FLU A (Negative); PCR FLU B Negative PCR FLU B (Negative); PCR RSV Negative PCR RSV (Negative); SARS PCR* Negative SARS-CoV-2 (Negative)
[2024-03-26 12:39] LABS: Basophils Absolute Auto 0.01 K/uL (0.00-0.30); Basophils Percent Auto 0.1 % (0.0-3.0); Eosinophils Absolute Auto 0.03 K/uL (0.00-0.50); Eosinophils Percent Auto 0.4 % (0.0-7.0); Hematocrit 47.9 % (33.0-51.0); Hemoglobin* 15.8 gm/dL (12.0-16.0); Immature Granulocytes Abs Auto 0.02 K/uL (0.00-0.30); Immature Granulocytes Pct Auto 0.3 %; Lactate* 1.6 mmol/L (0.5-1.9); Lymphocytes Percent Auto 2.4 % (20-44); Mean Corpuscular HGB Conc 33 gm/dL (32-36); Mean Corpuscular Hemoglobin 27 pg (26-34); Mean Corpuscular Volume 83 fL (80-100); Neutrophils Percent Auto 93.8 % (42.0-72.0); Platelet Count* 225 K/uL (140-440); RDW Coefficient of Variation % 17.4 % (11.5-15.5); Red Blood Count 5.78 m/uL (4.00-5.20)
[2024-03-26 12:45] LABS: Slide Review Reflex No
[2024-03-26 12:53] LABS: Albumin* 4.1 g/dL (3.3-5.0); Chloride* 108 mmol/L (96-114)
[2024-03-26 12:54] LABS: Potassium* 3.9 mmol/L (3.6-5.1); Sodium* 139 mmol/L (135-149)
[2024-03-26 12:56] LABS: Alkaline Phosphatase* 85 U/L (40-150); Anion Gap 12 mEq/L (7-15); Aspartate Amino Transferase* 26 U/L (12-35); Bilirubin Direct* 0.3 mg/dL (0.0-0.5); Carbon Dioxide* 19 mmol/L (20-32); Creatinine* 0.8 mg/dL (0.5-1.5); Est. Creatinine Clearance* 41.33; Estimated Glomerular Filt Rate 76 ml/min; Total Protein* 7.1 g/dL (6.0-8.3)
[2024-03-26 12:57] LABS: Alanine Aminotransferase* 22 U/L (4-35); Blood Urea Nitrogen* 37 mg/dL (7-30); Calcium* 8.7 mg/dL (8.4-10.6); Glucose* 131 mg/dL (60-115)
[2024-03-26] MEDS: ONDANSETRON ODT 4 MG TAB PO (12:59)
[2024-03-26] MEDS: ELECTROLYTES/DEXTROSE ORAL SOL 1,000 ML 1000 ML PO (12:59)
[2024-03-26 13:14] LABS: Procalcitonin* 0.33 ng/mL (<0.50)
[2024-03-26 13:32] LABS: Appearance Urine Clear (Clear); Bilirubin Urine Negative (Negative); Blood Urine Negative (Negative); Color Urine Yellow (Yellow); Glucose Urine Negative (Negative); Ketones Urine Trace (Negative); Leukocyte Esterase Urine Negative (Negative); Nitrite Urine Negative (Negative); Protein Urine Trace (Negative); Specific Gravity Urine >= 1.030 (1.000-1.030); Urobilinogen Urine 0.2 (0.2-1.0); pH Urine 5.5 (5.0-8.5)
[2024-03-26 13:40] LABS: Bacteria Urine Few; Mucus Urine Many; RBC Urine 0-2 (0-2); Squamous Epithelial Cell Urine Few (None-Few); WBC Urine 0-2 (0-5)
[2024-03-26 13:55] VITALS: BP 132/56; PULSE 64; RESP 18; TEMP 36.8; O2SAT 96
[2024-03-26 14:46] LABS: INR 2.38 (0.91-1.10); Prothrombin Time 27.7 Seconds
[2024-03-26 15:34] LABS: Fecal Occult Blood* Positive (Negative)
[2024-03-26 16:15] LABS: C.Difficile Negative (Negative); CDIFFEPI 027 PRESUMPTIVE NEGATIVE (Negative)
== END 2024-03-26 15:43 | disposition home or self-care (01) ==
PROVIDERS: Emergency Provider Family Medicine; PCP Surgery
DX: R11.2 Nausea with vomiting, unspecified (principal); R19.7 Diarrhea, unspecified; Z13.0 Encounter for screening for diseases of the blood and blood-forming organs and certain disorders involving the immune mechanism; R82.79 Other abnormal findings on microbiological examination of urine
CPT/HCPCS: 36415; 80048; 80076; 81001; 82270; 83605; 84145; 85025; 85610; 86140; 87086; 87493; 87631; 99283; 99284; A9270

== ENCOUNTER 2024-04-13 06:11 | Emergency (ER) | payer MEDICARE, SELFPAY ==
--- OUTSIDE RECORDS SUMMARY | 2024-04-13 06:13 | XMS_ITS | Clinical Summary ---
Author Organization [facility] [employer] [facility] Address [address] [address] Phone Care Team Providers Care Shellacker Name Role Phone Unavailable Primary Care Provider [...] patient's age to complete this topic Insurance [facility] MEDICARE PLANS
--- OUTSIDE RECORDS SUMMARY | 2024-04-13 06:13 | XMS_ITS | Continuity of Care Document ---
Author Organization [facility], [place] Address [address] [place] [address] Care Team Providers Care Bottoming Room Supervisor Name Role Phone MARLENE GONZALEZ Primary Care Provider [phone] Assessment Encounter Date Assessment Date Assessment LastModified [...] Arthralg ia of temporom andibula r joint 32038385 Completed 201503/04/2019 Gale valadez [facility] 0 10:07:46 Myofasci al pain 456664388 Active 2019 masticat ory and cervical 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 90445279 Active 2023 BEVERLY PALOMINO BDS,MS [address], [place], [address], [facility] 4 13:51:30 Bilatera l temporom andibula r joint pain 41622582422 298381 Active 2023 BEVERLY PALOMINO BDS,MS [address], [place], [address], [place] [facility] 4 13:51:36 Episodic tension- type headache 879017553 Active 2023 BEVERLY COLIN PALOMINO,MS [address], [place], [address], [place] [facility] 4 13:51:40 Sleep related bruxism 096204997 Active 2023 BEVERLYJAH PALOMINO BDS,MS [address], [place], [address], [facility] 4 13:51:47 Finding of sensatio n by site 180730968 Completed 201503/04/2019 [facility] 0 12:58:52 Spasm 59667749 Completed 201403/04/[address] [facility] 0 12:59:25 Chest pain 05501886 Completed 03/04/2019 [facility], [facility] 0 12:58:59 Cellulit is 034284658 Completed 03/04/[address] [facility] 0 12:58:46 Mixed hyperlip idemia 461276079 Completed 03/04/2019 [facility], [facility] 0 12:58:55 Hyperten sive disorder 42303705 Completed 03/04/2019 [facility], [facility] 0 12:59:21 Polyp of colon 39663197 Completed 03/04/2019 [facility], [facility] 0 12:59:31 Chronic intersti tial cystitis 500138806 Completed 03/04/2019 [facility] 0 12:58:49 Panic disorder without agorapho reginald 53444155 Completed 03/04/2019 Gale valadez [facility] 0 12:59:29 Benign paroxysm al position al vertigo 593573533 Completed 03/04/2019 Gale valadez [facility] 0 12:58:44 Disorder of refracti on 98852900 Completed 03/04/2019 Gale valadez [facility] 0 12:59:23 Atrial fibrilla tion 60849075 Completed 03/04/2019 Gale valadez [facility] 0 12:59:27 Vitamin D deficien cy 09647982 Completed 03/04/2019 Gale valadez [facility] 0 12:59:18 Problem Notes None recorded. Procedures Surgical History Date Name Laterality Status Provider Name and Address Organization Details Recorded Time 02/04/20 24 Orthopantogram completed Daniella Carrero [facility] 02/04/2024 17:55:34 03/25/19 20 18161: Therapeutic Exercise completed Kaushik Hogan [facility] 03/25/2019 12:34:57 03/25/19 20 90413: Manual Therapy completed Kaushik Hogan [facility] 03/25/2019 17:43:28 03/17/19 20 21050 PT Eval - Low Complexity completed Kaushik Hogan [facility] 03/17/2019 17:58:21 03/17/19 20 97301: Therapeutic Exercise completed Kaushik Hogan [facility] 03/17/2019 11:33:56 03/17/19 20 11337: Manual Therapy completed Kaushik Hogan [facility] 03/17/2019 11:33:56 03/04/19 20 Orthopantogram completed Gale Church [facility] 03/04/2019 13:00:55 02/18/19 19 Xcapsl ctrc rmvl cplx wo ecp completed Gregor Longo [facility] 03/04/2019 12:47:26 reduction mammoplasty completed Gregor Longo [facility] 03/04/2019 12:46:06 Unlisted px foot/toes completed Gregor Longo [facility] 03/04/2019 12:46:45 Xcapsl ctrc rmvl cplx wo ecp completed Gregor Longo [facility] 03/04/2019 12:47:27 Appendectomy completed Gregor Longo [facility] 03/04/2019 13:47:26 Hernia repair w/mesh completed Gregor Longo [facility] 03/04/2019 13:47:39 Imaging Results None recorded. Procedure Notes None recorded. Medical Equipment None Reported. Allergies Allergen ID Allergen Name Allergen Category Reaction Reaction Severity Criticality Documentation Date Start Date Code Code System Note Provider Name and Address Organization Details Recorded Time 63014 clonidine medicatio n Not available Not available Not available 01/12/2016 2599 RxNorm Not Available [facility] 6 06:37:56 19943 latex environme nt,medica tion Not available Not available Not available 01/12/2016 06243 91 RxNorm Not Available [facility] 6 06:39:09 92031 Substance with sulfonami de structure and antibacte rial mechanism of action (substanc e) medicatio n Not available Not available Not available 01/12/2016 10864 8003 SNOMED Not Available [facility] 6 06:39:24 35982 Product containin g penicilli n (product) medicatio n Not available Not available Not available 01/12/2016 84552 8001 SNOMED Not Available [facility] 6 06:40:04 95370 diatrizoa te meglumine medicatio n Not available Not available Not available 01/12/2016 3320 RxNorm Not Available [facility] 6 06:41:41 70424 losartan medicatio n Not available Not available Not available 01/12/2016 44230 RxNorm Not Available [facility] 6 06:44:23 82851 cephalexi n medicatio n Not available Not available Not available 02/04/2024 [address] [facility] 4 [...] /min 114 mm[Hg] 65 mm[Hg] Sukhjinder Bettencourt [facility] 03/23/2024 12:03:57 Social History Question Answer Notes LastModified by Organizat ion Details LastModified Time Tobacco Smoking Status Never Smoker Gregor valadez, [facility] 03/04/2019 [...] N Chronic fatigue syndrome N Hyperthyroidism N MRSA N Premenstrual syndrome (PMS) N Head Trauma/Injury N Emphysema N Irritable bowel syndrome N COPD N Depression N Glaucoma N Lung Disease N Hypothyroidism N Pneumonia N Pacemaker N [...] Health Concerns N Tuberculosis N AIDS/HIV N Hyperlipidemia N History of radiation therapy N Dementia N Asthma N Physical or sexual abuse N Substance Abuse N Psoriasis N Peripheral Vascular Disease N Reflux/GERD N Vertigo N Sleep Disorder N Hepatitis N Aneurysm N Neuropathy N Heart Disease N Pulmonary Embolism N Hypertension Y Osteoporosis N Gynecological HistoryNo gynecological history recorded. 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 Bilateral temporomandibular joint pain 3929083204 3852545 M26.623 L>R Episodic t ension-type headache 065007936 G44.219 Neck pain 69325368 M54.2 Sleep related bruxism 27 9478375 G47.63 Health Concerns Section Related Observation LastModified by Organization Detai ls LastModified Time None Recorded Concern Status LastModified by Organization Details LastModified Time None Recorded Payers Encounter Date Sequence Insurance Name Policy Number Policy Narayanan Covered Member ID Narayanan Member ID Guarantor Name 03/23/2024 1 [employer] - DOS ON OR AFTER 19 (MEDICARE REPLACEMENT/ ADVANTAGE - HMO) [id number] 1 Cindy Romero Rosy [id number] Cindy Romero Rosy Notes Date Note Type [...] She is engaged in physical therapy in [place], [place], and doing home exercises. The patient [...] not have a home. BEVERLY PALOMINO BDS,MS [address] [facility], [place], [address], [facility] 03/25/2024 15:12:41 OBGyn Episode No OBEpisode recorded.
--- OUTSIDE RECORDS SUMMARY | 2024-04-13 06:14 | XMS_ITS | Continuity of Care Document ---
Author Organization [facility] Address [address] [place] [address] Phone Care Team Providers Care Geospatial Scientist Name Role Phone Unavailable Unavailable Unavailable Advance Directives Directive Yes / No Effective Date File Name No Information Encounters Encounter Description Practice Location Reason(s) For Visit Diagnoses Date Provider Providers Copied on Encounter [facility], [address] [place], [id number], [place] tel:[phone] [facility] No Information No Information Family [...]
--- OUTSIDE RECORDS SUMMARY | 2024-04-13 06:14 | XMS_ITS | Data Portability ---
Author Organization [place] [facility] [place] [facility], [facility] Address [address] [facility] [address] [place] [address] Assessment Encounter Date Assessment Date Assessment LastModified [...] mg tablet,exte nded release 24 hr 2021 [facility] [address] [address] [place], [address], 12:06:34 hyoscyamine sulfate 0.125 mg tablet 2021 [facility] [address] [address] [place], [address], 12:06:36 hydroxyzine HCl 25 mg tablet 2021 [facility] [address] [address] [place], [address], 12:06:33 Patient TargetsNo targets recorded. Patient InstructionsNo instructions recorded. Reason for Referral None Reported. Procedures Surgical History Date Name Laterality Status Provider Name and Address Organization Details Recorded Time Appendectomy completed Donald Carranza MD [address] [place] [address],[address], [place], [address], [facility] 01/03/2022 11:42:03 Colonoscopy completed Donald Carranza MD [address] [place] [address],[address], [place], [address], [facility] 01/03/2022 11:42:11 Hernia Repair completed Donald whitlock MD [address] [place] [address],[address], [address], [facility] 01/03/2022 11:42:17 Imaging Results None recorded. Procedure Notes None recorded. Medical Equipment None Reported. Allergies Allergen ID Allergen Name Allergen Category Reaction Reaction Severity Criticality Documentation Date Start Date Code Code System Note Provider Name and Address Organization Details Recorded Time 396757 clonidine medicatio n Not available Not available Not available 01/03/2022 2599 RxNorm Not Available Not Available Not Available 199525 Iodinated contrast media (substanc e) medicatio n Not available Not available Not available 01/03/2022 62960 2004 SNOMED Not Available Not Available Not Available 780016 Keflex medicatio n Not available Not available Not available 01/03/2022 13152 7 RxNorm Not Available Not Available Not Available 418303 latex environme nt,medica tion Not available Not available Not available 01/03/2022 99329 91 RxNorm Not Available Not Available Not Available 491523 losartan medicatio n Not available Not available Not available 01/03/2022 19790 RxNorm Not Available Not Available Not Available 289288 Product containin g penicilli n (product) medicatio n Not available Not available Not available 01/03/2022 71025 8001 SNOMED Not Available Not Available Not Available 968684 Substance with sulfonami de structure and antibacte rial mechanism of action (substanc e) medicatio n Not available Not available Not available 01/03/2022 09556 8003 SNOMED Not Available Not Available Not [...] Updated DateTime 01/03/2022 162.56 cm 34.3 kg/m2 25775.47 g Donald Carranza MD [address] [place] [address], [phone] [place] [address] Urology 01/03/2022 11:43:40 Social History Question Answer Notes LastModified by Organizat ion Details LastModified Time Tobacco Smoking Status Never Smoker Donald Carranza MD [address] [place] [address], [address] [place] [address] Urology 01/03/2022 11:41:47 What Is Your Level Of Alcohol Consumption? None [facility] Information not available 01/03/2022 What Was [...] SNOMED-CT Code Diagnosis ICD10 Code Diagnosis Note [id number] Donald Carranza MD [facility] [address] [place] [address] 01/03/2022 11:20:39 01/05/2022 11:03:20 Chronic interstitial cystitis 368759912 N30.10 - Continue Oxybutynin XL 10 mg daily- continue Urispas 100 mg TID- Continue hydroxyzin e daily- Follow-up in 12 months Urinary bladder pain 158 37032 R39.82 - As above Health Concerns Section [...] AFTER 19 (MEDICARE REPLACEMENT/ ADVANTAGE - PPO) [id number] 1 Cindy Gallegos [id number] Cindy Gallegos Notes Date Note Type Note [...] well on current regimen. Donald Carranza MD [address] [place] [address],[facility] [address], [place], [address], [facility] 01/03/2022 13:42:50 OBGyn Episode No OBEpisode recorded.
--- OUTSIDE RECORDS SUMMARY | 2024-04-13 06:14 | XMS_ITS | Data Portability ---
Author Organization [place] - [facility] Address [address] [address] Care Team Providers Care Firmware Test Engineer Name Role Phone MARLENE GONZALEZ Primary Care [...] guarding habits to decrease pain by 50% nursing home goals-6 weeks Client to not have jaw [...] be considered after reviewing existing imaging from [facility]. A release of information was obtained [...] return for follow-up care in 4-6 weeks. [email or web address] Not available 03/25/2024 15:12:37 Plan of Treatment Reminders Order Date Submit Date Provider Last Modified By Organization Details Last Modified Time Details Appointments FOLLOW UP 30 2024 11:00A M GRETCHEN PALOMINO, BDS,MS Not available Not available Not available Lab None recorde d. Referral physica l therapi st referra l - Please contact patient to schedul e 2023 024 ALLEN Dumont DPT, [facility], [place], [address], 02/06/2024 14:12:[address] st referra l 2019 020 [email or web address] [place] [address], [facility] [address], [address], 03/05/2019 10:10:15 Procedures None recorde d. Surgeries None recorde d. Imaging XR, orthopa ntogram 2023 024 [place] [address], [facility] [address], [address], 02/06/2024 13:53:17 Medication Orders None recorde d. Patient TargetsNo targets recorded. Patient Instructions Encounter Date Encounter Id Patient Instructions Last Modified By Organization Details Last Modified Time 03/17/2019 [id number] Plan: Medicare requires a primary school teacher or RIM ROLLER OPERATOR to authorize our plan of care. If you agree with the plan as outlined above, please sign, date and fax back to [phone]. Thank you. Primary MD signature: Date: [email or web address] Not available 03/17/2019 11:33:56 03/25/2019 [id number] Plan: Medicare requires a primary school teacher or RIM ROLLER OPERATOR to authorize our plan of care. If you agree with the plan as outlined above, please sign, date and fax back to [phone]. Thank you. Primary MD signature: Date: [email or web address] Not available 03/25/2019 12:34:57 02/04/2024 [id number] Self Care for TMD Not availab le [...] panto gram No observ ation record ed. [email or web address] Not Available 2023 16:52:37 02/05/20 24 02/05/2024 [...] panto gram No observ ation record ed. [place] [address], [place], [address], 02/06/2024 13:52:42 Result Notes None recorded. Problems Name Problem SNOMED Code Status Onset Date Resolution Date Notes Provider Name and Address Organization Details Recorded Time Arthralg ia of temporom andibula r joint 84678720 Completed 201503/04/2019 Gale valadez [facility] 0 10:07:46 Myofasci al pain 085612029 Active 2019 masticat ory and cervical Gale valadez [facility] 0 10:08:05 Arthralg ia of temporom andibula r joint 85868978 Active 2019 Gale valadez, [facility] 0 10:07:46 Neck pain 35671378 Active 2019 Gale valadez, [facility] 0 10:07:47 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 39043888 Active 2023 GRETCHEN PALOMINO BDS,MS [address] [facility] [address], [place], [address], [place] [facility] 4 13:51:30 Bilatera l temporom andibula r joint pain 05986123602 321146 Active 2023 GRETCHEN PALOMINO BDS,MS [address], [place], [address], [place] [facility] 4 13:51:36 Episodic tension- type headache 857961690 Active 2023 GRETCHEN PALOMINO BDS,MS [address], [place], [address], [place] [facility] 4 13:51:40 Sleep related bruxism 444790690 Active 2023 HIRAL MENDEZS,MS [address], [place], [address], [place] [facility] 4 13:51:47 Finding of sensatio n by site 086307948 Completed 201503/04/2019 Gale Rosales [facility], [facility] 0 12:58:52 Spasm 18713616 Completed 201403[facility]04/[facility] 0 12:59:25 Chest pain 05151887 Completed 03/04/2019 Gale Rosales [facility], [facility] 0 12:58:59 Cellulit is 557507317 Completed 03/04/2019 Gale Rosales [facility], [facility] 0 12:58:46 Mixed hyperlip idemia 575601174 Completed 03/04/2019 Gale Rosales [facility], [facility] 0 12:58:55 Hyperten sive disorder 09205800 Completed 03/04/2019 Gale valadez, [facility] 0 12:59:21 Polyp of colon 73714634 Completed 03/04/2019 Gale Rosales null, [facility] 0 12:59:31 Chronic intersti tial cystitis 830550909 Completed 03/04/2019 Gale Rosales null, [facility] 0 12:58:49 Panic disorder without agorapho reginald 36942393 Completed 03/04/2019 Gale Rosales null, [facility] 0 12:59:29 Benign paroxysm al position al vertigo 195277360 Completed 03/04/2019 Gale valadez [facility] 0 12:58:44 Disorder of refracti on 57227649 Completed 03/04/2019 Gale valadez [facility] 0 12:59:23 Atrial fibrilla tion 97017787 Completed 03/04/2019 Gale valadez [facility] 0 12:59:27 Vitamin D deficien cy 43130699 Completed 03/04/2019 Gale valadez [facility] 0 12:59:18 Problem Notes None recorded. Procedures Surgical History Date Name Laterality Status Provider Name and Address Organization Details Recorded Time 02/04/20 Orthopantogram completed Daniella Carrero [facility] 02/04/2024 17:55:34 03/25/19 20 47852: Therapeutic Exercise completed Kaushik Hogan [facility] 03/25/2019 12:34:57 03/25/19 34935: Manual Therapy completed Kaushiksilverio Hogan [facility] 03/25/2019 17:43:28 03/17/19 20 25026 PT Eval - Low Complexity completed Kaushiksilverio Hogan [facility] 03/17/2019 17:58:21 03/17/19 20 72376: Therapeutic Exercise completed Kasuhik Hogan [facility] 03/17/2019 11:33:56 03/17/19 20 60578: Manual Therapy completed Kaushik Hogan [facility] 03/17/2019 11:33:56 03/04/19 20 Orthopantogram completed Gale Rosales [facility] 03/04/2019 13:00:55 02/18/19 19 Xcapsl ctrc rmvl cplx wo ecp completed Gregor Longo [facility] 03/04/2019 12:47:26 reduction mammoplasty completed Gregor Longo [facility] 03/04/2019 12:46:06 Unlisted px foot/toes completed Gregor Longo [facility] 03/04/2019 12:46:45 Xcapsl ctrc rmvl cplx wo ecp completed Gregor Longo [facility] 03/04/2019 12:47:27 Appendectomy completed Gregor Longo [facility] 03/04/2019 13:47:26 Hernia repair w/mesh completed Gregor Snowmarco antonio [facility] 03/04/2019 13:47:39 Imaging Results Imaging Date Name Status LastModified by Organization Details LastModified Time 03/04/2019 XR, orthopantogram completed Inform ation not available 03/04/2019 13:24:13 02/04/2024 XR, orthopantogram completed [email or web address] Inform ation not available 02/04/2024 16:52:37 02/05/2024 CT, temporal bone, w/o contrast completed Information not available 02/05/2024 15:39:21 02/05/2024 CT, neck, w/wo contrast completed Information not available 02/05/2024 14:05:56 02/05/2024 CT, head, w/wo contrast completed Information not available 02/05/2024 15:39:21 02/06/2024 XR, orthopantogram completed [place] [address], [place], [address], 02/06/2024 13:52:42 Procedure Notes None recorded. Medical Equipment None Reported. Allergies Allergen ID Allergen Name Allergen Category Reaction Reaction Severity Criticality Documentation Date Start Date Code Code System Note Provider Name and Address Organization Details Recorded Time 49512 clonidine medicatio n Not available Not available Not available 01/12/2016 2599 RxNorm Not Available [facility] 6 06:37:56 41893 latex environme nt,medica tion Not available Not available Not available 01/12/2016 34027 91 RxNorm Not Available [facility] 6 06:39:09 68248 Substance with sulfonami de structure and antibacte rial mechanism of action (substanc e) medicatio n Not available Not available Not available 01/12/2016 93022 8003 SNOMED Not Available [facility] 6 06:39:24 68818 Product containin g penicilli n (product) medicatio n Not available Not available Not available 01/12/2016 36354 8001 SNOMED Not Available [facility] 6 06:40:04 30847 diatrizoa te meglumine medicatio n Not available Not available Not available 01/12/2016 3320 RxNorm Not Available [facility] 6 06:41:41 18320 losartan medicatio n Not available Not available Not available 01/12/2016 32994 RxNorm Not Available [facility] 6 06:44:23 00494 cephalexi n medicatio n Not available Not available Not available 02/04/2024 2231 RxNorm Kelsey Treviño [facility] 4 15:45:11 [...] and Address Organization Details Last Updated DateTime 166.37 cm 32.4 kg/m2 97535.2 9 g 54 /min 120 mm[Hg] 68 mm[Hg] Kelsey Treviño [place] - [facility] 15:45:40 Date Recorded Body height Heart rate Systolic blood pressure Diastolic blood pressure Provider Name and Address Organization Details Last Updated DateTime 03/23/2024 166.37 cm 69 /min 114 mm[Hg] 65 mm[Hg] Sukhjinder Bettencourt [facility] 03/23/2024 12:03:57 Date Recorded Body height Body mass index (BMI) Body weight Heart rate Systolic blood pressure Diastolic blood pressure Provider Name and Address Organization Details Last Updated DateTime 0 167.64 cm 35.5 kg/m2 16611.3 2 g 61 /min 154 mm[Hg] 79 mm[Hg] Gregor Longo [facility] 0 12:37:27 Social History Question Answer Notes LastModified by Organizat ion Details LastModified Time Tobacco Smoking Status Never Smoker Gregor Longo [facility] [...] SNOMED-CT Code Diagnosis ICD10 Code Diagnosis Note [id number] Gale Lynnette [address] [place] [address] 03/04/2019 12:07:41 03/04/2019 13:44:29 Arthralgia of temporomandibular joint 95784926 M26.629 Myofascial pain 97986385 9 M79.11 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 Neck pain 60284852 M54.2 [id number] Kaushik Bright[address] [place] [address] 03/17/2019 11:08:09 03/17/2019 12:29:49 Arthralgia of temporomandibular joint 05860797 M26.629 Neck pain 69937085 M54.2 [id number] Kaushik Bright[address] [place] [address] 03/25/2019 12:18:18 03/25/2019 13:03:15 Arthralgia of temporomandibular joint 67200113 M26.629 Neck pain 07568884 M54.2 Myofascial pain 83992314 9 M79.10 [id number] GRETCHEN PALOMINO BDS,MS [address] Har[address] [place] [address] 02/04/2024 14:08:48 02/04/2024 17:23:18 Articular disc disorder of temporomandibular joint 36406126 M26.633 Bilateral TMJ disc displaceme nt without reduction with limited openingRul e out L>R TMJ DJD - irregulari ty per KRUGER Myofascial pain 62443212 9 M79.11 M79.12 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 Bilateral temporomandibular joint pain 0449258713 7241752 M26.623 L>R Episodic t ension-type headache 567073896 G44.219 Neck pain 41236346 M54.2 Sleep related bruxism 27 7033491 G47.63 [id number] GRETCHEN PALOMINO BDS,MS [address]uta [address] [place] [address] 03/23/2024 11:40:07 03/23/2024 12:30:05 Articular disc disorder of temporomandibular joint 41176588 M26.633 Bilateral TMJ disc displaceme nt without reduction with limited openingRul e out L>R TMJ DJD - irregulari ty per KRUGER Myofascial pain 03091525 9 M79.11 M79.12 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 Bilateral temporomandibular joint pain 6832754873 0625093 M26.623 L>R Episodic t ension-type headache 580078708 G44.219 Neck pain 85108780 M54.2 Sleep related bruxism 27 4740506 G47.63 Health Concerns Section Related Observation LastModified by Organization Detai ls LastModified Time None Recorded Concern Status LastModified by Organization Details LastModified Time None Recorded Advance Directives Directive None Recorded Payers Encounter Date Sequence Insurance Name Policy Number Policy Narayanan Covered Member ID Narayanan Member ID Guarantor Name 03/04/2019 1 [employer] - DOS ON OR AFTER 19 (MEDICARE REPLACEMENT/ ADVANTAGE - HMO) [id number] 1 Cindy R Rosy [id number] Cindy R Rosy 03/17/2019 1 [employer] - DOS ON OR AFTER 19 (MEDICARE REPLACEMENT/ ADVANTAGE - HMO) [id number] Cindy R Rosy [id number] Cindy R Rosy 03/25/2019 1 [employer] - DOS ON OR AFTER 19 (MEDICARE REPLACEMENT/ ADVANTAGE - HMO) [id number] Cindy R Rosy [id number] Cindy R Rosy 02/04/2024 1 [employer] - DOS ON OR AFTER 19 (MEDICARE REPLACEMENT/ ADVANTAGE - HMO) [id number] 1 Cindy R Rosy [id number] Cindy R Rosy 03/23/2024 1 [employer] - DOS ON OR AFTER 19 (MEDICARE REPLACEMENT/ ADVANTAGE - HMO) [id number] Cindy R Rosy [id number] Cindy R Rosy Notes Date Note Type [...] pain in her left masseter. Gale Rosales rory [facility] 03/05/2019 10:10:18 03/17/2019 text/html general HPI for jaw, face, TMD painReported bypatient.Onset:starte d 2 week(s) ago Location:left Quality:dull Severity:pain level 210 Durationintermittent daily Symptom triggers:chews hard/crunchy/chewy foods; Hit [...] elbow/knee with no head impact. Kaushik valadez [facility] 03/17/2019 18:11:41 03/25/2019 text/html She reports pain in the left jaw. 02/27. Biting increases pain but doing better except when ate walleye sandwich which had her mouth open widely. [place], She hit elbow/knee with no head impact and still reports no after effects. Kaushik valadez [facility] 03/25/2019 17:45:29 [...] or medications. She denies sleep issues. GRETCHEN PALOMINO, COLIN,MS [address] [facility] [address], [place], [address], [place] [facility] 02/06/2024 [...] She is engaged in physical therapy in [place], [place], and doing home exercises. The patient [...] do not have a home. GRETCHEN PALOMINO, BDS,MS [address] [facility] [address], [place], [address], [facility] 03/25/2024 15:12:41 OBGyn Episode No OBEpisode recorded.
--- OUTSIDE RECORDS SUMMARY | 2024-04-13 06:14 | XMS_ITS | Patient Health Record ---
Author Organization [facility] Address [address] [place] [id number] Care Team Providers Care Furnace Converter Name Role Phone ZZ Outside Provider, sushila Primary Care Provider Allergies Allergen (clinical drug ingredient) Drug/Non Drug Allergy documented on EMR Reaction Allergy Type Onset Date Status Latex Latex Unknown Allergy Active Substance with sulfonamide structure and antibacterial mechanism of action (substance) Sulfa Antibiotics Unknown Drug Allergy Active Reason For Referral No Information Medications Medication SIG (Take, Route, Frequency, Duration) Notes Start Date End Date Status Losartan Potassium 50 MG 1 tablet Orally Once a day for 30 day(s) Active Fluticasone Propionate (Inhal) 50 MCG/BLIST 1 puff Inhalation Twice a day Active Hyoscyamine Active Fluocinonide 0.05 % 1 application Signal Operator Linguist ally Twice a day Active Glucosamine MSM [...] eye Ophthalmic Twice a day Active Nystatin 872591 UNIT/ML 1 tsp swish and retain in mouth, then swallow or spit Mouth/Throat Four times a day for 10 days Active Imitrex 50 MG 1 tablet at least 2 hours between doses as needed Orally Twice a day Active oxyBUTYnin 3.9 MG/24HR 1 patch to skin Transdermal Two times a Week for 30 day(s) Active Social History Tobacco Use: Social History Observation Description Date Details (start date - stop date) Never Smoker NA - NA Tobacco Use/Smoking Question Answer Notes Smoking Status: nonsmoker Plan Of Treatment No Information Insurance Providers Payer Name Payer Address Payer Phone Subscriber Number Group Number Insured Name Patient Relationship to Insured Coverage Start Date Coverage End Date [employer] Medicare Complete Adv [address] [place] [address] [phone] [id number] Cindy Gallegos Self - patient is the insured
--- OUTSIDE RECORDS SUMMARY | 2024-04-13 06:14 | XMS_ITS | Clinical Summary ---
Author Organization [employer] [facility] Address [address] [place] [id number] Care Team Providers Care Disposal Plant Operator Name Role Phone Nico Betancourt MD Primary Care Provider [phone] Allergies Active Allergy Reactions Criticality Noted Date [...] 24 hrs. 30 tablet 09/01/19 18 Active erythromycin ophthalmic ointment 0.5% INSTILL A 1/4 INCH RIBBON INTO THE INFERIOR CUL-DE-SAC OF BOTH EYES THREE TIMES DAILY FOR SEVEN DAY 07/21/19 23 Active ketotifen (ZADITOR) 0.025 % (0.035 %) ophthalmic solution Place 1 Drop into the eye(s) two times daily. Active hydrOXYzine HCL (ATARAX) 25 mg tabletIndications :Chronic interstitial cystitis Take 1 Tablet (25 mg) by mouth at bedtime. 90 Tablet 3 03/07/19 24 Active ondansetron (ZOFRAN) 4 mg tabletIndications :Nausea TAKE 1 TABLET BY MOUTH EVERY 8 HOURS NEEDED FOR NAUSEA FOR VOMITING 30 Tablet 08/27/19 24 Active LORazepam (ATIVAN) 0.5 mg tabIndications:An xiety due to invasive procedure Take 1 Tablet (0.5 mg) by mouth one time for 1 dose. 30 mins prior to procedure 1 Tablet 12/06/19 24 Active warfarin (COUMADIN) 5 mg tabletIndications :Paroxysmal atrial fibrillation (HC),Anticoagulat ion monitoring, INR range 2-3 Take by mouth 7.5 mg (5 mg x 1.5) every Sat, Gaby; 5 mg (5 mg x 1) all other days in the evening OR as directed 104 Tablet 02/05/20 24 Active amLODIPine (NORVASC) 10 mg tabletIndications :HTN (hypertension) Take 1 Tablet (10 mg) by mouth once daily. 90 Tablet 3 03/16/19 25 Active albuterol HFA (PRO-AIR; VENTOLIN; PROVENTIL) 90 mcg/actuation inhalerIndication s:Wheezing Inhale 1-2 Puffs by mouth every 4 hours if needed for Wheezing. 18 g 03/16/19 25 Active clobetasol (TEMOVATE) 0.05 % ointmentIndicatio ns:Vulvar itching Apply to vulva once daily as needed for itching - do not use for more than 1 week straight 60 g 3 03/16/19 25 Active cyclobenzaprine (FLEXERIL) 5 mg tabletIndications :Muscle spasm of back Take 1 Tablet (5 mg) by mouth every 8 hours if needed for Muscle Spasm. 30 Tablet 03/16/19 25 Active flavoxATE (URISPAS) 100 mg tabletIndications :Chronic interstitial cystitis Take 1 Tablet (100 mg) by mouth three times daily. 270 Tablet 03/16/19 25 Active fluticasone (50 mcg per actuation) nasal solution (FLONASE)Indicati ons:Eustachian tube dysfunction, unspecified laterality Inhale 1 Evans in both nostrils once daily. 48 g 03/16/19 25 Active furosemide (LASIX) 20 mg tabletIndications :Chronic diastolic congestive heart failure (HC) Take 1 Tablet (20 mg) by mouth once daily if needed (Leg swelling). Take around once a month 90 Tablet 03/16/19 25 Active hyoscyamine (LEVSIN) 0.125 mg tabletIndications :Chronic interstitial cystitis Take 1 Tablet (0.125 mg) by mouth every 4 hours if needed for Bladder Spasms. 90 Tablet 03/16/19 25 Active oxybutynin XL (DITROPAN XL) 10 mg CR tabletIndications :Bladder pain Take 1 Tablet (10 mg) by mouth once daily. 90 Tablet 03/16/19 25 Active losartan (COZAAR) 50 mg tabletIndications :Essential hypertension with goal blood pressure less than 140/90 Take 2 Tablets (100 mg) by mouth once daily. 180 Tablet 03/16/19 25 Active omeprazole (PRILOSEC) 40 mg Delayed-Release capsuleIndication s:Gastric reflux Take 1 Capsule (40 mg) by mouth once daily before a meal. 90 Capsule 03/16/19 25 Active potassium chloride (KLOR-CON M20) 20 mEq extended-release tablet (part/cryst)Indic ations:Hypokalemi a Take 1 Tablet (20 mEq) by mouth once daily with a meal. 90 Tablet 03/16/19 25 Active SUMAtriptan (IMITREX) 50 mg tabletIndications :Intractable migraine without aura and without status migrainosus Take 0.5 Tablets (25 mg) by mouth 2 times daily if needed for Migraine. Give at minimum 2hrs apart. Max Dose: 200mg per 24hrs. 12 Tablet 2 03/16/19 25 Active loteprednol (LOTEMAX) 0.5 % ophthalmic suspension Place into the eye(s). 03/18/19 25 Active fluocinonide 0.05 TOPICAL (LIDEX) 0.05 % external solution Apply topically to affected area(s). 03/18/19 25 Active tiZANidine (ZANAFLEX) 4 mg tabletIndications :Back spasm Take 1 Tablet (4 mg) by mouth every 6 hours if needed for Muscle Spasm. 10 Tablet 04/02/19 25 Active HYDROcodone-aceta minophen (5-325 mg/tablet)Indicat ions:Back spasm Take 1 Tablet by mouth every 6 hours if needed for Pain. Max acetaminophen dose: 4000 mg in 24 hrs. 15 Tablet 04/02/19 25 Active loratadine (CLARITIN) 10 mg tablet Take 1 tablet by mouth once daily. 30 tablet 0 05/25/19 10 025 Discontin ued(*Blanca ent states no longer taking) fluocinonide 0.05 TOPICAL (LIDEX) 0.05 % external solutionIndicatio ns:Scalp irritation Apply up to twice daily as needed for scalp irritation 60 mL 1 02/13/20 18 025 Discontin ued(Reord er (E-cancel not sent)) albuterol HFA (PRO-AIR; VENTOLIN; PROVENTIL) 90 mcg/actuation inhaler Every 4 Hours as needed 025 Discontin ued(Reord er (E-cancel not sent)) nystatin (MYCOSTATIN) 100,000 unit/mL suspensionIndicat ions:Thrush Swish and spit 5 mL (500,000 units) by mouth 4 times daily. 480 mL 1 12/23/19 21 025 Discontin ued(Reord er (E-cancel not sent)) clobetasol 0.05% (TEMOVATE 0.05% OINTMENT) 0.05 % ointmentIndicatio ns:Vulvar itching Apply to vulva once daily as needed for itching - do not use for more than 1 week straight 60 g 3 06/14/19 23 025 Discontin ued(Reord er (E-cancel not sent)) loteprednol (LOTEMAX GEL) 0.5 % ophthalmic gel INSTILL 1 DROP 4 TIMES DAILY INTO EACH EYE FOR 7 DAYS THEN STOP 07/21/19 Discontin ued(Dupli reji therapy (E-cancel not sent)) fluconazole (DIFLUCAN ORAL) 025 Discontin ued(*Blanca ent states no longer taking) fluticasone-salme terol (AIRDUO RESPICLICK) 55-14 mcg/actuation aepb inhaler Inhale 1 Puff by mouth once daily. 025 Discontin ued(*Blanca ent states no longer taking) metroNIDAZOLE (FLAGYL) 500 mg tablet Take 500 mg by mouth three times daily. 08/17/19 025 Discontin ued(*Blanca ent states no longer taking) naproxen (NAPROSYN) 500 mg tablet Take 500 mg by mouth once daily. 30 min after meal 08/17/19 025 Discontin ued(*Blanca ent states no longer taking) pentosan polysulfate sodium (ELMIRON ORAL) 025 Discontin ued(*Blanca ent states no longer taking) flavoxATE (URISPAS) 100 mg tabletIndications :Chronic interstitial cystitis Take 1 Tablet (100 mg) by mouth three times daily. 270 Tablet 3 03/07/19 24 Discontin ued(Reord er (E-cancel not sent)) fluticasone (50 mcg per actuation) nasal solution (FLONASE)Indicati ons:Eustachian tube dysfunction, unspecified laterality Inhale 1 Evans to both nostrils once daily. 48 g 3 03/07/19 24 025 Discontin ued(Reord er (E-cancel not sent)) furosemide (LASIX) 20 mg tabletIndications :Chronic diastolic congestive heart failure (HC) Take 1 Tablet (20 mg) by mouth once daily if needed (Leg swelling). Take around once a month 90 Tablet 3 03/07/19 24 025 Discontin ued(Reord er (E-cancel not sent)) hyoscyamine (LEVSIN) 0.125 mg tabletIndications :Chronic interstitial cystitis Take 1 Tablet (0.125 mg) by mouth every 4 hours if needed for Bladder Spasms. 90 Tablet 3 03/07/19 24 025 Discontin ued(Reord er (E-cancel not sent)) omeprazole (PRILOSEC) 20 mg Delayed-Release capsuleIndication s:Gastric reflux Take 1 Capsule (20 mg) by mouth once daily before a meal. 90 Capsule 3 03/07/19 24 025 Discontin ued(*Medi cation adjustmen t) potassium chloride (KLOR-CON M20) 20 mEq extended-release tablet (part/cryst)Indic ations:Hypokalemi a Take 1 Tablet (20 mEq) by mouth once daily with a meal. 90 Tablet 3 03/07/19 24 025 Discontin ued(Reord er (E-cancel not sent)) rosuvastatin (CRESTOR) 5 mg tabletIndications :Hyperlipidemia, unspecified hyperlipidemia type Take 1 Tablet (5 mg) by mouth at bedtime. 90 Tablet 3 03/07/19 24 025 Discontin ued(*Boogie rgic/Adve rse Rxn/Side Effects) SUMAtriptan (IMITREX) 50 mg tabletIndications :Intractable migraine without aura and without status migrainosus Take 0.5 Tablets (25 mg) by mouth 2 times daily if needed for Migraine. Give at minimum 2hrs apart. Max Dose: 200mg per 24hrs. 12 Tablet 2 03/07/19 24 025 Discontin ued(Reord er (E-cancel not sent)) medication order composer OTC Lions Adin 1000mg daily 04/25/19 24 025 Discontin ued(*Blanca ent states no longer taking) nystatin 100,000 unit/gram ointmentIndicatio ns:Intertrigo Apply topically to affected area(s) two times daily. 30 g 5 09/02/19 24 025 Discontin ued(Dupli reji therapy (E-cancel not sent)) oxybutynin XL (DITROPAN XL) 10 mg CR tabletIndications :Bladder pain TAKE 1 TABLET BY MOUTH ONCE DAILY *ADV BRAND PER PATIENT* 90 Tablet 2 11/27/19 24 025 Discontin ued(Reord er (E-cancel not sent)) cyclobenzaprine (FLEXERIL) 5 mg tabletIndications :Muscle spasm of back Take 1 tablet by mouth three times daily as needed for muscle spasm 30 Tablet 1 11/27/19 24 025 Discontin ued(Reord er (E-cancel not sent)) losartan (COZAAR) 50 mg tabletIndications :Essential hypertension with goal blood pressure less than 140/90 Take 2 Tablets (100 mg) by mouth once daily. 180 Tablet 3 02/02/20 24 025 Discontin ued(Reord er (E-cancel not sent)) amLODIPine (NORVASC) 10 mg tabletIndications :HTN (hypertension) TAKE 1 TABLET BY MOUTH ONCE DAILY *ASCEND BRAND PER PATIENT* 90 Tablet 2 03/03/19 25 025 Discontin ued(Reord er (E-cancel not sent)) phenazopyridine (PYRIDIUM) 200 mg tabletIndications :Recurrent UTI Take 1 Tablet (200 mg) by mouth three times daily after meals for 2 days. 30 Tablet 3 03/16/19 25 025 fluocinonide 0.05 TOPICAL (LIDEX) 0.05 % external solutionIndicatio ns:Scalp irritation Apply up to twice daily as needed for scalp irritation 60 mL 1 03/16/19 25 025 Discontin ued(Dupli reji therapy (E-cancel not sent)) nystatin (MYCOSTATIN) 100,000 unit/mL suspensionIndicat ions:Thrush Swish and spit 5 mL (500,000 units) by mouth four times daily. 480 mL 1 03/16/19 25 025 Discontin ued(Dupli reji therapy (E-cancel not sent)) nystatin powder (MYCOSTATIN) powderIndications :Intertrigo Apply 1 Strip topically to affected area(s) three times daily. 60 g 2 03/16/19 25 025 Discontin ued(Dupli reji therapy (E-cancel not sent)) nystatin (MYCOSTATIN) 100,000 unit/mL suspension Take by mouth. 03/18/19 25 025 Discontin ued(Dupli reji therapy (E-cancel not sent)) Active Problems Problem Noted [...] Encounters Date Type Department Care Team Description 04/02/2024 11:30 AM [facility] Office Visit [facility] [address] [place] [address] Aishwarya Pagan PA Hip Pain/problem (Left hip area) 04/02/2024 Travel 04/02/2024 Nurse Triage [facility] [address] [place] [address] Nico Betancourt MD Hip Pain/problem (left) 03/31/2024 Anticoagulation (warfarin) [facility] [address] [place] [address] 1, [facility] Anticoagulation (Chart update) 03/26/2024 Telephone [facility] [address] [place] [address] Nico Betancourt MD Prior Authorization (nystatin powder (MYCOSTATIN) powder APPROVED 03/30/2024 - 02/17/2025) 03/19/2024 Telephone [facility] [address] [place] [address] Nico Betancourt MD Results 03/18/2024 Orders Only [address] [address] Nico Betancourt MD <No scans attached> 03/16/2024 10:40 AM [facility] Ancillary Procedure [address] [address] 03/16/2024 9:05 AM [facility] Office Visit [address] [address] Nico Betancourt MD Medicare ANNUAL (subsequent) Visit (78 yr old female) 03/16/2024 Anticoagulation (warfarin) [facility] [address] [place] [address] 1, [facility] Anticoagulation 03/16/[address] [address] Nico Betancourt MD Anticoagulation (BPA omeprazole/warfairn) 03/16/2024 Travel 03/09/2024 Orders Only [facility] Scanner 1 scan: (1-Ord) RCM 02/28/2024 Refill [facility] [address] [place] [address] Nico Betancourt MD Refill Request (Amlodipine) 02/27/2024 Orders Only [facility] Scanner 1 scan: (1-Ord) [facility] 02/25/2024 Telephone [facility] [address] [place] [address] Nico Betancourt MD Anticoagulation (Annual Re-Enrollment Orders/) 02/18/2024 Orders Only [facility] Scanner 1 scan: (1-Ord) [place], LEFT SHOULDER , 02/18/2024 02/10/2024 10:30 AM [facility] HAND Orders Only [facility] [address] [facility] [place] [address] Lab 02/10/2024 Anticoagulation (warfarin) [facility] [address] [place] [address] 1, [facility] Anticoagulation 02/10/2024 Travel 02/05/2024 Telephone [facility] [address] [place] [address] Nico Betancourt MD Refill Request (Warfarin ) 01/28/2024 Refill [facility] [address] [place] [address] Nico Betancourt MD Refill Request (Losartan 50mg [...] on file Legal Sex Female 5:25 AM [facility] Gender Identity Not on file Sexual Orientation Not on file Obstetrics History Para Term AB IAB SAB Ectopic Multiple Livin g Live Births 3 2 1 1 2 Date Outcome GA Total Labor Labor/2nd/3rd Weight Sex Type Anes PTL Emily A1 A5 Name Clin Para Para SAB Last Filed Vital Signs Vital Sign Reading Time Taken Comments Blood Pressure 134/81 04/02/2024 11:04 AM [facility] Pulse 66 04/02/2024 11:04 AM [facility] Temperature 36.4 C (97.5 F) 05/27/2023 10:38 AM CDT Respiratory Rate 20 07/20/2020 10:20 AM CDT Oxygen Saturation 99% 04/02/2024 11:04 AM [facility]ER HAND Inhaled Oxygen Concentration - - Weight 88.5 kg (195 lb) 04/02/2024 11:04 AM [facility] Height 160.5 cm (5' 3.19) 03/16/2024 9:18 AM CS T Body Mass Index 34.34 03/16/2024 9:18 AM [facility]ER HAND Plan of Treatment Upcoming Encounters Date Type Department Care Team (Late st Contact Info) Description 05/01/2024 10:55 AM CDT Office Visit [facility] [address] [place] [address] Nico Betancourt MD [address] [place] [address] Health Maintenance Due Date Last Done Comments Zoster (shingles) series for age 50+ (2 of 3) 03/23/2010 01/26/2010 RSV vaccine for adults or (1 - 1-dose 75+ series) 08/15/2022 COVID-19 vaccine series ( - season) 2023 Influenza for age 65+ 10/20/2023 [...] Priority Date/Time Associated Diagnosis Comments INR,POCT Routine 03/26/2024 12:19 PM [facility] HAND Paroxysmal atrial fibrillation (HC) Anticoagulation monitoring, INR range 2-3 XR MAMMO ANNY BILAT SCREEN Routine 03/16/2024 11:05 AM [facility]ER HAND Visit for screening mammogram PROTIME-INR Routine 03/16/2024 10:21 AM [facility]ER HAND Paroxysmal atrial fibrillation (HC) Anticoagulation monitoring, INR range 2-3 BASIC METABOLIC PANEL Routine 03/16/2024 10:21 AM [facility]ER HAND HTN (hypertension) LIPID PANEL Routine 03/16/2024 10:21 AM MU[facility]ER HAND Mixed hyperlipidemia TSH Routine 03/16/2024 10:21 AM MU[facility]ER HAND Thyroid nodule SCAN-EYE EXAM 03/09/2024 12:00 AM [facility]ER HAND SCAN-ELECTROMYOGRA M EMG 02/27/2024 12:00 AM [facility]ER HAND SCAN-RADIOLOGY REPORT 02/18/2024 12:00 AM [facility] HAND INR,POCT Routine 02/10/2024 9:51 AM MU[facility]ER HAND Paroxysmal atrial fibrillation (HC) Anticoagulation monitoring, INR range 2-3 ANTI HCV Routine 11/18/2015 10:57 AM CDT Need for hepatitis C screening test XR DXA BONE DENSITY 2 SITES AXIAL Routine 04/30/2014 11:24 AM CDT Ovarian failure from Last 3 Months or Most Recently Relevant to Health Maintenance Results * (ABNORMAL) INR,POCT (03/26/2024 12:19 PM MU[facility]ER HAND) Only the most recent of2 resultswithin the time period is included. INR 2.4(SENIOR NETWORK SECURITY ENGINEER AL) 0.0 - 1.2 [facility] Blood BLOOD SPECIMEN / Unknown 03/26/2024 12:19 PM MUFF[facility]ER HAND us Nico Betancourt MD LABORATORY Final Resu lt [facility] [address] [id number] * XR MAMMO ANNY BILAT SCREEN (03/16/2024 11:05 AM MUFFLER HAND) Anatomical Region Laterality Modality BREASTS, Breast Left, Breast Right Bilateral Mammography Impressions 03/16/2024 2:13 PM [facility]ER HAND There is no radiographic evidence for malignancy. Recommend annual mammograms. MAMMOGRAM ASSESSMENT: ACR 1 Negative PATIENTS: You will also receive a letter with your examination results in an easy to read format. If you have questions about your results, please contact your referring provider. Narrative 03/16/2024 2:13 PM [facility] For Patients: As a result of the Century Cures Act, medical imaging exams and procedure reports are released immediately into your electronic medical record. You may view this report before your referring provider. If you have questions, please contact your health care provider. XR MAMMO ANNY BILAT SCREEN [[id number]] CLINICAL HISTORY: This is an asymptomatic 78 y.o. patient. INDICATION FOR EXAM: Mammogram Screening. TECHNIQUE: CC & MLO views were obtained. This study was evaluated with the assistance of Computer-Aided Detection. Breast Tomosynthesis was used in interpretation. COMPARISON FILM: Yes 01/22/23 [facility] 01/02/22 [facility] FINDINGS: There are scattered areas of fibroglandular density. There are no dominant masses, suspicious micro calcifications or areas of architectural distortion. us Nico Betancourt MD MAMMO Final Resu lt * TSH (03/16/2024 10:21 AM MUFFLER HAND) TSH 1.65 0.40 - 4.50 mIU/L [facility] Blood BLOOD SPECIMEN / Unknown 03/16/2024 10:21 AM [facility]ER HAND 03/16/2024 10:21 AM [facility] HAND us Nico Betancourt MD CHEMISTRY Final Resu lt [facility] [address] [place] [address], [facility] [address] [place] [address] * (ABNORMAL) PROTIME-INR [[id number]] - Standing Order (03/16/2024 10:21 AM MUFFLER HAND) INR 2.9(H) <1.3 03/16/2024 2:28 PM MU[facility]ER HAND [facility] PROTIME 34.0(H) 10.6 - 12.4 sec 03/16/2024 2:28 PM MUFFLER HAND [facility] Blood BLOOD SPECIMEN / Unknown [facility] / Unknown 03/16/2024 10:21 AM MU[facility] HAND 03/16/2024 10:21 AM [facility]ER HAND Narrative [facility] - 03/16/2024 2:28 PM MUFFLER HAND Therapeutic Range 2.0-3.0 for most anticoagulated [...] seconds if the patient is on UFH. us Nico Betancourt MD HEMATOLOGY Final Resu lt [facility] [address] [place] [address], * (ABNORMAL) LIPID PANEL (03/16/2024 10:21 AM MUFF[facility]ER HAND) CHOLESTEROL, TOTAL 233(H) <200 mg/dL [facility] HDL CHOLESTEROL 64 > OR = 50 mg/dL [facility] TRIGLYCERIDES 137 <150 mg/dL [facility] LDL-CHOLESTEROL 143(H) mg/dL (calc) [facility] Comment: Reference range: <100 Desirable range <100 mg/dL for primary prevention; <70 mg/dL for patients with CHD or diabetic patients with > or = 2 CHD risk factors. LDL-C is now calculated using the Solomon-Ace calculation, which is a validated novel method providing better accuracy than the Friedewald equation in the estimation of LDL-C. Solomon SS et al. MAMADOU. 2013;310(19): 8163-2813 (http://education.Predixion Software/faq/ONJ186) CHOL/HDLC RATIO 3.6 <5.0 (calc) [facility] NON HDL CHOLESTEROL 169(H) <130 mg/dL (calc) [facility] Comment: For patients with diabetes plus 1 major ASCVD risk factor, treating to a non-HDL-C goal of <100 mg/dL (LDL-C of <70 mg/dL) is considered a therapeutic option. Blood BLOOD SPECIMEN / Unknown 03/16/2024 10:21 AM [facility]ER HAND 03/16/2024 10:21 AM [facility]FF[facility]ER HAND Nico Betancourt MD CHEMISTRY Final Resu lt [facility] [address] [place] [address], [facility] [address] [place] [address] * BASIC METABOLIC PANEL (03/16/2024 10:21 AM MUFFLER HAND) [facility] GLUCOSE 74 65 - 99 mg/dL [facility] Comment: Fasting reference interval UREA NITROGEN (BUN) 19 7 - 25 mg/dL [facility] CREATININE 0.74 0.60 - 1.00 mg/dL [facility] EGFR 84 > OR = 60 mL/min/1. 73m2 [facility] BUN/CREATININE RATIO SEE NOTE: 6 - 22 (calc) [facility] Comment: Not Reported: BUN and Creatinine are [...] BLOOD SPECIMEN / Unknown 03/16/2024 10:21 AM [facility]ER HAND 03/16/2024 10:21 AM [facility]ER HAND Nico Betancourt MD CHEMISTRY Final Resu lt [facility] [address] [place] [address], [facility] [address] [place] [address] * SCAN-EYE EXAM (03/09/2024 12:00 AM MUFFLER HAND) us Scanner OTHER Final Result * SCAN-ELECTROMYOGRAM EMG (02/27/2024 12:00 AM MUFFLER HAND) us Scanner OTHER Final Result * SCAN-RADIOLOGY REPORT (02/18/2024 12:00 AM [facility]FF[facility]ER HAND) Anatomical Region Laterality Modality Other us Scanner OTHER Final Result * ANTI HCV [[id number]] (11/18/2015 10:57 AM CDT) HEPATITIS C ANTIBODY Non-Reacti ve Non-Reacti ve 11/18/2015 5:27 PM CDT [facility] Blood BLOOD SPECIMEN / Unknown Venipuncture / Unknown 11/18/2015 10:57 AM CDT 11/18/2015 10:58 AM CDT Narrative [facility] - 11/18/2015 5:27 PM CDT Antibodies to HCV not detected; does not exclude the possibility of exposure to HCV. us Nico Betancourt MD SEND OUTS Final Resu lt [facility] [address] [place] [address], [place] * (ABNORMAL) XR DXA BONE DENSITY 2 SITES (04/30/2014 11:24 AM CDT) Anatomical Region Laterality Modality Spine, HIPS, HIPL, HIPR Other Narrative 05/14/2014 4:47 PM CDT Please see scanned document for results of this study. Procedure Note Kamala Kerr PA - 05/14/2014 Please see scanned document for results of this study. Marlen JAINA Final R esult from Last 3 Months or Most Recently Relevant to Health Maintenance Insurance [employer] MED[employer]ARE ADVANTAGE MR [employer] MED[employer] ADVANTAGE MR Advance Directives * Full Code (Latest Code Status on File) Date Activated Date Inactivated Comments 05/21/2012 8:57 PM 05/22/2012 6:59 PM Care Teams Disposal Plant Operator Relationship Specialty Start Date End Date Nico Betancuort MD [address] [place] [address] PCP - General Family Practice 05/16/15
[2024-04-13 06:15] VITALS: BP 130/80; PULSE 82; RESP 18; TEMP 36.3; O2SAT 97; BMI 32.0
--- NOTE | 2024-04-13 06:16 | ED.ABDPAIN ---
HPI - Abdominal Pain General Time Seen by Provider: 06:16 Date Seen: 04/13/24 Chief Complaint: Abdominal Pain Stated Complaint: stomach pain, fever Time Seen by Provider: 04/13/24 06:15 Source: patient, RN notes reviewed and old records reviewed Mode of arrival: ambulatory Limitations: no limitations History of Present Illness HPI narrative: 78-year-old female presents to the emergency department today with abdominal pain , nausea vomiting. She says this is been going on for the last month, was previously seen for this in the emergency department on March 26 and says she never felt better after that. Denies diarrhea. Ongoing nausea and occasional retching. Also complains of right-sided abdominal pain that radiates over the left side. Denies urinary symptoms. Denies chest pain, cough. Subjective fever today. Has some hydrocodone that she has taken for pain. Related Data Home Medications ?Medication ?Instructions ?Recorded ?Confirmed flavoxate 100 mg tablet 100 mg PO TID 11/07/21 03/26/24 furosemide 20 mg tablet 20 mg PO DAILY 11/07/21 03/26/24 losartan 50 mg tablet 100 mg PO DAILY 11/07/21 03/26/24 ondansetron HCl 4 mg tablet 4 mg PO DAILY 11/07/21 03/26/24 oxybutynin chloride 10 mg 10 mg PO DAILY 11/07/21 03/26/24 tablet,extended release 24 hr potassium chloride 20 mEq 20 meq PO DAILY 11/07/21 03/26/24 tablet,extended release(part/cryst) sumatriptan succinate 50 mg tablet 50 mg PO DAILY 11/07/21 03/26/24 warfarin 5 mg tablet 5 mg PO 11/07/21 03/18/24 amlodipine 10 mg tablet 10 mg PO DAILY 07/19/22 03/26/24 fluticasone propionate 50 1 spray intranasal DAILY 07/19/22 03/26/24 mcg/actuation nasal spray,suspension hydroxyzine HCl 25 mg tablet 25 mg PO 3XD 07/19/22 03/26/24 cyclobenzaprine 5 mg tablet 5 mg PO TID PRN 06/03/23 03/26/24 glucosamine HCl 1,500 mg tablet 1,500 mg PO DAILY 06/03/23 03/18/24 hyoscyamine sulfate 0.125 mg 0.125 mg PO Q4H PRN 06/03/23 03/18/24 tablet (Levsin) metronidazole 500 mg tablet 500 mg PO TID 06/03/23 03/26/24 albuterol sulfate 90 mcg/actuation inhalation 03/18/24 03/18/24 aerosol inhaler clobetasol 0.05 % topical ointment topical 03/18/24 03/18/24 fluocinonide 0.05 % topical topical 03/18/24 03/18/24 solution loteprednol etabonate 0.5 % eye drp ophthalmic (eye) 03/18/24 03/18/24 drops,suspension nystatin 100,000 unit/mL oral PO 03/18/24 03/18/24 suspension omeprazole 40 mg capsule,delayed mg PO DAILY 03/18/24 03/18/24 release Previous Rx's ?Medication ?Instructions ?Recorded phenazopyridine 100 mg tablet 100 mg PO TID PRN pain 6 doses #6 10/20/23 tabs hydrocodone 5 mg-acetaminophen 325 1 tab PO Q4-6H PRN pain #15 tabs 02/18/24 mg tablet docusate sodium 100 mg capsule 100 mg PO BID #60 caps 04/13/24 (Colace) ondansetron 4 mg disintegrating 4 mg PO Q6H PRN nausea and 04/13/24 tablet vomiting #20 tabs Allergies Allergy/AdvReac Type Severity Reaction Status Date / Time cephalexin Allergy Intermediate Chest Pain Verified 03/26/24 11:14 clonidine Allergy Intermediate tachycardia Verified 03/26/24 11:14 losartan Allergy Intermediate Tachycardia Verified 03/26/24 11:14 gadodiamide Allergy Mild Hives Verified 03/26/24 11:14 latex Allergy Mild Rash Verified 03/26/24 11:14 ibuprofen Allergy Chest Pain Verified 03/26/24 11:14 Penicillins Allergy Anaphylaxis Verified 03/26/24 11:14 Sulfa (Sulfonamide Allergy Hives Verified 03/26/24 11:14 Antibiotics) nitrofurantoin (From AdvReac Verified 03/26/24 11:14 Macrobid) propranolol AdvReac bradycardia Verified 03/26/24 11:14 IV contrast dye Allergy Hives Uncoded 03/18/24 10:44 peg 400-propylene glycol Allergy Rash Uncoded 03/18/24 10:44 [facility] Medical History TMJ tenderness, left ?M26.622 - Arthralgia of left temporomandibular joint (ICD-10) Chronic diastolic (congestive) heart failure ?I50.32 - Chronic diastolic (congestive) heart failure (ICD-10) Viral gastroenteritis ?A08.4 - Viral intestinal infection, unspecified (ICD-10) Traumatic ecchymosis of face ?S00.83XA - Contusion of other part of head, initial encounter (ICD-10) Toothache ?K08.89 - Other specified disorders of teeth and supporting structures (ICD-10) Sprain of knee ?S83.90XA - Sprain of unspecified site of unspecified knee, initial encounter (ICD-10) Pain of right hand ?M79.641 - Pain in right hand (ICD-10) Nausea alone ?R11.0 - Nausea (ICD-10) Headache ?R51.9 - Headache, unspecified (ICD-10) Fall ?W19.XXXA - Unspecified fall, initial encounter (ICD-10) Epigastric pain ?R10.13 - Epigastric pain (ICD-10) Dyspnea ?R06.00 - Dyspnea, unspecified (ICD-10) Cough ?R05.9 - Cough, unspecified (ICD-10) Cellulitis of leg ?L03.119 - Cellulitis of unspecified part of limb (ICD-10) Arthritis of both temporomandibular joints ?M26.643 - Arthritis of bilateral temporomandibular joint (ICD-10) Atrial fibrillation ?I48.91 - Unspecified atrial fibrillation (ICD-10) Enlarged LA (left atrium) ?I51.7 - Cardiomegaly (ICD-10) Vitamin D deficiency ?E55.9 - Vitamin D deficiency, unspecified (ICD-10) Hyperlipidemia ?E78.5 - Hyperlipidemia, unspecified (ICD-10) Panic disorder without agoraphobia ?F41.0 - Panic disorder [episodic paroxysmal anxiety] (ICD-10) Benign paroxysmal positional vertigo ?H81.10 - Benign paroxysmal vertigo, unspecified ear (ICD-10) Hypertension ?I10 - Essential (primary) hypertension (ICD-10) Surgical History S/P trigger finger release (06/04/23) ?Z98.890 - Other specified postprocedural states (ICD-10) History of incision and drainage (02/26/14) ?Z98.890 - Other specified postprocedural states (ICD-10) History of phacoemulsification of cataract of right eye with intraocular lens implantation (04/17/17) ?Z98.41 - Cataract extraction status, right eye (ICD-10) ?Z96.1 - Presence of intraocular lens (ICD-10) History of phacoemulsification of cataract of left eye with intraocular lens implantation (05/01/17) ?Z98.42 - Cataract extraction status, left eye (ICD-10) ?Z96.1 - Presence of intraocular lens (ICD-10) History of YAG laser capsulotomy of lens of right eye (09/04/17) ?Z98.41 - Cataract extraction status, right eye (ICD-10) History of YAG laser capsulotomy of lens of left eye (04/06/20) ?Z98.42 - Cataract extraction status, left eye (ICD-10) H/O hernia repair (03/22/08) ?Z98.890 - Other specified postprocedural states (ICD-10) ?Z87.19 - Personal history of other diseases of the digestive system (ICD-10) H/O dilation and curettage (04/28/08) ?Z98.890 - Other specified postprocedural states (ICD-10) History of appendectomy ?Z90.49 - Acquired absence of other specified parts of digestive tract (ICD-10) Social History Smoking Status: Never smoker Do you use any of these nicotine containing products: None How often do you have a drink containing alcohol: never How often do you have six or more drinks on one occasion: Never AUDIT-C Alcohol total score: 0 Non-prescribed substance use: denies use Caffeine: No Are you using contraception or practicing any form of control: No service: No Exam Narrative: Exam Narrative: General: Well-developed and well-nourished, no acute distress Head: Atraumatic and normocephalic Eyes: Pupils are equal reactive, extraocular motions intact, conjunctiva clear ENT: External nose and ears are normal, posterior pharynx without erythema or exudate Neck: No midline cervical tenderness, full spontaneous range of motion the neck, trachea midline, no adenopathy Heart: Regular rate and rhythm no murmurs or thrills Lungs: Clear to auscultation bilaterally without wheezes or crackles Abdomen: Soft, left lower quadrant abdominal tenderness, nondistended with active bowel sounds Musculoskeletal: No tenderness, deformity, or edema Neurologic: Awake, alert, and oriented x3, no gross focal neurologic deficits, cranial nerves intact as tested Psych: Mood and affect are appropriate Skin: No rashes Const: Vital Signs, click to edit/add: Vital Signs - 24 hr 04/13/24 06:15 Temperature 97.3 F L Pulse Rate [Left P ulse Oximeter] 82 Respiratory Rate 18 Blood Pressure [Ri ght Upper Arm] 130/80 Pulse Oximetry 97 Oxygen Delivery Me thod Room Air Course Course ED Course: Reviewed most recent emergency department visit from March 26 and patient was seen with vomiting and diarrhea but no abdominal pain, given antiemetics and discharged. Patient presents today with ongoing nausea, says she retched in the car on the way here, also subjective fever overnight. Patient is afebrile in the emergency department. Left-sided abdominal pain and does have some tenderness since area. Concern for colitis, diverticulitis. Labs and CT scan ordered. Patient complains of ?15/10 pain but no apparent distress and moves easily going from sitting to lying down. Reevaluation(s) Time of Reevaluation #1: 07:30 Reevaluation #1: Reviewed radiology interpretation of CT which shows in area of focal narrowing of the descending colon which could being from peristalsis, stricture, or mass for. Patient will need a colonoscopy to follow-up on this. With otherwise, labs with leukocytosis. Time of Reevaluation #2: 07:45 Reevaluation #2: Discussed CT findings of adnexal mass and stricture of the descending colon with patient. Liquid diet for 48 hours and stool softener to prevent obstruction, Zofran for nausea. Message sent to Dr. Betancourt. Vital Signs Vital signs: Initial Vital Signs Temperature 97.3 F L 04/13/24 06:15 Temperature Source Temporal Artery Scan 04/13/24 06:15 Pulse Rate 82 04/13/24 06:15 Pulse Rhythm Regular 04/13/24 06:15 Respiratory Rate 18 04/13/24 06:15 Blood Pressure 130/80 04/13/24 06:15 Blood Pressure Mean 96 04/13/24 06:15 Blood Pressure Position Sitting 04/13/24 06:15 Pulse Oximetry 97 04/13/24 06:15 Oxygen Delivery Method Room Air 04/13/24 06:15 Vital Signs Temperature 97.3 F L 04/13/24 06:15 Pulse Rate 82 04/13/24 06:15 Respiratory Rate 18 04/13/24 06:15 Blood Pressure 130/80 04/13/24 06:15 Pulse Oximetry 97 04/13/24 06:15 Oxygen Delivery Method Room Air 04/13/24 06:15 Temperature 97.3 F L 04/13/24 06:15 Pulse Rate 82 04/13/24 06:15 Respiratory Rate 18 04/13/24 06:15 Blood Pressure 130/80 04/13/24 06:15 Pulse Oximetry 97 04/13/24 06:15 Oxygen Delivery Method Room Air 04/13/24 06:15 Medications Administered Medications: Discontinued Medications Generic Name Dose Route Start Last Admin Trade Name Freq PRN Reason Stop Dose Admin Ketorolac Tromethamine 15 mg 04/13/24 07:39 04/13/24 07:42 Ketorolac 30 Mg/Ml Inj IM 04/13/24 07:40 15 mg ONCE ONE Administration Ondansetron HCl 4 mg 04/13/24 06:31 04/13/24 07:42 Ondansetron 2 Mg/Ml Inj IVP 04/13/24 06:32 Not Given ONCE ONE MDM - Abdominal Pain Lab Data Labs: Lab Results 04/13/24 Range/Units 06:59 WBC 14.39 H (4.50-11.00) K/uL RBC 5.48 H (4.00-5.20) m/uL Hgb 15.1 (12.0-16.0) gm/dL Hct 45.4 (33.0-51.0) % MCV 83 (80-100) fL MCH 28 (26-34) pg MCHC 33 (32-36) gm/dL RDW Coeff of Mariaelena 16.8 H (11.5-15.5) % Plt Count 231 (140-440) K/uL Neut % (Auto) 89.8 H (42.0-72.0) % Lymph % (Auto) 3.8 L (20-44) % Crenshaw % (Auto) 4.7 (0.0-11.0) % Eos % (Auto) 1.3 (0.0-7.0) % Baso % (Auto) 0.3 (0.0-3.0) % Neut # (Auto) 12.90 H (1.7-7.0) K/uL Lymph # (Auto) 0.50 L (0.90-2.90) K/uL Crenshaw # (Auto) 0.70 (0.00-0.90) K/UL Eos # (Auto) 0.20 (0.00-0.50) K/uL Baso # (Auto) 0.00 (0.00-0.30) K/uL Abs Immat Gran (auto) 0.00 (0.00-0.30) K/uL Imm/Tot Granulo (auto) 0.1 % INR 2.53 H (0.91-1.10) Sodium 137 (135-149) mmol/L Potassium 3.9 (3.6-5.1) mmol/L Chloride 101 (96-114) mmol/L Carbon Dioxide 29 (20-32) mmol/L Anion Gap 7 (7-15) mEq/L BUN 26 (7-30) mg/dL Creatinine 0.7 (0.5-1.5) mg/dL Estimated Creat Clear 43.07 Estimated GFR 90 ml/min Glucose 131 H (60-115) mg/dL Calcium 9.1 (8.4-10.6) mg/dL Magnesium 1.9 (1.5-2.6) mg/dL Total Bilirubin 2.6 H (0.1-1.5) mg/dL Direct Bilirubin 0.4 (0.0-0.5) mg/dL AST 23 (12-35) U/L ALT 18 (4-35) U/L Alkaline Phosphatase 97 (40-150) U/L Total Protein 7.1 (6.0-8.3) g/dL Albumin 4.3 (3.3-5.0) g/dL Lipase 28 (23-300) U/L Discharge Plan Discharge Clinical Impression: Abdominal pain, Nausea, Adnexal mass Patient Disposition: Home, Self-Care Condition: Stable Instructions: Abdominal Pain (ED) Additional Instructions: Liquid diet for [address] scan shows an area narrowing of the large intestine or on the left side of the abdomen. You will need a colonoscopy to further evaluate this. Contact your primary care doctor to help arrange this. If there is also a mass or cyst on the left ovary. You can follow-up with your primary care doctor for an ultrasound for this. Activity Level: Activity as Tolerated Discharge Diet: Full Liquid Prescriptions: New docusate sodium [Colace] 100 mg capsule 100 mg PO BID Qty: 60 0RF ondansetron 4 mg tablet,disintegrating 4 mg PO Q6H PRN (Reason: nausea and vomiting) Qty: 20 0RF No Action fluticasone propionate 50 mcg/actuation spray,suspension 1 spray intranasal DAILY hydroxyzine HCl 25 mg tablet 25 mg PO 3XD amlodipine 10 mg tablet 10 mg PO DAILY phenazopyridine 100 mg tablet 100 mg PO TID PRN (Reason: pain) Qty: 6 0RF loteprednol etabonate 0.5 % drops,suspension ophthalmic (eye) Patient Comments: INSTILL 1 DROP INTO BOTH EYES THREE TIMES DAILY FOR 7 DAYS. SHAKE WELL BEFORE USE albuterol sulfate 90 mcg/actuation HFA aerosol inhaler inhalation Patient Comments: [NO ORIGINAL SIG] fluocinonide 0.05 % solution topical clobetasol 0.05 % ointment topical omeprazole 40 mg capsule,delayed release(DR/EC) PO DAILY nystatin 100,000 unit/mL suspension PO hydrocodone-acetaminophen 5-325 mg tablet 1 tab PO Q4-6H PRN (Reason: pain) Qty: 15 0RF losartan 50 mg tablet 100 mg PO DAILY Patient Comments: TAKE 2 TABLETS BY MOUTH ONCE DAILY oxybutynin chloride 10 mg tablet extended release 24hr 10 mg PO DAILY Patient Comments: TAKE 1 TABLET BY MOUTH ONCE DAILY ondansetron HCl 4 mg tablet 4 mg PO DAILY Patient Comments: TAKE 1 TABLET BY MOUTH EVERY 8 HOURS NEEDED FOR NAUSEA AND VOMITING sumatriptan succinate 50 mg tablet 50 mg PO DAILY Patient Comments: TAKE 1 TABLET BY MOUTH TWICE DAILY NEEDED FOR MIGRAINE GIVE AT MINIMUM 2 HOURS APART. MAX DOSE 200MG PER 24 HOURS. potassium chloride 20 mEq tablet,ER particles/crystals 20 meq PO DAILY Patient Comments: TAKE 1 TABLET BY MOUTH ONCE DAILY WITH A MEAL warfarin 5 mg tablet 5 mg PO furosemide 20 mg tablet 20 mg PO DAILY Patient Comments: TAKE 1 TABLET BY MOUTH IN THE MORNING flavoxate 100 mg tablet 100 mg PO TID Patient Comments: TAKE 1 TABLET BY MOUTH THREE TIMES DAILY cyclobenzaprine 5 mg tablet 5 mg PO TID PRN glucosamine HCl 1,500 mg tablet 1,500 mg PO DAILY hyoscyamine sulfate [Levsin] 0.125 mg tablet 0.125 mg PO Q4H PRN metronidazole 500 mg tablet 500 mg PO TID Follow Up/Referrals: Nico Betancourt MD [Primary Care Provider] - Stand Alone Forms: [facility] Info Instructions
--- NOTE | 2024-04-13 06:31 | CRLHL7_ITS ---
For Patients: As a result of the 21st Century Cures Act, medical imaging exams and procedure reports are released immediately into your electronic medical record. You may view this report before your referring provider. If you have questions, please contact your health care provider. INDICATION: Left abdominal pain. COMPARISON: There are no prior studies for comparison TECHNIQUE: CT examination of the abdomen and pelvis was performed without intravenous contrast. Thin section axial images were obtained from the lung bases through the pubic symphysis. Oral contrast was not administered. Please note that all CT scans at this facility use dose modulation, iterative reconstruction, and/or weight-based dosing when appropriate to reduce radiation dose to as low as reasonably achievable. FINDINGS: LUNG BASES: Linear opacities at the lung bases are likely due to atelectasis or scarring.The heart is mildly enlarged at the lung bases. LIVER/BILIARY SYSTEM:The liver is normal in size and configuration given the lack of intravenous contrast. There is no visible focal mass and there is no intra- or extra hepatic biliary ductal dilatation.Distended but otherwise unremarkable appearing gallbladder ADRENALS: Normal non-contrast appearance KIDNEYS, URETERS and BLADDER:Normal-sized kidneys. Left renal cysts. No hydronephrosis or hydroureter on either side. The partially distended and unopacified bladder appears normal. SPLEEN:Normal non-contrast appearance. PANCREAS: Normal non-contrast appearance. RETROPERITONEUM and MESENTERY: There is no mass, adenopathy or aortic aneurysm. Atherosclerotic vascular calcification GASTROINTESTINAL SYSTEM: No abnormality identified involving the stomach or small bowel. There is colonic fecal retention. There is a focal area of narrowing in the mid descending colon. This is best seen on coronal image 58 and could represent a stricture or a mass. There is mild upstream dilation relative to this area but no milvia/full mechanical obstruction. Appropriate follow-up is advised at this time PELVIS: Myomatous uterus. Right adnexal abnormality could represent an exophytic myoma or an ovarian lesion measuring 2.6 centimeters. This would best be evaluated by sonography.. OSSEOUS STRUCTURES and ABDOMINAL WALL: Degenerative changes and scoliosis. No destructive process of bone.No significant abdominal wall abnormality. OTHER: No free fluid or free air. IMPRESSION: 1. There is a focal area of narrowing identified in the mid descending colon. This could be a wave of peristalsis, a stricture or a mass. I suspect a stricture or annular constricting mass as there appears to be mild upstream dilation related to this area. There is no milvia/full mechanical obstruction visible at this time. Appropriate follow-up is recommended. 2. Myomatous uterus. There is a 2.6 centimeter right adnexal abnormality which could represent an exophytic myoma or a ovarian lesion. Consider sonography for further evaluation. 3. There are other incidental nonacute appearing findings as discussed in the body of the report. Please note that all CT scans at this facility use dose modulation, iterative reconstruction, and/or weight-based dosing when appropriate to reduce radiation dose to as low as reasonably achievable. Dictated by Carlos Magana MD @ 04/13/2024 7:09:02 AM (Electronically Signed)
[2024-04-13 07:06] LABS: Basophils Percent Auto 0.3 % (0.0-3.0); Eosinophils Percent Auto 1.3 % (0.0-7.0); Hematocrit 45.4 % (33.0-51.0); Hemoglobin* 15.1 gm/dL (12.0-16.0); Immature Granulocytes Pct Auto 0.1 %; Lymphocytes Percent Auto 3.8 % (20-44); Mean Corpuscular HGB Conc 33 gm/dL (32-36); Mean Corpuscular Hemoglobin 28 pg (26-34); Mean Corpuscular Volume 83 fL (80-100); Monocytes Percent Auto 4.7 % (0.0-11.0); Neutrophils Percent Auto 89.8 % (42.0-72.0); Platelet Count* 231 K/uL (140-440); RDW Coefficient of Variation % 16.8 % (11.5-15.5); Red Blood Count 5.48 m/uL (4.00-5.20); White Blood Count* 14.39 K/uL (4.50-11.00)
[2024-04-13 07:13] LABS: Slide Review Reflex No
[2024-04-13 07:28] LABS: Albumin* 4.3 g/dL (3.3-5.0)
[2024-04-13 07:29] LABS: Chloride* 101 mmol/L (96-114); Potassium* 3.9 mmol/L (3.6-5.1); Sodium* 137 mmol/L (135-149)
[2024-04-13 07:31] LABS: Anion Gap 7 mEq/L (7-15); Bilirubin Direct* 0.4 mg/dL (0.0-0.5); Bilirubin Total* 2.6 mg/dL (0.1-1.5); Carbon Dioxide* 29 mmol/L (20-32); Creatinine* 0.7 mg/dL (0.5-1.5); Est. Creatinine Clearance* 43.07; Estimated Glomerular Filt Rate 90 ml/min; INR 2.53 (0.91-1.10); Prothrombin Time 28.4 Seconds; Total Protein* 7.1 g/dL (6.0-8.3)
[2024-04-13 07:32] LABS: Alanine Aminotransferase* 18 U/L (4-35); Alkaline Phosphatase* 97 U/L (40-150); Aspartate Amino Transferase* 23 U/L (12-35); Blood Urea Nitrogen* 26 mg/dL (7-30); Calcium* 9.1 mg/dL (8.4-10.6); Glucose* 131 mg/dL (60-115); Lipase* 28 U/L (23-300); Magnesium* 1.9 mg/dL (1.5-2.6)
[2024-04-13] MEDS: KETOROLAC 30 MG/ML inj 15 MG IM (07:42)
[2024-04-13 09:04] VITALS: BP 153/82; PULSE 74; RESP 18; TEMP 36.9; O2SAT 97
[2024-04-13 09:09] LABS: Appearance Urine Clear (Clear); Bilirubin Urine 1+ (Negative); Blood Urine Negative (Negative); Color Urine Amber (Yellow); Glucose Urine Negative (Negative); Ketones Urine Negative (Negative); Leukocyte Esterase Urine Negative (Negative); Nitrite Urine Negative (Negative); Protein Urine 1+ (Negative)
[2024-04-13 09:21] LABS: RBC Urine 0-2 (0-2); Squamous Epithelial Cell Urine Moderate (None-Few); WBC Urine 0-2 (0-5)
[2024-04-13 09:22] LABS: Fine Granular Casts Urine Moderate
== END 2024-04-13 09:45 | disposition home or self-care (01) ==
PROVIDERS: Family Medicine; Emergency Provider Family Medicine; PCP Surgery
DX: R10.9 Unspecified abdominal pain (principal); R11.0 Nausea; E27.9 Disorder of adrenal gland, unspecified
CPT/HCPCS: 36415; 74176; 80048; 80076; 81001; 83690; 83735; 85025; 85610; 96372; 96374; 96375; 99284; 99285; J1885

== ENCOUNTER 2024-04-26 22:26 | Emergency (ER) | payer MEDICARE, SELFPAY ==
--- OUTSIDE RECORDS SUMMARY | 2024-04-26 22:30 | XMS_ITS | Patient Health Record ---
Author Organization [facility] Address [address] [place] [address] [phone] Care Team Providers Care Enrobing Machine Feeder Name Role Phone ZZ Outside Provider, sushila [...] Hyoscyamine Active Fluocinonide 0.05 % 1 application Filter Tip Inspector ally Twice a day Active Glucosamine MSM [...] eye Ophthalmic Twice a day Active Nystatin 187681 UNIT/ML 1 tsp swish and retain in [...] Complete Adv [address] [place] [phone] [id number] Cindy Gallegos Self - patient is the insured
--- OUTSIDE RECORDS SUMMARY | 2024-04-26 22:31 | XMS_ITS | Clinical Summary ---
Author Organization [facility] Address [address] [facility] , [address] [place] [address] Phone Care Team Providers Care Hemodialysis Lab Technician Name Role Phone [facility] Unavailable Unava ilable Conditions or Problems Problem Name Problem Code Onset Date Status Entry Date Provider Comment Standard Description Annotate Hand numbness 797881723 (SNOMED CT) Active Jack Dias MD Numbness of hand Median neuropathy, right 886387343 (SNOMED CT) Active Jack Dias MD Median [...] Procedures Code Procedure Name Date Entry Date CPT-73926 Nerve Conduction 7-8 studies CPT-39927 EMG with NCS (5+ muscles) - 1 limb 02/26 Vital Signs No information available. Immunizations No information available. Advance Directives No information available.
--- OUTSIDE RECORDS SUMMARY | 2024-04-26 22:31 | XMS_ITS | Data Portability ---
Author Organization [place] [facility] [place] [facility] Address [address] [facility] [address] [place] [address] Assessment Encounter Date Assessment Date Assessment LastModified [...] mg tablet,exte nded release 24 hr 2021 [facility] [address], [address] [place], [address], 12:06:34 hyoscyamine sulfate 0.125 mg tablet 2021 [facility] [address], [address] [place], [address], 12:06:36 hydroxyzine HCl 25 mg tablet 2021 [facility] [address], [address] [place], [address], 12:06:33 Patient TargetsNo targets recorded. Patient InstructionsNo instructions recorded. Reason for Referral None Reported. Procedures Surgical History Date Name Laterality Status Provider Name and Address Organization Details Recorded Time Appendectomy completed Donald Carranza MD [address] [place] [address],[address], [place], [address], [facility] 01/03/2022 11:42:03 Colonoscopy completed Donald Carranza MD [address] [place] [address],[address], [address], [facility] 01/03/2022 11:42:11 Hernia Repair completed Donald whitlock MD [address] [place] [address],[address], [address], [facility] 01/03/2022 11:42:17 Imaging Results None recorded. Procedure Notes None recorded. Medical Equipment None Reported. Allergies Allergen ID Allergen Name Allergen Category Reaction Reaction Severity Criticality Documentation Date Start Date Code Code System Note Provider Name and Address Organization Details Recorded Time 867401 clonidine medicatio n Not available Not available Not available 01/03/2022 2599 RxNorm Not Available Not Available Not Available 944467 Iodinated contrast media (substanc e) medicatio n Not available Not available Not available 01/03/2022 18432 2004 SNOMED Not Available Not Available Not Available 822036 Keflex medicatio n Not available Not available Not available 01/03/2022 90898 7 RxNorm Not Available Not Available Not Available 813429 latex environme nt,medica tion Not available Not available Not available 01/03/2022 04630 91 RxNorm Not Available Not Available Not Available 134692 losartan medicatio n Not available Not available Not available 01/03/2022 49550 RxNorm Not Available Not Available Not Available 853247 Product containin g penicilli n (product) medicatio n Not available Not available Not available 01/03/2022 46508 8001 SNOMED Not Available Not Available Not Available 629139 Substance with sulfonami de structure and antibacte rial mechanism of action (substanc e) medicatio n Not available Not available Not available 01/03/2022 67935 8003 SNOMED Not Available Not Available Not [...] Updated DateTime 01/03/2022 162.56 cm 34.3 kg/m2 87982.47 g Donald Carranza MD [address] [place] [address], [phone] [place] [address] Urology 01/03/2022 11:43:40 Social History Question Answer Notes LastModified by Organizat ion Details LastModified Time Tobacco Smoking Status Never Smoker Donald Carranza MD [address] [place] [address], [phone] [place] [address] Urology 01/03/2022 11:41:47 What Is Your Level Of Alcohol Consumption? None [facility] Information not available 01/03/2022 What Was [...] SNOMED-CT Code Diagnosis ICD10 Code Diagnosis Note [id number] Donald Carranza MD [facility] [address] [place] [address] 01/03/2022 11:20:39 01/05/2022 11:03:20 Chronic interstitial cystitis 639578006 N30.10 - Continue Oxybutynin XL 10 mg daily- continue Urispas 100 mg TID- Continue hydroxyzin e daily- Follow-up in 12 months Urinary bladder pain 158 16304 R39.82 - As above Health Concerns Section [...] AFTER 19 (MEDICARE REPLACEMENT/ ADVANTAGE - PPO) [id number] Cindy Gallegos [id number] Cindy Gallegos Notes Date Note Type Note [...] well on current regimen. Donald Carranza MD [address] [place] [address],[facility] [address], [place], [address], [facility] 01/03/2022 13:42:50 OBGyn Episode No OBEpisode recorded.
--- OUTSIDE RECORDS SUMMARY | 2024-04-26 22:31 | XMS_ITS | Data Portability ---
Author Organization ID - [facility] Address [address] [address] Care Team Providers Care Quarrying Manager Name Role Phone MARLENE GONZALEZ Primary Care [...] guarding habits to decrease pain by 50% residential goals-6 weeks Client to not have jaw [...] guarding habits to decrease pain by 50% residential goals-6 weeks Client to not have jaw [...] be considered after reviewing existing imaging from [facility]. A release of information was [...] schedul e 2023 024 ALLEN Dumont DPT, [facility], [place], [address], 02/06/2024 14:12:[address] referra l 2019 020 [email or web address] [place] [address] [facility], [facility] [address], [place], [address], 03/05/2019 10:10:15 Procedures None recorde d. Surgeries None recorde d. Imaging XR, orthopa ntogram 2023 024 [place] [address] [facility], [facility] [address], [place], [address], 02/06/2024 13:53:17 Medication Orders None recorde d. Patient TargetsNo targets recorded. Patient Instructions Encounter Date Encounter Id Patient Instructions Last Modified By Organization Details Last Modified Time 03/17/2019 [id number] Plan: Medicare requires a social security benefits interviewer or CIVIL ENGINEERING PROFESSIONAL to authorize our plan of care. If you agree with the plan as outlined above, please sign, date and fax back to [phone]. Thank you. Primary MD signature: Date: [email or web address] Not available 03/17/2019 11:33:56 03/25/2019 [id number] Plan: Medicare requires a social security benefits interviewer or CIVIL ENGINEERING PROFESSIONAL to authorize our plan of care. If you agree with the plan as outlined above, please sign, date and fax back to [phone]. Thank you. Primary MD signature: Date: [email or web address] Not available 03/25/2019 12:34:57 02/04/2024 [id number] Self Care for TMD Not availab le [...] panto gram No observ ation record ed. [email or web address] Not Available 2023 16:52:37 02/05/20 24 02/05/2024 [...] panto gram No observ ation record ed. Young Harris [address], [place], [address], 02/06/2024 13:52:42 Result Notes None recorded. Problems Name Problem SNOMED Code Status Onset Date Resolution Date Notes Provider Name and Address Organization Details Recorded Time Arthralg ia of temporom andibula r joint 71386327 Completed 201503/04/2019 Gale valadez [facility] 0 10:07:46 Myofasci al pain 062444212 Active 2019 masticat ory and cervical Gale valadez [facility] 0 10:08:05 Arthralg ia of temporom andibula r joint 78518788 Active 2019 Gale valadez, [facility] 0 10:07:46 Neck pain 91190996 Active 2019 Gale valadez, [facility] 0 10:07:47 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 91577272 Active 2023 GRETCHEN PALOMINO BDS,MS [address] [facility] [address], [place], [address], [place] [facility] 4 13:51:30 Bilatera l temporom andibula r joint pain 62250930842 253452 Active 2023 GRETCHEN PALOMINO BDS,MS [address], [place], [id number], [place] [facility] 4 13:51:36 Episodic tension- type headache 991159269 Active 2023 GRETCHEN PALOMINO BDS,MS [address], [place], [phone], [place] [facility] 4 13:51:40 Sleep related bruxism 997139752 Active 2023 HIRAL MENDEZS,MS [address], [place], [phone], [place] [facility] 4 13:51:47 Finding of sensatio n by site 447726818 Completed 201503/04/2019 Gale Rosales [facility], [facility] 0 12:58:52 Spasm 02275498 Completed 201403/04/2019 [facility] 0 12:59:25 Chest pain 38633087 Completed 03/04/2019 Gale Rosales [facility], [facility] 0 12:58:59 Cellulit is 220312556 Completed 03/04/2019 Gale Rosales [facility], [facility] 0 12:58:46 Mixed hyperlip idemia 397271043 Completed 03/04/2019 Gale Rosales [facility], [facility] 0 12:58:55 Hyperten sive disorder 98724267 Completed 03/04/2019 Gale valadez, [facility] 0 12:59:21 Polyp of colon 00934900 Completed 03/04/2019 Gale Rosales null, [facility] 0 12:59:31 Chronic intersti tial cystitis 952423040 Completed 03/04/2019 Gale Rosales null, [facility] 0 12:58:49 Panic disorder without agorapho reginald 75065105 Completed 03/04/2019 Gale Rosales null, [facility] 0 12:59:29 Benign paroxysm al position al vertigo 456918949 Completed 03/04/2019 Gale valadez [facility] 0 12:58:44 Disorder of refracti on 49183328 Completed 03/04/2019 Gale valadez [facility] 0 12:59:23 Atrial fibrilla tion 24319423 Completed 03/04/2019 Gale valadez [facility] 0 12:59:27 Vitamin D deficien cy 02607557 Completed 03/04/2019 Gale valadez [facility] 0 12:59:18 Problem Notes None recorded. Procedures Surgical History Date Name Laterality Status Provider Name and Address Organization Details Recorded Time 02/04/20 Orthopantogram completed Daniella Carrero [facility] 02/04/2024 17:55:34 03/25/19 20 05515: Therapeutic Exercise completed Kaushik Hogan [facility] 03/25/2019 12:34:57 03/25/19 36339: Manual Therapy completed Kaushiksilverio Hogan [facility] 03/25/2019 17:43:28 03/17/19 20 26722 PT Eval - Low Complexity completed Kaushiksilverio Hogan [facility] 03/17/2019 17:58:21 03/17/19 20 24210: Therapeutic Exercise completed Kaushik Hogan [facility] 03/17/2019 11:33:56 03/17/19 20 80180: Manual Therapy completed Kaushik Hogan [facility] 03/17/2019 11:33:56 03/04/19 20 Orthopantogram completed Gale Rosales [facility] [...] Hernia repair w/mesh completed Gregor Snowmarco antonio [facility] 03/04/2019 13:47:39 Imaging Results Imaging Date Name Status LastModified by Organization Details LastModified Time 03/04/2019 XR, orthopantogram completed Inform ation not available 03/04/2019 13:24:13 02/04/2024 XR, orthopantogram completed [email or web address] Inform ation not available 02/04/2024 16:52:37 02/05/2024 CT, temporal bone, w/o contrast completed Information not available 02/05/2024 15:39:21 02/05/2024 CT, neck, w/wo contrast completed Information not available 02/05/2024 14:05:56 02/05/2024 CT, head, w/wo contrast completed Information not available 02/05/2024 15:39:21 02/06/2024 XR, orthopantogram completed [place] [address], [place], [address], 02/06/2024 13:52:42 Procedure Notes None recorded. Medical Equipment None Reported. Allergies Allergen ID Allergen Name Allergen Category Reaction Reaction Severity Criticality Documentation Date Start Date Code Code System Note Provider Name and Address Organization Details Recorded Time 85266 clonidine medicatio n Not available Not available Not available 01/12/2016 2599 RxNorm Not Available [facility] 6 06:37:56 71341 latex environme nt,medica tion Not available Not available Not available 01/12/2016 04775 91 RxNorm Not Available [facility] 6 06:39:09 36755 Substance with sulfonami de structure and antibacte rial mechanism of action (substanc e) medicatio n Not available Not available Not available 01/12/2016 70082 8003 SNOMED Not Available [facility] 6 06:39:24 04518 Product containin g penicilli n (product) medicatio n Not available Not available Not available 01/12/2016 23905 8001 SNOMED Not Available [facility] 6 06:40:04 99801 diatrizoa te meglumine medicatio n Not available Not available Not available 01/12/2016 3320 RxNorm Not Available [facility] 6 06:41:41 41106 losartan medicatio n Not available Not available Not available 01/12/2016 53056 RxNorm Not Available [facility] 6 06:44:23 77464 cephalexi n medicatio n Not available Not available Not available 02/04/2024 2231 RxNorm Kelsey Treviño [facility] [...] Last Updated DateTime 166.37 cm 32.4 kg/m2 07426.2 9 g 54 /min 120 mm[Hg] 68 mm[Hg] Kelsey Treviño ID - [facility] 15:45:40 Date [...] Updated DateTime 0 167.64 cm 35.5 kg/m2 88902.3 2 g 61 /min 154 mm[Hg] 79 mm[Hg] Gregor Longo [facility] 0 12:37:27 Social History Question Answer Notes LastModified by Organizat ion Details LastModified Time Tobacco Smoking Status Never Smoker Gregor Longo [facility] 03/04/2019 [...] COPD N Depression N Lung Disease N Hypothyroidism N Glaucoma N Pneumonia N Pacemaker N Obstructive Sleep [...] Fibromyalgia N Kidney Disease N Allergies/Hayfever Y Parkinson's Disease N Post traumatic stress disorder (PTSD) N Migraines N Brain Tumors N Anemia N Multiple Sclerosis N Immune System Disorder N Meningitis N Pancreatic disease N Heart Attack (TN) N Stomach Ulcers N Diabetes N Back pain Y Bleeding Disorder N Seizures/Epilepsy N Sjogren's syndrome N Mental Health Concerns N Tuberculosis N AIDS/HIV N History of radiation therapy N Hyperlipidemia N Dementia N Asthma N Physical or sexual abuse N Psoriasis N Substance Abuse N Peripheral Vascular Disease N Reflux/GERD N Vertigo N Sleep Disorder N Aneurysm N Hepatitis N Neuropathy N Heart Disease N Pulmonary Embolism N Hypertension Y Osteoporosis N Gynecological HistoryNo gynecological history recorded. 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 Neck pain 06118114 M54.2 [id number] Kaushik Bright[address] [place] [id number] 03/17/2019 11:08:09 03/17/2019 12:29:49 Arthralgia of temporomandibular joint 40472790 M26.629 Neck pain 07337250 M54.2 [id number] Kaushik Bright[address] [place] [id number] 03/25/2019 12:18:18 03/25/2019 13:03:15 Arthralgia of temporomandibular joint 26497444 M26.629 Neck pain 76115226 M54.2 Myofascial pain 21915847 9 M79.10 [id number] GRETCHEN PALOMINO BDS,MS Dan[address] Harrell[address] [place] [id number] 02/04/2024 14:08:48 02/04/2024 17:23:18 Articular disc disorder of temporomandibular joint 76997522 M26.633 Bilateral TMJ disc displaceme nt without reduction with limited openingRul e out L>R TMJ DJD - irregulari ty per KRUGER Myofascial pain 18243571 9 M79.11 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.12 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 Bilateral temporomandibular joint pain 6663822706 7227150 M26.623 L>R Episodic t ension-type headache 751963849 G44.219 Neck pain 07241906 M54.2 Sleep related bruxism 27 8426829 G47.63 [id number] GRETCHEN PALOMINO BDS,MS Danuta [address] [place] [id number] 03/23/2024 11:40:07 03/23/2024 12:30:05 Articular disc disorder of temporomandibular joint 01782042 M26.633 Bilateral TMJ disc displaceme nt without reduction with limited openingRul e out L>R TMJ DJD - irregulari ty per KRUGER Myofascial pain 22139517 9 M79.11 M79.12 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 Bilateral temporomandibular joint pain 6302586867 6963904 M26.623 L>R Episodic t ension-type headache 433489167 G44.219 Neck pain 60033926 M54.2 Sleep related bruxism 27 7414879 G47.63 Health Concerns Section Related Observation LastModified by Organization Detai ls LastModified Time None Recorded Concern Status LastModified by Organization Details LastModified Time None Recorded Advance Directives Directive None Recorded Payers Encounter Date Sequence Insurance Name Policy Number Policy Narayanan Covered Member ID Narayanan Member ID Guarantor Name 03/04/2019 1 [employer] - DOS ON OR AFTER 19 (MEDICARE REPLACEMENT/ ADVANTAGE - HMO) [id number] Cindy R Rosy [id number] Cindy R Rosy 03/17/2019 1 [employer] - DOS ON OR AFTER 19 (MEDICARE REPLACEMENT/ ADVANTAGE - HMO) [id number] Cindy R Rosy [id number] Cindy R Rosy 03/25/2019 1 [employer] - DOS ON OR AFTER 19 (MEDICARE REPLACEMENT/ ADVANTAGE - HMO) [id number] Cindy R Rosy [id number] Cindy R Rosy 02/04/2024 1 [employer] - DOS ON OR AFTER 19 (MEDICARE REPLACEMENT/ ADVANTAGE - HMO) [id number] Cindy R Rosy [id number] Cindy R Rosy 03/23/2024 1 [employer] - DOS ON OR AFTER 19 (MEDICARE REPLACEMENT/ ADVANTAGE - HMO) [id number] Cindy R Rosy [id number] Cindy R Rosy Notes Date Note Type [...] in her left masseter. Gale Rosales rory [facility] [...] elbow/knee with no head impact. Kaushik valadez [facility] 03/17/2019 18:11:41 03/25/2019 text/html She reports pain in the left jaw. 02/27. Biting increases pain but doing better except when ate walleye sandwich which had her mouth open widely. [place], She hit elbow/knee with no head impact and still reports no after effects. Kaushik valadez [facility] [...] denies sleep issues. GRETCHEN PALOMINO, COL[place],MS [address] [facility] [address], [place], [address], [place] [facility] [...] She is engaged in physical therapy in [place], [place], and doing home exercises. The patient [...] have a home. GRETCHEN PALOMINO, BDS,MS [address] [facility] [address], [place], [address], [facility] [place] - [facility] 03/25/2024 15:12:41 OBGyn Episode No OBEpisode recorded.
[2024-04-26 22:45] VITALS: BP 144/74; PULSE 66; RESP 22; TEMP 36.5; O2SAT 97; BMI 33.7
--- NOTE | 2024-04-26 22:55 | ED.ABDPAIN ---
HPI - Abdominal Pain General Date Seen: 04/26/24 <Nico Mendiola DO - Last Filed: 04/26/24 23:56> Chief Complaint: Abdominal Pain <Nico Mendiola DO - Last Filed: 04/26/24 23:56> Stated Complaint: small bowl obstruction <Nico Mendiola DO - Last Filed: 04/26/24 23:56> Time Seen by Provider: 04/26/24 22:44 <Nico Mendiola DO - Last Filed: 04/26/24 23:56> Source: patient <Nico Mendiola DO - Last Filed: 04/26/24 23:56> Mode of arrival: ambulatory <Nico Mendiola DO - Last Filed: 04/26/24 23:56> Limitations: no limitations <Nico Mendiola DO - Last Filed: 04/26/24 23:56> History of Present Illness HPI narrative: Patient is a 78-year-old female presenting for left lower quadrant abdominal pain. She was seen in the emergency department on 04/13/2024 for similar symptoms. At that time CT was done showing a possible stricture but no obvious bowel obstruction. She did follow-up with a primary care provider and is scheduled for a colonoscopy this upcoming Saturday. She went home and symptoms she states have been gradually worsening. Has been eating mostly liquid diet to try and help with the symptoms. States she she was feeling a little bit better today and then tried to eat some solid fluid in had severe pain about an hour after that. Has had some small soft bowel movements and had diarrhea when she got to the emergency department today. States today was the 1st time she had diarrhea. No recent antibiotic use. Denies chest pain, shortness of breath, weakness. Did feel like the room was spinning while in the car ride here but that has since resolved. She states the pain is severe but does not radiate. Has had previous appendectomy that require large surgery due to it rupturing and causing quite a few adhesions. This occurred over 20 years ago she states. No other concerns noted. Has been using Zofran for her nausea and it has helped <Nico Mendiola - Last Filed: 04/26/24 23:56> Related Data Home Medications: Home Medications ?Medication ?Instructions ?Recorded ?Confirmed flavoxate 100 mg tablet 100 mg PO TID 11/07/21 03/26/24 furosemide 20 mg tablet 20 mg PO DAILY 11/07/21 03/26/24 losartan 50 mg tablet 100 mg PO DAILY 11/07/21 03/26/24 ondansetron HCl 4 mg tablet 4 mg PO DAILY 11/07/21 03/26/24 oxybutynin chloride 10 mg 10 mg PO DAILY 11/07/21 03/26/24 tablet,extended release 24 hr potassium chloride 20 mEq 20 meq PO DAILY 11/07/21 03/26/24 tablet,extended release(part/cryst) sumatriptan succinate 50 mg tablet 50 mg PO DAILY 11/07/21 03/26/24 warfarin 5 mg tablet 5 mg PO 11/07/21 03/18/24 amlodipine 10 mg tablet 10 mg PO DAILY 07/19/22 03/26/24 fluticasone propionate 50 1 spray intranasal DAILY 07/19/22 03/26/24 mcg/actuation nasal spray,suspension hydroxyzine HCl 25 mg tablet 25 mg PO 3XD 07/19/22 03/26/24 cyclobenzaprine 5 mg tablet 5 mg PO TID PRN 06/03/23 03/26/24 glucosamine HCl 1,500 mg tablet 1,500 mg PO DAILY 06/03/23 03/18/24 hyoscyamine sulfate 0.125 mg 0.125 mg PO Q4H PRN 06/03/23 03/18/24 tablet (Levsin) metronidazole 500 mg tablet 500 mg PO TID 06/03/23 03/26/24 albuterol sulfate 90 mcg/actuation inhalation 03/18/24 03/18/24 aerosol inhaler clobetasol 0.05 % topical ointment topical 03/18/24 03/18/24 fluocinonide 0.05 % topical topical 03/18/24 03/18/24 solution loteprednol etabonate 0.5 % eye drp ophthalmic (eye) 03/18/24 03/18/24 drops,suspension nystatin 100,000 unit/mL oral PO 03/18/24 03/18/24 suspension omeprazole 40 mg capsule,delayed mg PO DAILY 03/18/24 03/18/24 release Previous Rx's ?Medication ?Instructions ?Recorded phenazopyridine 100 mg tablet 100 mg PO TID PRN pain 6 doses #6 10/20/23 tabs hydrocodone 5 mg-acetaminophen 325 1 tab PO Q4-6H PRN pain #15 tabs 02/18/24 mg tablet docusate sodium 100 mg capsule 100 mg PO BID #60 caps 04/13/24 (Colace) ondansetron 4 mg disintegrating 4 mg PO Q6H PRN nausea and 04/13/24 tablet vomiting #20 tabs <Nico Mendiola DO - Last Filed: 04/26/24 23:56> Allergies/Adverse Reactions: Allergies Allergy/AdvReac Type Severity Reaction Status Date / Time cephalexin Allergy Intermediate Chest Pain Verified 04/27/24 00:34 clonidine Allergy Intermediate tachycardia Verified 04/27/24 00:34 losartan Allergy Intermediate Tachycardia Verified 04/27/24 00:34 gadodiamide Allergy Mild Hives Verified 04/27/24 00:34 latex Allergy Mild Rash Verified 04/27/24 00:34 ibuprofen Allergy Chest Pain Verified 04/27/24 00:34 Penicillins Allergy Anaphylaxis Verified 04/27/24 00:34 Sulfa (Sulfonamide Allergy Hives Verified 04/27/24 00:34 Antibiotics) nitrofurantoin (From AdvReac Verified 04/27/24 00:35 Macrobid) propranolol AdvReac bradycardia Verified 04/27/24 00:35 IV contrast dye Allergy Hives Uncoded 04/27/24 00:35 peg 400-propylene glycol Allergy Rash Uncoded 04/27/24 00:35 <Nico Mendiola DO - Last Filed: 04/26/24 23:56> Review of Systems Status of ROS Reports: 10 or more systems reviewed and unremarkable except as noted in History and below <Nico Mendiola DO - Last Filed: 04/26/24 23:56> [facility] Medical History: Medical History TMJ tenderness, left ?M26.622 - Arthralgia of left temporomandibular joint (ICD-10) Chronic diastolic (congestive) heart failure ?I50.32 - Chronic diastolic (congestive) heart failure (ICD-10) Viral gastroenteritis ?A08.4 - Viral intestinal infection, unspecified (ICD-10) Traumatic ecchymosis of face ?S00.83XA - Contusion of other part of head, initial encounter (ICD-10) Toothache ?K08.89 - Other specified disorders of teeth and supporting structures (ICD-10) Sprain of knee ?S83.90XA - Sprain of unspecified site of unspecified knee, initial encounter (ICD-10) Pain of right hand ?M79.641 - Pain in right hand (ICD-10) Nausea alone ?R11.0 - Nausea (ICD-10) Headache ?R51.9 - Headache, unspecified (ICD-10) Fall ?W19.XXXA - Unspecified fall, initial encounter (ICD-10) Epigastric pain ?R10.13 - Epigastric pain (ICD-10) Dyspnea ?R06.00 - Dyspnea, unspecified (ICD-10) Cough ?R05.9 - Cough, unspecified (ICD-10) Cellulitis of leg ?L03.119 - Cellulitis of unspecified part of limb (ICD-10) Arthritis of both temporomandibular joints ?M26.643 - Arthritis of bilateral temporomandibular joint (ICD-10) Atrial fibrillation ?I48.91 - Unspecified atrial fibrillation (ICD-10) Enlarged LA (left atrium) ?I51.7 - Cardiomegaly (ICD-10) Vitamin D deficiency ?E55.9 - Vitamin D deficiency, unspecified (ICD-10) Hyperlipidemia ?E78.5 - Hyperlipidemia, unspecified (ICD-10) Panic disorder without agoraphobia ?F41.0 - Panic disorder [episodic paroxysmal anxiety] (ICD-10) Benign paroxysmal positional vertigo ?H81.10 - Benign paroxysmal vertigo, unspecified ear (ICD-10) Hypertension ?I10 - Essential (primary) hypertension (ICD-10) <Nico Mendiola DO - Last Filed: 04/26/24 23:56> Surgical History: Surgical History S/P trigger finger release (06/04/23) ?Z98.890 - Other specified postprocedural states (ICD-10) History of incision and drainage (02/26/14) ?Z98.890 - Other specified postprocedural states (ICD-10) History of phacoemulsification of cataract of right eye with intraocular lens implantation (04/17/17) ?Z98.41 - Cataract extraction status, right eye (ICD-10) ?Z96.1 - Presence of intraocular lens (ICD-10) History of phacoemulsification of cataract of left eye with intraocular lens implantation (05/01/17) ?Z98.42 - Cataract extraction status, left eye (ICD-10) ?Z96.1 - Presence of intraocular lens (ICD-10) History of YAG laser capsulotomy of lens of right eye (09/04/17) ?Z98.41 - Cataract extraction status, right eye (ICD-10) History of YAG laser capsulotomy of lens of left eye (04/06/20) ?Z98.42 - Cataract extraction status, left eye (ICD-10) H/O hernia repair (03/22/08) ?Z98.890 - Other specified postprocedural states (ICD-10) ?Z87.19 - Personal history of other diseases of the digestive system (ICD-10) H/O dilation and curettage (04/28/08) ?Z98.890 - Other specified postprocedural states (ICD-10) History of appendectomy ?Z90.49 - Acquired absence of other specified parts of digestive tract (ICD-10) <Nico Mendiola DO - Last Filed: 04/26/24 23:56> Social History: Social History Smoking Status: Never smoker Do you use any of these nicotine containing products: None Second hand tobacco smoke exposure: No How often do you have a drink containing alcohol: never How often do you have six or more drinks on one occasion: Never AUDIT-C Alcohol total score: 0 Non-prescribed substance use: denies use Caffeine: No Are you using contraception or practicing any form of control: No service: No <Nico Mendiola DO - Last Filed: 04/26/24 23:56> Exam Narrative: Exam Narrative: Const: Well-nourished, Well-developed, in moderate distress Eyes: PERRL, no conjunctival injection, and symmetrical lids HENT: Atraumatic external nose and ears. Moist mucous membranes. Neck: Symmetric, trachea midline, No thyromegaly. CVS: RRR, No murmurs or gallops. Peripheral pulses 2+ and equal in all extremities RESP: Unlabored respiratory effort. Clear to auscultation bilaterally. GI: Left lower quadrant tenderness, Nondistended, No rebound or guarding. MSK:Extremities w/o deformity, Normal Active ROM Skin: Warm, Dry. No rashes or lesions. Neuro: Normal Muscle tone, No focal neurological deficits. Psych: Awake, Alert, & Oriented x3. Appropriate mood and affect. <Nico Mendiola DO - Last Filed: 04/26/24 23:56> Const: Vital Signs, click to edit/add: Vital Signs - 24 hr 04/26/24 22:45 04/26/24 23:24 04/26/24 23:30 Temperature 97.7 F Pulse Rate 82 68 Pulse Rate [Right Radial] 66 Respiratory Rate 22 Blood Pressure Blood Pressure [Ri ght Upper Arm] 144/74 H Pulse Oximetry 97 100 100 Oxygen Delivery Me thod Room Air 04/26/24 23:45 Temperature Pulse Rate 64 Pulse Rate [Right Radial] Respiratory Rate 18 Blood Pressure 131/58 L Blood Pressure [Ri ght Upper Arm] Pulse Oximetry 98 Oxygen Delivery Me thod <Nico Mendiola DO - Last Filed: 04/26/24 23:56> Vital Signs, click to edit/add: Vital Signs - 24 hr 04/26/24 22:45 04/26/24 23:24 04/26/24 23:30 Temperature 97.7 F Pulse Rate 82 68 Pulse Rate [Right Radial] 66 Respiratory Rate 22 Blood Pressure Blood Pressure [Ri ght Upper Arm] 144/74 H Pulse Oximetry 97 100 100 Oxygen Delivery Me thod Room Air 04/26/24 23:45 Temperature Pulse Rate 64 Pulse Rate [Right Radial] Respiratory Rate 18 Blood Pressure 131/58 L Blood Pressure [Ri ght Upper Arm] Pulse Oximetry 98 Oxygen Delivery Me thod <Ceefrino Schroeder MD - Last Filed: 04/28/24 11:54> Course Course ED Course: Alexandre -- Inherited this patient pending CT imaging results. Patient with increasing pain requiring redosing of morphine. I did independently the iv contrasted ct scan of abdomen and pelvis. I see narrowing of the descending colon but otherwise without inflammatory changes, Radiology overread below INDICATION: Left lower quadrant pain. TECHNIQUE: CT abdomen and pelvis acquired with 93 cc Isovue 370 IV contrast. COMPARISON: 04/13/2024. FINDINGS: Lower chest: Few linear parenchymal bands, likely representing subsegmental atelectasis. Stable mild cardiomegaly. Liver: Unremarkable. Normal in size and attenuation. No suspicious masses. Gallbladder and bile ducts: Unremarkable. No stones or inflammation. No biliary ductal dilatation. Spleen: Unremarkable. Normal in size. No masses. Adrenal glands: Unremarkable. No nodules. Pancreas: Unremarkable. No mass or inflammation. Kidneys: Left renal cysts. Subcentimeter hypodense foci are too small to accurately characterize. No stones or hydronephrosis. GI tract: Small hiatal hernia. Few scattered colonic diverticula without evidence of diverticulitis. Persistent luminal narrowing involving the mid descending colon (series 2, image 57). No evidence of obstruction. Appendix not visualized. Lymph nodes: No lymphadenopathy. Vasculature: Moderate scattered atherosclerotic calcifications. Abdominal aorta is normal in caliber. Omentum/Peritoneum/Abdominal Wall: Prior hernia repair. No free air or significant free fluid. Pelvis: Calcified uterine fibroids. Bones: Degenerative changes. IMPRESSION: 1. No acute abdominal or pelvic abnormality. 2. Persistent luminal narrowing involving the mid descending colon. Recommend correlation with colonoscopy. 3. Other incidental findings as above, similar to prior. Please note that all CT scans at this facility use dose modulation, iterative reconstruction, and/or weight-based dosing when appropriate to reduce radiation dose to as low as reasonably achievable. Dictated by Howard Schmitz MD @ 04/27/2024 1:06:06 AM Reviewed findings with Mrs. Rosy amin. Pending colonoscopy in follow up. <Ceferino Schroedre MD - Last Filed: 04/28/24 11:54> Vital Signs Vital signs: Initial Vital Signs Temperature 97.7 F 04/26/24 22:45 Temperature Source Temporal Artery Scan 04/26/24 22:45 Pulse Rate 66 04/26/24 22:45 Pulse Rhythm Regular 04/26/24 22:45 Respiratory Rate 22 04/26/24 22:45 Blood Pressure 144/74 H 04/26/24 22:45 Blood Pressure Mean 97 04/26/24 22:45 Pulse Oximetry 97 04/26/24 22:45 Oxygen Delivery Method Room Air 04/26/24 22:45 Vital Signs Temperature 97.7 F 04/26/24 22:45 Pulse Rate 66 04/26/24 22:45 Respiratory Rate 22 04/26/24 22:45 Blood Pressure 144/74 H 04/26/24 22:45 Pulse Oximetry 97 04/26/24 22:45 Oxygen Delivery Method Room Air 04/26/24 22:45 Temperature 97.7 F 04/27/24 02:20 Pulse Rate 71 04/27/24 02:20 Respiratory Rate 18 04/27/24 02:20 Blood Pressure 135/74 04/27/24 02:20 Pulse Oximetry 98 04/27/24 01:53 Oxygen Delivery Method Room Air 04/27/24 01:53 <Nico Mendiola DO - Last Filed: 04/26/24 23:56> Initial Vital Signs Temperature 97.7 F 04/26/24 22:45 Temperature Source Temporal Artery Scan 04/26/24 22:45 Pulse Rate 66 04/26/24 22:45 Pulse Rhythm Regular 04/26/24 22:45 Respiratory Rate 22 04/26/24 22:45 Blood Pressure 144/74 H 04/26/24 22:45 Blood Pressure Mean 97 04/26/24 22:45 Pulse Oximetry 97 04/26/24 22:45 Oxygen Delivery Method Room Air 04/26/24 22:45 Vital Signs Temperature 97.7 F 04/26/24 22:45 Pulse Rate 66 04/26/24 22:45 Respiratory Rate 22 04/26/24 22:45 Blood Pressure 144/74 H 04/26/24 22:45 Pulse Oximetry 97 04/26/24 22:45 Oxygen Delivery Method Room Air 04/26/24 22:45 Temperature 97.7 F 04/27/24 02:20 Pulse Rate 71 04/27/24 02:20 Respiratory Rate 18 04/27/24 02:20 Blood Pressure 135/74 04/27/24 02:20 Pulse Oximetry 98 04/27/24 01:53 Oxygen Delivery Method Room Air 04/27/24 01:53 <Ceferino Schroeder MD - Last Filed: 04/28/24 11:54> Medications Administered Medications: Discontinued Medications Generic Name Dose Route Start Last Admin Trade Name Freq PRN Reason Stop Dose Admin Diphenhydramine HCl 50 mg 04/26/24 22:54 04/26/24 23:13 Diphenhydramine 50 Mg/Ml Inj IVP 04/26/24 22:55 50 mg ONCE ONE Administration Hydrocortisone Sodium Succinate 200 mg 04/26/24 22:54 04/26/24 23:12 Hydrocortisone Sod Succinate 50 Mg/Ml Inj IVP 04/26/24 22:55 200 mg ONCE ONE Administration Sodium Chloride 1,000 mls @ 1,200 mls/hr 04/27/24 01:29 04/27/24 02:21 0.9 % Sodium Chloride 1000 Ml IV 04/27/24 02:18 Infused .Q50M ONE Infusion Morphine Sulfate 4 mg 04/26/24 22:53 04/26/24 23:16 Morphine 4 Mg/Ml Inj IVP 04/26/24 22:54 4 mg ONCE ONE Administration Morphine Sulfate 4 mg 04/27/24 00:47 04/27/24 00:58 Morphine 4 Mg/Ml Inj IVP 04/27/24 00:48 4 mg ONCE ONE Administration Ondansetron HCl 4 mg 04/26/24 22:53 04/26/24 23:17 Ondansetron 2 Mg/Ml Inj IVP 04/26/24 22:54 4 mg ONCE ONE Administration <Nico Mendiola, DO - Last Filed: 04/26/24 23:56> Discontinued Medications Generic Name Dose Route Start Last Admin Trade Name Freq PRN Reason Stop Dose Admin Diphenhydramine HCl 50 mg 04/26/24 22:54 04/26/24 23:13 Diphenhydramine 50 Mg/Ml Inj IVP 04/26/24 22:55 50 mg ONCE ONE Administration Hydrocortisone Sodium Succinate 200 mg 04/26/24 22:54 04/26/24 23:12 Hydrocortisone Sod Succinate 50 Mg/Ml Inj IVP 04/26/24 22:55 200 mg ONCE ONE Administration Sodium Chloride 1,000 mls @ 1,200 mls/hr 04/27/24 01:29 04/27/24 02:21 0.9 % Sodium Chloride 1000 Ml IV 04/27/24 02:18 Infused .Q50M ONE Infusion Morphine Sulfate 4 mg 04/26/24 22:53 04/26/24 23:16 Morphine 4 Mg/Ml Inj IVP 04/26/24 22:54 4 mg ONCE ONE Administration Morphine Sulfate 4 mg 04/27/24 00:47 04/27/24 00:58 Morphine 4 Mg/Ml Inj IVP 04/27/24 00:48 4 mg ONCE ONE Administration Ondansetron HCl 4 mg 04/26/24 22:53 04/26/24 23:17 Ondansetron 2 Mg/Ml Inj IVP 04/26/24 22:54 4 mg ONCE ONE Administration <Ceferino Schroeder MD - Last Filed: 04/28/24 11:54> MDM - Abdominal Pain MDM Narrative Medical decision making narrative: Patient is a 78-year-old female presenting for abdominal pain. Pain is similar previous time she was seen when a stricture was believed to have been seen on her CT scan. She has not been able to get a colonoscopy yet but is scheduled for it this week. Differential at this time includes an SBO, diverticulitis, muscle strain. Concerning location gallbladder/liver and pancreatitis seem less likely. Will order CBC, CMP, lipase, urinalysis. Also CT scan with IV contrast for better evaluation. She does have a contrast allergy so Benadryl and hydrocortisone ordered per protocol. Patient also given Zofran and morphine for her symptoms. CBC and CMP showed no concerning abnormalities. Lipase within normal limits. Patient will be signed out to the oncoming physician pending CT scan results. <Nico Mendiola DO - Last Filed: 04/26/24 23:56> Patient is a 78-year-old female presenting for abdominal pain. Pain is similar previous time she was seen when a stricture was believed to have been seen on her CT scan. She has not been able to get a colonoscopy yet but is scheduled for it this week. Differential at this time includes an SBO, diverticulitis, muscle strain. Concerning location gallbladder/liver and pancreatitis seem less likely. Will order CBC, CMP, lipase, urinalysis. Also CT scan with IV contrast for better evaluation. She does have a contrast allergy so Benadryl and hydrocortisone ordered per protocol. Patient also given Zofran and morphine for her symptoms. CBC and CMP showed no concerning abnormalities. Lipase within normal limits. Patient will be signed out to the oncoming physician pending CT scan results. Would suspect that pain is related to inflammation in the abdomen and enhanced about the stricture. see patient discharge plan for further discussion You said you are getting low on your supply of Zofran and [place] as prescribed before. I can supply you with some more Zofran and some Percocet from [email or web address]. Continue to pair opiate with senna-containing stool softener. Please be sure to follow-up with scheduled colonoscopy. Please follow-up also with your primary care provider to discuss a pain plan. <Ceferino Schroeder MD - Last Filed: 04/28/24 11:54> Medical Records Attestation: I reviewed the patient's medical records. <Ceferino Schroeder MD - Last Filed: 04/28/24 11:54> Lab Data Attestation: I reviewed the patient's lab results. <Ceferino Schroeder MD - Last Filed: 04/28/24 11:54> Labs: Lab Results 04/26/24 04/27/24 Range/Units 23:20 00:10 WBC 8.56 (4.50-11.00) K/uL RBC 5.86 H (4.00-5.20) m/uL Hgb 16.4 H (12.0-16.0) gm/dL Hct 47.5 (33.0-51.0) % MCV 81 (80-100) fL MCH 28 (26-34) pg MCHC 35 (32-36) gm/dL RDW Coeff of Mariaelena 16.9 H (11.5-15.5) % Plt Count 270 (140-440) K/uL Neut % (Auto) 81.1 H (42.0-72.0) % Lymph % (Auto) 8.6 L (20-44) % [place] % (Auto) 5.1 (0.0-11.0) % Eos % (Auto) 4.4 (0.0-7.0) % Baso % (Auto) 0.6 (0.0-3.0) % Neut # (Auto) 6.90 (1.7-7.0) K/uL Lymph # (Auto) 0.70 L (0.90-2.90) K/uL [place] # (Auto) 0.40 (0.00-0.90) K/UL Eos # (Auto) 0.38 (0.00-0.50) K/uL Baso # (Auto) 0.05 (0.00-0.30) K/uL Abs Immat Gran (auto) 0.02 (0.00-0.30) K/uL Imm/Tot Granulo (auto) 0.2 % Sodium 137 (135-149) mmol/L Potassium 3.7 (3.6-5.1) mmol/L Chloride 103 (96-114) mmol/L Carbon Dioxide 21 (20-32) mmol/L Anion Gap 13 (7-15) mEq/L BUN 28 (7-30) mg/dL Creatinine 1.0 (0.5-1.5) mg/dL Estimated Creat Clear 39.59 Estimated GFR 58 ml/min Glucose 145 H (60-115) mg/dL Calcium 9.8 (8.4-10.6) mg/dL Total Bilirubin 2.0 H (0.1-1.5) mg/dL AST 26 (12-35) U/L ALT 20 (4-35) U/L Alkaline Phosphatase 103 (40-150) U/L Total Protein 7.9 (6.0-8.3) g/dL Albumin 4.6 (3.3-5.0) g/dL Lipase 66 (23-300) U/L Urine Color Yellow (Yellow) Urine Appearance Clear (Clear) Urine pH 6.0 (5.0-8.5) Ur Specific [place] 1.010 (1.000-1.030) Urine Protein Negative (Negative) Urine Glucose (UA) Negative (Negative) Urine Ketones Negative (Negative) Urine Blood Negative (Negative) Urine Nitrite Negative (Negative) Urine Bilirubin Negative (Negative) Urine Urobilinogen 1.0 (0.2-1.0) Ur Leukocyte Esterase Trace A (Negative) Urine RBC 0-2 (0-2) Urine WBC 2-5 (0-5) Ur Squamous Epith Cells Few (None-Few) Urine Bacteria Few A (None) Urine Mucus Few A (None) <Nico Mendiola, DO - Last Filed: 04/26/24 23:56> Lab Results 04/26/24 04/27/24 Range/Units 23:20 00:10 WBC 8.56 (4.50-11.00) K/uL RBC 5.86 H (4.00-5.20) m/uL Hgb 16.4 H (12.0-16.0) gm/dL Hct 47.5 (33.0-51.0) % MCV 81 (80-100) fL MCH 28 (26-34) pg MCHC 35 (32-36) gm/dL RDW Coeff of Mariael[place] 16.9 H (11.5-15.5) % Plt Count 270 (140-440) K/uL Neut % (Auto) 81.1 H (42.0-72.0) % Lymph % (Auto) 8.6 L (20-44) % [place] % (Auto) 5.1 (0.0-11.0) % Eos % (Auto) 4.4 (0.0-7.0) % Baso % (Auto) 0.6 (0.0-3.0) % Neut # (Auto) 6.90 (1.7-7.0) K/uL Lymph # (Auto) 0.70 L (0.90-2.90) K/uL [place] # (Auto) 0.40 (0.00-0.90) K/UL Eos # (Auto) 0.38 (0.00-0.50) K/uL Baso # (Auto) 0.05 (0.00-0.30) K/uL Abs Immat Gran (auto) 0.02 (0.00-0.30) K/uL Imm/Tot Granulo (auto) 0.2 % Sodium 137 (135-149) mmol/L Potassium 3.7 (3.6-5.1) mmol/L Chloride 103 (96-114) mmol/L Carbon Dioxide 21 (20-32) mmol/L Anion Gap 13 (7-15) mEq/L BUN 28 (7-30) mg/dL Creatinine 1.0 (0.5-1.5) mg/dL Estimated Creat Clear 39.59 Estimated GFR 58 ml/min Glucose 145 H (60-115) mg/dL Calcium 9.8 (8.4-10.6) mg/dL Total Bilirubin 2.0 H (0.1-1.5) mg/dL AST 26 (12-35) U/L ALT 20 (4-35) U/L Alkaline Phosphatase 103 (40-150) U/L Total Protein 7.9 (6.0-8.3) g/dL Albumin 4.6 (3.3-5.0) g/dL Lipase 66 (23-300) U/L Urine Color Yellow (Yellow) Urine Appearance Clear (Clear) Urine pH 6.0 (5.0-8.5) Ur Specific [place] 1.010 (1.000-1.030) Urine Protein Negative (Negative) Urine Glucose (UA) Negative (Negative) Urine Ketones Negative (Negative) Urine Blood Negative (Negative) Urine Nitrite Negative (Negative) Urine Bilirubin Negative (Negative) Urine Urobilinogen 1.0 (0.2-1.0) Ur Leukocyte Esterase Trace A (Negative) Urine RBC 0-2 (0-2) Urine WBC 2-5 (0-5) Ur Squamous Epith Cells Few (None-Few) Urine Bacteria Few A (None) Urine Mucus Few A (None) <Ceferino Schroeder MD - Last Filed: 04/28/24 11:54> Discharge Plan Discharge Clinical Impression: Abdominal pain, Colonic stricture, Diarrhea <Nico Mendiola DO - Last Filed: 04/26/24 23:56> Patient Disposition: Home w/ Parent or Adult <Nico Mendiola DO - Last Filed: 04/26/24 23:56> Condition: Improved <Nico Mendiola DO - Last Filed: 04/26/24 23:56> Additional Instructions: You said you are getting low on your supply of Zofran and [place] as prescribed before. I can supply you with some more Zofran and some Percocet from [facility]. Continue to pair opiate with senna-containing stool softener. Please be sure to follow-up with scheduled colonoscopy. Please follow-up also with your primary care provider to discuss a pain plan. <Nico Mendiola DO - Last Filed: 04/26/24 23:56> Prescriptions: No Action fluticasone propionate 50 mcg/actuation spray,suspension 1 spray intranasal DAILY hydroxyzine HCl 25 mg tablet 25 mg PO 3XD amlodipine 10 mg tablet 10 mg PO DAILY phenazopyridine 100 mg tablet 100 mg PO TID PRN (Reason: pain) Qty: 6 0RF loteprednol etabonate 0.5 % drops,suspension ophthalmic (eye) Patient Comments: INSTILL 1 DROP INTO BOTH EYES THREE TIMES DAILY FOR 7 DAYS. SHAKE WELL BEFORE USE albuterol sulfate 90 mcg/actuation HFA aerosol inhaler inhalation Patient Comments: [NO ORIGINAL SIG] fluocinonide 0.05 % solution topical clobetasol 0.05 % ointment topical omeprazole 40 mg capsule,delayed release(DR/EC) PO DAILY nystatin 100,000 unit/mL suspension PO hydrocodone-acetaminophen 5-325 mg tablet 1 tab PO Q4-6H PRN (Reason: pain) Qty: 15 0RF losartan 50 mg tablet 100 mg PO DAILY Patient Comments: TAKE 2 TABLETS BY MOUTH ONCE DAILY oxybutynin chloride 10 mg tablet extended release 24hr 10 mg PO DAILY Patient Comments: TAKE 1 TABLET BY MOUTH ONCE DAILY ondansetron HCl 4 mg tablet 4 mg PO DAILY Patient Comments: TAKE 1 TABLET BY MOUTH EVERY 8 HOURS NEEDED FOR NAUSEA AND VOMITING sumatriptan succinate 50 mg tablet 50 mg PO DAILY Patient Comments: TAKE 1 TABLET BY MOUTH TWICE DAILY NEEDED FOR MIGRAINE GIVE AT MINIMUM 2 HOURS APART. MAX DOSE 200MG PER 24 HOURS. potassium chloride 20 mEq tablet,ER particles/crystals 20 meq PO DAILY Patient Comments: TAKE 1 TABLET BY MOUTH ONCE DAILY WITH A MEAL warfarin 5 mg tablet 5 mg PO furosemide 20 mg tablet 20 mg PO DAILY Patient Comments: TAKE 1 TABLET BY MOUTH IN THE MORNING flavoxate 100 mg tablet 100 mg PO TID Patient Comments: TAKE 1 TABLET BY MOUTH THREE TIMES DAILY cyclobenzaprine 5 mg tablet 5 mg PO TID PRN glucosamine HCl 1,500 mg tablet 1,500 mg PO DAILY hyoscyamine sulfate [Levsin] 0.125 mg tablet 0.125 mg PO Q4H PRN metronidazole 500 mg tablet 500 mg PO TID docusate sodium [Colace] 100 mg capsule 100 mg PO BID Qty: 60 0RF ondansetron 4 mg tablet,disintegrating 4 mg PO Q6H PRN (Reason: nausea and vomiting) Qty: 20 0RF <Nico Mendiola DO - Last Filed: 04/26/24 23:56> Follow Up/Referrals: Nico Betancourt MD [Primary Care Provider] - <Nico Mendiola DO - Last Filed: 04/26/24 23:56> Stand Alone Forms: [facility] Info Instructions <Nico Mendiola DO - Last Filed: 04/26/24 23:56>
[2024-04-26 23:00] VITALS: O2SAT 98
[2024-04-26] MEDS: HYDROCORTISONE SOD SUCCINATE 50 MG/ML inj 200 MG IVP (23:12)
[2024-04-26] MEDS: diphenhydrAMINE 50 MG/ML inj IVP (23:13)
[2024-04-26] MEDS: MORPHINE 4 MG/ML INJ IVP (23:16)
[2024-04-26] MEDS: ONDANSETRON 2 MG/ML inj 4 MG IVP (23:17)
[2024-04-26 23:24] VITALS: PULSE 82; O2SAT 100
[2024-04-26 23:27] LABS: Basophils Absolute Auto 0.05 K/uL (0.00-0.30); Basophils Percent Auto 0.6 % (0.0-3.0); Eosinophils Absolute Auto 0.38 K/uL (0.00-0.50); Eosinophils Percent Auto 4.4 % (0.0-7.0); Hematocrit 47.5 % (33.0-51.0); Hemoglobin* 16.4 gm/dL (12.0-16.0); Immature Granulocytes Abs Auto 0.02 K/uL (0.00-0.30); Immature Granulocytes Pct Auto 0.2 %; Lymphocytes Percent Auto 8.6 % (20-44); Mean Corpuscular HGB Conc 35 gm/dL (32-36); Mean Corpuscular Hemoglobin 28 pg (26-34); Mean Corpuscular Volume 81 fL (80-100); Monocytes Percent Auto 5.1 % (0.0-11.0); Neutrophils Percent Auto 81.1 % (42.0-72.0); Platelet Count* 270 K/uL (140-440); RDW Coefficient of Variation % 16.9 % (11.5-15.5); Red Blood Count 5.86 m/uL (4.00-5.20); White Blood Count* 8.56 K/uL (4.50-11.00)
[2024-04-26 23:29] LABS: Slide Review Reflex No
[2024-04-26 23:30] VITALS: PULSE 68; O2SAT 100
[2024-04-26 23:42] LABS: Albumin* 4.6 g/dL (3.3-5.0); Chloride* 103 mmol/L (96-114); Potassium* 3.7 mmol/L (3.6-5.1); Sodium* 137 mmol/L (135-149)
[2024-04-26 23:44] LABS: Anion Gap 13 mEq/L (7-15); Blood Urea Nitrogen* 28 mg/dL (7-30); Carbon Dioxide* 21 mmol/L (20-32); Est. Creatinine Clearance* 39.59; Estimated Glomerular Filt Rate 58 ml/min; Lipase* 66 U/L (23-300)
[2024-04-26 23:45] VITALS: BP 131/58; PULSE 64; RESP 18; O2SAT 98
[2024-04-26 23:45] LABS: Alanine Aminotransferase* 20 U/L (4-35); Alkaline Phosphatase* 103 U/L (40-150); Aspartate Amino Transferase* 26 U/L (12-35); Calcium* 9.8 mg/dL (8.4-10.6); Glucose* 145 mg/dL (60-115); Total Protein* 7.9 g/dL (6.0-8.3)
[2024-04-27 00:15] LABS: Appearance Urine Clear (Clear); Bilirubin Urine Negative (Negative); Blood Urine Negative (Negative); Color Urine Yellow (Yellow); Glucose Urine Negative (Negative); Ketones Urine Negative (Negative); Leukocyte Esterase Urine Trace (Negative); Nitrite Urine Negative (Negative); Protein Urine Negative (Negative)
[2024-04-27 00:23] LABS: Bacteria Urine Few; Mucus Urine Few; RBC Urine 0-2 (0-2); Squamous Epithelial Cell Urine Few (None-Few)
[2024-04-27] MEDS: MORPHINE 4 MG/ML INJ IVP (00:58)
[2024-04-27] MEDS: 0.9 % SODIUM CHLORIDE 1000 ml 1,000 ML 1200 ML IV (01:30)
[2024-04-27 01:53] VITALS: BP 135/74; PULSE 71; RESP 18; TEMP 36.5; O2SAT 98
[2024-04-27 02:20] VITALS: BP 135/74; PULSE 71; RESP 18; TEMP 36.5
== END 2024-04-27 02:21 | disposition home or self-care (01) ==
PROVIDERS: Student in an Organized Health Care Education/Training Program; Emergency Provider Family Medicine; PCP Surgery
DX: R10.9 Unspecified abdominal pain (principal); K56.699 Other intestinal obstruction unspecified as to partial versus complete obstruction; R19.7 Diarrhea, unspecified
CPT/HCPCS: 36415; 74177; 80053; 81001; 83690; 85025; 87086; 94761; 96374; 96375; 99284; 99285; J1200; J1720; J2270; J2405; J7030; Q9967

== ENCOUNTER 2024-04-29 06:09 | Outpatient (CLI) | payer MEDICARE, SELFPAY ==
--- NOTE | 2024-04-29 08:24 | W.ANESCHARGE ---
Anesthesia Charges Start Date/Time Anesthesia Start Date: 04/29/24 Anesthesia Start Time: 07:51 Stop Date/Time Anesthesia Stop Date: 04/29/24 Anesthesia Stop Time: 08:23 Coding CPT Codes CPT Codes: EDWARD LWR INTST NDSC NOS - 35053 ([id number]) P2 - PATIENT W/MILD SYST DISEASE, QK - SENIOR NET WEB DEVELOPER 2-4 CNCRNT ANES PROC, QX - TEAM ASSISTANT SVC W/ MD MED DIRECTION
--- NOTE | 2024-04-29 09:00 | P.ANES_ITS ---
Anesthesia Charges Start Date/Time Anesthesia Start Date: 04/29/24 Anesthesia Start Time: 07:51 Stop Date/Time Anesthesia Stop Date: 04/29/24 Anesthesia Stop Time: 08:23 Summary Extremes of Age - Over 70 or under 1: MDA Coding CPT Codes CPT Codes: EDWARD LWR INTST NDSC NOS - 89802 ([id number]) P2 - PATIENT W/MILD SYST DISEASE, QX - POLYSOMNOGRAPHY TECHNOLOGIST SVC W/ MD MED DIRECTION, QK - MANUFACTURING PLANT MANAGER 2-4 CNCRNT ANES PROC Additional Codes: Summary - Extremes of Age - Over 70 or under 1: MDA ([id number])
--- NOTE | 2024-04-29 09:00 | W.ANESCHARGE ---
Anesthesia Charges Start Date/Time Anesthesia Start Date: 04/29/24 Anesthesia Start Time: 07:51 Stop Date/Time Anesthesia Stop Date: 04/29/24 Anesthesia Stop Time: 08:23 Summary Extremes of Age - Over 70 or under 1: MDA Coding CPT Codes CPT Codes: EDWARD LWR INTST NDSC NOS - 66918 ([id number]) P2 - PATIENT W/MILD SYST DISEASE, QX - MECHANIC FOREMAN SVC W/ MD MED DIRECTION, QK - PER DIEM RN 2-4 CNCRNT ANES PROC Additional Codes: Summary - Extremes of Age - Over 70 or under 1: MDA ([id number])
== END 2024-04-29 06:10 | disposition home or self-care (01) ==
LOC: OP CLINIC 06:10
PROVIDERS: PCP Surgery; Visit Provider Internal Medicine Gastroenterology
DX: R93.3 Abnormal findings on diagnostic imaging of other parts of digestive tract (principal); K63.89 Other specified diseases of intestine; K57.30 Diverticulosis of large intestine without perforation or abscess without bleeding; R10.32 Left lower quadrant pain; Z80.0 Family history of malignant neoplasm of digestive organs
CPT/HCPCS: 00811; 45380; 88305; 88341; 88342; 99100; J2704

== ENCOUNTER 2024-04-30 06:18 | Day surgery (SDC) | payer MEDICARE, SELFPAY ==
[2024-04-30] VITALS (10 sets, daily range): BP systolic 134–166; BP diastolic 62–77; PULSE 54–76; RESP 16; TEMP 36.5; O2SAT 98–100
[2024-04-30] MEDS: LIDOCAINE 1%-EPI 1:100,000 20 ML INFILTRATI (07:14)
--- NOTE | 2024-04-30 08:03 | P.ORPRC_ITS ---
Procedure Note Date of procedure: 04/30/24 Procedure: Preop diagnosis: Right upper extremity carpal tunnel syndrome, small finger stenosing tenosynovitis Postop diagnosis: Right upper extremity carpal tunnel syndrome, small finger stenosing tenosynovitis Procedure: Right upper extremity carpal tunnel release, small finger A1 nupur release Anesthesia: Local Surgeon: Glenroy Lora MD seed analysis laboratory assistant: Nico Chavez PA-C EBL: 2mL Complications: None Specimens: None Drains: None Indications: The patient has a history of right upper extremity carpal tunnel syndrome symptoms and small finger trigger finger. Despite appropriate nonoperative management consisting of nighttime bracing and occupational therapy they continue to have symptoms. Operative intervention was recommended. The risks, benefits alternatives and expected outcomes were discussed in detail. These included but were not limited to: Infection, bleeding, injury to blood vessel or nerve, venous thromboembolism. All questions were answered to their satisfaction. The patient was placed supine on the operating room table. Local anesthesia was established with 0.5% Marcaine with epinephrine and 2% lidocaine with epinephrine. The hand was prepped and draped in usual sterile fashion. A longitudinal incision was made in the distal palmar crease at the base of the small finger. Subcutaneous dissection was taken with tenotomy scissors to the flexor tendons. The A1 nupur was longitudinally divided. Proximal and distal dissection was carried with a tenotomy scissors. Active flexion and extension of the small finger shows no catching, no bowstringing of the tendons. A longitudinal incision was made centered over the radial border of the ring finger at the base of the palm. Subcutaneous dissection was sharply taken through the palmar fascia and the palmaris brevis to the transverse carpal ligament. The ligament was divided in line with the incision. Proximal and distal dissection was carried with tenotomy and Metzenbaum scissors for a wide decompression of the carpal tunnel. The wounds were closed with a 3-0 nylon. A bulky dry dressing was applied, sponge and needle counts were correct x 2. The patient tolerated the procedure well, there were no apparent complications. They were sent to same day surgery in satisfactory condition. Plan: Use of the hand as tolerates. Discontinue the intraoperative dressing on postoperative day 3 and may get the wound wet as tolerates. Follow up in the office in 2 weeks for a wound check and suture removal.
== END 2024-04-30 09:55 | disposition home or self-care (01) ==
LOC: OR 06:18
PROVIDERS: PCP Surgery; Visit Provider Orthopaedic Surgery
PROC: (CPT 64721; principal; 2024-04-30 07:45)
DX: G56.01 Carpal tunnel syndrome, right upper limb (principal); M65.351 Trigger finger, right little finger; M65.841 Other synovitis and tenosynovitis, right hand
CPT/HCPCS: 64721; 26055

== ENCOUNTER 2024-06-17 18:33 | Emergency (ER) | payer MEDICARE, SELFPAY ==
--- OUTSIDE RECORDS SUMMARY | 2024-06-17 18:36 | XMS_ITS | Encounter Summary ---
Author Organization [facility] Address [address] [place] [id number] Care Team Providers Care Biotechnician Name Role Phone Clinician, Not Found Primary Care Provider Un available Reason for Visit * Reason Comments Anticoagulation Encounter Details Date Type Department Care Team (Late st Contact Info) Description 05/11/2024 Telephone [facility] [id number] [address] [place] [id number] Clinician, Not Found, [place] [address] Anticoagulation Social History Tobacco Use Types Packs/Day Years Used Date Smoking Tobacco: Never Assessed Comments Unknown Sex and Gender Information Value Date Recorded Sex Assigned at Not on file Legal Sex Female 5:49 AM CDT Gender Identity Not on file Sexual Orientation Not on file documented as of this encounter Nursing Notes * Osvaldo Gramajo RN - 05/11/2024 5:59 PM CDT Chart reviewed. Patient remains on the anticoagulant, but care is managed by an outside clinician/health system: Change the anticoagulant to historical documented in this encounter Plan of Treatment Not on file documented as of this encounter Visit Diagnoses Not on filedocumented in this encounter Care Teams Biotechnician Relationship Specialty Start Date End Date Clinician, Not Found, [place] [address] PCP - General 05/08/24 documented as of this encounter
--- OUTSIDE RECORDS SUMMARY | 2024-06-17 18:36 | XMS_ITS | Data Portability ---
Author Organization [place] [facility] Address [address] [address] Care Team Providers Care Printing Plate Clerk Name Role Phone MARLENE GONZALEZ Primary Care [...] guarding habits to decrease pain by 50% MCC goals-6 weeks Client to not have jaw [...] guarding habits to decrease pain by 50% termite treater helper goals-6 weeks Client to not have jaw [...] be considered after reviewing existing imaging from [facility]. A release of information was obtained [...] return for follow-up care in 4-6 weeks. [email or web address] Not available 03/25/2024 15:12:37 Plan of Treatment Reminders Order Date Submit Date Provider Last Modified By Organization Details Last Modified Time Details Appointments None recorded . Lab None recorded . Referral physical therapis t referral - Please contact patient to schedule 2023 024 ALLEN Dumont DPT, [address], [place], [address], 4 14:12:16 physical therapis t referral 2019 020 [email or web address] [place] [address], [address], [place], [address], 0 10:10:15 Procedures None recorded . Surgeries None recorded . Imaging XR, orthopan togram 2023 024 [place] [address], [address], [place], [address], 4 13:53:17 Medication Orders None recorded . Patient TargetsNo targets recorded. Patient Instructions Encounter Date Encounter Id Patient Instructions Last Modified By Organization Details Last Modified Time 03/17/2019 [id number] Plan: Medicare requires a primary teaching assistant or VISCOSITY WORKER to authorize our plan of care. If you agree with the plan as outlined above, please sign, date and fax back to [phone]. Thank you. Primary MD signature: Date: [email or web address] Not available 03/17/2019 11:33:56 03/25/2019 [id number] Plan: Medicare requires a primary teaching assistant or VISCOSITY WORKER to authorize our plan of care. If you agree with the plan as outlined above, please sign, date and fax back to [phone]. Thank you. Primary MD signature: Date: [email or web address] Not available 03/25/2019 12:34:57 02/04/2024 [id number] Self Care for TMD Not availab le [...] panto gram No observ ation record ed. [email or web address] Not Available 2023 16:52:37 02/05/2002/05/2024 CT, tempo ral bone, w/o contr ast No observ ation record ed. Not Available 2023 15:39:21 02/05/20 24 02/05/2024 CT, neck, w/wo contr ast No observ ation record ed. Not Available 2023 14:05:56 02/05/20 24 02/05/2024 CT, head, w/wo contr ast No observ ation record ed. Not Available 2023 15:39:21 02/06/20 24 XR, ortho panto gram No observ ation record ed. [place] [address], [place], [address], 02/06/2024 13:52:42 Result Notes None recorded. Problems Name Problem SNOMED Code Status Onset Date Resolution Date Notes Provider Name and Address Organization Details Recorded Time Pain of temporom andibula r joint 35065170 Completed 201503/04/2019 Gale valadez, [facility] 0 10:07:46 Myofasci al pain 826463301 Active 2019 masticat ory and cervical Gale valadez, [facility] 0 10:08:05 Pain of temporom andibula r joint 06221396 Active 2019 Gale valadez, [facility] 0 10:07:46 Neck pain 47189315 Active 2019 Gale valadez, [facility] 0 10:07:47 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 56306203 Active 2023 GRETCHEN PALOMINO BDS,MS [address], [place], [address], [facility] 4 13:51:30 Bilatera l temporom andibula r joint pain 75145615409 364705 Active 2023 GRETCHEN PALOMINO BDS,MS [address], [place], [address], [facility] 4 13:51:36 Episodic tension- type headache 810987576 Active 2023 GRETCHEN PALOMINO BDS,MS [address], [place], [address], [facility] 4 13:51:40 Sleep related bruxism 646423038 Active 2023 GRETCHEN CANDELARIO, BDS,MS [address] [facility] [address], [place], [address], [facility] 4 13:51:47 Finding of sensatio n by site 208770434 Completed 201503/04/2019 Gale Rosales [facility], [facility] 0 12:58:52 Spasm 33280024 Completed 201403/04/2019 Gale Rosales [facility], [facility] 0 12:59:25 Chest pain 94399770 Completed 03/04/2019 Gale Rosales [facility], [facility] 0 12:58:59 Cellulit is 497130250 Completed 03/04/2019 Gale Rosales [facility], [facility] 0 12:58:46 Mixed hyperlip idemia 453481591 Completed 03/04/2019 Gale Lynnette [facility], [facility] 0 12:58:55 Hyperten sive disorder 14044481 Completed 03/04/2019 Gale Lynnette [facility], [facility] 0 12:59:21 Polyp of colon 07529433 Completed 03/04/2019 Gale Lynnette [facility], [facility] 0 12:59:31 Chronic intersti tial cystitis 511389368 Completed 03/04/2019 Gale Rosales [facility], [facility] 0 12:58:49 Panic disorder without agorapho reginald 17463113 Completed 03/04/2019 Gale Rosales [facility], [facility] 0 12:59:29 Benign paroxysm al position al vertigo 916469185 Completed 03/04/2019 Gale Rosales [facility], [facility] 0 12:58:44 Disorder of refracti on 39714539 Completed 03/04/2019 Gale valadez [facility] 0 12:59:23 Atrial fibrilla tion 07669306 Completed 03/04/2019 Gale valadez [facility] 0 12:59:27 Vitamin D deficien cy 36272412 Completed 03/04/2019 Gale valadez [facility] 0 12:59:18 Problem Notes None recorded. Procedures Surgical History Date Name Laterality Status Provider Name and Address Organization Details Recorded Time 02/04/20 Orthopantogram completed Daniella Carrero [facility] 02/04/2024 17:55:34 03/25/19 20 64689: Therapeutic Exercise completed Kaushik Hogan [facility] 03/25/2019 12:34:57 03/25/19 25275: Manual Therapy completed Kaushik Hogan [facility] 03/25/2019 17:43:28 03/17/19 20 26247 PT Eval - Low Complexity completed Kaushiksilverio Hogan [facility] 03/17/2019 17:58:21 03/17/19 20 68207: Therapeutic Exercise completed Kaushik Hogan [facility] 03/17/2019 11:33:56 03/17/19 20 39644: Manual Therapy completed Kaushik Hogan [facility] 03/17/2019 11:33:56 03/04/19 20 Orthopantogram completed Gale Rosales [facility] 03/04/2019 13:00:55 02/18/19 19 Xcapsl ctrc rmvl cplx wo ecp completed Gregor Longo [facility] 03/04/2019 12:47:26 reduction mammoplasty completed Gregor Longo [facility] 03/04/2019 12:46:06 Unlisted px foot/toes completed Gregor Longo [facility] 03/04/2019 12:46:45 Xcapsl ctrc rmvl cplx wo ecp completed Gregor Longo [facility] 03/04/2019 12:47:27 Appendectomy completed Gregor Longo [facility] 03/04/2019 13:47:26 Hernia repair w/mesh completed Gregor Longo [facility] 03/04/2019 13:47:39 Imaging Results Imaging Date Name Status LastModified by Organization Details LastModified Time 03/04/2019 XR, orthopantogram completed Inform ation not available 03/04/2019 13:24:13 02/04/2024 XR, orthopantogram completed [email or web address] Inform ation not available 02/04/2024 16:52:37 02/05/2024 CT, temporal bone, w/o contrast completed Information not available 02/05/2024 15:39:21 02/05/2024 CT, neck, w/wo contrast completed Information not available 02/05/2024 14:05:56 02/05/2024 CT, head, w/wo contrast completed Information not available 02/05/2024 15:39:21 02/06/2024 XR, orthopantogram completed [place] [address], [place], [address], 02/06/2024 13:52:42 Procedure Notes None recorded. Medical Equipment None Reported. Allergies Allergen ID Allergen Name Allergen Category Reaction Reaction Severity Criticality Documentation Date Start Date Code Code System Note Provider Name and Address Organization Details Recorded Time 40077 clonidine medicatio n Not available Not available Not available 01/12/2016 2599 RxNorm Not Available [facility] 6 06:37:56 78050 latex environme nt,medica tion Not available Not available Not available 01/12/2016 57012 91 RxNorm Not Available [facility] 6 06:39:09 20308 Substance with sulfonami de structure and antibacte rial mechanism of action (substanc e) medicatio n Not available Not available Not available 01/12/2016 34007 8003 SNOMED Not Available [facility] 6 06:39:24 67487 Product containin g penicilli n (product) medicatio n Not available Not available Not available 01/12/2016 84025 8001 SNOMED Not Available [facility] 6 06:40:04 04162 diatrizoa te meglumine medicatio n Not available Not available Not available 01/12/2016 3320 RxNorm Not Available [facility] 6 06:41:41 84826 losartan medicatio n Not available Not available Not available 01/12/2016 92340 RxNorm Not Available [facility] 6 06:44:23 93969 cephalexi n medicatio n Not available Not available Not available 02/04/2024 2231 RxNorm Kelsey Treviño [facility] 4 15:45:11 [...] Not Available Not Available No t Available metronidazo le 500 mg tablet TAKE 1 TABLET BY MOUTH ONCE FOR 1 DOSE, TAKE AT 8PM THE NIGHT PRIOR TO SURGERY. active Not Available Not Available No t Available ciprofloxac in 500 mg tablet TAKE 1 TABLET BY MOUTH ONCE FOR 1 DOSE. TAKE AT 8PM THE NIGHT PRIOR TO SURGERY. active Not Available Not Available No t Available omeprazole 40 mg capsule,del ayed release [...] active Not Available Not Available Not Available pantoprazol e 40 mg tablet,jarred yed release TAKE 1 TABLET BY MOUTH ONCE DAILY active Not Available Not Available No t Available hyoscyamine sulfate 0.125 mg tablet TAKE 1 TABLET BY MOUTH EVERY 4 HOURS NEEDED FOR BLADDER SPASMS 02/03 completed Not Available Not Available Not Available warfarin 5 mg tablet TAKE BY MOUTH 7.5 MG (5 MG X 1.5) EVERY SATURDAY AND SATURDAY, THEN 5 MG (5 MG X 1) ALL OTHER DAYS IN THE EVENING OR DIRECTD. active Not Available Not Available No t Available docusate sodium 100 mg capsule TAKE 1 CAPSULE BY [...] No t Available nystatin 100,000 unit/gram topical powder APPLY 1 POWDER TOPICALLY TO AFFECTED AREA THREE TIMES DAILY. 30 DAY SUPPLY active Not Available Not Available No t Available fluocinonid e 0.05 % topical solution active Not Available Not Available Not Available flavoxate 100 mg tablet TAKE 1 TABLET BY MOUTH THREE TIMES DAILY active Not Available Not Available No t Available albuterol sulfate HFA 90 mcg/actuati on aerosol inhaler active Not Available Not Available Not Available ondansetron 4 mg disintegrat ing tablet DISSOLVE 1 TABLET ON THE TONGUE EVERY 6 HOURS NEEDED FOR NAUSEA OR VOMITING active Not Available Not Available No [...] completed Not Available Not Available Not Available peg 3350-electr olytes 236 gram-22.74 gram-6.74 gram-5.86 gram solution DRINK 4000ML BY MOUTH ONCE FOR 1 DOSE IN THE MORNING THE DAY BEFORE YOUR SURGERY, OVER A 4 HOUR PERIOD. active Not Available Not Available No t Available potassium chloride (bulk) 02/03 completed Not [...] Updated DateTime 4 166.37 cm 32.4 kg/m2 02697.2 9 g 54 /min 120 mm[Hg] 68 mm[Hg] Kelsey Treviño [facility] 4 15:45:40 Date Recorded Body height Heart rate Systolic blood pressure Diastolic blood pressure Provider Name and Address Organization Details Last Updated DateTime 03/23/2024 166.37 cm 69 /min 114 mm[Hg] 65 mm[Hg] Sukhjinder Bettencourt [facility] 03/23/2024 12:03:57 Date Recorded Body height Body mass index (BMI) Body weight Heart rate Systolic blood pressure Diastolic blood pressure Provider Name and Address Organization Details Last Updated DateTime 0 167.64 cm 35.5 kg/m2 36434.3 2 g 61 /min 154 mm[Hg] 79 mm[Hg] Gregor Longo [facility] 0 12:37:27 Social History Question Answer Notes LastModified by Organizat ion Details LastModified Time Tobacco Smoking Status Never Smoker Gregor Longo [facility] 03/04/2019 12:42:26 [...] N Premenstrual syndrome (PMS) N MRSA N Emphysema N Head Trauma/Injury N Irritable bowel syndrome N Glaucoma N Lung Disease N COPD N Depression N Hypothyroidism N Pneumonia N Pacemaker N [...] N Organ Transplant N Rheumatoid Arthritis N Fibromyalgia N Headaches N Kidney Disease N Allergies/Hayfever Y Post traumatic stress disorder (PTSD) N Parkinson's Disease N Migraines N Brain Tumors N Anemia N Multiple Sclerosis N Immune System Disorder N Meningitis N Pancreatic disease N Heart Attack (AL) N Stomach Ulcers N Back pain Y [...] SNOMED-CT Code Diagnosis ICD10 Code Diagnosis Note [id number] [place]ale [place] [address] [place], [place] [address] 03/04/2019 12:07:41 03/04/2019 13:44:29 Pain of temporomandibular joint 32734208 M26.629 Myofascial pain 61433833 9 M79.11 speed runner y and cervical Neck pain 99488051 M54.2 [id number] Kaushik Hogan [place] [address] [place], [place] [address] 03/17/2019 11:08:09 03/17/2019 12:29:49 Pain of temporomandibular joint 57896310 M26.629 Neck pain 65744375 M54.2 [id number] Kaushik Hogan [place] [address] [place] [address] 03/25/2019 12:18:18 03/25/2019 13:03:15 Pain of temporomandibular joint 43064830 M26.629 Neck pain 86671138 M54.2 Myofascial pain 44709570 9 M79.10 [id number] GRETCHEN PALOMINO BDS,MS [place] [address] [place] [address] 02/04/2024 14:08:48 02/04/2024 17:23:18 Articular disc disorder of temporomandibular joint 76418690 M26.633 Bilateral TMJ disc displaceme nt without reduction with limited openingRul e out L>R TMJ DJD - irregulari ty per KRUGER Myofascial pain 18456629 9 M79.11 M79.12 Medical Oncology Physician y and cervical muscles Bilateral temporomandibular joint pain 1153220464 4184216 M26.623 L>R Episodic t ension-type headache 586737939 G44.219 Neck pain 58860433 M54.2 Sleep related bruxism 27 9474492 G47.63 [id number] HIRAL MENDEZS,MS [place] [address] [place] [address] 03/23/2024 11:40:07 03/23/2024 12:30:05 Articular disc disorder of temporomandibular joint 56864293 M26.633 Bilateral TMJ disc displaceme nt without reduction with limited openingRul e out L>R TMJ DJD - irregulari ty per KRUGER Myofascial pain 60684244 9 M79.11 M79.12 Medical Oncology Physician y and cervical muscles Bilateral temporomandibular joint pain 2205243594 4228573 M26.623 L>R Episodic t ension-type headache 032077219 G44.219 Neck pain 05579128 M54.2 Sleep related bruxism 27 9713329 G47.63 Health Concerns Section Related Observation LastModified by Organization Detai ls LastModified Time None Recorded Concern Status LastModified by Organization Details LastModified Time None Recorded Advance Directives Directive None Recorded Payers Encounter Date Sequence Insurance Name Policy Number Policy Narayanan Covered Member ID Narayanan Member ID Guarantor Name 03/04/2019 1 [employer] - DOS ON OR AFTER 19 (MEDICARE REPLACEMENT/ ADVANTAGE - HMO) [id number] 1 Cindy R Rosy [id number] Cindy R Rosy 03/17/2019 1 [employer] - DOS ON OR AFTER 19 (MEDICARE REPLACEMENT/ ADVANTAGE - HMO) [id number] Cindy R Rosy [id number] Cindy R Rosy 03/25/2019 1 [employer] - DOS ON OR AFTER 19 (MEDICARE REPLACEMENT/ ADVANTAGE - HMO) [id number] Cindy R Rosy [id number] Cindy R Rosy 02/04/2024 1 [employer] - DOS ON OR AFTER 19 (MEDICARE REPLACEMENT/ ADVANTAGE - HMO) [id number] 1 Cindy R Rosy [id number] Cindy R Rosy 03/23/2024 1 [employer] - DOS ON OR AFTER 19 (MEDICARE REPLACEMENT/ ADVANTAGE - HMO) [id number] Cindy R Rosy [id number] Cindy R Rosy Notes Date Note Type [...] pain in her left masseter. [place] Dunn [facility] 03/05/2019 10:10:18 [...] with no head impact. [place] [facility] 03/17/2019 18:11:41 03/25/2019 text/html She reports pain in the left jaw. 02/27. Biting increases pain but doing better except when ate walleye sandwich which had her mouth open widely. [place], She hit elbow/knee with no head impact and still reports no after effects. Kaushik valadez [place] [facility] 03/25/2019 17:45:29 [...] denies sleep issues. GRETCHEN PALOMINO BDS,MS [address] [facility] [address], [place], [address], [facility] [...] She is engaged in physical therapy in [place], [place], and doing home exercises. The patient [...] teeth do not have a home. GRETCHEN PALOMINO BDS,MS [address] [facility] [address], [place], [address], [facility] 03/25/2024 15:12:41 OBGyn Episode No OBEpisode recorded.
--- OUTSIDE RECORDS SUMMARY | 2024-06-17 18:36 | XMS_ITS | Clinical Summary ---
Author Organization [facility] Address [address] [place] [id number] Care Team Providers Care Digital Content Marketing Manager Name Role Phone Nico Betancourt MD Primary Care Provider [phone] Allergies Active Allergy Reactions Criticality Noted Date Comments Ibuprofen Chest Pain 05/30/2020 Atorvastatin Dizziness 03/16/2024 Cephalexin Chest Pain High 05/27/2012 Some chest pressure, tightness, not sure if allergic response. Clonidine Tachycardia High 12/27/2008 Gadodiamide *Unknown,Hives Low 12/21/2019 Iodinated Contrast Media Hives 02/17/2023 Diatrizoate Allergen Hives 04/26/2008 Latex Rash Low 09/17/2006 Losartan Tachycardia High 07/12/2010 Certain formularies of Losartan, can take Zapien. Nitrofurantoin Vaginal Irritation 08/15/2021 Penicillins Anaphylaxis 07/25/2006 Peg 400-Propylene Glycol Rash 03/08/2008 All creams, creams of any kinds, needs to use ointments Propranolol Bradycardia 11/16/2015 Propylene Glycol Rash Low 12/21/2019 Rosuvastatin Dizziness 03/16/2024 Sulfa (Sulfonamide Antibiotics) Hives 07/25/2006 Unlisted Allergen (Include Detail In Comments) *Unknown,Hives High 07/25/2006 Medications Light Mineral Oil-Mineral Oil (SOOTHE XP) 1-4.5 % Drop eye drops Place into the eye(s) 3 times daily if needed for Dry Eyes. 0 011 Active Glucosamine HCl-MSM (GLUCOSAMINE MSM) 1,500-500 mg/30 mL liqd daily 1 Bottle 0 016 Active acetaminophen (TYLENOL EXTRA STRGTH) 500 mg tabletIndicatio ns:Acute pain of left knee,Muscle spasm of back Take 1 tablet by mouth every 6 hours if needed (pain). Max acetaminophen dose: 4000mg in 24 hrs. 30 tablet 018 Active ketotifen (ZADITOR) 0.025 % (0.035 %) ophthalmic solution Place 1 Drop into the eye(s) two times daily. Active LORazepam (ATIVAN) 0.5 mg tabIndications: Anxiety due to invasive procedure Take 1 Tablet (0.5 mg) by mouth one time for 1 dose. 30 mins prior to procedure 1 Tablet 024 Active amLODIPine (NORVASC) 10 mg tabletIndicatio ns:HTN (hypertension) Take 1 Tablet (10 mg) by mouth once daily. 90 Tablet 3 025 Active albuterol HFA (PRO-AIR; VENTOLIN; PROVENTIL) 90 mcg/actuation inhalerIndicati ons:Wheezing Inhale 1-2 Puffs by mouth every 4 hours if needed for Wheezing. 18 g 025 Active clobetasol (TEMOVATE) 0.05 % ointmentIndicat ions:Vulvar itching Apply to vulva once daily as needed for itching - do not use for more than 1 week straight 60 g 025 Active cyclobenzaprine (FLEXERIL) 5 mg tabletIndicatio ns:Muscle spasm of back Take 1 Tablet (5 mg) by mouth every 8 hours if needed for Muscle Spasm. 30 Tablet 3 025 Active flavoxATE (URISPAS) 100 mg tabletIndicatio ns:Chronic interstitial cystitis Take 1 Tablet (100 mg) by mouth three times daily. 270 Tablet 025 Active fluticasone (50 mcg per actuation) nasal solution (FLONASE)Indica tions:Eustachia n tube dysfunction, unspecified laterality Inhale 1 [place] in both nostrils once daily. 48 g 3 025 Active furosemide (LASIX) 20 mg tabletIndicatio ns:Chronic diastolic congestive heart failure (HC) Take 1 Tablet (20 mg) by mouth once daily if needed (Leg swelling). Take around once a month 90 Tablet 3 Active hyoscyamine (LEVSIN) 0.125 mg tabletIndicatio ns:Chronic interstitial cystitis Take 1 Tablet (0.125 mg) by mouth every 4 hours if needed for Bladder Spasms. 90 Tablet 3 Active oxybutynin XL (DITROPAN XL) 10 mg CR tabletIndicatio ns:Bladder pain Take 1 Tablet (10 mg) by mouth once daily. 90 Tablet 3 025 Active losartan (COZAAR) 50 mg tabletIndicatio ns:Essential hypertension with goal blood pressure less than 140/90 Take 2 Tablets (100 mg) by mouth once daily. 180 Tablet 3 Active potassium chloride (KLOR-CON M20) 20 mEq extended-releas e tablet (part/cryst)Ind ications:[place] lemia Take 1 Tablet (20 mEq) by mouth once daily with a meal. 90 Tablet 3 Active SUMAtriptan (IMITREX) 50 mg tabletIndicatio ns:Intractable migraine without aura and without status migrainosus Take 0.5 Tablets (25 mg) by mouth 2 times daily if needed for Migraine. Give at minimum 2hrs apart. Max Dose: 200mg per 24hrs. 12 Tablet 2 Active loteprednol (LOTEMAX) 0.5 % ophthalmic suspension Place into the eye(s). Active fluocinonide 0.05 TOPICAL (LIDEX) 0.05 % external solution Apply topically to affected area(s). Active tiZANidine (ZANAFLEX) 4 mg tabletIndicatio ns:Back spasm Take 1 Tablet (4 mg) by mouth every 6 hours if needed for Muscle Spasm. 10 Tablet 025 Active HYDROcodone-nilda taminophen (5-325 mg/tablet)Indic ations:Back spasm Take 1 Tablet by mouth every 6 hours if needed for Pain. Max acetaminophen dose: 4000 mg in 24 hrs. 15 Tablet 025 Active pantoprazole (PROTONIX) 40 mg delayed-release tabletIndicatio ns:Gastric reflux Take 1 Tablet (40 mg) by mouth once daily. 90 Tablet 3 025 Active ondansetron 4 mg tabletIndicatio ns:Nausea TAKE 1 TABLET BY MOUTH EVERY 8 HOURS NEEDED FOR NAUSEA FOR VOMITING 30 Tablet 025 Active oxyCODONE 5 mg immediate release tabletIndicatio ns:Colonic stricture (HC) Take 1 Tablet (5 mg) by mouth every 4 hours if needed for Pain. 10 Tablet 05/30/19 25 10:01 AM CDT 025 Active warfarin 5 mg tabletIndicatio ns:Paroxysmal atrial fibrillation (HC),Anticoagul ation monitoring, INR range 2-3 Take by mouth 7.5 mg (5 mg x 1.5) every Tue, Gaby; 5 mg (5 mg x 1) all other days in the evening OR as directed 104 Tablet 025 Active hydrOXYzine HCL 25 mg tabletIndicatio ns:Chronic interstitial cystitis TAKE 1 TABLET BY MOUTH AT BEDTIME 90 Tablet 1 025 Active hydrOXYzine HCL (ATARAX) 25 mg tabletIndicatio ns:Chronic interstitial cystitis Take 1 Tablet (25 mg) by mouth at bedtime. 90 Tablet 3 024 2024 Discontinued warfarin 5 mg tabletIndicatio ns:Paroxysmal atrial fibrillation (HC),Anticoagul ation monitoring, INR range 2-3 Take by mouth 4/5: Hold; 4/6: Hold; 4/7: Hold; 4/8: Hold; 4/9: Hold; Otherwise 7.5 mg every Tue, Gaby; 5 mg all other days in the evening OR as directed 025 2024 Discontinued(O ther - add note to specify (E-cancel not sent)) sennosides-docu sate (8.6-50 mg) tabletIndicatio ns:Stenosis of colon (HC) Take 1 Tablet by mouth two times daily for 14 days. Take only 1 tablet daily if you have diarrhea. 28 Tablet 06/01/19 25 1:40 PM CDT 025 2024 warfarin 5 mg tabletIndicatio ns:Paroxysmal atrial fibrillation (HC),Anticoagul ation monitoring, INR range 2-3 Take by mouth 7.5 mg (5 mg x 1.5) every Tue, Gaby; 5 mg (5 mg x 1) all other days 025 2024 Discontinued(R eorder (E-cancel not sent)) Active Problems Problem Noted Date Diagnosed Date Stenosis of colon 05/28/2024 Colonic stricture 05/18/2024 Nuclear senile cataract of both eyes 03/08/2017 [...] Encounters Date Type Department Care Team Description 06/17/2024 9:00 AM CDT Orders Only [facility] [address] [place] [address] Lab 06/17/2024 Anticoagulation (warfarin) [facility] [address] [place] [address] 1, [facility] Anticoagulation 06/17/2024 Travel 06/11/2024 Refill [facility] [address] [place] [address] Nico Betancourt MD Refill Request (Hydroxyzine Hcl) 06/10/2024 10:00 AM CDT Orders Only [facility] [address] [place] [address] Lab 06/10/2024 Anticoagulation (warfarin) [facility] [address] [place] [address] 1, [facility] Anticoagulation 06/10/2024 Travel 06/09/2024 Telephone [facility] [address] [place] [address] Nico Betancourt MD Anticoagulation (review) 06/03/2024 Refill [facility] [address] [place] [address] Nico Betancourt MD Refill Request 06/03/2024 Anticoagulation (warfarin) [facility] [address] [place] [address] 1, [facility] Anticoagulation 06/02/2024 11:45 AM CDT Office Visit [facility] [address] [place] [address] Nico Betancourt MD Post-op 06/02/2024 Travel 06/01/2024 Patient Outreach [facility] [address] [place] [address] iNco Betancourt MD Primary RN Care Management; Hospital F/U (LACE 30) 05/28/2024 7:33 AM CDT Anesthesia Event [address] [address] Sheldon Combs DO 05/28/2024 7:20 AM CDT - 05/28/2024 11:42 AM CDT Surgery [address] [address] Wade Garcia MD Robotic Assisted Laparoscopic Left Carrington- Colectomy 05/28/2024 6:01 AM CDT - 05/31/2024 3:07 PM CDT Hospital Encounter [facility] [address] [facility] [place] [address] Wade Garcia MD Colonic stricture (HC) (Primary Dx); Paroxysmal atrial fibrillation (HC); Anticoagulation monitoring, INR range 2-3; Stenosis of colon (HC) Discharge Disposition: Home Self Care 05/28/2024 Travel 05/21/2024 Travel 05/18/2024 9:05 AM CDT Office Visit [facility] [address] [place] [address] Nico Betancourt MD Pre-Op Exam (Robotic Assisted Laparoscopic Left Carrington- Colectomy [facility] [place] [address] Guidry 05/28/2024) 05/18/2024 Anticoagulation (warfarin) [facility] [address] [place] [address] 1, [facility] Anticoagulation; Refill Request (warfarin) 05/18/2024 Travel 05/05/2024 Telephone [facility] at [facility] [address] [place] [address] Solomon Shelton MD Referral (Send to Shellie [facility]) 05/05/2024 Telephone [facility] [address] [place] [address] Solomon Shelton MD Error-please disregard 05/04/2024 Refill [facility] [address] [place] [address] Nico eBtancourt MD Refill Request (Ondansetron) 05/04/2024 Telephone [facility] [address] [place] [address] Solomon Shelton MD Questions 04/30/2024 Telephone [facility] [address] [place] [address] Nico Betancourt MD Follow Up 04/30/2024 Lab Requisition [facility] [phone] Solomon Shelton MD 04/29/2024 7:45 AM CDT Office Visit [facility] at [facility] [address] [place] [address] Solomon Shelton MD 04/29/2024 Orders Only [facility] Scanner 1 scan: (1-Ord) [facility] 04/26/2024 Orders Only [facility] Scanner 1 scan: (1-Ord) [place], CT ABD PE;VIS W/ CON, 04/26/2024 04/23/2024 Telephone [facility] [address] [place] [address] Nico Betancourt MD Medication Management 04/17/2024 11:45 AM LEGAL ADVISER Office Visit [facility] [address] [place] [address] Nico Betancourt MD Preoperative Exam (Colonoscopy 04/29/[address] [facility] [address] shelton) 04/16/2024 9:00 AM LEGAL ADVISER Ancillary Procedure [facility] [address] [place] [address] 04/16/2024 Travel 04/14/2024 Telephone [facility] [address] [place] [address] Solomon Shelton MD Questions (COLONOSCOPY ) 04/14/2024 Telephone [facility] [address] [place] [address] Solomon Shelton MD Screening 04/13/2024 Orders Only [facility] Scanner 1 scan: (1-Ord) [facility], CT ABDOMEN PELVIS WO, 04/13/2024 04/13/2024 Telephone [facility] [address] [place] [address] Nico Betancourt MD Questions (colonoscopy and ultrasound/) 04/02/2024 11:30 AM LEGAL ADVISER Office Visit [facility] [address] [place] [address] Aishwarya Pagan PA Hip Pain/problem (Left hip area) 04/02/2024 Travel 04/02/2024 Nurse Triage [facility] [address] [facility] [address] Nico Betancourt MD Hip Pain/problem (left) 03/31/2024 Anticoagulation (warfarin) [facility] [address] [place] [address] 1, [facility] Anticoagulation (Chart update) 03/26/2024 Telephone [facility] [address] [place] [address] Nico Betancourt MD Prior Authorization (nystatin powder (MYCOSTATIN) powder APPROVED 03/30/2024 - 02/17/2025) 03/19/2024 Telephone [facility] [address] [place] [address] Nico Betancourt MD Results from Last 3 Months Immunizations Immunization Administration Dates Next Due Influenza, High-dose Inactivated [...] or isolated from those around you? 0 05/29/2024 Financial Resource Strain Answer Date R ecorded Difficulty of Paying Living Expenses 3 03/16/2024 Difficulty of Paying Living Expenses Not on file 03/16/2024 Food Insecurity Answer Date Recorded Do you worry your food will run out before you are able to buy more? 1 05/29/2024 Transportation Needs Answer Date Record ed Does lack of transportation keep you from medica l appointments? 1 05/29/2024 Does lack of transportation keep you from work, meetings or getting things that you need? 1 05/29/2024 Housing Stability Answer Date Recorded What is your housing situation today? 1 05/29/2024 Interpersonal Safety Answer Date Record ed Are you being hit, kicked, p ushed or yelled at (see row info)? No 05/28/2024 Interpersonal Safety Abuse 12 - 18 Not on file 05/28/2024 Interpersonal Safety Ambulatory Vulnerability No t on file 05/28/2024 Utilities Answer Date Recorded Do you have trouble paying f or utilities (for example, heat, electricity, water, phone)? 1 05/29/2024 Comments No Sex and Gender Information Value Date Recorded Sex Assigned at Not on file Legal Sex Female 5:25 AM LEGAL ADVISER Gender Identity Not on file Sexual Orientation Not on file Travel History Travel Start Travel End [place] 05/21/2024 05/24/2024 Obstetrics History Para Term AB IAB SAB Ectopic Multiple Livin g Live Births 3 2 1 1 2 Date Outcome GA Total Labor Labor/2nd/3rd Weight Sex Type Anes PTL Emily A1 A5 Name Clin Para Para SAB Last Filed Vital Signs Vital Sign Reading Time Taken Comments Blood Pressure 113/61 06/02/2024 11:10 AM CDT Pulse 50 06/02/2024 11:10 AM CDT Temperature 36.5 C (97.7 F) 05/31/2024 11:51 AM CDT Respiratory Rate 18 05/31/2024 11:51 AM CDT Oxygen Saturation 100% 06/02/2024 11:10 AM CDT Inhaled Oxygen Concentration - - Weight 89.4 kg (197 lb) 06/02/2024 11:10 AM CDT Height 160 cm (5' 3) 05/28/2024 6:00 AM CDT Body Mass Index 34.9 05/28/2024 6:00 AM CDT Plan of Treatment Upcoming Encounters Date Type Department Care Team (Late st Contact Info) Description 08/11/2024 2:30 PM CDT Office Visit [facility] [address] [place] [address] Az Matthews MD [address] [facility] [place] [address] [place] [address] Health Maintenance Due Date Last Done Comments Zoster (shingles) series for age 50+ (2 of 3) 03/23/2010 01/26/2010 RSV vaccine for adults or (1 - 1-dose 75+ series) 08/15/2022 COVID-19 vaccine series ( season) 2023 Influenza Vaccine (Season Ended) 2024 01/23/2016, 12/13/2014, 12/16/2013, Additional history exists Medicare Wellness for age 65+ 03/17/2025, 03/07/2023, 01/02/2022, Additional history exists Depression screening for age 12+ 03/19/2025 03/19/2024, 03/16/2024, 03/16/2024, Additional history exists BMI (ht and wt on same day) for age 18+ 05/18/2025 05/18/2024, 03/16/2024, 05/27/2023, Additional history exists Tetanus booster 07/20/2030 07/20/2020, 05/24/2009 DEXA/DXA scan for age 65+ Completed 04/30/2014 Pneumococcal series for age 50+ Completed 6, 07/08/2013 Hepatitis C screening for ag e 18-79 Completed 11/18/2015 Tdap Completed 07/20/2020, 05/24/2009 Procedures Procedure Name Priority Date/Time Associated Diagnosis Comments INR,POCT Routine 06/17/2024 9:02 AM CDT Paroxysmal atrial fibrillation (HC) Anticoagulation monitoring, INR range 2-3 PROTIME-INR Routine 06/10/2024 8:58 AM CDT Paroxysmal atrial fibrillation (HC) Anticoagulation monitoring, INR range 2-3 PROTIME-INR Routine 06/02/2024 12:57 PM CDT Paroxysmal atrial fibrillation (HC) Anticoagulation monitoring, INR range 2-3 PLATELET COUNT Timed 05/31/2024 6:19 AM CDT HEMOGLOBIN Early AM 05/29/2024 6:18 AM CDT PLATELET COUNT STAT 05/28/2024 4:00 PM CDT PATH TISSUE EXAM Today 05/28/2024 11:44 AM CDT ENDOTRACHEAL TUBE Routine 05/28/2024 8:0 5 AM CDT ENDOTRACHEAL TUBE Routine 05/28/2024 8:0 5 AM CDT PERIPHERAL BLOCK Routine 05/28/2024 7:59 AM CDT CYSTOSCOPY PLACEMENT URETERAL STENT FOR INTRAOP PROCEDURE 05/28/2024 7:27 AM CDT colonic stricture Case Notes STAT INR neededDr Lambert will go at 730 amDr Artur will help close at end ROBOTIC ASSISTED COLECTOMY LEFT XI 05/28/2024 7:27 AM CDT colonic stricture Case Notes STAT INR neededDr Lambert will go at 730 amDr Artur will help close at end OR IMAGE CAPTURE Routine 05/28/2024 7:04 AM CDT GLUCOSE METER Timed 05/28/2024 6:46 AM CDT PROTIME-INR Preop 05/28/2024 6:26 AM CDT SCAN-CARDIAC STRIP 05/28/2024 12:00 AM CDT EKG 12 LEAD Routine 05/19/2024 2:02 PM CDT Paroxysmal atrial fibrillation (HC) OH READING EKG - NO CHARGE, COMP ONLY Routine 05/19/2024 2:00 PM CDT Paroxysmal atrial fibrillation (HC) HEMOGLOBIN Routine 05/18/2024 10:36 AM CDT Paroxysmal atrial fibrillation (HC) POTASSIUM Routine 05/18/2024 10:36 AM CDT Paroxysmal atrial fibrillation (HC) PROTIME-INR Routine 05/18/2024 10:35 AM CDT Paroxysmal atrial fibrillation (HC) Anticoagulation monitoring, INR range 2-3 LAB TRACKING EVENT Routine 04/29/2024 8: 05 AM CDT PATH TISSUE EXAM Routine 04/29/2024 8:05 AM CDT SCAN-COLONOSCOPY 04/29/2024 12:00 AM CDT COLONOSCOPY DIAGNOSTIC Routine 04/29/2024 12:[address] of the abdomen SCAN-CT INTERPRETATION 04/26/2024 12:00 AM LEGAL ADVISER US PELVIS COMPLETE TA AND TV Routine 04/16/2024 11:05 AM LEGAL ADVISER Adnexal mass SCAN-CT INTERPRETATION 04/13/2024 12:00 AM LEGAL ADVISER INR,POCT Routine 03/26/2024 12:19 PM LEGAL ADVISER Paroxysmal atrial fibrillation (HC) Anticoagulation monitoring, INR range 2-3 ANTI HCV Routine 11/18/2015 10:57 AM CDT Need for hepatitis C screening test XR DXA BONE DENSITY 2 SITES AXIAL Routine 04/30/2014 11:24 AM CDT Ovarian failure from Last 3 Months or Most Recently Relevant to Health Maintenance Results * (ABNORMAL) INR - POCT [67401.2] - Standing Order (06/17/2024 9:02 AM CDT) Only the most recent of2 resultswithin the time period is included. INR 2.3(H) ratio [facility] Comment: INRs >2.9 may be falsely elevated in patients receiving either unfractionated Heparin or Low Molecular Weight Heparin. Follow up testing in a hospital laboratory may be helpful if clinically indicated. INR results of > or = 5.0 should be verified using the standard venipuncture procedure. Reference Range 0.9-1.1 Moderate-intensity Warfarin Therapy 2.0-3.0 Higher-intensity Warfarin Therapy 3.0-4.0 PROTHROMBIN TIMEP 27.1(H) 10.5 - 13.1 sec [facility] Comment: Point of care fingerstick Prothrombin Time/INR results may vary from venous Prothrombin Time/INR methodologies. Any results exhibiting inconsistency with the patient's clinical status should be repeated using a venous Prothrombin Time/INR method. Blood BLOOD SPECIMEN / Unknown 06/17/2024 9:02 AM CDT 06/17/2024 9:03 AM CDT us Nico Betancourt MD LABORATORY Final Resu lt [address] [address] * (ABNORMAL) PROTIME-INR [[id number]] - Standing Order (06/10/2024 8:58 AM CDT) Only the most recent of4 resultswithin the time period is included. INR 1.5(H) <1.3 06/10/2024 3:01 PM CDT [facility] PROTIME 16.8(H) 10.6 - 12.4 sec 06/10/2024 3:01 PM CDT [facility] Blood BLOOD SPECIMEN / Unknown [facility] / Unknown 06/10/2024 8:58 AM CDT 06/10/2024 8:58 AM CDT [facility] 06/10/2024 3:01 PM CDT Therapeutic Range 2.0-3.0 for most anticoagulated patients [...] Nico Betancourt MD HEMATOLOGY Final Resu lt [facility] [address] [place] [address], * PLATELET COUNT (05/31/2024 6:19 AM CDT) Only the most recent of2 resultswithin the time period is included. PLATELET COUNT 244 140 - 440 thou/cu mm 05/31/2024 6:38 AM CDT [facility] MPV 10.0 6.5 - 11.0 fL 05/31/2024 6:38 AM CDT [facility] Blood BLOOD SPECIMEN / Unknown [facility] / Unknown 05/31/2024 6:19 AM CDT 05/31/2024 6:36 AM CDT Narrative [facility] - 05/31/2024 6:38 AM CDT While on heparin Wade Garcia MD HEMATOLOGY Final Res ult [address] [place] [address] * (ABNORMAL) HEMOGLOBIN (05/29/2024 6:18 AM CDT) Only the most recent of2 resultswithin the time period is included. HEMOGLOBIN 11.4(L) 12.0 - 16.0 g/dL 05/29/2024 7:02 AM CDT [facility] MCV 84 80 - 100 fL 05/29/2024 7:02 AM CDT [facility] Blood BLOOD SPECIMEN / Unknown [facility] / Unknown 05/29/2024 6:18 AM CDT 05/29/2024 6:56 AM CDT Wade Garcia MD HEMATOLOGY Final Res ult [facility] [address] [place] [address] * PATH TISSUE EXAM (05/28/2024 11:44 AM CDT) Only the most recent of2 resultswithin the time period is included. Case Report Pathology Report Case: [id number] Authorizing Provider: Wade Garcia MD Collected: 05/28/2024 1144 Ordering Location: [facility] Received: 05/28/2024 1437 [facility] Pathologist: Richie Dyer MD Specimen: Left Colon 05/29/2024 4:55 PM CDT [facility] Final Diagnosis A) COLON, LEFT, PARTIAL RESECTION: 1. Segment of colon with dilation and wall thinning 2. Negative changes of inflammatory bowel disease and neoplasia 3. Five benign lymph nodes 4. Surgical resection margins are viable 05/29/2024 4:55 PM CDT [facility] at 1655 CDT Clinical Information Mid left descending colonic stricture. 05/29/2024 4:55 PM CDT [facility] Gross Description A) Received in formalin, labeled with the patient's name and left colon, is a rented portion of colon measuring 25 cm in length. There is a staple at each and. One end of the colon is moderately dilated and filled with air, measuring 4.5 cm diameter, spanning 8.5 cm. The remaining colon is 1.5 cm in diameter. The serosa is morales-pink and purple, smooth and glistening. Opening reveals a loss of folds and colon wall thinning in the area of dilation. The remaining mucosa is morales, smooth with minimal loss of mucosal folds. The colon wall ranges from 0.1 to 0.3 cm in thickness. No mucosal lesions are identified. There is a moderate amount of adherent yellow lobulated adipose tissue. Sectioning reveals 6 morales-pink, rubbery possible lymph nodes ranging from 0.1 to 0.4 cm in greatest dimension. Recruiter Account Manager sections are submitted as follows: 1-2. Staple line margin, en face 3. Dilated colon 4. Dilated colon with adjacent uninvolved colon 5. 5 possible lymph nodes, intact 6. 1 lymph node, bisected ALISHA 05/28/2024 05/29/2024 4:55 PM CDT [facility] Microscopic Description The final diagnosis is based on microscopic examination of appropriate sections of all specimens. 05/29/2024 4:55 PM CDT [facility] Additional Information Interpreted at [facility] - [address] [place] [address]. [facility] [address] [address] 05/29/2024 4:55 PM CDT [facility] Tissue (Left Colon) 05/28/2024 11:44 AM CDT 05/28/2024 2:37 PM CDT us Wade Garcia MD PATHOLOGY/CYTOLOGY Final Result Performing Organization Address City/State/[facility] Co de Phone Number [facility] [address] [place] [address], * HCHG TUBE PR1, HCHG STYLET PR1 (05/28/2024 8:05 AM CDT) Narrative Ryan Garcia CRNA - 05/28/2024 8:05 AM CDT Ryan Garcia CRNA 05/28/2024 8:05 AM Procedure: ETT Patient location during procedure: OR ETT Properties Mask Ventilation: easy Final Technique: direct laryngoscopy Type: straight Location: oral Cuffed: yes Tube Size: 7.0 mm Stylet: yes Laryngoscope Blade: Guerra Blade Size: 2 Cormack-Lehane Grade View: 1 Insertion Attempts: 1 Placement Verification: auscultation, end tidal CO2 and symmetrical chest wall movement Assessment: pharynx clear, atraumatic and dentition unchanged Secured at: 22 Measured From: lips Difficulty: 0 (not difficult) us Sheldon Combs DO ANESTHESIA PX NOTE ORDE RABSIRISHA Final Result * HCHG NDL PR10 (05/28/2024 7:59 AM CDT) Narrative Sheldon Combs DO - 05/28/2024 7:59 AM CDT Sheldon Combs DO 05/28/2024 8:00 AM Peripheral Block Patient location during procedure: OR Start time: 05/28/2024 7:49 AM End time: 05/28/2024 7:52 AM Reason for block: at surgeon's request and post-op pain Requesting provider: Wade Garcia MD PreProcedure Checklist Completed: patient identified, site marked, risks and benefits discussed, surgical consent, timeout performed and hand hygiene performed. Peripheral Block Patient position: supine Prep: chloraprep Patient monitoring: continuous pulse oximetry, ECG and blood pressure Block type: TAP, regional analgesia techniques Laterality: bilateral Injection technique: single injection Skin Infiltration: lidocaine 1% Injection assessment: incremental Needle Needle type: short-bevel Needle Details: echogenic Needle gauge: 22 G Needle length: 4 in Left needle localization (ultrasound): live ultrasound guidance, needle and nerve visualized, no pathologic findings, local anesthetic visualized surrounding nerve, nerve appears normal and permanent images obtained Right needle localization (ultrasound): needle and nerve visualized, live ultrasound guidance, no pathologic findings, local anesthetic visualized surrounding nerve, nerve appears normal and permanent images obtained Left needle Localization (plane blocks): needle and expected nerve localization visualized, local anesthetic visualized in anatomic plane and anatomic plane and expected location of nerve appears normal Right needle Localization (plane blocks): needle and expected nerve localization visualized, local anesthetic visualized in anatomic plane and anatomic plane and expected location of nerve appears normal Catheter Catheter used:no Events: no complications. us Sheldon Combs DO ANESTHESIA PX NOTE ORDE RABLES Final Result * (ABNORMAL) GLUCOSE METER (05/28/2024 6:46 AM CDT) [facility] Signature GLUCOSE METER 108(H) 65 - 100 mg/dL 05/28/2024 6:47 AM CDT [facility] Blood BLOOD SPECIMEN / Unknown 05/28/2024 6:46 AM CDT 05/28/2024 6:47 AM CDT us Wade Garcia MD CHEMISTRY Final Res ult [facility] [address] [place] [address] * SCAN-CARDIAC STRIP (05/28/2024 12:00 AM CDT) Narrative 05/28/2024 12:00 AM CDT Ordered by an unspecified provider. Other Clinical Staff OTHER Final Resul t * EKG 12 LEAD (05/19/2024 2:02 PM CDT) Nico Betancourt MD EKG ORD Final Resu lt * OH READING EKG - NO CHARGE, COMP ONLY (05/19/2024 2:00 PM CDT) Nico Betancourt MD PB - PROVIDER READINGS Fin al Result * POTASSIUM (05/18/2024 10:36 AM CDT) Pathologist [facility] POTASSIUM 4.2 3.5 - 5.3 mmol/L [facility] Blood BLOOD SPECIMEN / Unknown 05/18/2024 10:36 AM CDT 05/18/2024 10:36 AM CDT Nico Betancourt MD CHEMISTRY Final Resu lt [facility] [employer] [facility] [address] [place] [address], [facility] [address] [place] [address] * LAB TRACKING EVENT (04/29/2024 8:05 AM CDT) Other (Other) Client Collect / Unknown 04/29/2024 8:05 AM CDT 04/30/2024 6:27 AM CDT Solomon Shelton MD LAB BILL ONLY Final Res ult [facility] [address] [place] [address], [place] * SCAN-COLONOSCOPY (04/29/2024 12:00 AM CDT) Scanner OTHER Final Result * COLONOSCOPY DIAGNOSTIC (04/29/2024 12:00 AM CDT) us Nico Betancourt MD GI PROCEDURE ORD Final Res ult * SCAN-CT INTERPRETATION (04/26/2024 12:00 AM LEGAL ADVISER) Only the most recent of2 resultswithin the time period is included. Anatomical Region Laterality Modality Other us Scanner OTHER Final Result * US PELVIS COMPLETE TA AND TV (04/16/2024 11:05 AM LEGAL ADVISER) Anatomical Region Laterality Modality Pelvis Ultrasound 04/16/2024 11:2 4 AM LEGAL ADVISER Impressions 04/16/2024 11:24 AM LEGAL ADVISER Stable appearance of the right ovary/right adnexa without significant change since 2016. Dictated by Ceferino Dennis MD @ 04/16/2024 11:24:58 AM (Electronically Signed) Narrative 04/16/2024 11:24 AM LEGAL ADVISER For Patients: As a result of the Cures Act, medical imaging exams and procedure reports are released immediately into your electronic medical record. You may view this report before your referring provider. If you have questions, please contact your health care provider. INDICATION: Adnexal mass COMPARISON: CT 04/13/2024, ultrasound 02/16/2016 TECHNIQUE: 2D blanco scale and color Doppler images were acquired of the pelvis using a transabdominal and transvaginal approach. FINDINGS: Sonographic images demonstrate a normal size and smooth outer contour of the uterus. Uterus measures 3.9 cm in length by 4.4 cm in AP diameter by 3.0 cm in transverse dimension. The myometrium has a heterogeneous echotexture. The endometrial lining measures 4 mm in composite thickness. Multicystic area within the right adnexa appears to be related to the right ovary measures 3.1 x 2.9 x 2.0 cm. Multiple septa are present. The overall morphology and size is similar to the prior ultrasound in 2016. No abnormal blood flow. No solid suspicious area. Procedure Note Ceferino Dennis MD - 04/16/2024 For Patients: As a result of the 21st Century Cures Act, medical imagingexams and procedure reports are released immediately into your electronicmedical record. You may view this report before your referring provider.If you have questions, please contact your health care provider. INDICATION: Adnexal mass COMPARISON: CT 04/13/2024, ultrasound 02/16/2016 TECHNIQUE: 2D blanco scale and color Doppler images were acquired of the pelvis using atransabdominal and transvaginal approach. FINDINGS: Sonographic images demonstrate a normal size and smooth outer contour ofthe uterus. Uterus measures 3.9 cm in length by 4.4 cm in AP diameter by3.0 cm in transverse dimension. The myometrium has a heterogeneousechotexture. The endometrial lining measures 4 mm in composite thickness. Multicystic area within the right adnexa appears to be related to theright ovary measures 3.1 x 2.9 x 2.0 cm. Multiple septa are present. Theoverall morphology and size is similar to the prior ultrasound in 2016. Noabnormal blood flow. No solid suspicious area. IMPRESSION: Stable appearance of the right ovary/right adnexa without significantchange since 2015. Dictated by Ceferino Dennis MD @ 04/16/2024 11:24:58 AM (Electronically Signed) us Nico Betancourt MD US Final Resu lt * ANTI HCV [77424.2] (11/18/2015 10:57 AM CDT) HEPATITIS C ANTIBODY Non-Reacti ve Non-Reacti ve 11/18/2015 5:27 PM CDT [facility] Blood BLOOD SPECIMEN / Unknown Venipuncture / Unknown 11/18/2015 10:57 AM CDT 11/18/2015 10:58 AM CDT Narrative [facility] - 11/18/2015 5:27 PM CDT Antibodies to HCV not detected; does not exclude the possibility of exposure to HCV. us Nico Betancourt MD SEND OUTS Final Resu lt [facility] [address] [place] [address], [place] * (ABNORMAL) XR DXA BONE DENSITY [...] Health Maintenance Insurance [employer] MED[employer]ARE ADVANTAGE MR MEDICARE PART A HB ONLY [employer] MED[employer]ARE ADVANTAGE MR Advance Directives * Full Code (Latest Code Status on File) Date Activated Date Inactivated Comments 05/28/2024 6:10 AM 05/31/2024 5:12 PM Question Answer Comments Code Status Discussion: Reviewed Preferences * Full Code Date Activated Date Inactivated Comments 05/28/2024 6:10 AM 05/28/2024 6:10 AM Question Answer Comments Code Status Discussion: Not Discussed * Full Code Date Activated Date Inactivated Comments 05/21/2012 8:57 PM 05/22/2012 6:59 PM Care Teams Digital Content Marketing Manager Relationship Specialty Start Date End Date Nico Betancourt MD [address] [place] [address] PCP - General Family Practice 05/16/15
--- OUTSIDE RECORDS SUMMARY | 2024-06-17 18:36 | XMS_ITS | Clinical Summary ---
Author Organization [facility] Address [address] , [address] [place] [address] Phone Care Team Providers Care Onsite Case Manager Name Role Phone [facility] Unavailable Unava ilable Conditions or Problems Problem Name Problem Code Onset Date Status Entry Date Provider Comment Standard Description Annotate Hand numbness 006635028 (SNOMED CT) Active Jack Dias MD Numbness of hand Median neuropathy, right 517507043 (SNOMED CT) Active Jack Dias MD Median [...] Procedures Code Procedure Name Date Entry Date CPT-63336 Nerve Conduction 7-8 studies CPT-00317 EMG with NCS (5+ muscles) - 1 limb 02/26 Vital Signs No information available. Immunizations No information available. Advance Directives No information available.
--- OUTSIDE RECORDS SUMMARY | 2024-06-17 18:36 | XMS_ITS | Encounter Summary ---
Author Organization [facility] Address [address], [place] [address] Care Team Providers Care Poultry Culler Name Role Phone Clinician, Not Found Primary Care Provider Un available Encounter Details Date Type Department Care Team (Latest Contact Info) Description 05/29/2024 Orders Only HIM DEPARTMENT Provider, Interface, [place] [address] Social History Tobacco Use Types Packs/Day Years Used Date Smoking Tobacco: Never Assessed Comments Unknown Sex and Gender Information Value Date Recorded Sex Assigned at Not on file Legal Sex Female 5:49 AM CDT Gender Identity Not on file Sexual Orientation Not on file documented as of this encounter Plan of Treatment Not on file documented as of this encounter Procedures Procedure Name Priority Date/Time Associated Diagnosis Comments CT 05/29/2024 documented in this encounter Results * CT (05/29/2024) Anatomical Region Laterality Modality Other us Interface Provider DUMMY/OTHER/AR Final Resu lt documented in this encounter Visit Diagnoses Not on filedocumented in this encounter Care Teams Poultry Culler Relationship Specialty Start Date End Date Clinician, Not Found, [place] [address] PCP - General 05/08/24 documented as of this encounter
--- OUTSIDE RECORDS SUMMARY | 2024-06-17 18:36 | XMS_ITS | Encounter Summary ---
Author Organization [facility] Address [address] [place] [address] Care Team Providers Care Band Manager Name Role Phone Clinician, Not Found MD Primary Care Provider Un available Reason for Visit * Reason Comments Post-Op Check Encounter Details Date Type Department Care Team (Late st Contact Info) Description 06/12/2024 9:00 AM CDT Office Visit [place] [facility] General Surgery [address] [facility]. 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 She is doing well, her bowel habits are regular, she has been taking some stool softeners but preoperatively has been taking GoLYTELY and she no longer needs that medication. She had 1 sort of explosive uncomfortable loose stool but otherwise has been doing well. She has been keeping herself on a soft diet while at home. She has no wound concerns. Minimal pain. Objective: Abdomen, soft, wounds healing well without evidence of infection or hernia formation. Pathology: Pathology shows the left colon with no neoplastic process there was dilatation of the proximal section with narrowing and stenosis and collapse of the distal segment. Assessment and plan: Status post above surgery. Patient is doing well. We will have her stop her stool softeners at this point and see how she does with her bowel habits. She may have to resume them if she finds her stools are a little harder. The intermittent diarrhea and abdominal cramping I suspect his postoperative recovery it may take some time for her bowels to adjust to do surgical resection. She can start to advance her diet back to a normal diet at her own pace. Reminder to stay hydrated. We also discussed increasing fiber in her diet slowly over the next 4 weeks. Concerning colonoscopy, she had had a colonoscopy just before the surgery that identified the area of stenosis and ulceration. No other polyps were found so would not think she would need another colonoscopy for 10 years which would put her over the age of 82. I discussed with her and she can follow up with her GI doctor to see if they recommend any additional colonoscopy procedures. She can follow up with me PRN. Wade Garcia MD 9:14 AM 06/12/2024 documented in this encounter Plan of Treatment Not on file documented as of this encounter Visit Diagnoses Diagnosis Follow-up exam- Primary Unspecified follow-up examination documented in this encounter Care Teams Band Manager Relationship Specialty Start Date End Date Clinician, Not Found, [place] [address] PCP - General 05/08/24 documented as of this encounter
--- OUTSIDE RECORDS SUMMARY | 2024-06-17 18:36 | XMS_ITS | Data Portability ---
Author Organization [place] [facility] [place] [facility] Address [address] [facility] [place] [address] Assessment Encounter Date Assessment Date Assessment LastModified [...] mg tablet,exte nded release 24 hr 2021 [facility] [address], [address] [place], [address], 12:06:34 hyoscyamine sulfate 0.125 mg tablet 2021 [facility] [address], [address] [place], [address], 12:06:36 hydroxyzine HCl 25 mg tablet 2021 [facility] [address], [address] [place], [address], 12:06:33 Patient TargetsNo targets recorded. Patient InstructionsNo instructions recorded. Reason for Referral None Reported. Procedures Surgical History Date Name Laterality Status Provider Name and Address Organization Details Recorded Time Appendectomy completed Donald Carranza MD [address] [place] [address],[address], [place], [address], [facility] 01/03/2022 11:42:03 Colonoscopy completed Donald Carranza MD [address] [place] [address],[address], [address], [facility] 01/03/2022 11:42:11 Hernia Repair completed Donald whitlock MD [address] [place] [address],[address], [address], [facility] 01/03/2022 11:42:17 Imaging Results None recorded. Procedure Notes None recorded. Medical Equipment None Reported. Allergies Allergen ID Allergen Name Allergen Category Reaction Reaction Severity Criticality Documentation Date Start Date Code Code System Note Provider Name and Address Organization Details Recorded Time 198535 clonidine medicatio n Not available Not available Not available 01/03/2022 2599 RxNorm Not Available Not Available Not Available 746273 Iodinated contrast media (substanc e) medicatio n Not available Not available Not available 01/03/2022 11574 2004 SNOMED Not Available Not Available Not Available 120829 Keflex medicatio n Not available Not available Not available 01/03/2022 53282 7 RxNorm Not Available Not Available Not Available 790894 latex environme nt,medica tion Not available Not available Not available 01/03/2022 80216 91 RxNorm Not Available Not Available Not Available 643944 losartan medicatio n Not available Not available Not available 01/03/2022 91993 RxNorm Not Available Not Available Not Available 851708 Product containin g penicilli n (product) medicatio n Not available Not available Not available 01/03/2022 62612 8001 SNOMED Not Available Not Available Not Available 099795 Substance with sulfonami de structure and antibacte rial mechanism of action (substanc e) medicatio n Not available Not available Not available 01/03/2022 49242 8003 SNOMED Not Available Not Available Not [...] Updated DateTime 01/03/2022 162.56 cm 34.3 kg/m2 90708.47 g Donald Carranza MD [address] [place] [address], [phone] [place] [address] Urology 01/03/2022 11:43:40 Social History Question Answer Notes LastModified by Organizat ion Details LastModified Time Tobacco Smoking Status Never Smoker Donald Carranza MD [address] [place] [address], [phone] [place] [address] Urology 01/03/2022 11:41:47 What Is Your Level Of Alcohol Consumption? None pan american Information not available 01/03/2022 What Was The [...] SNOMED-CT Code Diagnosis ICD10 Code Diagnosis Note [id number] Donald Carranza MD [facility] [address] [place] [address] 01/03/2022 11:20:39 01/05/2022 11:03:20 Chronic interstitial cystitis 386893627 N30.10 - Continue Oxybutynin XL 10 mg daily- continue Urispas 100 mg TID- Continue hydroxyzin e daily- Follow-up in 12 months Urinary bladder pain 158 73199 R39.82 - As above Health Concerns Section [...] AFTER 19 (MEDICARE REPLACEMENT/ ADVANTAGE - PPO) [id number] Cindy Gallegos [id number] Cindy Gallegos Notes Date Note Type Note [...] well on current regimen. Donald Carranza MD [address] [place] [address],[facility] [address], [place], [address], [facility] 01/03/2022 13:42:50 OBGyn Episode No OBEpisode recorded.
--- OUTSIDE RECORDS SUMMARY | 2024-06-17 18:36 | XMS_ITS | Continuity of Care Document ---
Author Organization [facility] Address [address] [place] [address] Phone Care Team Providers Care Bath Attendant Name Role Phone Unavailable Unavailable Unavailable Advance Directives Directive Yes / No Effective Date File Name No Information Encounters Encounter Description Practice Location Reason(s) For Visit Diagnoses Date Provider Providers Copied on Encounter [facility], [address] [place], [id number], [place] tel:[phone] [facility] No Information No Information Family History Family Member Type Diagnosis Age At Onset No Information Payers Payer name Insurance type Covered libertarian ID Authoriza tion(s) No Information Social History [...]
--- OUTSIDE RECORDS SUMMARY | 2024-06-17 18:36 | XMS_ITS | Encounter Summary ---
Author Organization [facility] Address [address] [place] [address] Care Team Providers Care Commissioner Of Relocation Services Name Role Phone Clinician, Not Found MD Primary Care Provider Un available Reason for Visit * Reason Comments Post-Op Follow Up Call Encounter Details Date Type Department Care Team (Late st Contact Info) Description 06/01/2024 Telephone [facility] 1515 General Surgery 1515 [facility]. [place], [place] [phone] Wade Garcia MD [address] [facility] [address] [place], [place] [phone] Post-Op Follow Up Call Social History Tobacco Use Types Packs/Day Years Used Date Smoking Tobacco: Never Assessed Comments Unknown Sex and Gender Information Value Date Recorded Sex Assigned at Not on file Legal Sex Female 5:49 AM CDT Gender Identity Not on file Sexual Orientation Not on file documented as of this encounter Nursing Notes * Natalya Patton RN - 06/01/2024 10:28 AM CDT Date of Surgery: 05/28/24 Type of Surgery: Robot-assisted laparoscopic left kory-colectomy Appearance of Incision/Dressing: no concerns Current Activity Level: moving around ok Bowel/Bladder Function: having regular BMs with senna Tolerating Food/Fluids: yes, soft diet. General Level of Well-Being/Pain Level/Pain Meds: feels pretty good, just sore when changing positions/getting up. Takes Tylenol (cannot take Ibuprofen), once a day Oxy. Will wean down as soon as shecan because feels tired and some nausea. Instructed to take meds with at least a little bit of food. Reminded of Post-Op Visit on: 06/12/24 at 1150. Pathology results given per Dr. Garcia: no cancer but there was a narrowing. Pt verbalized understanding and satisfaction. documented in this encounter Plan of Treatment Not on file documented as of this encounter Visit Diagnoses Not on filedocumented in this encounter Care Teams Commissioner Of Relocation Services Relationship Specialty Start Date End Date Clinician, Not Found, [place] [address] PCP - General 05/08/24 documented as of this encounter
--- OUTSIDE RECORDS SUMMARY | 2024-06-17 18:36 | XMS_ITS | Clinical Summary ---
Author Organization [facility] [employer] [facility] Address [address] [address] Phone Care Team Providers Care Field Organizer Name Role Phone Unavailable Primary Care Provider [...] (Abrysvo/Arexvy) (1 - 1-dose 75+ series) 08/15/2022 HPV Vaccine (Standing Order) Aged Out No longer eligible based on patient's age to complete this topic Hepatitis B Vaccine (Standin g Order) Aged Out No longer eligible b ased on patient's age to complete this topic Insurance [employer] MEDICARE PLANS
--- OUTSIDE RECORDS SUMMARY | 2024-06-17 18:37 | XMS_ITS | Encounter Summary ---
[facility] Organization [facility] Address [address] [place] [id number] Care Team Providers Care Commercial Sales Director Name Role Phone Clinician, Not Found MD Primary Care Provider Un available Reason for Visit * Reason Comments CONSULT Encounter Details Date Type Department Care Team (Late st Contact Info) Description 05/08/2024 10:00 AM CDT Office Visit [place] [id number] General Surgery [facility]. [place], [place] [id number] Wade Garcia MD [facility] [address] [place], [place] [phone] LLQ pain (Primary Dx); Stricture of descending colon (HRC) Social History Tobacco Use Types Packs/Day Years Used Date Smoking Tobacco: Never Assessed Comments Unknown Sex and Gender Information Value Date Recorded Sex Assigned at Not on file Legal Sex Female 5:49 AM CDT Gender Identity Not on file Sexual Orientation Not on file documented as of this encounter Last Filed Vital Signs Vital Sign Reading Time Taken Comments Blood Pressure - - Pulse - - Temperature - - Respiratory Rate - - Oxygen Saturation - - Inhaled Oxygen Concentration - - Weight 83.5 kg (184 lb) 05/08/2024 10:02 AM CDT Height 165.1 cm (5' 5) 05/08/2024 10:02 AM CDT Body Mass Index 30.62 05/08/2024 10:02 AM CDT documented in this encounter Patient Instructions * Patient Instructions* Veronica Olvera RN - 05/08/2024 10:00 AM CDT BEFORE SURGERY: Reviewed and gave the patient [facility] surgical packet. 1. Stop Aspirin and Ibuprofen products 5 days before surgery. 2. Instructed about Surgery Bowel Prep and clear liquid diet. 3. Follow chlorhexidine wipes evening before surgery(wipes given to patient) Reviewed and gave patient postoperative instructions for Inpatient Surgery for Robot assist Left Colectomy. Reviewed lifting restrictions, wound care and when to call the surgeon's office (phone numbers provided). Patient verbalized understanding. documented in this encounter Progress Notes * Wade Garcia MD - 05/08/2024 10:00 AM CDT CC: Abdominal pain HPI: 78 y.o. female sent to me by primary care physician for concern of recurrent left lower quadrant pain as well as difficulty with her bowel movements. The patient has recurrent generalized abdominal and upper abdominal pain after eating and associated with bowel movements. She has difficulty pas sing stools to the point where she takes a little bit of GoLYTELY every day to loosen stool. She has undergone 3 CT scans that show a stricture of the descending colon. More recently she underwent colonoscopy that also showed a stricture of her descending colon with noted diverticulosis but no evidence of diverticulitis. Biopsies were taken of some ulcerations that the area of the stricture but these returned back benign and more consistent with ischemic changes. Because of the persistent symptoms she comes in to discuss possibility of a left colon resection. In clinic today she is pain-free.She is in good spirits. She continues to take daily GoLYTELY to help loosen stools for regularity. Past medical history: Asthma, hypertension, recurrent cystitis, gastroesophageal reflux disease, migraines, atrial fibrillation Past surgical history: Ruptured appendicitis Current Outpatient Medications Medication Sig Dispense Refill ALBUterol sulfate HFA 108 (90 Base) MCG/ACT inhaler Inhale 1-2 Puffs every 4 hours as needed. amLODIPine (NORVASC) 10 MG tablet Take 1 Tablet (10 mg) by mouth daily. clobetasol (TEMOVATE) 0.05 % ointment Apply to vulva once daily as needed for itching - do not use for more than 1 week straight cyclobenzaprine (FLEXERIL) 5 MG tablet Take 1 Tablet (5 mg) by mouth every 8 hours as needed. docusate sodium (COLACE) 100 MG capsule Take 1 Capsule (100 mg) by mouth two times a day. flavoxATE (URISPAS) 100 MG tablet Take 1 Tablet (100 mg) by mouth three times a day. fluticasone propionate (FLONASE) 50 MCG/ACT nasal solution 1 [place] by Nasal route. furosemide (LASIX) 20 MG tablet Take 1 Tablet (20 mg) by mouth once as needed. HYDROcodone-acetaminophen (NORCO) 5-325 MG tablet Take 1 Tablet by mouth every 6 hours as needed. hydrOXYzine HCl (ATARAX) 25 MG tablet Take 1 Tablet (25 mg) by mouth daily. hyoscyamine (LEVSIN) 0.125 MG tablet Take 1 Tablet (0.125 mg) by mouth every 4 hours as needed. ketotifen fumarate (ZADITOR) 0.035 % eye drop solution Place 1 Drop into eye(s). LORazepam (ATIVAN) 0.5 MG tablet Take 1 Tablet (0.5 mg) by mouth. losartan (COZAAR) 50 MG tablet Take 2 Tablets (100 mg) by mouth daily. loteprednol etabonate (LOTEMAX) 0.5 % eye drop suspension Place into eye(s). nystatin (MYCOSTATIN) 724766 UNIT/GM powder Apply topically. omeprazole (PRILOSEC) 20 MG capsule Take 1 Capsule (20 mg) by mouth daily. ondansetron (ZOFRAN-ODT) 4 MG disintegrating tablet Take 0.5 Tablets (2 mg) by mouth. oxyBUTYnin (DITROPANXL) 10 MG 24 hour release tablet Take 1 Tablet (10 mg) by mouth daily. pantoprazole DR (PROTONIX) 40 MG tablet Take 1 Tablet (40 mg) by mouth daily. potassium chloride (KLOR-CON M) 20 MEQ ER tablet Take 1 Tablet (20 mEq) by mouth. SUMAtriptan (IMITREX) 50 MG tablet Take 0.5 Tablets (25 mg) by mouth two times daily as needed. tiZANidine (ZANAFLEX) 4 MG tablet Take 1 Tablet (4 mg) by mouth every 6 hours as needed. warfarin 5 MG tablet Take 1 Tablet (5 mg) by mouth daily. No current facility-administered medications for this visit. Allergies Allergen Reactions Cephalexin Chest Pain Some chest pressure, tightness, not sure if allergic response. Other Hives Penicillins Anaphylaxis Atorvastatin Dizziness Nitrofurantoin Other, see comments Propranolol Other, see comments Rosuvastatin Dizziness Propylene Glycol Rash No family history on file. Social History Tobacco Use Smoking status: Not on file Smokeless tobacco: Not on file Substance Use Topics Alcohol use: Not on file Drug use: Not on file Review of Systems - General ROS: negative for - fever, malaise, weight gain or weight loss ENT ROS: negative for - headaches Respiratory ROS: negative for - cough, hemoptysis, orthopnea or shortness of breath Cardiovascular ROS: negative for - chest pain, dyspnea on exertion, edema, irregular heartbeat or rapid heart rate Gastrointestinal: No change in bowel habits, no diarrhea or constipation : no change in urinary habits, no dysuria, polyurnia, Musculoskeletal ROS: negative for - gait disturbance, joint pain, muscle pain or muscular weakness Neurological ROS: negative for - behavioral changes, confusion, impaired coordination/balance, numbness/tingling or seizures Rest of Complete ROS was negative aside from HPI. PHYSICAL EXAMINATION: Ht 5' 5 (165.1 cm) Wt 184 lb (03027 g) BMI 30.62 kg/m?? GENERAL APPEARANCE: Cindy Gallegos is a normal appearing 78 y.o. female who is appropriate. Patient is neat and clean, and looks their stated age. Patient is awake and alert, comfortable and in no acute distress while supine. EYES: PERRL, Sclera anicteric, EOMI, pink healthy conjunctiva HEAD, EARS, NOSE, MOUTH, AND THROAT: Moist mucous membranes NECK: Thyroid normal, trachea midline, No cervical LAD ABDOMEN: Soft, left lower quadrant tenderness with palpation, no peritoneal signs MUSCULOSKELETAL: Strong distal pulses in all extremities no edema, no jaundice LYMPHATIC: No axillary or inguinal LAD NEUROLOGIC: Non-focal PSYCHIATRIC: mood and affect congruent Lab Results Component Value Date HGB 14.7 10/27/2021 MCV 84 10/27/2021 Colonoscopy and pathology reviewed from 04/29/2024 CT scan abdomen 04/13/24 CT scan abdomen 04/26/2024 I was able to review the images from her CT scan as stated above, can see the area of concern, colonic stricture and proximally 50 cm. I also had the results of her colonoscopy biopsy showing benign findings. A/P: 78 y.o. female with descending colon stricture, suspect from ischemic changes resulting in chronic abdominal pain as well as a regular bowel activity.. Discussed surgical treatment with Da Vincirobot assisted laparoscopic descending colon resection with primary anastomosis. Discussed risks benefits and alternatives which include but are not limited to, bleeding, infection, anesthesia, anastomotic leak or other organ injury requiring extensive surgical repair, hernia formation at incision sites, prolonged diarrhea, conversion to open surgery. We discussed the need for ureteral stents to avoid injury, we discussed the need for a catheter intraoperatively but we will remove that immediately postoperatively to prevent worsening of her cystitis. We discussed the 4-5 day hospital stay. Patient understood risks benefits and alternatives and wants to go ahead and schedule procedure. Patient will need a preoperative history and physical examination from her primary care physician as wellas instructions on holding Coumadin preoperatively, for a minimum of 5 days. Wade Garcia MD 10:47 AM 05/08/2024 documented in this encounter Plan of Treatment Not on file documented as of this encounter Visit Diagnoses Diagnosis LLQ pain- Primary Abdominal pain, left lower quadrant Stricture of descending colon (HRC) documented in this encounter Care Teams Commercial Sales Director Relationship Specialty Start Date End Date Clinician, Not Found, [place] [address] PCP - General 05/08/24 documented as of this encounter
--- OUTSIDE RECORDS SUMMARY | 2024-06-17 18:37 | XMS_ITS | Clinical Summary ---
Author Organization [facility] Address [address] [place] [address] Care Team Providers Care Heel Wheeler Name Role Phone Clinician, Not Found MD Primary Care Provider Un available Source Comments You are receiving this document as you are listed as the primary care provider,follow-up provider, or the patient has been referred to you for consultation.This is in compliance with the Medicare andMedicaid EHR Incentive Program,which states Providers who transition their patient to another setting of careor provider of care or refers their patient to another provider of care shouldprovide summary care record for each transition of care or referral. [employer] Allergies Active Allergy Reactions Criticality Noted Date Comments Atorvastatin Dizziness 03/16/2024 Cephalexin Chest Pain High 05/27/2012 Some chest pressure, tightness, not sure if allergic response. Ibuprofen Chest Pain 05/30/2020 Iodinated Contrast Media Hives High 04/26/2008 Nitrofurantoin Other, see comments 08/15/2021 Other Hives High 07/25/2006 Penicillins Anaphylaxis High 07/25/2006 Propranolol Other, see comments 11/16/2015 Propylene Glycol Rash Low 12/21/2019 Rosuvastatin Dizziness 03/16/2024 Medications ALBUterol sulfate HFA 108 (90 Base) MCG/ACT inhaler Inhale 1-2 Puffs every 4 hours as needed. 5 Active amLODIPine (NORVASC) 10 MG tablet Take 1 Tablet (10 mg) by mouth daily. 5 Active clobetasol (TEMOVATE) 0.05 % ointment Apply to vulva once daily as needed for itching - do not use for more than 1 week straight 5 Active cyclobenzaprine (FLEXERIL) 5 MG tablet Take 1 Tablet (5 mg) by mouth every 8 hours as needed. 5 Active docusate sodium (COLACE) 100 MG capsule Take 1 Capsule (100 mg) by mouth two times a day. 5 Active flavoxATE (URISPAS) 100 MG tablet Take 1 Tablet (100 mg) by mouth three times a day. Active fluticasone propionate (FLONASE) 50 MCG/ACT nasal solution 1 [place] by Nasal route. 5 Active furosemide (LASIX) 20 MG tablet Take 1 Tablet (20 mg) by mouth once as needed. 5 Active HYDROcodone-acetam inophen (NORCO) 5-325 MG tablet Take 1 Tablet by mouth every 6 hours as needed. 5 Active hydrOXYzine HCl (ATARAX) 25 MG tablet Take 1 Tablet (25 mg) by mouth daily. 5 Active LORazepam (ATIVAN) 0.5 MG tablet Take 1 Tablet (0.5 mg) by mouth. 4 Active ketotifen fumarate (ZADITOR) 0.035 % eye drop solution Place 1 Drop into eye(s). Active hyoscyamine (LEVSIN) 0.125 MG tablet Take 1 Tablet (0.125 mg) by mouth every 4 hours as needed. 5 Active losartan (COZAAR) 50 MG tablet Take 2 Tablets (100 mg) by mouth daily. Active loteprednol etabonate (LOTEMAX) 0.5 % eye drop suspension Place into eye(s). 5 Active nystatin (MYCOSTATIN) 199294 UNIT/GM powder Apply topically. 5 Active omeprazole (PRILOSEC) 20 MG capsule Take 1 Capsule (20 mg) by mouth daily. 5 Active ondansetron (ZOFRAN-ODT) 4 MG disintegrating tablet Take 0.5 Tablets (2 mg) by mouth. 5 Active oxyBUTYnin (DITROPANXL) 10 MG 24 hour release tablet Take 1 Tablet (10 mg) by mouth daily. [address] (PROTONIX) 40 MG tablet Take 1 Tablet (40 mg) by mouth daily. Active potassium chloride (KLOR-CON M) 20 MEQ ER tablet Take 1 Tablet (20 mEq) by mouth. 5 Active SUMAtriptan (IMITREX) 50 MG tablet Take 0.5 Tablets (25 mg) by mouth two times daily as needed. 5 Active tiZANidine (ZANAFLEX) 4 MG tablet Take 1 Tablet (4 mg) by mouth every 6 hours as needed. 5 Active ondansetron (ZOFRAN) 4 MG tabletIndications: LLQ pain,Stricture of descending colon (HRC) *GI Procedure Prep, 3 of 3* Take 4mg every 8 hours as needed for nausea during bowel prep 3 Tablet 5 Active warfarin 5 MG tablet Managed by outside facility/prov ider 5 Active Encounters Date Type Department Care Team Description 06/12/2024 9:00 AM CDT Office Visit [facility] [address] [place] [address]. [place] [address] Wade Garcia MD Follow-up exam (Primary Dx) 06/01/2024 Telephone [facility] [address] [id number] aWde Garcia MD Post-Op Follow Up Call 05/29/2024 Orders Only HIM DEPARTMENT Provider, MD Sahra 05/11/2024 Telephone [facility] [id number] [address] [place] [phone] Clinician, Not Found, Anticoagulation 05/08/2024 10:00 AM CDT Office Visit [facility] [address] [address] Wade Garcia MD LLQ pain (Primary Dx); Stricture of descending colon (HRC) from Last 3 Months Immunizations Immunization Administration Dates Next Due Flu Vac (3+ yrs) 12/19/2011, 2,11/16/2009,2007,12/11/2006 Influenza IIV3 (Trivalent) Saturnino Daodose, 65+ Yrs ([address]) 01/23/2016,12/13/2014,12/16/2013 Influenza, Unspecified Formulation 12/06/1998,,11/30/1994 PCV13 (Prevnar) 08/25/2015 PPSV23 (Pneumovax) 07/08/2013 Tdap 07/20/2020,05/24/2009 Zoster (Zostavax) 01/26/2010 Social History Tobacco Use Types Packs/Day Years Used Date Smoking Tobacco: Never Assessed Comments Unknown Sex and Gender Information Value Date Recorded Sex Assigned at Not on file Legal Sex Female 5:49 AM CDT Gender Identity Not on file Sexual Orientation Not on file Last Filed Vital Signs Vital Sign Reading Time Taken Comments Blood Pressure - - Pulse - - Temperature - - Respiratory Rate - - Oxygen Saturation - - Inhaled Oxygen Concentration - - Weight 83.5 kg (184 lb) 05/08/2024 10:02 AM CDT Height 165.1 cm (5' 5) 05/08/2024 10:02 AM CDT Body Mass Index 30.62 05/08/2024 10:02 AM CDT Plan of Treatment Health Maintenance Due Date Last Done Comments Hep C Screening (Preventive Services) 1945 Medicare Welcome Visit 1945 Zoster/Shingles Vaccine (2 of 3) 03/23/2010 01/26/2010 RSV Vaccine (1 - 1-dose 75+ series) 08/15/2022 COVID-19 Vaccine ( - season) 2023 Influenza Vaccine (#1) 2023 6, 12/13/2014, 12/16/2013, Additional history exists DTaP/Tdap/Td Vaccine (3 - Tdap) 07/20/2030 07/20/2020, 05/24/2009 Dexa Completed 04/30/2014, 04/30/2014 Pneumococcal Vaccine 50+ Yrs Completed 08/25/2015, 07/08/2013 HepA Vaccine Aged Out No longer eligi ble based on patient's age to complete this topic HepB Vaccine Aged Out No longer eligi ble based on patient's age to complete this topic Hib Vaccine Aged Out No longer eligi ble based on patient's age to complete this topic IPV (Polio) Vaccine Aged Out No longe r eligible based on patient's age to complete this topic MCV4 Vaccine Aged Out No longer eligi ble based on patient's age to complete this topic Meningococcal B Vaccine Aged Out No l onger eligible based on patient's age to complete this topic Procedures Procedure Name Priority Date/Time Associated Diagnosis Comments CT 05/29/2024 from Last 3 Months Results * CT (05/29/2024) Anatomical Region Laterality Modality Other us Interface Provider DUMMY/OTHER/AR Final Resu lt from Last 3 Months Insurance [employer] MEDICARE Care Teams Heel Wheeler Relationship Specialty Start Date End Date Clinician, Not Found, [place] [address] PCP - General 05/08/24
[2024-06-17 18:54] VITALS: BP 135/66; PULSE 52; RESP 16; TEMP 36.7; O2SAT 99; BMI 31.1
--- NOTE | 2024-06-17 20:29 | ED.GENADULT ---
HPI - General Adult General Time Seen by Provider: 20:29 Date Seen: 06/17/24 Chief complaint: Extremity Pain/Injury, Lower Stated complaint: celulitius Time Seen by Provider: 06/17/24 20:23 Source: patient, family, RN notes reviewed and old records reviewed Mode of arrival: ambulatory Limitations: no limitations History of Present Illness HPI narrative: 78-year-old female who presents with concern for infection in the foot. Patient notes that she has had pain and swelling her right foot for 2 days, when she took tonight there was some redness and that made her concerned. She denies any injury. Denies fever, chills, nausea, vomiting. Notes that she had bruising for feet bilaterally related to recent surgery. Has not taken anything for her symptoms. Related Data Home Medications ?Medication ?Instructions ?Recorded ?Confirmed flavoxate 100 mg tablet 100 mg PO TID 11/07/21 05/07/24 furosemide 20 mg tablet 20 mg PO DAILY 11/07/21 05/07/24 losartan 50 mg tablet 100 mg PO DAILY 11/07/21 05/07/24 ondansetron HCl 4 mg tablet 4 mg PO DAILY 11/07/21 05/07/24 oxybutynin chloride 10 mg 10 mg PO DAILY 11/07/21 05/07/24 tablet,extended release 24 hr potassium chloride 20 mEq 20 meq PO DAILY 11/07/21 05/07/24 tablet,extended release(part/cryst) sumatriptan succinate 50 mg tablet 50 mg PO DAILY 11/07/21 05/07/24 warfarin 5 mg tablet 5 mg PO 11/07/21 05/07/24 amlodipine 10 mg tablet 10 mg PO DAILY 07/19/22 05/07/24 fluticasone propionate 50 1 spray intranasal DAILY 07/19/22 05/07/24 mcg/actuation nasal spray,suspension hydroxyzine HCl 25 mg tablet 25 mg PO 3XD 07/19/22 05/07/24 cyclobenzaprine 5 mg tablet 5 mg PO TID PRN 06/03/23 05/07/24 glucosamine HCl 1,500 mg tablet 1,500 mg PO DAILY 06/03/23 05/07/24 hyoscyamine sulfate 0.125 mg 0.125 mg PO Q4H PRN 06/03/23 05/07/24 tablet (Levsin) metronidazole 500 mg tablet 500 mg PO TID 06/03/23 05/07/24 albuterol sulfate 90 mcg/actuation inhalation 03/18/24 05/07/24 aerosol inhaler clobetasol 0.05 % topical ointment topical 03/18/24 05/07/24 fluocinonide 0.05 % topical topical 03/18/24 05/07/24 solution loteprednol etabonate 0.5 % eye drp ophthalmic (eye) 03/18/24 05/07/24 drops,suspension nystatin 100,000 unit/mL oral PO 03/18/24 05/07/24 suspension omeprazole 40 mg capsule,delayed mg PO DAILY 03/18/24 05/07/24 release Previous Rx's ?Medication ?Instructions ?Recorded phenazopyridine 100 mg tablet 100 mg PO TID PRN pain 6 doses #6 10/20/23 tabs hydrocodone 5 mg-acetaminophen 325 1 tab PO Q4-6H PRN pain #15 tabs 02/18/24 mg tablet docusate sodium 100 mg capsule 100 mg PO BID #60 caps 04/13/24 (Colace) ondansetron 4 mg disintegrating 4 mg PO Q6H PRN nausea and 04/13/24 tablet vomiting #20 tabs clindamycin HCl 150 mg capsule 150 mg PO TID #15 caps 06/17/24 Allergies Allergy/AdvReac Type Severity Reaction Status Date / Time cephalexin Allergy Intermediate Chest Pain Verified 05/07/24 12:50 clonidine Allergy Intermediate tachycardia Verified 05/07/24 12:50 losartan Allergy Intermediate Tachycardia Verified 05/07/24 12:50 gadodiamide Allergy Mild Hives Verified 05/07/24 12:50 latex Allergy Mild Rash Verified 05/07/24 12:50 ibuprofen Allergy Chest Pain Verified 05/07/24 12:50 Penicillins Allergy Anaphylaxis Verified 05/07/24 12:50 Sulfa (Sulfonamide Allergy Hives Verified 05/07/24 12:50 Antibiotics) nitrofurantoin (From AdvReac Verified 05/07/24 12:50 Macrobid) propranolol AdvReac bradycardia Verified 05/07/24 12:50 IV contrast dye Allergy Hives Uncoded 05/07/24 12:50 peg 400-propylene glycol Allergy Rash Uncoded 05/07/24 12:50 [facility] Medical History (Updated 06/17/24 @ 21:25 by Sheldon Lim MD) TMJ tenderness, left ?M26.622 - Arthralgia of left temporomandibular joint (ICD-10) Chronic diastolic (congestive) heart failure ?I50.32 - Chronic diastolic (congestive) heart failure (ICD-10) Viral gastroenteritis ?A08.4 - Viral intestinal infection, unspecified (ICD-10) Traumatic ecchymosis of face ?S00.83XA - Contusion of other part of head, initial encounter (ICD-10) Toothache ?K08.89 - Other specified disorders of teeth and supporting structures (ICD-10) Sprain of knee ?S83.90XA - Sprain of unspecified site of unspecified knee, initial encounter (ICD-10) Pain of right hand ?M79.641 - Pain in right hand (ICD-10) Nausea alone ?R11.0 - Nausea (ICD-10) Headache ?R51.9 - Headache, unspecified (ICD-10) Fall ?W19.XXXA - Unspecified fall, initial encounter (ICD-10) Epigastric pain ?R10.13 - Epigastric pain (ICD-10) Dyspnea ?R06.00 - Dyspnea, unspecified (ICD-10) Cough ?R05.9 - Cough, unspecified (ICD-10) Cellulitis of leg ?L03.119 - Cellulitis of unspecified part of limb (ICD-10) Arthritis of both temporomandibular joints ?M26.643 - Arthritis of bilateral temporomandibular joint (ICD-10) Atrial fibrillation ?I48.91 - Unspecified atrial fibrillation (ICD-10) Enlarged LA (left atrium) ?I51.7 - Cardiomegaly (ICD-10) Vitamin D deficiency ?E55.9 - Vitamin D deficiency, unspecified (ICD-10) Hyperlipidemia ?E78.5 - Hyperlipidemia, unspecified (ICD-10) Panic disorder without agoraphobia ?F41.0 - Panic disorder [episodic paroxysmal anxiety] (ICD-10) Benign paroxysmal positional vertigo ?H81.10 - Benign paroxysmal vertigo, unspecified ear (ICD-10) Hypertension ?I10 - Essential (primary) hypertension (ICD-10) Surgical History (Updated 04/30/24 @ 11:46 by 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 Danielle ~ 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, 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) Status post trigger finger release (04/30/24) ?Z98.890 - Other specified postprocedural states (ICD-10) History of carpal tunnel surgery of right wrist (04/30/24) ?Z98.890 - Other specified postprocedural states (ICD-10) S/P trigger finger release (06/04/23) ?Z98.890 - Other specified postprocedural states (ICD-10) History of incision and drainage (02/26/14) ?Z98.890 - Other specified postprocedural states (ICD-10) History of phacoemulsification of cataract of right eye with intraocular lens implantation (04/17/17) ?Z98.41 - Cataract extraction status, right eye (ICD-10) ?Z96.1 - Presence of intraocular lens (ICD-10) History of phacoemulsification of cataract of left eye with intraocular lens implantation (05/01/17) ?Z98.42 - Cataract extraction status, left eye (ICD-10) ?Z96.1 - Presence of intraocular lens (ICD-10) History of YAG laser capsulotomy of lens of right eye (09/04/17) ?Z98.41 - Cataract extraction status, right eye (ICD-10) History of YAG laser capsulotomy of lens of left eye (04/06/20) ?Z98.42 - Cataract extraction status, left eye (ICD-10) H/O hernia repair (03/22/08) ?Z98.890 - Other specified postprocedural states (ICD-10) ?Z87.19 - Personal history of other diseases of the digestive system (ICD-10) H/O dilation and curettage (04/28/08) ?Z98.890 - Other specified postprocedural states (ICD-10) History of appendectomy ?Z90.49 - Acquired absence of other specified parts of digestive tract (ICD-10) Social History Smoking Status: Never smoker Do you use any of these nicotine containing products: None Second hand tobacco smoke exposure: No How often do you have a drink containing alcohol: never How often do you have six or more drinks on one occasion: Never AUDIT-C Alcohol total score: 0 Non-prescribed substance use: denies use Caffeine: No Are you using contraception or practicing any form of control: No service: No Exam Const: Vital Signs, click to edit/add: Vital Signs - 24 hr 06/17/24 18:54 Temperature 98.1 F Pulse Rate [Pulse Oximeter] 52 L Respiratory Rate 16 Blood Pressure [Ri ght Upper Arm] 135/66 Pulse Oximetry 99 Oxygen Delivery Me thod Room Air Course Course ED Course: Reviewed most recent emergency department visit from April 26 when patient was seen with abdominal pain, CT scan at that time demonstrated colonic stricture, patient was discharged, subsequently underwent left hemicolectomy on May 28. Patient comes in today with concern for swelling and some pain and redness of her right foot. This is localized around the MTP joint. On exam here, patient's finally stable. There is mild swelling on the dorsum of the right foot as well as medially over the MTP joint. Patient reportedly says she ?does not have a joint at the MTP. There is no pain with passive movement, no definite joint effusion, low suspicion for gout or septic arthritis. X-ray independently interpreted by me with arthritis and degenerative changes at the MTP joint. This may represent osteoarthritis at the joint, however given patient's recent surgery and concern for cellulitis, was started on antibiotics. Given allergy profile, patient started on clindamycin. I am little concerned about this given her recent surgery and risk of C diff colitis but is patient is alert to penicillin and Keflex as well as sulfa antibiotics options are limited. Reevaluation(s) Time of Reevaluation #1: 21:26 Reevaluation #1: X-ray of the right foot negative for acute findings. Patient is stable for discharge. Vital Signs Vital signs: Initial Vital Signs Temperature 98.1 F 06/17/24 18:54 Temperature Source Temporal Artery Scan 06/17/24 18:54 Pulse Rate 52 L 06/17/24 18:54 Respiratory Rate 16 06/17/24 18:54 Blood Pressure 135/66 06/17/24 18:54 Blood Pressure Mean 89 06/17/24 18:54 Blood Pressure Position Sitting 06/17/24 18:54 Pulse Oximetry 99 06/17/24 18:54 Oxygen Delivery Method Room Air 06/17/24 18:54 Vital Signs Temperature 98.1 F 06/17/24 18:54 Pulse Rate 52 L 06/17/24 18:54 Respiratory Rate 16 06/17/24 18:54 Blood Pressure 135/66 06/17/24 18:54 Pulse Oximetry 99 06/17/24 18:54 Oxygen Delivery Method Room Air 06/17/24 18:54 Temperature 98.1 F 06/17/24 18:54 Pulse Rate 52 L 06/17/24 18:54 Respiratory Rate 16 06/17/24 18:54 Blood Pressure 135/66 06/17/24 18:54 Pulse Oximetry 99 06/17/24 18:54 Oxygen Delivery Method Room Air 06/17/24 18:54 Discharge Plan Discharge Clinical Impression: Acute pain of right foot, Cellulitis of foot, right Patient Disposition: Home, Self-Care Condition: Stable Instructions: Cellulitis (ED) Additional Instructions: Elevate right foot is able, ice for comfort. You may take Tylenol as needed for pain. Take antibiotics as prescribed. Follow-up with primary care in 3-5 days Activity Level: Activity as Tolerated Discharge Diet: Regular Prescriptions: New clindamycin HCl 150 mg capsule 150 mg PO TID Qty: 15 0RF No Action fluticasone propionate 50 mcg/actuation spray,suspension 1 spray intranasal DAILY hydroxyzine HCl 25 mg tablet 25 mg PO 3XD amlodipine 10 mg tablet 10 mg PO DAILY phenazopyridine 100 mg tablet 100 mg PO TID PRN (Reason: pain) Qty: 6 0RF loteprednol etabonate 0.5 % drops,suspension ophthalmic (eye) Patient Comments: INSTILL 1 DROP INTO BOTH EYES THREE TIMES DAILY FOR 7 DAYS. SHAKE WELL BEFORE USE albuterol sulfate 90 mcg/actuation HFA aerosol inhaler inhalation Patient Comments: [NO ORIGINAL SIG] fluocinonide 0.05 % solution topical clobetasol 0.05 % ointment topical omeprazole 40 mg capsule,delayed release(DR/EC) PO DAILY nystatin 100,000 unit/mL suspension PO hydrocodone-acetaminophen 5-325 mg tablet 1 tab PO Q4-6H PRN (Reason: pain) Qty: 15 0RF losartan 50 mg tablet 100 mg PO DAILY Patient Comments: TAKE 2 TABLETS BY MOUTH ONCE DAILY oxybutynin chloride 10 mg tablet extended release 24hr 10 mg PO DAILY Patient Comments: TAKE 1 TABLET BY MOUTH ONCE DAILY ondansetron HCl 4 mg tablet 4 mg PO DAILY Patient Comments: TAKE 1 TABLET BY MOUTH EVERY 8 HOURS NEEDED FOR NAUSEA AND VOMITING sumatriptan succinate 50 mg tablet 50 mg PO DAILY Patient Comments: TAKE 1 TABLET BY MOUTH TWICE DAILY NEEDED FOR MIGRAINE GIVE AT MINIMUM 2 HOURS APART. MAX DOSE 200MG PER 24 HOURS. potassium chloride 20 mEq tablet,ER particles/crystals 20 meq PO DAILY Patient Comments: TAKE 1 TABLET BY MOUTH ONCE DAILY WITH A MEAL warfarin 5 mg tablet 5 mg PO furosemide 20 mg tablet 20 mg PO DAILY Patient Comments: TAKE 1 TABLET BY MOUTH IN THE MORNING flavoxate 100 mg tablet 100 mg PO TID Patient Comments: TAKE 1 TABLET BY MOUTH THREE TIMES DAILY cyclobenzaprine 5 mg tablet 5 mg PO TID PRN glucosamine HCl 1,500 mg tablet 1,500 mg PO DAILY hyoscyamine sulfate [Levsin] 0.125 mg tablet 0.125 mg PO Q4H PRN metronidazole 500 mg tablet 500 mg PO TID docusate sodium [Colace] 100 mg capsule 100 mg PO BID Qty: 60 0RF ondansetron 4 mg tablet,disintegrating 4 mg PO Q6H PRN (Reason: nausea and vomiting) Qty: 20 0RF Follow Up/Referrals: Nico Betancourt MD [Primary Care Provider] - Stand Alone Forms: [employer] Info Instructions
--- NOTE | 2024-06-17 20:39 | CRLHL7_ITS ---
For Patients: As a result of the Century Cures Act, medical imaging exams and procedure reports are released immediately into your electronic medical record. You may view this report before your referring provider. If you have questions, please contact your health care provider. INDICATION: Trauma. TECHNIQUE: Right foot radiographs, 3 views. COMPARISON: None. FINDINGS: No acute fractures or dislocation. Diffuse degenerative joint space narrowing. Lisfranc joint appears unremarkable. Small plantar calcaneal osteophyte. No significant soft tissue edema or radiopaque foreign bodies. IMPRESSION: No acute fractures or dislocation. Dictated by Isak Vasquez MD @ 06/17/2024 9:24:49 PM (Electronically Signed)
--- OUTSIDE RECORDS SUMMARY | 2024-06-17 21:16 | XMS_ITS | Encounter Summary ---
[facility] Address [address] [place] [id number] Care Team Providers Care Candy Spreader Helper Name Role Phone Clinician, Not Found MD Primary Care Provider Un available Reason for Visit * Reason Comments Post-Op Follow Up Call Encounter Details Date Type Department Care Team (Late st Contact Info) Description 06/01/2024 Telephone [facility] General Surgery [address] [facility] [place], [place] [phone] Wade Garcia MD [address] [facility] [address] [place], [place] [phone] Post-Op Follow Up Call Social History Tobacco [...] on filedocumented in this encounter Care Teams Candy Spreader Helper Relationship Specialty Start Date End Date Clinician, Not Found, [place] [address] PCP - General 05/08/24 documented as of this encounter
--- OUTSIDE RECORDS SUMMARY | 2024-06-17 21:16 | XMS_ITS | Continuity of Care Document ---
Author Organization [facility] Address [address] [place] [address] Phone Care Team Providers Care Dynamicist Name Role Phone Unavailable Unavailable Unavailable Advance Directives Directive Yes / No Effective Date File Name No Information Encounters Encounter Description Practice Location Reason(s) For Visit Diagnoses Date Provider Providers Copied on Encounter [facility], [address] [place], [id number], [place] tel:[phone] [facility] No Information No Information Family History [...]
--- OUTSIDE RECORDS SUMMARY | 2024-06-17 21:16 | XMS_ITS | Clinical Summary ---
Author Organization [facility] Address [address] [place] [address] Care Team Providers Care Policy Specialist Name Role Phone Nico Betancourt MD Primary Care Provider [phone] Allergies Active Allergy Reactions Criticality Noted Date [...] n tube dysfunction, unspecified laterality Inhale 1 [place] in both nostrils once daily. 48 g [...] Description 06/17/2024 9:00 AM CDT Orders Only [facility] [address] [place] [address] Lab 06/17/2024 Anticoagulation (warfarin) [facility] [address] [place] [address] 1, [facility] Anticoagulation 06/17/2024 Travel 06/11/2024 Refill [facility] [address] [place] [address] Nico Betancourt MD Refill Request (Hydroxyzine Hcl) 06/10/2024 10:00 AM CDT Orders Only [facility] [address] [place] [address] Lab 06/10/2024 Anticoagulation (warfarin) [facility] [address] [place] [address] 1, [facility] Anticoagulation 06/10/2024 Travel 06/09/2024 Telephone [facility] [address] [place] [address] Nico Betancourt MD Anticoagulation (review) 06/03/2024 Refill [facility] [address] [place] [address] Nico Betancourt MD Refill Request 06/03/2024 Anticoagulation (warfarin) [facility] [address] [place] [address] 1, [facility] Anticoagulation 06/02/2024 11:45 AM CDT Office Visit [facility] [address] [place] [address] Nico Betancourt MD Post-op 06/02/2024 Travel 06/01/2024 Patient Outreach [facility] [address] [place] [address] Nico Betancourt MD Primary RN Care Management; Hospital F/U (LACE 30) 05/28/2024 7:33 AM CDT Anesthesia Event [address] [address] Sheldon Combs DO 05/28/2024 7:20 AM CDT - 05/28/2024 11:42 AM CDT Surgery [address] [address] Wade Garcia MD Robotic Assisted Laparoscopic Left Carrington- Colectomy 05/28/2024 6:01 AM CDT - 05/31/2024 3:07 PM CDT Hospital Encounter [facility] [address] [facility] [place] [address] Wade Garcia MD Colonic stricture (HC) (Primary Dx); Paroxysmal atrial fibrillation (HC); Anticoagulation monitoring, INR range 2-3; Stenosis of colon (HC) Discharge Disposition: Home Self Care 05/28/2024 Travel 05/21/2024 Travel 05/18/2024 9:05 AM CDT Office Visit [facility] [address] [place] [address] Nico Betancourt MD Pre-Op Exam (Robotic Assisted Laparoscopic Left [place]- Colectomy [facility] Dr[facility] Guidry 05/28/2024) 05/18/2024 Anticoagulation (warfarin) [facility] [address] [place] [address] 1, [facility] Anticoagulation; Refill Request (warfarin) 05/18/2024 Travel 05/05/2024 Telephone [facility] [address] [place] [address] Solomon Shelton MD Referral (Send to Shellie Juncos) 05/05/2024 Telephone [facility] [address] [place] [address] Solomon Shelton MD Error-please disregard 05/04/2024 Refill [facility] [address] [place] [address] Nico Betancourt MD Refill Request (Ondansetron) 05/04/2024 Telephone [facility] [address] [place] [address] Solomon Shelton MD Questions 04/30/2024 Telephone [facility] [address] [place] [address] Nico Betancourt MD Follow Up 04/30/2024 Lab Requisition [facility] [phone] Solomon Shelton MD 04/29/2024 7:45 AM CDT Office Visit [facility] [address] [facility] [place] [address] Solomon Shelton MD 04/29/2024 Orders Only [facility] Scanner 1 scan: (1-Ord) [facility] 04/26/2024 Orders Only [facility] Scanner 1 scan: (1-Ord) [place], CT ABD PE;VIS W/ CON, 04/26/2024 04/23/2024 Telephone [facility] [address] [place] [address] Nico Betancourt MD Medication Management 04/17/2024 11:45 AM RN LPN LVN Office Visit [facility] [address] [place] [address] Nico Betancourt MD Preoperative Exam (Colonoscopy 04/29/24 [facility] shelton) 04/16/2024 9:00 AM RN LPN LVN Ancillary Procedure [facility] [address] [place] [address] 04/16/2024 Travel 04/14/2024 Telephone [facility] [address] [place] [address] Solomon Shelton MD Questions (COLONOSCOPY ) 04/14/2024 Telephone [facility] [address] [place] [address] Solomon Shelton MD Screening 04/13/2024 Orders Only [facility] Scanner 1 scan: (1-Ord) [facility], CT ABDOMEN PELVIS WO, 04/13/2024 04/13/2024 Telephone [facility] [address] [place] [address] Nico Betancourt MD Questions (colonoscopy and ultrasound/) 04/02/2024 11:30 AM RN LPN LVN Office Visit [facility] [address] [place] [address] Aishwarya Pagan PA Hip Pain/problem (Left hip area) 04/02/2024 Travel 04/02/2024 [facility] [address] Nico Betancourt MD Hip Pain/problem (left) 03/31/2024 Anticoagulation (warfarin) [facility] [address] [place] [address] 1, [facility] Anticoagulation (Chart update) 03/26/2024 Telephone [facility] [address] [place] [address] Nico Betancourt MD Prior Authorization (nystatin powder (MYCOSTATIN) powder APPROVED 03/30/2024 - 02/17/2025) 03/19/2024 Telephone [facility] [address] [place] [address] Nico Betancourt MD Results from Last 3 [...] on file Legal Sex Female 5:25 AM RN LPN LVN Gender Identity Not on file Sexual Orientation Not on file Travel History Travel Start Travel End [place] 05/21/2024 05/24/2024 Obstetrics History Para Term AB [...] Description 08/11/2024 2:30 PM CDT Office Visit [facility] [address] [place] [address] Az Matthews MD [address] [facility] [place] [address] [place] [address] Health Maintenance Due Date Last Done Comments [...] 2:02 PM CDT Paroxysmal atrial fibrillation (HC) CO READING EKG - NO CHARGE, COMP ONLY [...] the abdomen SCAN-CT INTERPRETATION 04/26/2024 12:00 AM RN LPN LVN US PELVIS COMPLETE TA AND TV Routine 04/16/2024 11:05 AM RN LPN LVN Adnexal mass SCAN-CT INTERPRETATION 04/13/2024 12:00 AM RN LPN LVN INR,POCT Routine 03/26/2024 12:19 PM RN LPN LVN Paroxysmal atrial fibrillation (HC) Anticoagulation monitoring, INR range 2-3 ANTI HCV Routine 11/18/2015 10:57 AM CDT Need for hepatitis C screening test XR DXA BONE DENSITY 2 SITES AXIAL Routine 04/30/2014 11:24 AM CDT Ovarian failure from Last 3 Months or Most Recently Relevant to Health Maintenance Results * (ABNORMAL) INR - POCT [84502.2] - Standing Order (06/17/2024 9:02 AM CDT) Only the most recent of2 resultswithin the time period is included. INR 2.3(H) ratio [facility] Comment: INRs >2.9 may be falsely [...] PROTHROMBIN TIMEP 27.1(H) 10.5 - 13.1 sec [facility] Comment: Point of care fingerstick Prothrombin Time/INR results may vary from venous Prothrombin Time/INR methodologies. Any results exhibiting inconsistency with the patient's clinical status should be repeated using a venous Prothrombin Time/INR method. Blood BLOOD SPECIMEN / Unknown 06/17/2024 9:02 AM CDT 06/17/2024 9:03 AM CDT us Nico Betancourt MD LABORATORY Final Resu lt [address] [address] * (ABNORMAL) PROTIME-INR [71272.0] - Standing Order (06/10/2024 8:58 AM CDT) Only the most recent of4 resultswithin the time period is included. INR 1.5(H) <1.3 06/10/2024 3:01 PM CDT [facility] PROTIME 16.8(H) 10.6 - 12.4 sec 06/10/2024 3:01 PM CDT [facility] Blood BLOOD SPECIMEN / Unknown [facility] / Unknown 06/10/2024 8:58 AM CDT 06/10/2024 8:58 AM CDT [facility] 06/10/2024 3:01 PM CDT [...] Nico Betancourt MD HEMATOLOGY Final Resu lt [facility] LABORATORY [address] [place] [address], * PLATELET COUNT (05/31/2024 6:19 AM CDT) Only the most recent of2 resultswithin the time period is included. PLATELET COUNT 244 140 - 440 thou/cu mm 05/31/2024 6:38 AM CDT [facility] MPV 10.0 6.5 - 11.0 fL 05/31/2024 6:38 AM CDT [facility] Blood BLOOD SPECIMEN / Unknown [facility] / Unknown 05/31/2024 6:19 AM CDT 05/31/2024 6:36 AM CDT Narrative [facility] - 05/31/2024 6:38 AM CDT While on heparin Wade Garcia MD HEMATOLOGY Final Res ult [place] [address] [place] [address] * (ABNORMAL) HEMOGLOBIN (05/29/2024 6:18 AM CDT) Only the most recent of2 resultswithin the time period is included. HEMOGLOBIN 11.4(L) 12.0 - 16.0 g/dL 05/29/2024 7:02 AM CDT [facility] MCV 84 80 - 100 fL 05/29/2024 7:02 AM CDT [facility] Blood BLOOD SPECIMEN / Unknown [facility] / Unknown 05/29/2024 6:18 AM CDT 05/29/2024 6:56 AM CDT Wade Garcia MD HEMATOLOGY Final Res ult [facility] [address] [place] [address] * PATH TISSUE EXAM (05/28/2024 11:44 AM CDT) Only the most recent of2 resultswithin the time period is included. Case Report Pathology Report Case: [id number] Authorizing Provider: Wade Garcia MD Collected: 05/28/2024 1144 Ordering Location: [facility] Received: 05/28/2024 1437 [facility] Pathologist: Richie Dyer MD Specimen: Left Colon 05/29/2024 4:55 PM CDT [email or web address]ORAT[facility]-C ENTRAL LABORATORY Final Diagnosis A) COLON, LEFT, PARTIAL RESECTION: 1. Segment of colon with dilation and wall thinning 2. Negative changes of inflammatory bowel disease and neoplasia 3. Five benign lymph nodes 4. Surgical resection margins are viable 05/29/2024 4:55 PM CDT [facility]OR[facility]-C ENTRAL LABORATORY at 1655 CDT Clinical Information Mid left descending colonic stricture. 05/29/2024 4:55 PM CDT [email or web address] ENTRAL LABORATORY Gross Description A) Received [...] 0.1 to 0.4 cm in greatest dimension. Cross Cut Saw Operator sections are submitted as follows: 1-2. Staple line margin, en face 3. Dilated colon 4. Dilated colon with adjacent uninvolved colon 5. 5 possible lymph nodes, intact 6. 1 lymph node, bisected ALISHA 05/28/2024 05/29/2024 4:55 PM CDT [facility] EN[facility] LABORATORY Microscopic Description The final diagnosis is based on microscopic examination of appropriate sections of all specimens. 05/29/2024 4:55 PM CDT [facility] EN[facility]ATORY Additional Information Interpreted at [facility] - [address] [place] [address]. [facility] [address], [place] [address] 05/29/2024 4:55 PM CDT [facility] EN[facility] LABORATORY Tissue (Left Colon) 05/28/2024 11:44 AM CDT 05/28/2024 2:37 PM CDT us Wade Garcia MD PATHOLOGY/CYTOLOGY Final Result Performing Organization Address City/State/[facility] Co de Phone Number [facility] [address] [place] [address], * HCHG TUBE PR1, HCHG STYLET PR1 [...] (ABNORMAL) GLUCOSE METER (05/28/2024 6:46 AM CDT) [facility] Signature GLUCOSE METER 108(H) 65 - 100 mg/dL 05/28/2024 6:47 AM CDT [facility] Blood BLOOD SPECIMEN / Unknown 05/28/2024 6:46 AM CDT 05/28/2024 6:47 AM CDT us Wade Garcia MD CHEMISTRY Final Res ult [facility] [address] [place] [address] * SCAN-CARDIAC STRIP (05/28/2024 12:00 AM CDT) Narrative 05/28/2024 12:00 AM CDT Ordered by an unspecified provider. Other Clinical Staff OTHER Final Resul t * EKG 12 LEAD (05/19/2024 2:02 PM CDT) Nico Betancourt MD EKG ORD Final Resu lt * CO READING EKG - NO CHARGE, COMP ONLY (05/19/2024 2:00 PM CDT) Nico Betancourt MD PB - PROVIDER READINGS Fin al Result * POTASSIUM (05/18/2024 10:36 AM CDT) Pathologist [facility] POTASSIUM 4.2 3.5 - 5.3 mmol/L [facility] [facility] [place] Blood BLOOD SPECIMEN / Unknown 05/18/2024 10:36 AM CDT 05/18/2024 10:36 AM CDT Nico Betancourt MD CHEMISTRY Final Resu lt [facility] [address] [place] [address], [facility] [address] [place] [address] * LAB TRACKING EVENT (04/29/2024 8:05 AM CDT) Other (Other) Client Collect / Unknown 04/29/2024 8:05 AM CDT 04/30/2024 6:27 AM CDT Solomon Shelton MD LAB BILL ONLY Final Res ult [facility] [address] [place] [address], [place] * SCAN-COLONOSCOPY (04/29/2024 12:00 AM CDT) Scanner OTHER Final Result * COLONOSCOPY DIAGNOSTIC (04/29/2024 12:00 AM CDT) us Nico Betancourt MD GI PROCEDURE ORD Final Res ult * SCAN-CT INTERPRETATION (04/26/2024 12:00 AM RN LPN LVN) Only the most recent of2 resultswithin the time period is included. Anatomical Region Laterality Modality Other us Scanner OTHER Final Result * US PELVIS COMPLETE TA AND TV (04/16/2024 11:05 AM RN LPN LVN) Anatomical Region Laterality Modality Pelvis Ultrasound 04/16/2024 11:2 4 AM RN LPN LVN Impressions 04/16/2024 11:24 AM RN LPN LVN Stable appearance of the right ovary/right adnexa without significant change since 2016. Dictated by Ceferino Dennis MD @ 04/16/2024 11:24:58 AM (Electronically Signed) Narrative 04/16/2024 11:24 AM RN LPN LVN For Patients: As a result of the [...] US Final Resu lt * ANTI HCV [[id number]] (11/18/2015 10:57 AM CDT) HEPATITIS C ANTIBODY Non-Reacti ve Non-Reacti ve 11/18/2015 5:27 PM CDT [facility] Blood BLOOD SPECIMEN / Unknown Venipuncture / Unknown 11/18/2015 10:57 AM CDT 11/18/2015 10:58 AM CDT Narrative [facility] - 11/18/2015 5:27 PM CDT Antibodies to HCV not detected; does not exclude the possibility of exposure to HCV. us Nico Betancourt MD SEND OUTS Final Resu lt [facility] [address] [place] [address], [place] * (ABNORMAL) XR DXA BONE DENSITY [...] 8:57 PM 05/22/2012 6:59 PM Care Teams Policy Specialist Relationship Specialty Start Date End Date Nico Betancourt MD [address] [place] [address] PCP - General Family Practice 05/16/15
--- OUTSIDE RECORDS SUMMARY | 2024-06-17 21:16 | XMS_ITS | Clinical Summary ---
Author Organization [facility] Address [address] [address] Phone Care Team Providers Care Backer Up Name Role Phone Unavailable Primary Care Provider [...]
--- OUTSIDE RECORDS SUMMARY | 2024-06-17 21:17 | XMS_ITS | Encounter Summary ---
Author Organization [facility] Address [address] [place] [address] Care Team Providers Care Glass Ribbon Machine Operator Name Role Phone Clinician, Not Found MD Primary Care Provider Un available Reason for Visit * Reason Comments Post-Op Check Encounter Details Date Type Department Care Team (Late st Contact Info) Description 06/12/2024 9:00 AM CDT Office Visit [facility] General Surgery [address] [facility] [place], [place] [address] Wade Garcia MD [address] [facility] [address] [place], [place] [id number] Follow-up exam (Primary Dx) Social History Tobacco [...] examination documented in this encounter Care Teams Glass Ribbon Machine Operator Relationship Specialty Start Date End Date Clinician, Not Found, [place] [address] PCP - General 05/08/24 documented as of this encounter
--- OUTSIDE RECORDS SUMMARY | 2024-06-17 21:17 | XMS_ITS | Encounter Summary ---
Author Organization [facility] Address [address], [place] [address] Care Team Providers Care Radiotelephone Operator Name Role Phone Clinician, Not Found Primary Care Provider Un available Encounter Details Date Type Department Care Team (Latest Contact Info) Description 05/29/2024 Orders Only HIM DEPARTMENT Provider, Interface, [place] [address] Social History Tobacco Use Types Packs/Day Years [...] on filedocumented in this encounter Care Teams Radiotelephone Operator Relationship Specialty Start Date End Date Clinician, Not Found, [place] [address] PCP - General 05/08/24 documented as of this encounter
--- OUTSIDE RECORDS SUMMARY | 2024-06-17 21:17 | XMS_ITS | Clinical Summary ---
Author Organization [facility] Address [address] [facility] , [address] [place] [address] Phone Care Team Providers Care Chart Collector Name Role Phone [facility] Unavailable Unava ilable Conditions or Problems Problem Name Problem Code Onset Date Status Entry Date Provider Comment Standard Description Annotate Hand numbness 567924632 (SNOMED CT) Active Jack Dias MD Numbness of hand Median neuropathy, right 787350304 (SNOMED CT) Active Jack Dias MD Median [...] Procedures Code Procedure Name Date Entry Date CPT-76234 Nerve Conduction 7-8 studies CPT-82051 EMG with NCS (5+ muscles) - 1 limb 02/26 Vital Signs No information available. Immunizations No information available. Advance Directives No information available.
--- OUTSIDE RECORDS SUMMARY | 2024-06-17 21:17 | XMS_ITS | Encounter Summary ---
Author Organization [facility] Address [address] [place] [address] Care Team Providers Care Clinical Staff Educator Name Role Phone Clinician, Not Found MD Primary Care Provider Un available Reason for Visit * Reason Comments CONSULT Encounter Details Date Type Department Care Team (Late st Contact Info) Description 05/08/2024 10:00 AM CDT Office Visit [place] [address] General Surgery [facility] [place], [place] [address] Wade Garcia MD [facility] [address] [place], [place] [id number] LLQ pain (Primary Dx); Stricture of descending [...] BEFORE SURGERY: Reviewed and gave the patient [facility] surgical packet. 1. Stop Aspirin and [...] propionate (FLONASE) 50 MCG/ACT nasal solution 1 [place] by Nasal route. furosemide (LASIX) 20 MG [...] drop suspension Place into eye(s). nystatin (MYCOSTATIN) 236970 UNIT/GM powder Apply topically. omeprazole (PRILOSEC) 20 [...] 5' 5 (165.1 cm) Wt 184 lb (30976 g) BMI 30.62 kg/m?? GENERAL APPEARANCE: Cindy [...] (HRC) documented in this encounter Care Teams Clinical Staff Educator Relationship Specialty Start Date End Date Clinician, Not Found, [place] [address] PCP - General 05/08/24 documented as of this encounter
--- OUTSIDE RECORDS SUMMARY | 2024-06-17 21:17 | XMS_ITS | Encounter Summary ---
Author Organization [facility] Address [address] [place] [address] Care Team Providers Care Parimutuel Ticket Seller Name Role Phone Clinician, Not Found Primary Care Provider Un available Reason for Visit * Reason Comments Anticoagulation Encounter Details Date Type Department Care Team (Late st Contact Info) Description 05/11/2024 Telephone [facility] [id number] [address] [place] [address] Clinician, Not Found, [place] [address] Anticoagulation Social History Tobacco Use Types Packs/Day [...] on filedocumented in this encounter Care Teams Parimutuel Ticket Seller Relationship Specialty Start Date End Date Clinician, Not Found, [place] [address] PCP - General 05/08/24 documented as of this encounter
--- OUTSIDE RECORDS SUMMARY | 2024-06-17 21:17 | XMS_ITS | Clinical Summary ---
Author Organization [facility] Address [address] [place] [address] Care Team Providers Care Sharepoint Architect Name Role Phone Clinician, Not Found MD [...] for each transition of care or referral. [employer] Allergies Active Allergy Reactions Criticality Noted Date [...] propionate (FLONASE) 50 MCG/ACT nasal solution 1 [place] by Nasal route. 5 Active furosemide (LASIX) [...] Place into eye(s). 5 Active nystatin (MYCOSTATIN) 456549 UNIT/GM powder Apply topically. 5 Active omeprazole [...] 06/12/2024 9:00 AM CDT Office Visit [facility] General Surgery [address] [place] [address]. [place] [address] Wade Garcia MD Follow-up exam (Primary Dx) 06/01/2024 Telephone [facility] General [address] [address] Wade Garcia MD Post-Op Follow Up Call 05/29/2024 Orders Only HIM DEPARTMENT Provider, MD Sahra 05/11/2024 Telephone [facility] [id number] [address] [place] [phone] Clinician, Not Found, Anticoagulation 05/08/2024 10:00 AM CDT Office Visit [facility] General [address] [address] Wade Garcia MD LLQ pain (Primary Dx); Stricture of descending colon (HRC) from Last 3 Months Immunizations Immunization Administration Dates Next Due Flu Vac (3+ yrs) 12/19/2011, 2,11/16/2009,2007,12/11/2006 Influenza IIV3 (Trivalent) Saturnino Daodose, 65+ Yrs ([address]) 01/23/2016,12/13/2014,12/16/2013 Influenza, Unspecified Formulation 12/06/1998,,11/30/1994 PCV13 (Prevnar) [...] 3 Months Insurance [employer] MEDICARE Care Teams Sharepoint Architect Relationship Specialty Start Date End Date Clinician, Not Found, [place] [address] PCP - General 05/08/24
[2024-06-17] MEDS: CLINDAMYCIN 150 MG CAPSULE PO (21:38)
== END 2024-06-17 21:46 | disposition home or self-care (01) ==
PROVIDERS: Emergency Provider Family Medicine; PCP Surgery
DX: L03.115 Cellulitis of right lower limb (principal); M79.671 Pain in right foot
CPT/HCPCS: 73630; 99283; 99284; A9270

== ENCOUNTER 2024-08-16 09:30 | Outpatient (CLI) | payer MEDICARE, SELFPAY | END 2024-08-16 09:31 | disposition home or self-care (01) | LOC: NFLDREF 08-18 22:55 | PROVIDERS: PCP Surgery; Referring Provider Surgery | DX: R30.0 Dysuria (principal); R39.15 Urgency of urination | CPT/HCPCS: 87086 ==

== ENCOUNTER 2024-11-06 17:58 | Emergency (ER) | payer MEDICARE, SELFPAY ==
--- OUTSIDE RECORDS SUMMARY | 2024-09-23 11:40 | XMS_ITS | Encounter Summary ---
Author Organization [facility] Address [address] [address] Phone Care Team Providers Care V Belt Inspector Name Role Phone Unavailable Primary Care Provider Unavailabl e Reason for Visit * Reason Comments UTI Is on vacation and s tates that she has dysuria and redness in her perineum. No medications Encounter Details Date Type Department Care Team (Late st Contact Info) Description 09/23/2024 11:40 AM CDT Office Visit [facility] [address] [place] [address] Katelyn Rendon PA-C [address] [place], [place] [id number] Acute vaginitis (Primary Dx) Social History Tobacco Use Types Packs/Day Years Used Date Smoking Tobacco: Never Smokeless Tobacco: Never Tobacco Cessation:Counseling Given: Not Answered Comments Unknown Sex and Gender Information Value Date Recorded Sex Assigned at Not on file Legal Sex Female 12:08 PM CDT Gender Identity Not on file Sexual Orientation Not on file documented as of this encounter Last Filed Vital Signs Vital Sign Reading Time Taken Comments Blood Pressure 132/66 09/23/2024 12:04 PM CDT Pulse 48 09/23/2024 12:04 PM CDT Temperature 36.4 C (97.6 F) 09/23/2024 12:04 PM CDT Respiratory Rate 16 09/23/2024 12:04 PM CDT Oxygen Saturation 96% 09/23/2024 12:04 PM CDT Inhaled Oxygen Concentration - - Weight - - Height - - Body Mass Index - - documented in this encounter Patient Instructions * Patient Instructions* Katelyn Rendon PA-C - 09/23/2024 11:40 AM CDT 1. Interstitial cystitis: Chronic. - Continue current management. 2. Yeast infection: Acute. - Continue using powder for relief. - Prescribe nystatin ointment. 3. Scoliosis: Chronic. - No immediate intervention required. 4. Bradycardia: Chronic. - Heart rate 50-52 bpm; no dizziness. - No immediate intervention required. Follow-up - Prescription for nystatin ointment provided. Thank you for choosing Urgent Care at [facility] for your health care needs today! If your symptoms do not improve within the expected timeline, please contact your primary care provider or Nurse Care Line at [phone] for advice. If you have severe symptoms, please go to the nearest Emergency room or call 911. When you receive you [employer] patient satisfaction survey, please take a moment to complete the survey. documented in this encounter Ordered Prescriptions Prescription Sig Dispense Quantity Refills Last Filled Start Date End Date nystatin (Mycostatin) 165133 UNIT/GM ointmentIndication s:Infection Apply topically to the affected area of genitalia twice daily 30 g 09/23/2024 12:48 PM CDT 09/23/2024 documented in this encounter Progress Notes * Katelyn Rendon PA-C - 09/23/2024 11:40 AM CDT Ambient Notewriting Consent A verbal consent was discussed prior to recording the visit and enabling the documentation-draftingtechnology; patient was informed that they could request that the recording be stopped at any time during the visit. Verbal consent was obtained. Chief Complaint Patient presents with UTI Is on vacation and states that she has dysuria and redness in her perineum. No medications History of Present Illness This is a 79-year-old female with a history of interstitial cystitis and colitis presenting with urinary symptoms and vulvar discomfort. The patient reports persistent bladder discomfort, which she attributes to her interstitial cystitis. She experiences a constant sensation of urgency but does not report any discharge. She also mentions inflammation in the peritoneal area, leading her to suspect a recurrent bladder infection. She has been applying powder to the area, which seems to alleviate the discomfort. She recalls a previousepisode where she developed hives after using an exfo-bvr-adjudwj yeast infection cream, so she nowavoids such creams and only uses powder. She has nystatin ointment on hand and requests a refill. The patient underwent a left colectomy due to ulceration from colitis and had a catheter inserted post-surgery. She suspects that this might have led to subsequent bladder infections. 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 She feels she is too old to manage surgery to straighten it. The patient reports a slow heart rate, typically around 50 to 52 beats per minute. She is not experiencing dizziness. PAST SURGICAL HISTORY: Left colectomy due to ulceration from colitis. FAMILY HISTORY - Brother, sister, and father have slow heart rates Current Medications[1] Allergies Allergen Reactions Cephalexin Chest Tightness Some chest pressure, tightness, not sure if allergic response. Clonidine Tachycardia Diatrizoate Hives Losartan Tachycardia Certain formularies of Losartan, can take Zapien. Penicillins Anaphylaxis Sulfa Drugs Hives Latex RASH Physicial Exam: Vitals: 09/23/24 1204 BP: 132/66 BP Location: Left arm BP Patient Position: Sitting Cuff Size: Adult Regular Pulse: (!) 48 Resp: 16 Temp: 36.4 ??C (97.6 ??F) TempSrc: Oral SpO2: 96% Physical Exam Results - Laboratory Studies: - Urine test: - Yellow urine - Clear - No sugar - No ketones - No protein - No nitrates - No white blood cells No images are attached to the encounter. Recent Results (from the past 24 hours) URINALYSIS, REFLEX TO CULTURE Specimen: Urine CVMS Result Value Ref Range Urine Color Yellow Straw, Yellow, [place] Urine Appearance Clear Clear Urine Specific [place] 1.010 1.003 - 1.035 Urine pH 5.5 5.0 - 8.0 Urine Glucose Negative Negative Urine Ketones Negative Negative Urine Protein Negative Negative, Trace mg/dL Urine Nitrites Negative Negative Urine Leukocyte Esterase Negative Negative Narrative A routine urine not reflexing to a Microscopic exam means the dipstick blood test is negative. A Urine Culture is not indicated. DIAGNOSES: (N76.0) Acute vaginitis (primary encounter diagnosis) Assessment & Plan 1. Interstitial cystitis: Chronic. - Continue current management. 2. Yeast infection: Acute. - Continue using powder for relief. - Prescribe nystatin ointment. 3. Scoliosis: Chronic. - No immediate intervention required. 4. Bradycardia: Chronic. - Heart rate 50-52 bpm; no dizziness. - No immediate intervention required. Follow-up - Prescription for nystatin ointment provided. No follow-ups on file. [1] Current Outpatient Medications Medication Sig Dispense Refill nystatin (Mycostatin) 568387 UNIT/GM ointment Apply topically to the affected area of genitalia twice daily 30 g 0 acetaminophen (Tylenol) 500 MG tablet Take 500 mg by mouth every six hours as needed. albuterol HFA (Proair HFA, Ventolin HFA) 108 (90 Base) MCG/ACT inhalation aerosol Every 4 Hours as needed amLODIPine (Norvasc) 2.5 MG tablet Take 2.5 mg by mouth one time a day. atorvaSTATin (Lipitor) 20 MG tablet Take 20 mg by mouth one time a day. cyclobenzaprine (Flexeril) 5 MG tablet Take 5 mg by mouth three times a day as needed. flavoxATE (Urispas) 100 MG tablet Take 100 mg by mouth three times a day. Fluconazole (DIFLUCAN OR) fluconazole fluticasone propionate (Flonase) 50 MCG/ACT nasal spray Instill nasally. Fluticasone-Salmeterol 55-14 MCG/ACT Aerosol Powder Breath Activated fluticasone 55 mcg-salmeterol 14 mcg/actuation breath activated powder Inhale 1 puff twice a day by inhalation route. furosemide (Lasix) 20 MG tablet Take 20 mg by mouth one time a day as needed. hydrOXYzine HCl (Atarax) 25 MG tablet Take 25 mg by mouth one time a day. hyoscyamine (Anaspaz, Levsin) 0.125 MG tablet Take 0.125 mg by mouth every four hours as needed. loratadine (Claritin) 10 MG tablet Take 10 mg by mouth one time a day. losartan (Cozaar) 50 MG tablet Take 100 mg by mouth one time a day. Oxybutynin (OXYTROL TD) oxybutynin SUMAtriptan (Imitrex) 50 MG tablet Take 50 mg by mouth two times a day as needed. warfarin (Coumadin) 5 MG tablet Take by mouth 5 mg (5 mg x 1) every e, Gaby, Sat; 7.5 mg (5 mg x 1.5) all other days in the evening OR as directed nitrofurantoin, macrocrystal-monohydrate, (Macrobid) 100 MG capsule Take 100 mg by mouth two times a day. (Patient not taking: Reported on 09/23/2024) No current facility-administered medications for this visit. documented in this encounter Plan of Treatment Not on file documented as of this encounter Procedures Procedure Name Priority Date/Time Associated Diagnosis Comments URINALYSIS, REFLEX TO CULTURE Routine 09/23/2024 12:17 PM CDT Acute vaginitis documented in this encounter Results * URINALYSIS, REFLEX TO CULTURE (09/23/2024 12:17 PM CDT) Urine Color Yellow Straw, Yellow, [place] 09/23/2024 12:22 PM CDT [facility] Urine Appearance Clear Clear 09/23/2024 12:22 PM CDT [facility] Urine Specific [place] 1.010 1.003 - 1.035 09/23/2024 12:22 PM CDT [facility] Urine pH 5.5 5.0 - 8.0 09/23/2024 12:22 PM CDT [facility] Urine Glucose Negative Negative 09/23/2024 12:22 PM CDT [facility] Urine Ketones Negative Negative 09/23/2024 12:22 PM CDT [facility] Urine Protein Negative Negative, Trace mg/dL 09/23/2024 12:22 PM CDT [facility] Urine Nitrites Negative Negative 09/23/2024 12:22 PM CDT [facility] Urine Leukocyte Esterase Negative Negative 09/23/2024 12:22 PM CDT [facility] Urine URINE SPECIMEN COLLECTION, CLEAN CATCH / Unknown Non-blood collection / Unknown 09/23/2024 12:17 PM CDT 09/23/2024 12:17 PM CDT Narrative [facility] - 09/23/2024 12:22 PM CDT A routine urine not reflexing to a Microscopic exam means the dipstick blood test is negative. A Urine Culture is not indicated. us Katelyn DUMONT URINE ORDERABLES José Miguel chacko Result [facility] [address] [place] [address], [facility] documented in this encounter Visit Diagnoses Diagnosis Acute vaginitis- Primary Vaginitis and vulvovaginitis, unspecified documented in this encounter
--- OUTSIDE RECORDS SUMMARY | 2024-11-06 18:00 | XMS_ITS | Clinical Summary ---
Author Organization [facility] Address [address] , [address] [place] [address] Phone Care Team Providers Care Solderer Name Role Phone [facility] Unavailable Unava ilable Conditions or Problems Problem Name Problem Code Onset Date Status Entry Date Provider Comment Standard Description Annotate Hand numbness 161534975 (SNOMED CT) Active Jack Dias MD Numbness of hand Median neuropathy, right 868947479 (SNOMED CT) Active Jack Dias MD Median [...] Procedures Code Procedure Name Date Entry Date CPT-99306 Nerve Conduction 7-8 studies CPT-98867 EMG with NCS (5+ muscles) - 1 limb 02/26 Vital Signs No information available. Immunizations No information available. Advance Directives No information available.
--- OUTSIDE RECORDS SUMMARY | 2024-11-06 18:01 | XMS_ITS | Clinical Summary ---
Author Organization [facility] Address [address] [address] Phone Care Team Providers Care Gang Mower Operator Name Role Phone Unavailable Primary Care Provider [...] 5 mg (5 mg x 1) every Sat, Sat, Sat; 7.5 mg (5 mg x 1.5) all other days in the evening OR as directed 2 Active nystatin (Mycostatin) 398793 UNIT/GM ointmentIndicat ions:Infection Apply topically to the affected area of genitalia twice daily 30 g 09/23/2024 12:48 PM CDT 5 Active Active Problems Problem Noted Date Diagnosed [...] paroxysmal positional vertigo 08/13/2006 Essential hypertension 07/25/2006 Encounters Date Type Department Care Team Description 09/23/2024 11:40 AM CDT Office Visit [facility] [address] [place] [address] Katelyn Rendon PA-C Acute vaginitis (Primary Dx) 09/23/2024 Travel from Last 3 Months Immunizations Immunization Administration Dates Next Due Influenza Trivalent Preserva tive Free (High Dose) 01/23/2016,12/13/2014,12/16/2013 Influenza Trivalent With Preservative ,04/02/2011,11/16/2009,2007,12/11/2006 Influenza Unspecified Formulation 2015,12/13/2014,12/16/2013,2011,04/02/2011,11/16/2009,11/19/2007,1 ,12/06/1998,11/28/1995, 995 Pneumococcal Conjugate, (Prevnar)13-valent 08/25/2015 Zoster Zostavax (Shingles) 01/26/2010 Social History Tobacco [...] Health Maintenance Due Date Last Done Comments MEDICARE AWV 1945 PERTUSSIS (Standing Order) 08/15/1966 TETANUS (Standing Order) 08/15/1966 Shingrix (Zoster recombinant) vaccine (Standing Order) (1 of 2) 03/23/2010 DXA,FEMALES AGE 65 OR GREATER 08/15/2012 Pneumococcal Vaccine: 50+ yrs (Standing Order) (2 of 2 - PCV20 or PCV21) 08/24/2016 08/25/2015 RSV Vaccination (60+ yrs) (Abrysvo/Arexvy) (1 - 1-dose 75+ series) 08/15/2022 COVID-19 Vaccine ( - 2023- season) 2024 Influenza Vaccine Seasonal (Standing Order) (#1) 2024 01/23/2016, 01/23/2016, 12/13/2014, Additional history exists HPV Vaccine (Standing Order) Aged Out No longer eligible based on patient's age to complete this topic Hepatitis B Vaccine (Standing Order) Aged Out No longer eligible based on patient's age to complete this topic Procedures Procedure Name Priority Date/Time Associated Diagnosis Comments URINALYSIS, REFLEX TO CULTURE Routine 09/23/2024 12:17 PM CDT Acute vaginitis from Last 3 Months Results * URINALYSIS, REFLEX TO CULTURE (09/23/2024 12:17 PM CDT) Urine Color Yellow Straw, Yellow, [place] 09/23/2024 12:22 PM CDT [facility] Urine Appearance Clear Clear 09/23/2024 12:22 PM CDT [facility] Urine Specific [place] 1.010 1.003 - 1.035 09/23/2024 12:22 PM CDT [facility] Urine pH 5.5 5.0 - 8.0 09/23/2024 12:22 PM CDT [facility] Urine Glucose Negative Negative 09/23/2024 12:22 PM CDT [facility] Urine Ketones Negative Negative 09/23/2024 12:22 PM CDT [facility] Urine Protein Negative Negative, Trace mg/dL 09/23/2024 12:22 PM CDT [facility] Urine Nitrites Negative Negative 09/23/2024 12:22 PM CDT [facility] Urine Leukocyte Esterase Negative Negative 09/23/2024 12:22 PM CDT [facility] Urine URINE SPECIMEN COLLECTION, CLEAN CATCH / Unknown Non-blood collection / Unknown 09/23/2024 12:17 PM CDT 09/23/2024 12:17 PM CDT Narrative [facility] - 09/23/2024 12:22 PM CDT A routine urine not reflexing to a Microscopic exam means the dipstick blood test is negative. A Urine Culture is not indicated. Katelyn Rendon PA-C [facility] URINE ORDERABLES Fin al Result [facility] [address] [place] [id number], [facility] from Last 3 Months Insurance [facility] MEDICARE PLANS
--- OUTSIDE RECORDS SUMMARY | 2024-11-06 18:01 | XMS_ITS | Clinical Summary ---
Author Organization [facility] Address [address] [place] [id number] Care Team Providers Care Ell Teacher Name Role Phone Clinician, Not Found MD [...] for each transition of care or referral. Contentful Allergies Active Allergy Reactions Criticality Noted Date [...] propionate (FLONASE) 50 MCG/ACT nasal solution 1 [place] by Nasal route. 5 Active furosemide (LASIX) [...] Place into eye(s). 5 Active nystatin (MYCOSTATIN) 893982 UNIT/GM powder Apply topically. 5 Active omeprazole [...] Managed by outside facility/prov ider 5 Active Immunizations Immunization Administration Dates Next Due Flu Vac (3+ yrs) 12/19/2011, 2,11/16/2009,2007,12/11/2006 Influenza IIV3 (Trivalent) F imelda Daodose, 65+ Yrs (03275) 01/23/2016,12/13/2014,12/16/2013 Influenza, Unspecified Formulation 12/06/1998,,11/30/1994 PCV13 (Prevnar) [...] (Preventive Services) 1945 Medicare Welcome Visit 1945 Pneumococcal PCV20 Immunization Discussion 1945 Zoster/Shingles Vaccine (2 of 3) 03/23/2010 01/26/2010 RSV Vaccine (1 - 1-dose 75+ series) 08/15/2022 COVID-19 Vaccine (1 - season) 2024 Influenza Vaccine (#1) 2024 6, 12/13/2014, 12/16/2013, Additional history exists DTaP/Tdap/Td [...] patient's age to complete this topic Insurance [facility] MEDICARE Care Teams Ell Teacher Relationship Specialty Start Date End Date Clinician, Not Found, [place] [address] PCP - General 05/08/24
--- OUTSIDE RECORDS SUMMARY | 2024-11-06 18:01 | XMS_ITS | Encounter Summary ---
Author Organization [facility] Address [address] [address] Phone Care Team Providers Care Project Management Advisor Name Role Phone Unavailable Primary Care Provider Unavailabl e Encounter Details Date Type Department Care Team (Latest Contact Info) Description 09/23/2024 Travel Social History Tobacco Use Types Packs/Day Years Used Date Smoking Tobacco: Never Smokeless Tobacco: Never Comments Unknown Sex and Gender Information Value Date Recorded Sex Assigned at Not on file Legal Sex Female 12:08 PM CDT Gender Identity Not on file Sexual Orientation Not on file documented as of this encounter Plan of Treatment Not on file documented as of this encounter Visit Diagnoses Not on filedocumented in this encounter
--- OUTSIDE RECORDS SUMMARY | 2024-11-06 18:01 | XMS_ITS | Clinical Summary ---
Author Organization [facility] Address [address] [place] [id number] Care Team Providers Care Global Compensation Analyst Name Role Phone Nico Betancourt MD Primary Care Provider [phone] Allergies Active Allergy Reactions Criticality Noted Date [...] Active acetaminophen (TYLENOL EXTRA STRGTH) 500 mg tabletIndications: Acute pain of left knee,Muscle spasm of back Take 1 tablet by mouth every 6 hours if needed (pain). Max acetaminophen dose: 4000mg in 24 hrs. 30 tablet 09/01/19 18 Active ketotifen (ZADITOR) 0.025 % (0.035 %) ophthalmic solution Place 1 Drop into the eye(s) two times daily. Active LORazepam (ATIVAN) 0.5 mg tabIndications:Anx iety due to invasive procedure Take 1 Tablet (0.5 mg) by mouth one time for 1 dose. 30 mins prior to procedure 1 Tablet 12/06/19 24 Active Additional Information Patient not taking.Reported on 08/11/2024 amLODIPine (NORVASC) 10 mg tabletIndications: HTN (hypertension) Take 1 Tablet (10 mg) by mouth once daily. 90 Tablet 3 03/16/19 25 Active albuterol HFA (PRO-AIR; VENTOLIN; PROVENTIL) 90 mcg/actuation inhalerIndications :Wheezing Inhale 1-2 Puffs by mouth every 4 hours if needed for Wheezing. 18 g 03/16/19 25 Active clobetasol (TEMOVATE) 0.05 % ointmentIndication s:Vulvar itching Apply to vulva once daily as needed for itching - do not use for more than 1 week straight 60 g 3 03/16/19 25 Active cyclobenzaprine (FLEXERIL) 5 mg tabletIndications: Muscle spasm of back Take 1 Tablet (5 mg) by mouth every 8 hours if needed for Muscle Spasm. 30 Tablet 3 03/16/19 25 Active flavoxATE (URISPAS) 100 mg tabletIndications: Chronic interstitial cystitis Take 1 Tablet (100 mg) by mouth three times daily. 270 Tablet 03/16/19 25 Active fluticasone (50 mcg per actuation) nasal solution (FLONASE)Indicatio ns:Eustachian tube dysfunction, unspecified laterality Inhale 1 [place] in both nostrils once daily. 48 g 03/16/19 25 Active furosemide (LASIX) 20 mg tabletIndications: Chronic diastolic congestive heart failure (HC) Take 1 Tablet (20 mg) by mouth once daily if needed (Leg swelling). Take around once a month 90 Tablet 3 03/16/19 25 Active hyoscyamine (LEVSIN) 0.125 mg tabletIndications: Chronic interstitial cystitis Take 1 Tablet (0.125 mg) by mouth every 4 hours if needed for Bladder Spasms. 90 Tablet 3 03/16/19 25 Active losartan (COZAAR) 50 mg tabletIndications: Essential hypertension with goal blood pressure less than 140/90 Take 2 Tablets (100 mg) by mouth once daily. 180 Tablet 3 03/16/19 25 Active potassium chloride (KLOR-CON M20) 20 mEq extended-release tablet (part/cryst)Indica tions:Hypokalemia Take 1 Tablet (20 mEq) by mouth once daily with a meal. 90 Tablet 3 03/16/19 25 Active SUMAtriptan (IMITREX) 50 mg tabletIndications: Intractable migraine without aura and without status migrainosus Take 0.5 Tablets (25 mg) by mouth 2 times daily if needed for Migraine. Give at minimum 2hrs apart. Max Dose: 200mg per 24hrs. 12 Tablet 2 03/16/19 25 Active loteprednol (LOTEMAX) 0.5 % ophthalmic suspension Place into the eye(s). 03/18/19 25 Active tiZANidine (ZANAFLEX) 4 mg tabletIndications: Back spasm Take 1 Tablet (4 mg) by mouth every 6 hours if needed for Muscle Spasm. 10 Tablet 04/02/19 25 Active HYDROcodone-acetam inophen (5-325 mg/tablet)Indicati ons:Back spasm Take 1 Tablet by mouth every 6 hours if needed for Pain. Max acetaminophen dose: 4000 mg in 24 hrs. 15 Tablet 04/02/19 25 Active pantoprazole (PROTONIX) 40 mg delayed-release tabletIndications: Gastric reflux Take 1 Tablet (40 mg) by mouth once daily. 90 Tablet 3 04/17/19 25 Active Additional Information Patient not taking.Reported on 08/11/2024 ondansetron 4 mg tabletIndications: Nausea Take 1 Tablet (4 mg) by mouth every 8 hours if needed for Nausea/Vomiting. 30 Tablet 1 06/24/19 25 Active sennosides-docusat e (8.6-50 mg) tabletIndications: Stenosis of colon (HC) Take 1 Tablet by mouth once daily. 28 Tablet 1 06/25/19 25 Active Additional Information Patient not taking.Reported on 08/11/2024 ezetimibe 10 mg tabletIndications: Hyperlipidemia, unspecified hyperlipidemia type Take 1 Tablet (10 mg) by mouth once daily. 90 Tablet 3 08/10/19 25 Active fluocinonide 0.05 TOPICAL 0.05 % external solutionIndication s:Scalp itch Use 1-2 times daily on affected area for up to 2 weeks straight. 60 mL 1 08/12/19 25 Active warfarin 5 mg tabletIndications: Paroxysmal atrial fibrillation (HC),Anticoagulati on monitoring, INR range 2-3 Take by mouth 7.5 mg (5 mg x 1.5) every Sat, Gaby; 5 mg (5 mg x 1) all other days in the evening OR as directed 110 Tablet 08/20/19 25 Active hydrOXYzine HCL (ATARAX) 25 mg tabletIndications: Chronic interstitial cystitis Take 1 Tablet (25 mg) by mouth at bedtime. 90 Tablet 1 09/10/19 25 Active oxybutynin XL (DITROPAN XL) 10 mg CR tabletIndications: Bladder pain Take 1 Tablet (10 mg) by mouth once daily. 90 Tablet 1 09/21/19 25 Active Active Problems Problem Noted Date Diagnosed Date Heart failure 08/19/2024 Overview (08/19/2024): AI Summary: The patient had a history of chronic diastolic congestive heart failure, which was mentioned to be well-managed on 07/17/2022 with furosemide as needed for leg swelling. The patient's heart failure was currently compensated as of 05/27/2023. Furosemide was mentioned as a treatment for chronic diastolic congestive heart failure on multiple occasions. 10/02/19: LVEF 70 - 75% 08/11/24: BP 137/67 08/11/24: HR 59 /min On meds: amlodipine, furosemide, hyoscyamine, losartan Recent encounter dx: 03/16/24: Appointment - [facility] 05/27/23: Appointment - [facility] 03/07/23: Appointment - [facility] 12/07/22: Appointment - [facility] 07/17/22: Appointment - [facility] Recent notes: 05/29/24: Discharge Summary by Khurram Gutierres MD ... [+] For diagnoses: Chronic diastolic congestive heart failure (HC) 03/16/24: Progress Notes - Medicare Wellness Visit by Nico Betancourt MD ... [+] Chronic diastolic congestive heart failure (HC) I50.32 furosemide (LASIX) 20 mg tablet 05/27/23: H&P - Preoperative Consultation by Talya Rashid MD ... [+] ? Chronic diastolic congestive heart failure (HC) I50.32 ... [+] History of heart failure, currently compensated. ... [+] Chronic diastolic congestive heart failure (HC) I50.32 05/09/23: Progress Notes by Jenna Winchester MD ... [+] ? Chronic diastolic congestive heart failure (HC) 07/17/2022 07/17/22: Progress Notes - Nursing Notes by DONOVAN Macias ... [-] Heart failure: Well managed and uses Lasix as needed for any leg swelling. Stage 3 chronic kidney disease 08/19/2024 Overview (08/19/2024): 04/26/24: Cr 1.0 mg/dL 04/26/24: GFR 58 mL/min 04/26/24: BUN 28 mg/dL On meds: POLYETHYLENE GLYCOL 3350 / Potassium Chloride / Sodium Bicarbonate / Sodium Chloride / sodium sulfate (external), furosemide, losartan, potassium chloride Stenosis of colon 05/28/2024 Colonic stricture 05/18/2024 [...] Encounters Date Type Department Care Team Description 10/12/2024 3:15 PM CDT Orders Only [facility] [address] [place] [address] Lab 10/12/2024 Anticoagulation (warfarin) [facility] [address] [place] [address] Nurse, Cassius Anticoag Anticoagulation 10/12/2024 Travel 10/01/2024 Telephone [facility] [address] [place] [address] Nico Betancourt MD Anticoagulation (CHART UPDATE /INR OVERDUE REMINDER #1 ) 09/17/2024 Refill [facility] [address] [place] [address] Nico Betnacourt MD Refill Request (Oxybutynin Xl) 09/01/2024 Refill [facility] [address] [place] [address] Nico Betancourt MD Refill Request (Hydroxyzine) 08/19/2024 8:30 AM CDT Office Visit [facility] [address] [place] [address] Inderjit Campos MD Urinary Problem 08/19/2024 Anticoagulation (warfarin) [address] [place] [address] Nurse, Cassius Anticoag Anticoagulation; Refill Request 08/19/2024 Travel 08/11/2024 2:30 PM CDT Office Visit [facility] [address] [place] [address] Az Matthews MD Follow Up (Follow up HTN ) 08/11/2024 Telephone [facility] [address] [place] [address] Nico Betancourt MD Medication Management 08/11/2024 Travel 08/10/2024 Telephone [facility] [address] [place] [address] Nico Betancourt MD Results 08/09/2024 Orders Only [facility] [address] [place] [address] Nico Betancourt MD <No scans attached> from Last 3 Months Immunizations Immunization Administration [...] on file Legal 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 Gender Identity Not on file Sexual Orientation Not on file Obstetrics History Para Term AB IAB SAB Ectopic Multiple Livin g Live Births 3 2 1 1 2 Date Outcome GA Total Labor Labor/2nd/3rd Weight Sex Type Anes PTL Emily A1 A5 Name Clin Para Para SAB Last Filed Vital Signs Vital Sign Reading Time Taken Comments Blood Pressure 130/60 08/19/2024 9:00 AM CDT Pulse 56 08/19/2024 9:00 AM CDT Temperature 36.5 C (97.7 F) 05/31/2024 11:51 AM CDT Respiratory Rate 18 05/31/2024 11:51 AM CDT Oxygen Saturation 98% 08/11/2024 2:22 PM CDT Inhaled Oxygen Concentration - - Weight 87.1 kg (192 lb) 08/19/2024 9:00 AM CDT Height 160 cm (5' 3) 05/28/2024 6:00 AM CDT Body Mass Index 34.01 05/28/2024 6:00 AM CDT Plan of Treatment Upcoming Encounters Date Type Department Care Team (Late st Contact Info) Description 11/09/2024 9:30 AM CDT Orders Only [facility] [address] [place] [address] Health Maintenance Due Date Last Done Comments Zoster (shingles) series for age 50+ (2 of 3) 03/23/2010 01/26/2010 RSV vaccine for adults or (1 - 1-dose 75+ series) 08/15/2022 COVID-19 vaccine series (2023- season) 2024 Influenza Vaccine (#1) 2024 6, 12/13/2014, 12/16/2013, Additional history exists Medicare Wellness for age 65+ 03/17/2025 03/16/2024, 03/07/2023, 01/02/2022, Additional history exists Depression screening for age 12+ 03/19/2025 03/19/2024, 03/16/2024, 03/16/2024, Additional history exists BMI (ht and wt on same day) for age 18+ 05/18/2025 05/18/2024, 03/16/2024, 05/27/2023, Additional history exists Tetanus booster 07/20/2030 07/20/2020, 05/24/2009 DEXA/DXA scan for age 65+ Completed 04/30/2014 Pneumococcal series for age 50+ Completed 08/25/2015, 07/08/2013 Hepatitis C screening for age 18-79 Completed 11/18/2015 Hepatitis B series for 19+ Aged Out N o longer eligible based on patient's age to complete this topic Procedures Procedure Name Priority Date/Time Associated Diagnosis Comments INR,POCT Routine 10/12/2024 2:38 PM CDT Paroxysmal atrial fibrillation (HC) Anticoagulation monitoring, INR range 2-3 URINE CULTURE Routine 08/19/2024 9:39 AM CDT Abnormal urine Cystitis Chronic interstitial cystitis INR,POCT Routine 08/19/2024 8:38 AM CDT Paroxysmal atrial fibrillation (HC) Anticoagulation monitoring, INR range 2-3 URINALYSIS MACROSCOPIC - [facility] ONLY POC DIP ([facility]) Routine 08/19/2024 8:37 AM CDT Abnormal urine ANTI HCV Routine 11/18/2015 10:57 AM CDT Need for hepatitis C screening test XR DXA BONE DENSITY 2 SITES AXIAL Routine 04/30/2014 11:24 AM CDT Ovarian failure from Last 3 Months or Most Recently Relevant to Health Maintenance Results * (ABNORMAL) INR - POCT [33344.2] - Standing Order (10/12/2024 2:38 PM CDT) Only the most recent of2 resultswithin the time period is included. INR 2.8(H) ratio 10/12/2024 2:55 PM CDT [facility] Comment: INRs >2.9 may be falsely elevated in patients receiving either unfractionated Heparin or Low Molecular Weight Heparin. Follow up testing in a hospital laboratory may be helpful if clinically indicated. INR results of > or = 5.0 should be verified using the standard venipuncture procedure. Reference Range 0.9-1.1 Moderate-intensity Warfarin Therapy 2.0-3.0 Higher-intensity Warfarin Therapy 3.0-4.0 PROTHROMBIN TIMEP 33.0(H) 10.5 - 13.1 sec 10/12/2024 2:55 PM CDT [facility] Comment: Point of care fingerstick Prothrombin Time/INR results may vary from venous Prothrombin Time/INR methodologies. Any results exhibiting inconsistency with the patient's clinical status should be repeated using a venous Prothrombin Time/INR method. Blood BLOOD SPECIMEN / Unknown [facility] / Unknown 10/12/2024 2:38 PM CDT 10/12/2024 2:38 PM CDT us Nico Betancourt MD LABORATORY Final Resu lt [facility] [address] [place] [address], [facility] [address] [place] [address] * URINE CULTURE (08/19/2024 9:39 AM CDT) CULTURE No growth (<1,000 CFU/mL) 08/20/2024 2:46 PM CDT [facility] Urine URINE SPECIMEN / Unknown Non-Blood / Unknown 08/19/2024 9:39 AM CDT 08/19/2024 9:39 AM CDT Inderjit Campos MD MICROBIOLOGY Final R esult [facility] [address] [place] [address], * (ABNORMAL) POCT Urinalysis Dipstick Only (08/19/2024 8:37 AM CDT) SPECIFIC GRAVITY > OR = 1.030 1.001 - 1.035 08/19/2024 9:05 AM CDT [facility] Comment: Specific [place] values resulted are outside the analytical measurement range of this device. Recommend repeat/additional testing as clinically indicated. PROTEIN 1+(A) NEGATIVE 08/19/2024 9:05 AM CDT [facility] GLUCOSE NEGATIVE NEGATIVE 08/19/2024 9:05 AM CDT [facility] KETONES NEGATIVE NEGATIVE 08/19/2024 9:05 AM CDT [facility] BILIRUBIN 1+(A) NEGATIVE 08/19/2024 9:05 AM CDT [facility] Comment: A false positive may be caused by the drug Lodine. For any presumptive positive bilirubin, consider confirmation by serum bilirubin if clinically indicated. OCCULT BLOOD NEGATIVE NEGATIVE 08/19/2024 9:05 AM CDT [facility] NITRITE NEGATIVE NEGATIVE 08/19/2024 9:05 AM CDT [facility] PH 5.5 5.0 - 8.0 08/19/2024 9:05 AM CDT [facility] LEUKOCYTE ESTERASE NEGATIVE NEGATIVE 08/19/2024 9:05 AM CDT [facility] Urine URINE SPECIMEN / Unknown Non-Blood / Unknown 08/19/2024 8:37 AM CDT 08/19/2024 8:37 AM CDT us Inderjit Campos MD URINE Final R esult [facility] [address] [place] [address], [address] [address] * ANTI HCV [[id number]] (11/18/2015 10:57 AM CDT) HEPATITIS C ANTIBODY Non-Reacti ve Non-Reacti ve 11/18/2015 5:27 PM CDT [facility] Blood BLOOD SPECIMEN / Unknown Venipuncture / Unknown 11/18/2015 10:57 AM CDT 11/18/2015 10:58 AM CDT Narrative [facility] - 11/18/2015 5:27 PM CDT Antibodies to HCV not detected; does not exclude the possibility of exposure to HCV. us Nico Betancourt MD SEND OUTS Final Resu lt Performing Organization Address City/[facility]/ZIP Co de Phone Number [facility] [address] [place] [address], [place] * (ABNORMAL) XR DXA BONE DENSITY 2 SITES (04/30/2014 11:24 AM CDT) Anatomical Region Laterality Modality Spine, HIPS, HIPL, HIPR Other Narrative 05/14/2014 4:47 PM CDT Please see scanned document for results of this study. Procedure Note Kamala Kerr PA - 05/14/2014 Please see scanned document for results of this study. Marlen Daprasannabrittany Damasoshad SUSYRicardo Final R esult from Last 3 Months [...] 8:57 PM 05/22/2012 6:59 PM Care Teams Global Compensation Analyst Relationship Specialty Start Date End Date Nico Betancourt MD [address] [place] [address] PCP - General Family Practice 05/16/15
[2024-11-06 18:08] VITALS: BP 155/66; PULSE 62; RESP 20; TEMP 37.3; O2SAT 95; BMI 31.2
--- NOTE | 2024-11-06 18:24 | CRLHL7_ITS ---
For Patients: As a result of the Century Cures Act, medical imaging exams and procedure reports are released immediately into your electronic medical record. You may view this report before your referring provider. If you have questions, please contact your health care provider. INDICATION: Leg Swelling TECHNIQUE: Ultrasound venous duplex right lower extremity. Real-time blanco-scale (B mode 2D), color Doppler, and spectral Doppler imaging were performed with compression and augmentation. COMPARISON: 12/16/2019 FINDINGS: Deep vein: The right common femoral, femoral, popliteal, and visualized calf veins are fully compressible, demonstrate normal color flow, and normal response to mechanical augmentation. The Duplex Doppler waveforms are normal in appearance. Superficial vein: The visualized greater saphenous and superficial veins of the leg and calf are unremarkable. Soft tissue: No masses or cysts are identified. No adenopathy is seen. IMPRESSION: 1. No sonographic evidence of acute deep venous thrombosis seen. Dictated by: Chang Chauhan MD @ 11/06/2024 19:45:27 (Electronically Signed)
--- NOTE | 2024-11-06 18:37 | ED.GENADULT ---
HPI - General Adult General Chief complaint: Lower Extremity Swelling Stated complaint: Right foot-knee swelling Time Seen by Provider: 11/06/24 18:10 Source: patient Mode of arrival: ambulatory Limitations: no limitations History of Present Illness HPI narrative: 79-year-old female coming in today complaining of right lower extremity swelling. Patient has noticed the right lower extremity become more swollen starting yesterday. She denies chest pain or shortness of breath. No coughing. No recent travel or surgeries. She states that she did stub her toe the day before yesterday and is wondering if those things are related. She states that she feels a fullness behind her knee as well, everything from the knee on down feels on comfortable. She denies pain in the knee joint or the ankle joint. She denies any fevers, chills or lethargy. Related Data Home Medications ?Medication ?Instructions ?Recorded ?Confirmed flavoxate 100 mg tablet 100 mg PO TID 11/07/21 11/06/24 furosemide 20 mg tablet 20 mg PO DAILY 11/07/21 11/06/24 losartan 50 mg tablet 100 mg PO DAILY 11/07/21 11/06/24 oxybutynin chloride 10 mg 10 mg PO DAILY 11/07/21 11/06/24 tablet,extended release 24 hr potassium chloride 20 mEq 20 meq PO DAILY 11/07/21 11/06/24 tablet,extended release(part/cryst) sumatriptan succinate 50 mg tablet 50 mg PO DAILY 11/07/21 11/06/24 warfarin 5 mg tablet 5 mg PO 11/07/21 08/16/24 amlodipine 10 mg tablet 10 mg PO DAILY 07/19/22 11/06/24 fluticasone propionate 50 1 spray intranasal DAILY 07/19/22 11/06/24 mcg/actuation nasal spray,suspension hydroxyzine HCl 25 mg tablet 25 mg PO 3XD 07/19/22 11/06/24 cyclobenzaprine 5 mg tablet 5 mg PO TID PRN 06/03/23 11/06/24 glucosamine HCl 1,500 mg tablet 1,500 mg PO DAILY 06/03/23 11/06/24 hyoscyamine sulfate 0.125 mg 0.125 mg PO Q4H PRN 06/03/23 11/06/24 tablet (Levsin) albuterol sulfate 90 mcg/actuation inhalation 03/18/24 08/16/24 aerosol inhaler clobetasol 0.05 % topical ointment topical 03/18/24 08/16/24 fluocinonide 0.05 % topical topical 03/18/24 08/16/24 solution loteprednol etabonate 0.5 % eye drp ophthalmic (eye) 03/18/24 08/16/24 drops,suspension omeprazole 40 mg capsule,delayed mg PO DAILY 03/18/24 08/16/24 release ezetimibe 10 mg tablet 10 mg PO DAILY 08/16/24 11/06/24 nystatin 100,000 unit/gram topical 1 applic topical 3XD 08/16/24 11/06/24 powder (Nystop) pantoprazole 40 mg tablet,delayed 40 mg PO DAILY 08/16/24 11/06/24 release Previous Rx's ?Medication ?Instructions ?Recorded phenazopyridine 100 mg tablet 100 mg PO TID PRN pain 6 doses #6 10/20/23 tabs hydrocodone 5 mg-acetaminophen 325 1 tab PO Q4-6H PRN pain #15 tabs 02/18/24 mg tablet docusate sodium 100 mg capsule 100 mg PO BID #60 caps 04/13/24 (Colace) ondansetron 4 mg disintegrating 4 mg PO Q6H PRN nausea and 04/13/24 tablet vomiting #20 tabs clindamycin HCl 150 mg capsule 150 mg PO TID #15 caps 06/17/24 doxycycline hyclate 100 mg capsule 100 mg PO BID 7 days #14 caps 11/06/24 Allergies Allergy/AdvReac Type Severity Reaction Status Date / Time cephalexin Allergy Intermediate Chest Pain Verified 11/06/24 18:13 clonidine Allergy Intermediate tachycardia Verified 11/06/24 18:13 losartan Allergy Intermediate Tachycardia Verified 11/06/24 18:13 gadodiamide Allergy Mild Hives Verified 11/06/24 18:13 latex Allergy Mild Rash Verified 11/06/24 18:13 ibuprofen Allergy Chest Pain Verified 11/06/24 18:13 Penicillins Allergy Anaphylaxis Verified 11/06/24 18:13 Sulfa (Sulfonamide Allergy Hives Verified 11/06/24 18:13 Antibiotics) nitrofurantoin (From AdvReac Verified 11/06/24 18:13 Macrobid) propranolol AdvReac bradycardia Verified 11/06/24 18:13 IV contrast dye Allergy Hives Uncoded 05/07/24 12:50 peg 400-propylene glycol Allergy Rash Uncoded 05/07/24 12:50 Review of Systems Status of ROS: Reports: 10 or more systems reviewed and unremarkable except as noted in History and below [facility] Medical History TMJ tenderness, left ?M26.622 - Arthralgia of left temporomandibular joint (ICD-10) Chronic diastolic (congestive) heart failure ?I50.32 - Chronic diastolic (congestive) heart failure (ICD-10) Viral gastroenteritis ?A08.4 - Viral intestinal infection, unspecified (ICD-10) Traumatic ecchymosis of face ?S00.83XA - Contusion of other part of head, initial encounter (ICD-10) Toothache ?K08.89 - Other specified disorders of teeth and supporting structures (ICD-10) Sprain of knee ?S83.90XA - Sprain of unspecified site of unspecified knee, initial encounter (ICD-10) Pain of right hand ?M79.641 - Pain in right hand (ICD-10) Nausea alone ?R11.0 - Nausea (ICD-10) Headache ?R51.9 - Headache, unspecified (ICD-10) Fall ?W19.XXXA - Unspecified fall, initial encounter (ICD-10) Epigastric pain ?R10.13 - Epigastric pain (ICD-10) Dyspnea ?R06.00 - Dyspnea, unspecified (ICD-10) Cough ?R05.9 - Cough, unspecified (ICD-10) Cellulitis of leg ?L03.119 - Cellulitis of unspecified part of limb (ICD-10) Arthritis of both temporomandibular joints ?M26.643 - Arthritis of bilateral temporomandibular joint (ICD-10) Atrial fibrillation ?I48.91 - Unspecified atrial fibrillation (ICD-10) Enlarged LA (left atrium) ?I51.7 - Cardiomegaly (ICD-10) Vitamin D deficiency ?E55.9 - Vitamin D deficiency, unspecified (ICD-10) Hyperlipidemia ?E78.5 - Hyperlipidemia, unspecified (ICD-10) Panic disorder without agoraphobia ?F41.0 - Panic disorder [episodic paroxysmal anxiety] (ICD-10) Benign paroxysmal positional vertigo ?H81.10 - Benign paroxysmal vertigo, unspecified ear (ICD-10) Hypertension ?I10 - Essential (primary) hypertension (ICD-10) Surgical History Status post trigger finger release (04/30/24) ?Z98.890 - Other specified postprocedural states (ICD-10) History of carpal tunnel surgery of right wrist (04/30/24) ?Z98.890 - Other specified postprocedural states (ICD-10) S/P trigger finger release (06/04/23) ?Z98.890 - Other specified postprocedural states (ICD-10) History of incision and drainage (02/26/14) ?Z98.890 - Other specified postprocedural states (ICD-10) History of phacoemulsification of cataract of right eye with intraocular lens implantation (04/17/17) ?Z98.41 - Cataract extraction status, right eye (ICD-10) ?Z96.1 - Presence of intraocular lens (ICD-10) History of phacoemulsification of cataract of left eye with intraocular lens implantation (05/01/17) ?Z98.42 - Cataract extraction status, left eye (ICD-10) ?Z96.1 - Presence of intraocular lens (ICD-10) History of YAG laser capsulotomy of lens of right eye (09/04/17) ?Z98.41 - Cataract extraction status, right eye (ICD-10) History of YAG laser capsulotomy of lens of left eye (04/06/20) ?Z98.42 - Cataract extraction status, left eye (ICD-10) H/O hernia repair (03/22/08) ?Z98.890 - Other specified postprocedural states (ICD-10) ?Z87.19 - Personal history of other diseases of the digestive system (ICD-10) H/O dilation and curettage (04/28/08) ?Z98.890 - Other specified postprocedural states (ICD-10) History of appendectomy ?Z90.49 - Acquired absence of other specified parts of digestive tract (ICD-10) Social History Smoking Status: Never smoker Do you use any of these nicotine containing products: None Second hand tobacco smoke exposure: No How often do you have a drink containing alcohol: never How often do you have six or more drinks on one occasion: Never AUDIT-C Alcohol total score: 0 Non-prescribed substance use: denies use Caffeine: No Are you using contraception or practicing any form of control: No service: No Exam Narrative: Exam Narrative: Well-nourished well-developed patient in no acute distress. Alert and oriented. Answers questions appropriately. Mood and affect are appropriate. Thoughts are goal oriented and rational. No tangential or magical thinking noted. Patient speaks in full sentences without needing to catch her breath. Patient for not appear ill or toxic. HEENT: Normocephalic atraumatic. Extraocular muscles are intact. Conjunctivae are moist without any icterus noted. Moist mucous membranes. Cardiovascular: Heart is regular rate and rhythm. Lungs: Clear to auscultation bilaterally no wheezes rhonchi or rales are appreciated. Extremities: Left lower extremity shows trace edema to the mid colón. The right lower extremity shows 2+ pitting edema all the way up to the knee. The the foot is warm to touch but not hot, skin is more pink than the other foot, with some erythema around the nail of her stop big toe. She does have normal DP and PT pulses. She does not have indurated skin. She does not have tenderness of the calf. She has full range of motion at the ankle and the knee. She does have a fullness felt behind the right knee. She has tenderness on top of the foot. Skin: Well perfused. Const: Vital Signs, click to edit/add: Vital Signs - 24 hr 11/06/24 18:08 Temperature 99.1 F Pulse Rate [Pulse Oximeter] 62 Respiratory Rate 20 Blood Pressure [Ri ght Upper Arm] 155/66 H Pulse Oximetry 95 Oxygen Delivery Me thod Room Air Course Course ED Course: Differential diagnoses includes a ruptured George cyst, DVT or potentially beginnings of cellulitis. Will proceed with blood work, lower extremity ultrasound. CBC is unremarkable. Chemistries are unremarkable. CRP is elevated at 6.8. Normal procalcitonin. Ultrasound does not show any evidence of DVT. Vital Signs Vital signs: Initial Vital Signs Temperature 99.1 F 11/06/24 18:08 Temperature Source Temporal Artery Scan 11/06/24 18:08 Pulse Rate 62 11/06/24 18:08 Respiratory Rate 20 11/06/24 18:08 Blood Pressure 155/66 H 11/06/24 18:08 Blood Pressure Mean 95 11/06/24 18:08 Pulse Oximetry 95 11/06/24 18:08 Oxygen Delivery Method Room Air 11/06/24 18:08 Vital Signs Temperature 99.1 F 11/06/24 18:08 Pulse Rate 62 11/06/24 18:08 Respiratory Rate 20 11/06/24 18:08 Blood Pressure 155/66 H 11/06/24 18:08 Pulse Oximetry 95 11/06/24 18:08 Oxygen Delivery Method Room Air 11/06/24 18:08 Temperature 99.1 F 11/06/24 18:08 Pulse Rate 62 11/06/24 18:08 Respiratory Rate 20 11/06/24 18:08 Blood Pressure 155/66 H 11/06/24 18:08 Pulse Oximetry 95 11/06/24 18:08 Oxygen Delivery Method Room Air 11/06/24 18:08 Medical Decision Making MDM Narrative Medical decision making narrative: 79-year-old female with right lower extremity swelling. I am concerned about a George cyst causing her swelling however, I cannot definitively rule out does beginning of a cellulitis. Because of this we will put the patient on doxycycline b.i.d. as she has multiple allergies. We discussed elevating the foot, compression stockings and following up with primary care early next week. Lab Data Lab results reviewed: Yes I reviewed the patient's lab results Labs: Lab Results 11/06/24 Range/Units 18:57 WBC 8.71 (4.50-11.00) K/uL RBC 4.84 (4.00-5.20) m/uL Hgb 13.3 (12.0-16.0) gm/dL Hct 39.7 (33.0-51.0) % MCV 82 (80-100) fL MCH 28 (26-34) pg MCHC 34 (32-36) gm/dL RDW Coeff of Mariaelena 16.9 H (11.5-15.5) % Plt Count 246 (140-440) K/uL Neut % (Auto) 76.8 H (42.0-72.0) % Lymph % (Auto) 11.4 L (20-44) % Stanislaus % (Auto) 9.0 (0.0-11.0) % Eos % (Auto) 2.4 (0.0-7.0) % Baso % (Auto) 0.3 (0.0-3.0) % Neut # (Auto) 6.70 (1.7-7.0) K/uL Lymph # (Auto) 1.00 (0.90-2.90) K/uL Stanislaus # (Auto) 0.80 (0.00-0.90) K/UL Eos # (Auto) 0.21 (0.00-0.50) K/uL Baso # (Auto) 0.03 (0.00-0.30) K/uL Abs Immat Gran (auto) 0.01 (0.00-0.30) K/uL Imm/Tot Granulo (auto) 0.1 % Sodium 136 (135-149) mmol/L Potassium 4.4 (3.6-5.1) mmol/L Chloride 103 (96-114) mmol/L Carbon Dioxide 27 (20-32) mmol/L Anion Gap 6 L (7-15) mEq/L BUN 30 (7-30) mg/dL Creatinine 0.7 (0.5-1.5) mg/dL Estimated Creat Clear 44.10 Estimated GFR 89 ml/min Glucose 107 (60-115) mg/dL Lactate 1.0 (0.5-1.9) mmol/L Calcium 9.0 (8.4-10.6) mg/dL C-Reactive Protein 6.8 H (0.5-1.0) mg/dL Procalcitonin 0.04 (<0.50) ng/mL Imaging Data Venous US: Attestation: I have reviewed the pertinent imaging results. Radiologist's impression: INDICATION: Leg Swelling TECHNIQUE: Ultrasound venous duplex right lower extremity. Real-time blanco-scale (B mode 2D), color Doppler, and spectral Doppler imaging were performed with compression and augmentation. COMPARISON: 12/16/2019 FINDINGS: Deep vein: The right common femoral, femoral, popliteal, and visualized calf veins are fully compressible, demonstrate normal color flow, and normal response to mechanical augmentation. The Duplex Doppler waveforms are normal in appearance. Superficial vein: The visualized greater saphenous and superficial veins of the leg and calf are unremarkable. Soft tissue: No masses or cysts are identified. No adenopathy is seen. IMPRESSION: 1. No sonographic evidence of acute deep venous thrombosis seen. Discharge Plan Discharge Clinical Impression: Leg swelling, Cellulitis Patient Disposition: Home, Self-Care Condition: Stable Additional Instructions: I do think that you likely have a cyst behind the knee that drain causing your leg swelling, however we cannot definitively rule out an infection of your foot. Therefore you should start the antibiotics and take them as prescribed. Elevate your legs as much as possible throughout the day. Wear compression stockings if you are out walking around. I recommend you follow-up with your primary care provider early next week for a recheck. If you develop fevers, weakness or vomiting then you should return to the emergency department. Prescriptions: New doxycycline hyclate 100 mg capsule 100 mg PO BID 7 Days Qty: 14 0RF No Action fluticasone propionate 50 mcg/actuation spray,suspension 1 spray intranasal DAILY hydroxyzine HCl 25 mg tablet 25 mg PO 3XD amlodipine 10 mg tablet 10 mg PO DAILY phenazopyridine 100 mg tablet 100 mg PO TID PRN (Reason: pain) Qty: 6 0RF loteprednol etabonate 0.5 % drops,suspension ophthalmic (eye) Patient Comments: INSTILL 1 DROP INTO BOTH EYES THREE TIMES DAILY FOR 7 DAYS. SHAKE WELL BEFORE USE albuterol sulfate 90 mcg/actuation HFA aerosol inhaler inhalation Patient Comments: [NO ORIGINAL SIG] fluocinonide 0.05 % solution topical clobetasol 0.05 % ointment topical omeprazole 40 mg capsule,delayed release(DR/EC) PO DAILY pantoprazole 40 mg tablet,delayed release (DR/EC) 40 mg PO DAILY nystatin [Nystop] 100,000 unit/gram powder 1 applic topical 3XD ezetimibe 10 mg tablet 10 mg PO DAILY hydrocodone-acetaminophen 5-325 mg tablet 1 tab PO Q4-6H PRN (Reason: pain) Qty: 15 0RF clindamycin HCl 150 mg capsule 150 mg PO TID Qty: 15 0RF losartan 50 mg tablet 100 mg PO DAILY Patient Comments: TAKE 2 TABLETS BY MOUTH ONCE DAILY oxybutynin chloride 10 mg tablet extended release 24hr 10 mg PO DAILY Patient Comments: TAKE 1 TABLET BY MOUTH ONCE DAILY sumatriptan succinate 50 mg tablet 50 mg PO DAILY Patient Comments: TAKE 1 TABLET BY MOUTH TWICE DAILY NEEDED FOR MIGRAINE GIVE AT MINIMUM 2 HOURS APART. MAX DOSE 200MG PER 24 HOURS. potassium chloride 20 mEq tablet,ER particles/crystals 20 meq PO DAILY Patient Comments: TAKE 1 TABLET BY MOUTH ONCE DAILY WITH A MEAL warfarin 5 mg tablet 5 mg PO furosemide 20 mg tablet 20 mg PO DAILY Patient Comments: TAKE 1 TABLET BY MOUTH IN THE MORNING flavoxate 100 mg tablet 100 mg PO TID Patient Comments: TAKE 1 TABLET BY MOUTH THREE TIMES DAILY cyclobenzaprine 5 mg tablet 5 mg PO TID PRN glucosamine HCl 1,500 mg tablet 1,500 mg PO DAILY hyoscyamine sulfate [Levsin] 0.125 mg tablet 0.125 mg PO Q4H PRN docusate sodium [Colace] 100 mg capsule 100 mg PO BID Qty: 60 0RF ondansetron 4 mg tablet,disintegrating 4 mg PO Q6H PRN (Reason: nausea and vomiting) Qty: 20 0RF Follow Up/Referrals: Nico Betancourt MD [Primary Care Provider, Family Practice] Stand Alone Forms: [facility] Info Instructions
[2024-11-06 19:04] LABS: Lactate* 1.0 mmol/L (0.5-1.9)
[2024-11-06 19:05] LABS: Hematocrit* 39.7 % (33.0-51.0); Hemoglobin* 13.3 gm/dL (12.0-16.0); Immature Granulocytes Abs Auto 0.01 K/uL (0.00-0.30); Immature Granulocytes Pct Auto 0.1 %; Mean Corpuscular HGB Conc 34 gm/dL (32-36); Mean Corpuscular Hemoglobin 28 pg (26-34); Mean Corpuscular Volume 82 fL (80-100); RDW Coefficient of Variation % 16.9 % (11.5-15.5); Red Blood Count* 4.84 m/uL (4.00-5.20); White Blood Count* 8.71 K/uL (4.50-11.00)
[2024-11-06 19:06] LABS: Lymphocytes Absolute Auto 1.00 K/uL (0.90-2.90); Slide Review Reflex No
[2024-11-06 19:19] LABS: Chloride* 103 mmol/L (96-114); Potassium* 4.4 mmol/L (3.6-5.1); Sodium* 136 mmol/L (135-149)
[2024-11-06 19:23] LABS: Anion Gap 6 mEq/L (7-15); Blood Urea Nitrogen* 30 mg/dL (7-30); Calcium* 9.0 mg/dL (8.4-10.6); Carbon Dioxide* 27 mmol/L (20-32); Creatinine* 0.7 mg/dL (0.5-1.5); Est. Creatinine Clearance* 44.10; Estimated Glomerular Filt Rate 89 ml/min; Glucose* 107 mg/dL (60-115)
[2024-11-06 19:40] LABS: Procalcitonin* 0.04 ng/mL (<0.50)
[2024-11-06] MEDS: HYDROCODONE-ACETAMIN 5-325 MG 1 TAB PO (20:12)
[2024-11-06 20:20] LABS: Erythrocyte SedimentationRate* 16 mm/hr (2-20)
[2024-11-06 20:25] VITALS: BP 150/74; PULSE 65; RESP 18; TEMP 36.6; O2SAT 98
== END 2024-11-06 20:28 | disposition home or self-care (01) ==
PROVIDERS: Emergency Provider Family Medicine; PCP Surgery
DX: L03.115 Cellulitis of right lower limb (principal)
CPT/HCPCS: 36415; 80048; 83605; 84145; 85025; 85651; 86140; 93971; 99284; A9270

== ENCOUNTER 2025-01-15 12:31 | Emergency (ER) | payer MEDICARE, SELFPAY ==
--- OUTSIDE RECORDS SUMMARY | 2024-06-17 03:13 | XMS_ITS | Continuity of Care Document ---
Author Organization [facility] Address [address] [place] [address] Phone Care Team Providers Care Pediatric Audiologist Name Role Phone Unavailable Unavailable Unavailable Advance Directives Directive Yes / No Effective Date File Name No Information Encounters Encounter Description Practice Location Reason(s) For Visit Diagnoses Date Provider Providers Copied on Encounter [facility], [address] [place], [id number], [place] tel:[phone] [facility] No Information No Information [...]
--- OUTSIDE RECORDS SUMMARY | 2024-06-17 03:13 | XMS_ITS | Continuity of Care Document ---
Author Organization [facility] Address [address] [place] [address] Phone Care Team Providers Care Patrol Agent Name Role Phone Unavailable Unavailable Unavailable Advance Directives Directive Yes / No Effective Date File Name No Information Encounters Encounter Description Practice Location Reason(s) For Visit Diagnoses Date Provider Providers Copied on Encounter [facility], [address] [place], [id number], [place] tel:[phone] [facility] No Information No Information [...]
[2025-01-15] VITALS (24 sets, daily range): BP systolic 152–191; BP diastolic 70–98; PULSE 43–63; RESP 7–24; TEMP 36.4; O2SAT 92–99; BMI 31.6
--- OUTSIDE RECORDS SUMMARY | 2025-01-15 12:33 | XMS_ITS | Clinical Summary ---
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 Immunizations No information available. Advance Directives No information available.
--- OUTSIDE RECORDS SUMMARY | 2025-01-15 12:34 | XMS_ITS | Clinical Summary ---
Author Organization [facility] Address [address] [address] Phone Care Team Providers Care Ebd Special Education Teacher Name Role Phone Unavailable Primary Care Provider [...] OR as directed 2 Active nystatin (Mycostatin) 297617 UNIT/GM ointmentIndicat ions:Infection Apply topically to the [...] positional vertigo 08/13/2006 Essential hypertension 07/25/2006 Immunizations Immunization Administration Dates Next Due Influenza [...] (1 - 1-dose 75+ series) 08/15/2022 COVID-19 Single Dose 10/19/2024 Influenza Vaccine Seasonal (Standing Order) (#1) 2024 01/23/2016, 01/23/2016, 12/13/2014, Additional history exists HPV Vaccine (Standing Order) Aged Out No longer eligible based on patient's age to complete this topic Hepatitis B Vaccine (Standing Order) Aged Out No longer eligible based on patient's age to complete this topic Insurance [facility] MEDICARE PLANS
--- OUTSIDE RECORDS SUMMARY | 2025-01-15 12:34 | XMS_ITS | Clinical Summary ---
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 Active albuterol HFA (PRO-AIR; VENTOLIN; PROVENTIL) 90 mcg/actuation inhalerIndication s:Wheezing Inhale 1-2 Puffs by mouth every 4 hours if needed for Wheezing. 18 g 03/16/19 25 Active clobetasol (TEMOVATE) 0.05 % ointmentIndicatio ns:Vulvar itching Apply to vulva once daily as needed for itching - do not use for more than 1 week straight 60 g 03/16/19 25 Active cyclobenzaprine (FLEXERIL) 5 mg [...] ons:Eustachian tube dysfunction, unspecified laterality Inhale 1 [place] in both nostrils once daily. 48 g 03/16/19 25 Active hyoscyamine (LEVSIN) 0.125 mg tabletIndications :Chronic interstitial cystitis Take 1 Tablet (0.125 mg) by mouth every 4 hours if needed for Bladder Spasms. 90 Tablet 03/16/19 25 Active losartan (COZAAR) 50 mg tabletIndications :Essential hypertension with goal blood pressure less than 140/90 Take 2 Tablets (100 mg) by mouth once daily. 180 Tablet 03/16/19 25 Active SUMAtriptan (IMITREX) 50 [...] 24 hrs. 15 Tablet 04/02/19 25 Active sennosides-docusa te (8.6-50 mg) tabletIndications :Stenosis of colon (HC) Take 1 Tablet by mouth once daily. 28 Tablet 1 06/25/19 25 Active Additional Information Patient not taking.Reported on 08/11/2024 fluocinonide 0.05 TOPICAL 0.05 % external solutionIndicatio ns:Scalp itch Use 1-2 times daily on affected area for up to 2 weeks straight. 60 mL 1 08/12/19 25 Active hydrOXYzine HCL (ATARAX) 25 mg tabletIndications :Chronic interstitial cystitis Take 1 Tablet (25 mg) by mouth at bedtime. 90 Tablet 1 09/10/19 25 Active oxybutynin XL (DITROPAN XL) 10 mg CR tabletIndications :Bladder pain Take 1 Tablet (10 mg) by mouth once daily. 90 Tablet 1 09/21/19 25 Active azelastine 137 mcg/actuation (ASTELIN) nasal sprayIndications: Nonallergic rhinitis Inhale 1 [place] into affected nostril(s) two times daily. 30 mL 11/28/19 25 Active omeprazole (PRILOSEC) 40 mg Delayed-Release capsuleIndication s:Gastric reflux Take 1 Capsule (40 mg) by mouth once daily before a meal. 90 Capsule 3 11/28/19 25 Active ondansetron (ZOFRAN) 4 mg tabletIndications :Nausea Take 1 Tablet (4 mg) by mouth every 8 hours if needed for Nausea/Vomiting. 30 Tablet 1 12/22/19 25 Active warfarin (COUMADIN) 5 mg tabletIndications :Paroxysmal atrial fibrillation (HC),Anticoagulat ion monitoring, INR range 2-3 Take by mouth 01/04: 2.5 mg; 01/05: 5 mg; Otherwise 7.5 mg every Tue; 5 mg all other days in the evening OR as directed 01/05/20 Active furosemide (LASIX) 20 mg tabletIndications :Chronic diastolic congestive heart failure (HC) Take 1 Tablet (20 mg) by mouth once daily in the morning. 90 Tablet 3 01/09/20 25 Active ondansetron 4 mg tabletIndications :Nausea Take 1 Tablet (4 mg) by mouth every 8 hours if needed for Nausea/Vomiting. 30 Tablet 1 06/24/19 25 025 Discontin ued(Reord er (E-cancel not sent)) ezetimibe 10 mg tabletIndications :Hyperlipidemia, unspecified hyperlipidemia type Take 1 Tablet (10 mg) by mouth once daily. 90 Tablet 3 08/10/19 25 025 Discontin ued(*Boogie rgic/Adve rse Rxn/Side Effects) spironolactone 25 mg tabletIndications :Essential hypertension Take 1 Tablet (25 mg) by mouth once daily in the morning. 90 Tablet 3 11/28/19 25 025 Discontin ued(*Boogie rgic/Adve rse Rxn/Side Effects) warfarin (COUMADIN) 5 mg tabletIndications :Paroxysmal atrial fibrillation (HC),Anticoagulat ion monitoring, INR range 2-3 Take by mouth 7.5 mg (5 mg x 1.5) every Tue; 5 mg (5 mg x 1) all other days in the evening OR as directed 12/04/19 25 025 Discontin ued(Reord er (E-cancel not sent)) hydroCHLOROthiazi de 12.5 mg tabletIndications :Essential hypertension Take 1 Tablet (12.5 mg) by mouth once daily. 90 Tablet 3 12/22/19 25 025 Discontin ued(*Medi cation adjustmen t) Active Problems Problem Noted Date Diagnosed Date [...] losartan Recent encounter dx: 03/16/24: Appointment - [facility] 05/27/23: Appointment - [facility] 03/07/23: Appointment - [facility] 12/07/22: Appointment - [facility] 07/17/22: Appointment - [facility] Recent notes: 05/29/24: Discharge Summary by [...] Lasix as needed for any leg swelling. Stenosis of colon 05/28/2024 Colonic stricture 05/18/2024 [...] Problem Noted Date Diagnosed Date Resolved Date Stage 3 chronic kidney disease 08/19/2024 11/27/2024 Overview (08/19/2024): 04/26/24: Cr 1.0 mg/dL 04/26/24: GFR 58 mL/min 04/26/24: BUN 28 mg/dL On meds: POLYETHYLENE GLYCOL 3350 / Potassium Chloride / Sodium Bicarbonate / Sodium Chloride / sodium sulfate (external), furosemide, losartan, potassium chloride Chronic diastolic congestive heart failure 07/17/2022 03/16/2024 Severe obesity 07/25/2018 03/16/2024 Hyperopia of both eyes with astigmatism and presbyopia 03/08/2017 03/16/2024 Morbid obesity with BMI of 40.0-44.9, adult 12/20/2015 07/08/2018 Chest pain, unspecified 05/22/201202/19 Refractive error 12/26/2009 03/16/2024 Postmenopausal bleeding 04/26/200802/19 Encounters Date Type Department Care Team Description 01/12/2025 Telephone [facility] [address] [place] [address] Nico Betancourt MD Appointment (APPOINTMENT/) 01/06/2025 Telephone [facility] [address] [place] [address] Nico Betancourt MD Medication Management 01/05/2025 Nurse Triage [facility] [address] [place] [address] Nico Betancourt MD Questions 01/04/2025 9:45 AM [employer]MER Orders Only [facility] [id number] [place] [address] Lab 01/04/2025 Anticoagulation (warfarin) [facility] [address] [facility] [address] Nurse, Ahg Anticoag Anticoagulation 01/04/2025 Travel 12/21/2024 9:30 AM [employer] FORMER Office Visit [facility] [address] [place] [address] Nico Betancourt MD Follow Up (Sinuses ); Medication Management 12/21/2024 Anticoagulation (warfarin) [facility] [address] [place] [address] Nurse, Ahg Anticoag Anticoagulation 12/21/2024 Travel 12/10/2024 10:15 AM CDT Orders Only [facility] [id number] [place] [address] Lab 12/10/2024 Anticoagulation (warfarin) [facility] [address] [place] [address] Nurse, Ahg Anticoag Anticoagulation 12/10/2024 Travel 12/03/2024 9:30 AM CDT Orders Only [address] [address] <No scans attached> 12/03/2024 Anticoagulation (warfarin) [facility] [address] [place] [address] Nurse, Ahg Anticoag Anticoagulation 12/03/2024 Travel 11/27/2024 9:10 AM CDT Office Visit [facility] [address] [place] [address] Nico Betancourt MD Sinus Problem; Knee Pain/problem (Bakes cyst on the back of right knee); Wrist Pain/problem 11/27/2024 Telephone [facility] [address] [place] [address] Nico Betancourt MD Anticoagulation (Annual re-enrollment /) 11/27/2024 Travel 11/19/2024 9:30 AM CDT Orders Only [facility] [address] [place] [address] Lab 11/19/2024 Anticoagulation (warfarin) [facility] [address] [facility] [address] Nurse, [facility] Anticoag Anticoagulation 11/19/2024 Travel 11/12/2024 1:00 PM CDT Orders Only [facility] [id number] [place] [address] Lab 11/12/2024 Anticoagulation (warfarin) [facility] [address] [place] [address] Nurse, [facility] Anticoag Anticoagulation 11/12/2024 Travel 11/09/2024 9:30 AM CDT Orders Only [address] [address] <No scans attached> 11/09/2024 [facility]farin[facility] [address] [facility] [address] [facility], [facility] Anticoag Anticoagulation 11/09/2024 Travel 11/06/2024 Orders Only [facility] Scanner 1 scan: (1-Ord) SETH, VENOUS LE RT, 11/06/2024 from Last 3 Months Immunizations Immunization Administration [...] isolated from those around you? 0 05/29/2024 Alcohol Use Answer Date Recorded How often do you have a drink containing alcohol ? 0 11/27/2024 Average Number of Drinks Not on file 025 Frequency of Binge Drinking Not on file 11/18 Financial Resource Strain Answer Date R ecorded [...] on file Legal Sex Female 5:25 AM [employer] FORMER Gender Identity Not on file Sexual Orientation Not on file Obstetrics History Para Term AB IAB SAB Ectopic Multiple Livin g Live Births 3 2 1 1 2 Date Outcome GA Total Labor Labor/2nd/3rd Weight Sex Type Anes PTL Emily A1 A5 Name Clin Para Para SAB Last Filed Vital Signs Vital Sign Reading Time Taken Comments Blood Pressure 161/71 12/21/2024 9:26 AM [employer] FORMER Pulse 51 12/21/2024 9:22 AM [employer] FORMER Temperature 36.5 C (97.7 F) 05/31/2024 11:51 AM CDT Respiratory Rate 18 05/31/2024 11:51 AM CDT Oxygen Saturation 99% 12/21/2024 9:22 AM [employer] FORMER Inhaled Oxygen Concentration - - Weight 85 kg (187 lb 6.4 oz) 12/21/2024 9:22 AM [employer] Height 160 cm (5' 3) 05/28/2024 6:00 AM CDT Body Mass Index 33.2 05/28/2024 6:00 AM CDT Plan of Treatment Upcoming Encounters Date Type Department Care Team (Late st Contact Info) Description 01/18/2025 10:45 AM [employer] FORMER Office Visit [facility] [address] [place] [address] Nico Betancourt MD [address] [place] [address] 01/25/2025 10:20 AM [employer] FORMER Office Visit [facility] [address] [place] [address] Nico Betancourt MD [address] [place] [address] Health Maintenance Due Date Last Done Comments Zoster (shingles) series for age 50+ (2 of 3) 03/23/2010 01/26/2010 RSV vaccine for adults or (1 - 1-dose 75+ series) 08/15/2022 Influenza Vaccine (#1) 2024 6, 12/13/2014, 12/16/2013, [...] Priority Date/Time Associated Diagnosis Comments INR,POCT Routine 01/04/2025 9:41 AM [employer] FORMER Paroxysmal atrial fibrillation (HC) Anticoagulation monitoring, INR range 2-3 PROTIME-INR Routine 12/21/2024 10:30 AM [employer] FORMER Paroxysmal atrial fibrillation (HC) Anticoagulation monitoring, INR range 2-3 HEPATIC FUNCTION PANEL Routine 12/21/2024 10:28 AM [employer] FORMER Intermittent abdominal pain BASIC METABOLIC PANEL Routine 12/21/2024 10:28 AM [employer] FORMER Essential hypertension INR,POCT Routine 12/10/2024 10:01 AM CDT Paroxysmal atrial fibrillation (HC) Anticoagulation monitoring, INR range 2-3 INR,POCT Routine 12/03/2024 9:27 AM CDT Paroxysmal atrial fibrillation (HC) Anticoagulation monitoring, INR range 2-3 INR,POCT Routine 11/19/2024 9:19 AM CDT Paroxysmal atrial fibrillation (HC) Anticoagulation monitoring, INR range 2-3 INR,POCT Routine 11/12/2024 11:43 AM CDT Paroxysmal atrial fibrillation (HC) Anticoagulation monitoring, INR range 2-3 INR,POCT Routine 11/09/2024 9:19 AM CDT Paroxysmal atrial fibrillation (HC) Anticoagulation monitoring, INR range 2-3 SCAN-ULTRASOUND REPORT 11/06/2024 12:00 AM CDT ANTI HCV Routine 11/18/2015 10:57 AM CDT Need for hepatitis C screening test XR DXA BONE DENSITY 2 SITES AXIAL Routine 04/30/2014 11:24 AM CDT Ovarian failure from Last 3 Months or Most Recently Relevant to Health Maintenance Results * (ABNORMAL) INR - POCT [14448.2] - Standing Order (01/04/2025 9:41 AM [employer] FORMER) Only the most recent of6 resultswithin the time period is included. INR 3.9(H) ratio 01/04/2025 12:17 PM [employer] FORMER [facility] Comment: INRs >2.9 may be falsely elevated in patients receiving either unfractionated Heparin or Low Molecular Weight Heparin. Follow up testing in a hospital laboratory may be helpful if clinically indicated. INR results of > or = 5.0 should be verified using the standard venipuncture procedure. Reference Range 0.9-1.1 Moderate-intensity Warfarin Therapy 2.0-3.0 Higher-intensity Warfarin Therapy 3.0-4.0 PROTHROMBIN TIMEP 47.3(H) 10.5 - 13.1 sec 01/04/2025 12:17 PM [employer] FORMER [facility] Comment: Point of care fingerstick Prothrombin Time/INR results may vary from venous Prothrombin Time/INR methodologies. Any results exhibiting inconsistency with the patient's clinical status should be repeated using a venous Prothrombin Time/INR method. Blood BLOOD SPECIMEN / Unknown [facility] / Unknown 01/04/2025 9:41 AM [employer] FORMER 01/04/2025 9:41 AM [employer] FORMER us Nico Betancourt MD LABORATORY Final Resu lt [facility] [address] [place] [address], [facility] [address] [place] [address] * (ABNORMAL) PROTIME-INR [[id number]] - Standing Order (12/21/2024 10:30 AM [employer] FORMER) Pathologist [facility] INR 3.1(H) <1.3 12/21/2024 2:31 PM [employer] FORMER [facility] PROTIME 35.7(H) 10.6 - 12.4 sec 12/21/2024 2:31 PM [employer] FORMER [facility] Blood BLOOD SPECIMEN / Unknown [facility] / Unknown 12/21/2024 10:30 AM [employer] FORMER 12/21/2024 10:30 AM [employer] FORMER [facility] LABORATORY - 12/21/2024 2:31 PM [employer] FORMER Therapeutic Range 2.0-3.0 for most anticoagulated patients [...] Nico Betancourt MD HEMATOLOGY Final Resu lt [facility] [address] [address], [place] * (ABNORMAL) HEPATIC FUNCTION PANEL (12/21/2024 10:28 AM [employer] FORMER) Pathologist [facility] ALBUMIN 4.6 3.6 - 5.1 g/dL 12/22/2024 4:43 AM [employer] FORMER [facility] PROTEIN, TOTAL 7.5 6.1 - 8.1 g/dL 12/22/2024 4:43 AM [employer] FORMER [facility] BILIRUBIN, TOTAL 1.9(H) 0.2 - 1.2 mg/dL 12/22/2024 4:43 AM [employer] FORMER [facility] BILIRUBIN, DIRECT 0.3(H) < OR = 0.2 mg/dL 12/22/2024 4:43 AM [employer] FORMER [facility] BILIRUBIN, INDIRECT 1.6(H) 0.2 - 1.2 mg/dL (calc) 12/22/2024 4:43 AM [employer] FORMER [facility] ALKALINE PHOSPHATASE 106 37 - 153 U/L 12/22/2024 4:43 AM [employer] FORMER [facility] ALT 11 6 - 29 U/L 12/22/2024 4:43 AM [employer] FORMER [facility] AST 18 10 - 35 U/L 12/22/2024 4:43 AM [employer] FORMER [facility] GLOBULIN 2.9 1.9 - 3.7 g/dL (calc) 12/22/2024 4:43 AM [employer] FORMER [facility] ALBUMIN/GLOBULIN RATIO 1.6 1.0 - 2.5 (calc) 12/22/2024 4:43 AM [employer] FORMER [facility] Blood BLOOD SPECIMEN / Unknown [facility] / Unknown 12/21/2024 10:28 AM [employer] FORMER 12/21/2024 10:28 AM [employer] FORMER us Nico Betancourt MD CHEMISTRY Final Resu lt [facility] [address] [address], * BASIC METABOLIC PANEL (12/21/2024 10:28 AM [employer] FORMER) SODIUM 140 135 - 146 mmol/L 12/22/2024 4:43 AM [employer] FORMER [facility] POTASSIUM 4.4 3.5 - 5.3 mmol/L 12/22/2024 4:43 AM [employer] FORMER [facility] CARBON DIOXIDE 29 20 - 32 mmol/L 12/22/2024 4:43 AM [employer] FORMER [facility] GLUCOSE 79 65 - 99 mg/dL 12/22/2024 4:43 AM [employer] FORMER [facility] Comment: Fasting reference interval CALCIUM 9.4 8.6 - 10.4 mg/dL 12/22/2024 4:43 AM [employer] FORMER [facility] CREATININE 0.79 0.60 - 1.00 mg/dL 12/22/2024 4:43 AM [employer] FORMER [facility] BUN/CREATININE RATIO SEE NOTE: 6 - 22 (calc) 12/22/2024 4:43 AM [employer] FORMER [facility] Comment: Not Reported: BUN and Creatinine are within reference range. EGFR 77 > OR = 60 mL/min/1. 73m2 12/22/2024 4:43 AM [employer] FORMER [facility] UREA NITROGEN (BUN) 20 7 - 25 mg/dL 12/22/2024 4:43 AM [employer] FORMER [facility] ELECTROLYTE BALANCE 8 7 - 17 mmol/L (calc) 12/22/2024 4:43 AM [employer] FORMER [facility] CHLORIDE 103 98 - 110 mmol/L 12/22/2024 4:43 AM [employer] FORMER [facility] Blood BLOOD SPECIMEN / Unknown [facility] / Unknown 12/21/2024 10:28 AM [employer] FORMER 12/21/2024 10:28 AM [employer] FORMER Nico Betancourt MD CHEMISTRY Final Resu lt [facility] [address] [address], * SCAN-ULTRASOUND REPORT (11/06/2024 12:00 AM CDT) Anatomical Region Laterality Modality Other us Scanner OTHER Final Result * ANTI HCV [[id number]] (11/18/2015 10:57 AM CDT) HEPATITIS C ANTIBODY Non-Reacti ve Non-Reacti ve 11/18/2015 5:27 PM CDT [facility] Blood BLOOD SPECIMEN / Unknown Venipuncture / Unknown 11/18/2015 10:57 AM CDT 11/18/2015 10:58 AM CDT Narrative [facility] - 11/18/2015 5:27 PM CDT Antibodies to HCV not detected; does not exclude the possibility of exposure to HCV. Nico Betancourt MD SEND OUTS Final Resu lt [facility] [address] [address], [place] * (ABNORMAL) XR DXA BONE DENSITY [...] 8:57 PM 05/22/2012 6:59 PM Care Teams T[employer] Rep[employer] Mechanic Relationship Specialty Start Date End Date Nico Betancourt MD [address] [place] [address] PCP - General Family Practice 05/16/15
--- OUTSIDE RECORDS SUMMARY | 2025-01-15 12:34 | XMS_ITS | Data Portability ---
Author Organization [place] [facility] [place] [facility], [facility] Address [address] [place] [address] Assessment Encounter Date Assessment Date Assessment LastModified [...] mg tablet,exte nded release 24 hr 2021 [facility] 1888, [address] [place], [address], 12:06:34 hyoscyamine sulfate 0.125 mg tablet 2021 [facility] 8811, [address] [place], [address], 12:06:36 hydroxyzine HCl 25 mg tablet 2021 [facility] 2129, [address] [place], [address], 2 12:06:33 Patient TargetsNo targets recorded. Patient InstructionsNo instructions recorded. Reason for Referral None Reported. Procedures Surgical History Date Name Laterality Status Provider Name and Address Organization Details Recorded Time Appendectomy completed Donald Carranza MD [address] [place] [address],[address], [place], [address], [facility] 01/03/2022 11:42:03 Colonoscopy completed Donald Carranza MD [address] [place] [address],[address], [place], [address], [facility] 01/03/2022 11:42:11 Hernia Repair completed Donald whitlock MD [address] [place] [address],[address], [address], [facility] 01/03/2022 11:42:17 Imaging Results None recorded. Procedure Notes None recorded. Medical Equipment None Reported. Allergies Allergen ID Allergen Name Allergen Category Reaction Reaction Severity Criticality Documentation Date Start Date Code Code System Note Provider Name and Address Organization Details Recorded Time [id number] clonidine medicatio n Not available Not available Not available 01/03/2022 2599 RxNorm Donald Carranza MD [address] [place] [address],[address] [place] [address], [phone], [facility] 2 11:39:41 886876 Iodinated contrast media (substanc e) medicatio n Not available Not available Not available 01/03/2022 11228 2004 SNOMED Donald Carranza MD [address] [place] [address],[address] [place] [address], [phone], [facility] 2 11:39:50 583675 Keflex medicatio n Not available Not available Not available 01/03/2022 11713 7 RxNorm Donald Carranza MD [address] [place] [address],[address] [place] [address], [phone], [facility] 2 11:40:21 878335 latex environme nt,medica tion Not available Not available Not available 01/03/2022 94420 91 RxNorm Donald Carranza MD [address] [place] [address],[address], [place], [address], [facility] 2 11:40:25 759502 losartan medicatio n Not available Not available Not available 01/03/2022 13367 RxNorm Donald Carranza MD [address] [place] [address],[address], [facility] [phone], [facility] 2 11:40:39 535766 Product containin g penicilli n (product) medicatio n Not available Not available Not available 01/03/2022 33611 8001 BRIANA Carranza MD [address] [place] [address],[address] [phone], [facility] 2 11:40:44 035282 Substance with sulfonami de structure and antibacte rial mechanism of action (substanc e) medicatio n Not available Not available Not available 01/03/2022 88744 8003 BRIANA Carranza MD [address] [place] [address],[address] [place] [phone], [facility] 2 11:40:48 Medications Name Sig [...] Updated DateTime 01/03/2022 162.56 cm 34.3 kg/m2 23544.47 g Donald Carranza MD [address] [facility],[address], [place], [address], [facility] 01/03/2022 11:43:40 Social History Question Answer Notes LastModified by Organizat ion Details LastModified Time Tobacco Smoking Status Never Smoker Donald Carranza MD [address] [facility],[address], [place], [address], [facility] 01/03/2022 11:41:47 What Was The Date Of Your Most Recent Tobacco Screening? 01/03/2022 Information not available 01/03/2022 Sex: Unknown Functional Status Question Answer Note LastModified by Organizat ion Details LastModified Time Do you use any illicit or recreational drugs? Yes Information not available 01/03/2022 What is your level of alcohol consumption? None Information not available 01/03/2022 Mental Status None recorded. Family History Nothing Reported. Medical History Condition Response Other Y High Blood Pressure Y High Cholesterol Y Gynecological HistoryNo gynecological history recorded. Obstetrics History GPAL:G 0 P 0 0 0 0 Past Encounters Encounter ID Performer Location Encounter Start Date Encounter Closed Date Diagnosis/Indication Diagnosis SNOMED-CT Code Diagnosis ICD10 Code Diagnosis IMO Codes Diagnosis Note [id number] Donald Carranza MD [facility] [address] [place] [address] 01/03/2022 11:20:39 01/05/2022 11:03:20 Chronic interstitial cystitis 886100246 N30.10 - Continue Oxybutynin XL 10 mg daily- continue Urispas 100 mg TID- Continue hydroxyzin e daily- Follow-up in 12 months Urinary bladder pain 158 83239 R39.82 - As above Health Concerns Section Related Observation LastModified by Organization Detai ls LastModified Time None Recorded Concern Status LastModified by Organization Details LastModified Time None Recorded Advance Directives Directive None Recorded Payers Insurance Date Sequence Insurance Name Policy Number Policy Narayanan Covered Member ID Narayanan Member ID Guarantor Name 06/01/2024 1 [employer] - DOS ON OR AFTER 19 (MEDICARE REPLACEMENT/ ADVANTAGE - PPO) [id number] Cindy Gallegos [id number] Cindy Gallegos Notes Date Note Type Note [...] try Oxybutynin ER 5 mg daily (expensive). 9 - She presents for follow-up on urination. She reports no change in urination. She voids every 30 minutes to 3 hours during the day and 1x/night. She denies hesitancy or slow stream.07/20/20Here for follow up chronic interstitial cystitis, painful bladder syndrome. Has followed with my partner Dr. Zaidi who at last visit added oxybutynin to her treatment regimen. She has done a nice job of recognizing triggers. Feels the oxybutynin has helped but has not been taking it consistently.Here for follow up chronic interstitial cystitis, painful bladder syndrome. Had been doing well until she got a UTI for which was she treated with macrobid. Has noticed symptoms worse during Spring. 01/03/2022:Here for follow up chronic interstitial cystitis, painful bladder syndrome. Overall has been doing very well on current regimen. Donald Carranza MD [address] [facility] [address] [facility],[address], [place], [address], [facility] 01/03/2022 13:42:50 OBGyn Episode No OBEpisode recorded.
--- OUTSIDE RECORDS SUMMARY | 2025-01-15 12:34 | XMS_ITS | Patient Health Record ---
Author Organization [facility] Address [address] [place] [id number] Care Team Providers Care Surplus Property Disposal Agent Name Role Phone ZZ Outside Provider, sushila [...] 50 MG 1 tablet Orally Once a day; Duration: 30 day(s) Active Fluticasone Propionate (Inhal) 50 MCG/BLIST 1 puff Inhalation Twice a day Active Hyoscyamine Active Fluocinonide 0.05 % 1 application Mold Sheet Cleaner ally Twice a day Active Glucosamine MSM Complex Active flavoxATE HCl 100 MG [address] ee times a day; Duration: 30 day(s) Active Flexeril Active ClobetaPlus Ointment Active Atorvastatin Calcium 20 MG 1 tablet Oral ly Once a day; Duration: 30 day(s) Active Norvasc 5 MG 1 tablet Orally Once a day; Duration: 30 day(s) Active Acetaminophen 500 MG 1 capsule as needed Orally every 6 hrs Active Warfarin Sodium 5 MG 1 tablet Orally Onc e a day; Duration: 30 day(s) Active Soothe XP - as directed Ophthalmic Active Potassium Chloride 20 MEQ 1 packet with food Orally Once a day; Duration: 30 day(s) Active Zaditor 0.025 % 1 drop into affected eye Ophthalmic Twice a day Active Nystatin 404238 UNIT/ML 1 tsp swish and retain in mouth, then swallow or spit Mouth/Throat Four times a day; Duration: 10 days Active Imitrex 50 MG 1 tablet at least 2 hours between doses as needed Orally Twice a day Active oxyBUTYnin 3.9 MG/24HR 1 patch to skin Transdermal Two times a Week; Duration: 30 day(s) Active Social History Tobacco Use: Social History Observation Description Date Details (start date - stop date) Never Smoker NA - NA Tobacco Use/Smoking Question Answer Notes Smoking Status: nonsmoker Plan Of Treatment No Information Insurance Providers Payer Name Payer Address Payer Phone Subscriber Number Group Number Insured Name Patient Relationship to Insured Coverage Start Date Coverage End Date are Medicare Complete Adv [address] [place] [phone] [id number] Cindy Gallegos Self - patient is the insured
--- OUTSIDE RECORDS SUMMARY | 2025-01-15 12:34 | XMS_ITS | Clinical Summary ---
Author Organization [facility] Address [address] [place] [address] Care Team Providers Care Assembly Manager Name Role Phone Clinician, Not Found [...] for each transition of care or referral. Merkle Allergies Active Allergy Reactions Criticality Noted Date [...] propionate (FLONASE) 50 MCG/ACT nasal solution 1 [place] by Nasal route. 5 Active furosemide (LASIX) [...] Place into eye(s). 5 Active nystatin (MYCOSTATIN) 923196 UNIT/GM powder Apply topically. 5 Active omeprazole [...] IIV3 (Trivalent) F imelda Daodose, 65+ Yrs (99137) 01/23/2016,12/13/2014,12/16/2013 Influenza, Unspecified Formulation 12/06/1998,,11/30/1994 PCV13 (Prevnar) [...] 75+ series) 08/15/2022 COVID-19 Vaccine (1 - 2024- season) 2024 Influenza Vaccine (#1) 2024 6, [...] age to complete this topic Insurance [facility] MEDICARE Care Teams Assembly Manager Relationship Specialty Start Date End Date Clinician, Not Found, [place] [address] PCP - General 05/08/24
--- NOTE | 2025-01-15 14:00 | ED.GENADULT ---
HPI - General Adult General Chief complaint: Chest Pain Stated complaint: Chest pain, dizziness Time Seen by Provider: 01/15/25 13:04 History of Present Illness HPI narrative: This 79-year-old female comes in stating that she has felt some lightheadedness and chest tightness after taking her medications. This has occurred over the past few days. She states that these are not new medicines for her but she is having symptoms that come on about fiber 10 minutes after taking them. She feels some lightheadedness and has some chest tightness. She does not report any nausea, vomiting, shortness of breath, diaphoresis, or exercise intolerance. She reports a long history of atrial fibrillation and states that her heart rate is typically around 50 beats per minute. She arrives here with similar heart rate and rhythm but it is noted that her heart rate decreases down into the low 40s at times. She states that she had been on a beta-graciela but now is taking losartan. She reports that she does have a follow-up appointment in 3 days with her primary physician but decided to come in now not wanting to miss something more urgent or emergent. Related Data Home Medications ?Medication ?Instructions ?Recorded ?Confirmed flavoxate 100 mg tablet 100 mg PO TID 11/07/21 01/15/25 furosemide 20 mg tablet 20 mg PO DAILY 11/07/21 01/15/25 losartan 50 mg tablet 100 mg PO DAILY 11/07/21 01/15/25 oxybutynin chloride 10 mg 10 mg PO DAILY 11/07/21 01/15/25 tablet,extended release 24 hr potassium chloride 20 mEq 20 meq PO DAILY 11/07/21 01/15/25 tablet,extended release(part/cryst) sumatriptan succinate 50 mg tablet 50 mg PO DAILY 11/07/21 01/15/25 warfarin 5 mg tablet 5 mg PO 11/07/21 12/29/24 fluticasone propionate 50 1 spray intranasal DAILY 07/19/22 01/15/25 mcg/actuation nasal spray,suspension hydroxyzine HCl 25 mg tablet 25 mg PO 3XD 07/19/22 01/15/25 cyclobenzaprine 5 mg tablet 5 mg PO TID PRN 06/03/23 01/15/25 glucosamine HCl 1,500 mg tablet 1,500 mg PO DAILY 06/03/23 01/15/25 hyoscyamine sulfate 0.125 mg 0.125 mg PO Q4H PRN 06/03/23 01/15/25 tablet (Levsin) albuterol sulfate 90 mcg/actuation 2 puff inhalation 03/18/24 12/29/24 aerosol inhaler clobetasol 0.05 % topical ointment 1 applic topical 03/18/24 12/29/24 loteprednol etabonate 0.5 % eye 1 drp ophthalmic (eye) 03/18/24 12/29/24 drops,suspension omeprazole 40 mg capsule,delayed 40 mg PO DAILY 03/18/24 01/15/25 release nystatin 100,000 unit/gram topical 1 applic topical 3XD 08/16/24 01/15/25 powder (Nystop) Previous Rx's ?Medication ?Instructions ?Recorded phenazopyridine 100 mg tablet 100 mg PO TID PRN pain 6 doses #6 10/20/23 tabs hydrocodone 5 mg-acetaminophen 325 1 tab PO Q4-6H PRN pain #15 tabs 02/18/24 mg tablet ondansetron 4 mg disintegrating 4 mg PO Q6H PRN nausea and 04/13/24 tablet vomiting #20 tabs fluconazole 150 mg tablet 150 mg PO Q3D 3 doses #3 tabs 12/29/24 Allergies Allergy/AdvReac Type Severity Reaction Status Date / Time cephalexin Allergy Intermediate Chest Pain Verified 01/15/25 12:49 clonidine Allergy Intermediate tachycardia Verified 01/15/25 12:49 losartan Allergy Intermediate Tachycardia Verified 01/15/25 12:49 gadodiamide Allergy Mild Hives Verified 01/15/25 12:49 latex Allergy Mild Rash Verified 01/15/25 12:49 ibuprofen Allergy Chest Pain Verified 12/29/24 17:56 Penicillins Allergy Anaphylaxis Verified 01/15/25 12:49 Sulfa (Sulfonamide Allergy Hives Verified 01/15/25 12:49 Antibiotics) nitrofurantoin (From AdvReac Verified 01/15/25 12:49 Macrobid) propranolol AdvReac bradycardia Verified 01/15/25 12:49 IV contrast dye Allergy Hives Uncoded 12/29/24 17:56 peg 400-propylene glycol Allergy Rash Uncoded 12/29/24 17:56 Review of Systems Status of ROS: Reports: 10 or more systems reviewed and unremarkable except as noted in History and below Narrative: Constitutional: No fevers, no weight gain or loss. Eyes: No discharge. No vision changes. HENT: No congestion, no sore throat, no ear pain. Cardiovascular: No chest pain, no palpitations. Respiratory: No shortness of breath, no wheezes, no cough. Gastrointestinal: No abdominal pain, no vomiting, no diarrhea. Genitourinary: No dysuria, no hematuria. Musculoskeletal: Normal range of motion. Skin: No rashes, no pruritis. Neurological: No weakness, sensory change, speech change. Lightheadedness symptoms after taking medications. Endo/Heme/Allergies: No bruising or bleeding. No polydipsia. Pysch: no suicidality, no anxiety, no insomnia. All other systems reviewed and are negative. [facility] Medical History TMJ tenderness, left ?M26.622 - Arthralgia of left temporomandibular joint (ICD-10) Chronic diastolic (congestive) heart failure ?I50.32 - Chronic diastolic (congestive) heart failure (ICD-10) Viral gastroenteritis ?A08.4 - Viral intestinal infection, unspecified (ICD-10) Traumatic ecchymosis of face ?S00.83XA - Contusion of other part of head, initial encounter (ICD-10) Toothache ?K08.89 - Other specified disorders of teeth and supporting structures (ICD-10) Sprain of knee ?S83.90XA - Sprain of unspecified site of unspecified knee, initial encounter (ICD-10) Pain of right hand ?M79.641 - Pain in right hand (ICD-10) Nausea alone ?R11.0 - Nausea (ICD-10) Headache ?R51.9 - Headache, unspecified (ICD-10) Fall ?W19.XXXA - Unspecified fall, initial encounter (ICD-10) Epigastric pain ?R10.13 - Epigastric pain (ICD-10) Dyspnea ?R06.00 - Dyspnea, unspecified (ICD-10) Cough ?R05.9 - Cough, unspecified (ICD-10) Cellulitis of leg ?L03.119 - Cellulitis of unspecified part of limb (ICD-10) Arthritis of both temporomandibular joints ?M26.643 - Arthritis of bilateral temporomandibular joint (ICD-10) Atrial fibrillation ?I48.91 - Unspecified atrial fibrillation (ICD-10) Enlarged LA (left atrium) ?I51.7 - Cardiomegaly (ICD-10) Vitamin D deficiency ?E55.9 - Vitamin D deficiency, unspecified (ICD-10) Hyperlipidemia ?E78.5 - Hyperlipidemia, unspecified (ICD-10) Panic disorder without agoraphobia ?F41.0 - Panic disorder [episodic paroxysmal anxiety] (ICD-10) Benign paroxysmal positional vertigo ?H81.10 - Benign paroxysmal vertigo, unspecified ear (ICD-10) Hypertension ?I10 - Essential (primary) hypertension (ICD-10) Surgical History Status post trigger finger release (04/30/24) ?Z98.890 - Other specified postprocedural states (ICD-10) History of carpal tunnel surgery of right wrist (04/30/24) ?Z98.890 - Other specified postprocedural states (ICD-10) S/P trigger finger release (06/04/23) ?Z98.890 - Other specified postprocedural states (ICD-10) History of incision and drainage (02/26/14) ?Z98.890 - Other specified postprocedural states (ICD-10) History of phacoemulsification of cataract of right eye with intraocular lens implantation (04/17/17) ?Z98.41 - Cataract extraction status, right eye (ICD-10) ?Z96.1 - Presence of intraocular lens (ICD-10) History of phacoemulsification of cataract of left eye with intraocular lens implantation (05/01/17) ?Z98.42 - Cataract extraction status, left eye (ICD-10) ?Z96.1 - Presence of intraocular lens (ICD-10) History of YAG laser capsulotomy of lens of right eye (09/04/17) ?Z98.41 - Cataract extraction status, right eye (ICD-10) History of YAG laser capsulotomy of lens of left eye (04/06/20) ?Z98.42 - Cataract extraction status, left eye (ICD-10) H/O hernia repair (03/22/08) ?Z98.890 - Other specified postprocedural states (ICD-10) ?Z87.19 - Personal history of other diseases of the digestive system (ICD-10) H/O dilation and curettage (04/28/08) ?Z98.890 - Other specified postprocedural states (ICD-10) History of appendectomy ?Z90.49 - Acquired absence of other specified parts of digestive tract (ICD-10) Social History Smoking Status: Never smoker Do you use any of these nicotine containing products: None Second hand tobacco smoke exposure: No How often do you have a drink containing alcohol: never How often do you have six or more drinks on one occasion: Never AUDIT-C Alcohol total score: 0 Non-prescribed substance use: denies use Caffeine: No Are you using contraception or practicing any form of control: No service: No Exam Narrative: Exam Narrative: Constitutional: Well-developed, well-nourished, no acute distress. HEENT: Normocephalic, atraumatic. Neck: Normal range of motion. Nontender. Supple. Heart: Irregular. No murmurs. Bradycardia. Intact distal pulses. Lungs: Clear to auscultation. No chest discomfort. No wheezes, rhonchi, or rales. Abdomen: Normal bowel sounds. Nontender. No rebound tenderness. Genitalia: Deferred. Back: No midline tenderness. Normal range of motion. Extremities: Normal range of motion. No injury. Skin: Intact. No rash. Warm. No erythema or pallor. Neurologic: No altered sensation. No weakness. Alert and oriented. Psychiatric: No suicidality. No anxiety or depression. No insomnia. Nursing notes and vitals signs are reviewed. Const: Vital Signs, click to edit/add: Vital Signs - 24 hr 01/15/25 12:37 01/15/25 13:02 01/15/25 13:15 Temperature 97.6 F Pulse Rate 51 L 57 L Pulse Rate [Pulse Oximeter] 54 L Respiratory Rate 20 15 18 Blood Pressure Blood Pressure [Ri ght Upper Arm] 183/79 H Pulse Oximetry 98 97 96 Oxygen Delivery Me thod Room Air 01/15/25 13:30 01/15/25 13:32 01/15/25 13:45 Temperature Pulse Rate 53 L 54 L 45 L Pulse Rate [Pulse Oximeter] Respiratory Rate 19 15 20 Blood Pressure 152/70 H Blood Pressure [Ri ght Upper Arm] Pulse Oximetry 96 97 97 Oxygen Delivery Me thod 01/15/25 14:00 01/15/25 14:02 01/15/25 14:15 Temperature Pulse Rate 59 L 48 L 53 L Pulse Rate [Pulse Oximeter] Respiratory Rate 24 16 18 Blood Pressure 158/79 H Blood Pressure [Ri ght Upper Arm] Pulse Oximetry 92 99 98 Oxygen Delivery Me thod 01/15/25 14:30 01/15/25 14:32 01/15/25 14:45 Temperature Pulse Rate 56 L 47 L Pulse Rate [Pulse Oximeter] Respiratory Rate 15 16 24 Blood Pressure 174/70 H Blood Pressure [Ri ght Upper Arm] Pulse Oximetry 98 98 Oxygen Delivery Me thod 01/15/25 15:00 01/15/25 15:02 01/15/25 15:15 Temperature Pulse Rate 46 L 44 L 52 L Pulse Rate [Pulse Oximeter] Respiratory Rate 18 17 19 Blood Pressure 172/85 H Blood Pressure [Ri ght Upper Arm] Pulse Oximetry 98 96 97 Oxygen Delivery Me thod 01/15/25 15:30 01/15/25 15:32 Temperature Pulse Rate 48 L 55 L Pulse Rate [Pulse Oximeter] Respiratory Rate 19 18 Blood Pressure 175/75 H Blood Pressure [Ri ght Upper Arm] Pulse Oximetry 98 97 Oxygen Delivery Me thod Course Vital Signs Vital signs: Initial Vital Signs Temperature 97.6 F 01/15/25 12:37 Temperature Source Temporal Artery Scan 01/15/25 12:37 Pulse Rate 54 L 01/15/25 12:37 Respiratory Rate 20 01/15/25 12:37 Blood Pressure 183/79 H 01/15/25 12:37 Blood Pressure Mean 113 H 01/15/25 12:37 Blood Pressure Position Sitting 01/15/25 12:37 Pulse Oximetry 98 01/15/25 12:37 Oxygen Delivery Method Room Air 01/15/25 12:37 Vital Signs Temperature 97.6 F 01/15/25 12:37 Pulse Rate 54 L 01/15/25 12:37 Respiratory Rate 20 01/15/25 12:37 Blood Pressure 183/79 H 01/15/25 12:37 Pulse Oximetry 98 01/15/25 12:37 Oxygen Delivery Method Room Air 01/15/25 12:37 Temperature 97.6 F 01/15/25 12:37 Pulse Rate 55 L 01/15/25 15:32 Respiratory Rate 18 01/15/25 15:32 Blood Pressure 175/75 H 01/15/25 15:32 Pulse Oximetry 97 01/15/25 15:32 Oxygen Delivery Method Room Air 01/15/25 12:37 Medications Administered Medications: Discontinued Medications Generic Name Dose Route Start Last Admin Trade Name Linda PRN Reason Stop Dose Admin Ondansetron HCl 4 mg 01/15/25 15:09 01/15/25 15:13 Ondansetron Odt 4 Mg Tab PO 01/15/25 15:10 4 mg ONCE ONE Administration Medical Decision Making MDM Narrative Medical decision making narrative: This 79-year-old female comes in reporting lightheadedness and this seems to occur after taking her medications. She feels at times that she would be unsafe to drive because of these symptoms. This is been happening over the past several days. She has a chronic history of atrial fibrillation and is anticoagulated with Coumadin. She is not on any rate-controlling medicines and states that her heart rate is typically in the 50s beats per minute. She arrives here with reassuring vital signs and it is noted on the monitor that her heart rate dips down to the low 40s occasionally. I did obtain labs in these returned with reassuring results. Her INR returns at 2.44. Her troponin is in normal range. She is not complaining of any chest pain. It does not seem that are medications are causing these symptoms despite feeling that these symptoms seem to be worsened after taking her meds. Her chronic atrial fibrillation is showing a rather slow heart rate and she is symptomatic. I did speak with the development consultant Dr. Haley who recommended a Zio patch and will have clinic call her on Saturday to arrange for follow-up appointment and likely placement of a pacemaker. The patient is okay to return home and can come back here if symptoms are worsening. I did place an order for a Zio patch and this was applied prior to discharge from the emergency department. Lab Data Labs: Lab Results 01/15/25 Range/Units 14:15 WBC 6.66 (4.50-11.00) K/uL RBC 5.22 H (4.00-5.20) m/uL Hgb 14.8 (12.0-16.0) gm/dL Hct 43.6 (33.0-51.0) % MCV 84 (80-100) fL MCH 28 (26-34) pg MCHC 34 (32-36) gm/dL RDW Coeff of Mariaelena 15.6 H (11.5-15.5) % Plt Count 232 (140-440) K/uL Neut % (Auto) 73.8 H (42.0-72.0) % Lymph % (Auto) 15.8 L (20-44) % Cloud % (Auto) 5.6 (0.0-11.0) % Eos % (Auto) 3.2 (0.0-7.0) % Baso % (Auto) 0.8 (0.0-3.0) % Neut # (Auto) 4.90 (1.7-7.0) K/uL Lymph # (Auto) 1.10 (0.90-2.90) K/uL Cloud # (Auto) 0.40 (0.00-0.90) K/UL Eos # (Auto) 0.21 (0.00-0.50) K/uL Baso # (Auto) 0.05 (0.00-0.30) K/uL Abs Immat Gran (auto) 0.05 (0.00-0.30) K/uL Imm/Tot Granulo (auto) 0.8 % INR 2.44 H (0.91-1.10) Sodium 136 (135-149) mmol/L Potassium 3.9 (3.6-5.1) mmol/L Chloride 101 (96-114) mmol/L Carbon Dioxide 25 (20-32) mmol/L Anion Gap 10 (7-15) mEq/L BUN 23 (7-30) mg/dL Creatinine 0.7 (0.5-1.5) mg/dL Estimated Creat Clear 42.39 Estimated GFR 89 ml/min Glucose 126 H (60-115) mg/dL Calcium 8.6 (8.4-10.6) mg/dL Magnesium 1.9 (1.5-2.6) mg/dL POC Troponin I High Sensi 7.9 (2.9-13.0) pg/mL ECG Data Attestation: I personally reviewed and interpreted this ECG as follows: Interpretation: Atrial fibrillation with bradycardia. Rate 56 beats per minute. There are premature ventricular complexes occasionally. There are no specific ST or T-wave abnormalities. Discharge Plan Discharge Clinical Impression: Bradycardia, Atrial fibrillation Patient Disposition: Home, Self-Care Condition: Stable Additional Instructions: Continue current plans. Wear Zio patch. You will receive a call from cardiology clinic on Saturday to arrange for follow-up plans. Return to our emergency department if symptoms become worse. Prescriptions: No Action fluticasone propionate 50 mcg/actuation spray,suspension 1 spray intranasal DAILY hydroxyzine HCl 25 mg tablet 25 mg PO 3XD phenazopyridine 100 mg tablet 100 mg PO TID PRN (Reason: pain) Qty: 6 0RF loteprednol etabonate 0.5 % drops,suspension 1 drp ophthalmic (eye) Patient Comments: INSTILL 1 DROP INTO BOTH EYES THREE TIMES DAILY FOR 7 DAYS. SHAKE WELL BEFORE USE albuterol sulfate 90 mcg/actuation HFA aerosol inhaler 2 puff inhalation Patient Comments: [NO ORIGINAL SIG] clobetasol 0.05 % ointment 1 applic topical omeprazole 40 mg capsule,delayed release(DR/EC) 40 mg PO DAILY nystatin [Nystop] 100,000 unit/gram powder 1 applic topical 3XD fluconazole 150 mg tablet 150 mg PO Q3D Qty: 3 0RF Rx Instructions: may repeat second dose 72 hrs after first dose if symptoms persist hydrocodone-acetaminophen 5-325 mg tablet 1 tab PO Q4-6H PRN (Reason: pain) Qty: 15 0RF losartan 50 mg tablet 100 mg PO DAILY Patient Comments: TAKE 2 TABLETS BY MOUTH ONCE DAILY oxybutynin chloride 10 mg tablet extended release 24hr 10 mg PO DAILY Patient Comments: TAKE 1 TABLET BY MOUTH ONCE DAILY sumatriptan succinate 50 mg tablet 50 mg PO DAILY Patient Comments: TAKE 1 TABLET BY MOUTH TWICE DAILY NEEDED FOR MIGRAINE GIVE AT MINIMUM 2 HOURS APART. MAX DOSE 200MG PER 24 HOURS. potassium chloride 20 mEq tablet,ER particles/crystals 20 meq PO DAILY Patient Comments: TAKE 1 TABLET BY MOUTH ONCE DAILY WITH A MEAL warfarin 5 mg tablet 5 mg PO furosemide 20 mg tablet 20 mg PO DAILY Patient Comments: TAKE 1 TABLET BY MOUTH IN THE MORNING flavoxate 100 mg tablet 100 mg PO TID Patient Comments: TAKE 1 TABLET BY MOUTH THREE TIMES DAILY cyclobenzaprine 5 mg tablet 5 mg PO TID PRN glucosamine HCl 1,500 mg tablet 1,500 mg PO DAILY hyoscyamine sulfate [Levsin] 0.125 mg tablet 0.125 mg PO Q4H PRN ondansetron 4 mg tablet,disintegrating 4 mg PO Q6H PRN (Reason: nausea and vomiting) Qty: 20 0RF Follow Up/Referrals: Nico Betancourt MD [Primary Care Provider, Family Practice] [facility]: [facility] Info Inst[facility]
--- OUTSIDE RECORDS SUMMARY | 2025-01-15 14:09 | XMS_ITS | Clinical Summary ---
Author Organization [facility] Address [address] , [address] [place] [address] Phone Care Team Providers Care Kiln Tender Name Role Phone [facility] Unavailable Unava ilable Conditions or Problems Problem Name Problem Code Onset Date Status Entry Date Provider Comment Standard Description Annotate Hand numbness [id number] (SNOMED CT) Active Jack Dias MD Numbness of hand Median neuropathy, right 081311598 (SNOMED CT) Active Jack Disa MD Median [...] Procedures Code Procedure Name Date Entry Date CPT-10911 Nerve Conduction 7-8 studies CPT-05923 EMG with NCS (5+ muscles) - 1 limb 02/26 Vital Signs No information available. Immunizations No information available. Advance Directives No information available.
[2025-01-15 14:40] LABS: Hematocrit* 43.6 % (33.0-51.0); Hemoglobin* 14.8 gm/dL (12.0-16.0); Immature Granulocytes Abs Auto 0.05 K/uL (0.00-0.30); Immature Granulocytes Pct Auto 0.8 %; Mean Corpuscular HGB Conc 34 gm/dL (32-36); Mean Corpuscular Hemoglobin 28 pg (26-34); Mean Corpuscular Volume 84 fL (80-100); RDW Coefficient of Variation % 15.6 % (11.5-15.5); Red Blood Count* 5.22 m/uL (4.00-5.20); White Blood Count* 6.66 K/uL (4.50-11.00)
[2025-01-15 14:45] LABS: Lymphocytes Absolute Auto 1.10 K/uL (0.90-2.90); Slide Review Reflex No
[2025-01-15 15:01] LABS: Chloride* 101 mmol/L (96-114); Sodium* 136 mmol/L (135-149)
[2025-01-15 15:02] LABS: Potassium* 3.9 mmol/L (3.6-5.1)
[2025-01-15 15:04] LABS: Anion Gap 10 mEq/L (7-15); Blood Urea Nitrogen* 23 mg/dL (7-30); Carbon Dioxide* 25 mmol/L (20-32); Creatinine* 0.7 mg/dL (0.5-1.5); Est. Creatinine Clearance* 42.39; Estimated Glomerular Filt Rate 89 ml/min
[2025-01-15 15:05] LABS: Calcium* 8.6 mg/dL (8.4-10.6); Glucose* 126 mg/dL (60-115); INR 2.44 (0.91-1.10); Prothrombin Time 27.6 Seconds
[2025-01-15] MEDS: ONDANSETRON ODT 4 MG TAB PO (15:13)
--- NOTE | 2025-01-15 17:10 | PC.NURSE ---
Zio patch applied, pt getting dressed now
== END 2025-01-15 17:13 | disposition home or self-care (01) ==
PROVIDERS: Emergency Provider Emergency Medicine Emergency Medical Services; PCP Surgery
DX: R00.1 Bradycardia, unspecified (principal); I48.91 Unspecified atrial fibrillation; Z79.01 Long term (current) use of anticoagulants; Z79.899 Other long term (current) drug therapy
CPT/HCPCS: 36415; 80048; 83735; 84484; 85025; 85610; 93005; 99284; A9270